=== PATIENT | male | born 1975 | race Caucasian/White ===

== ENCOUNTER 2019-05-09 20:24 | Emergency (ER) | payer OTHER, SELFPAY ==
--- NOTE | ~2019-05-09 | CT_ITS ---
EXAMINATION: CT abdomen pelvis w con EXAM DATE: 05/09/2019 22:22 INDICATION: Diffuse abdominal pain, history of Crohn's disease. TECHNIQUE: Spiral CT of the abdomen and pelvis was performed following intravenous injection of 100 m L Omnipaque 350. Axial, coronal and sagittal images were reviewed. The dose-length product (DLP) fo r this examination was 1339.87 mGy-cm. The exposure was tailored according to patient size (auto mA exposure control), and iterative reconstruction (ASIR) was used as additional dose reduction techniqu e. Comparison is made to prior examination from 01/29/2009. FINDINGS: The liver, spleen, adrenal glands and pancreas are unremarkable. Gallbladder is unremarkab le. No biliary obstruction. Portal and splenic veins are patent. Kidneys enhance symmetrically. T here is no hydronephrosis. The prostate is unremarkable. The bladder is unremarkable. There is no retroperitoneal or pelvic lymphadenopathy. The appendix is normal. Abnormal terminal ileum with moderate wall thickening, edema, relatively nor mal-appearing segment and then another shorter ileal segment wall edema. Moderately distended ileum w ithout transition point, normal jejunum. Appearance is consistent with Crohn's disease. Small amount of free pelvic fluid without organized fluid collection. There is expected amount of colonic stool. No free intraperitoneal gas. The heart is normal in size. There are no pericardial or pleural eff usions. The lung bases are unremarkable. There are no osteoblastic or osteolytic lesions identified . IMPRESSION: 1. Terminal ileitis, consistent with Crohn's disease. 2. Small free pelvic fluid. No organized abscess. Reviewed, dictated and finalized at location A.
[2019-05-09 20:32] VITALS: BP 127/65; PULSE 81; RESP 22; TEMP 37.2; O2SAT 99
[2019-05-09 20:45] LABS: Basophils Percent Auto 0.3 % (0.2-1.2); Eosinophils Percent Auto 0.2 % (0-4.4); Hematocrit 46.8 % (42.0-52.0); Hemoglobin 15.5 g/dL (14.0-18.0); Immature Granulocyte Absolute 0.03 K/mm3 (0.00-0.031); Immature Granulocyte Percent A 0.2 % (0-0.5); Lymphocytes Absolute Auto 0.87 K/mm3 (0.9-3.2); Lymphocytes Percent Auto 6.2 % (18.3-44.2); Mean Corpuscular HGB Conc 33.1 g/dl (32-36); Mean Corpuscular Hemoglobin 29.1 pg (26-34); Mean Corpuscular Volume 87.8 fl (80-100); Neutrophils Absolute Auto 12.1 K/mm3 (1.3-6.7); Neutrophils Percent Auto 86.1 % (45.5-73.1); Platelet Count Result 275 k/mm3 (150-375); Red Blood Count 5.33 M/mm3 (4.6-6.20); Red Cell Distribution Width 13.3 % (11.5-14.5); White Blood Count 14.1 K/mm3 (4.5-10.0)
[2019-05-09 20:57] LABS: Alanine Aminotransferase 34 U/L (4-50); Albumin Level 4.3 g/dL (3.5-5.1); Alkaline Phosphatase 98 U/L (38-126); Aspartate Amino Transferase 24 U/L (17-59); Bilirubin,Total 0.9 mg/dL (0.2-1.3); Blood Urea Nitrogen 9 mg/dL (9-20); Calcium 9.4 mg/dL (8.4-10.2); Carbon Dioxide 27 mmol/L (22-30); Chloride 99 mmol/L (98-107); Estimated CRCL calculation 93 ml/min; Estimated Glomerular Filt Rate > 60; Glucose 117 mg/dL (75-110); Lipase 18 U/L (23-300); Potassium 4.1 mmol/L (3.4-5.0); Sodium 134 mmol/L (137-145)
[2019-05-09 21:18] VITALS: BP 145/78; PULSE 98; RESP 18; TEMP 37.1; O2SAT 98
--- NOTE | 2019-05-09 21:22 | ED.ABDPAIN ---
HPI - Abdominal Pain General Chief Complaint: Abdominal Pain Stated Complaint: crohn's flare up Time Seen by Provider: 05/09/19 21:13 Source: patient and RN notes reviewed Mode of arrival: ambulatory Limitations: no limitations History of Present Illness HPI narrative: Pt is a 43 y/o male with a Hx of Crohn's disease, who presents to the ED with c/o worsening diffuse ABD pain starting 2 days ago. He notes that he has a Hx of several Crohn's flare-ups per year, and states that his current symptoms feel similar to previous flare-ups. Pt notes that he developed diffuse ABD pain on Thursday, and states that he began having watery stools yesterday. He reports a low-grade fever of 100.7 degrees and one episode of emesis as of earlier today, but denies any rectal bleeding. Pt states that he currently follows with field marketing representative, Dr. Conteh. He notes that he received a Remicade injection for his symptoms earlier today. MD elicited complaint: abdominal pain Pertinent past history: other (Crohn's disease) Onset (ago): day(s) (2) Pain Consistency: other (worsening) Location: diffuse Context: confirms history of similar episodes Associated symptoms: vomiting, diarrhea and fever (low-grade) Related Data Allergies Allergy/AdvReac Type Severity Reaction Status Date / Time No Known Allergies Allergy Verified 05/09/19 21:22 Review of Systems Review of Systems: All systems reviewed & are unremarkable except as noted in HPI and below Constitutional: Constitutional: Reports fever(s) (low-grade) Gastrointestinal: Gastrointestinal: Reports abdominal pain (diffuse ABD pain), Denies hematochezia, Reports diarrhea and Reports vomiting PMFSH Past Medical History Medical History Arthritis Back pain Crohn's disease Surgical History Surgical History No significant past surgical history Social History Social History Smoking status: Current every day smoker Exam Narrative: Exam Narrative: GENERAL: Uncomfortable-appearing, well-nourished, and in no acute distress. HEAD: Normocephalic, atraumatic. ENT: Mucous membranes moist. NECK: Supple. CHEST: Clear to auscultation. No respiratory distress. HEART: Regular rate and rhythm. Normal peripheral pulses. ABDOMEN: Soft, mild diffuse tenderness w/o guarding, nondistended, normal active bowel sounds. EXTREMITIES: Normal range of motion. No edema. SKIN: Warm, dry, no rash. NEURO: Alert and oriented x3. Course Course Emergency Course: Improvement in pain with morphine and Bentyl. Will re-dose pain medication prior to discharge. Informed of results. Took oral prednisone is here and will start him on a burst outpatient. Needs to follow-up with his field marketing representative. Vital Signs Vital signs: Vital Signs Temperature 98.9 F 05/09/19 20:32 Pulse Rate 81 05/09/19 20:32 Respiratory Rate 22 H 05/09/19 20:32 Blood Pressure 127/65 05/09/19 20:32 Pulse Oximetry 99 05/09/19 20:32 Temperature 98.8 F 05/09/19 22:06 Pulse Rate 98 05/09/19 21:18 Respiratory Rate 18 05/09/19 21:18 Blood Pressure 145/78 H 05/09/19 21:18 Pulse Oximetry 98 05/09/19 21:18 MDM - Abdominal Pain Lab Data Result diagrams: 05/09/19 20:35 05/09/19 20:35 Labs: Lab Results 05/09/19 05/09/19 05/09/19 Range/Units 20:35 20:35 21:19 WBC 14.1 H (4.5-10.0) K/mm3 RBC 5.33 (4.6-6.20) M/mm3 Hgb 15.5 (14.0-18.0) g/dL Hct 46.8 (42.0-52.0) % MCV 87.8 (80-100) fl MCH 29.1 (26-34) pg MCHC 33.1 (32-36) g/dl RDW 13.3 (11.5-14.5) % Plt Count 275 (150-375) k/mm3 MPV 11.0 H (7.4-10.4) fl Immature Gran % (Auto) 0.2 (0-0.5) % Neut % (Auto) 86.1 H (45.5-73.1) % Lymph % (Auto) 6.2 L (18.3-44.2) % Storey % (Auto) 7.0 (2.6-8.5) % Eos % (Auto) 0.2 (0-4.4) % Bas
[2019-05-09] MEDS: ONDANSETRON INJ 4 MG/2 ML VIAL IV PUSH (21:36)
[2019-05-09] MEDS: MORPHINE SULFATE 4 MG/ML INJ IV PUSH ×2 (21:36→23:50)
[2019-05-09 21:37] LABS: Add Urine Microscopic? YES; Appearance Urine Clear (Clear); Bacteria Urine Trace /hpf; Bilirubin Urine Negative (Negative); Blood Urine 1+ (Negative); Color Urine Yellow (Yellow); Glucose Urine UA Negative (Negative); Ketones Urine Trace mg/dL (Negative); Leukocyte Esterase Ur Trace LEU/UL (Negative); Mucus Urine Moderate /lpf; Nitrate Urine Negative (Negative); Protein Urine 1+ mg/dL (Negative); Squamous Epithelial Cell Urine Rare /hpf (Few); Urobilinogen Urine Negative mg/dL (<2.0)
[2019-05-09] MEDS: DICYCLOMINE HCL INJ 20 MG/2 ML VIAL IM (21:39)
[2019-05-09 22:06] VITALS: TEMP 37.1
[2019-05-09 22:41] VITALS: BP 140/67; PULSE 81; RESP 16; O2SAT 99
[2019-05-09] MEDS: predniSONE 40 MG, predniSONE 10 MG 50 MG PO (23:07)
[2019-05-09 23:54] VITALS: BP 143/78; PULSE 80; RESP 16; TEMP 36.6; O2SAT 99
[2019-05-10 00:20] VITALS: TEMP 37.1
[2019-05-10 00:21] VITALS: BP 141/61; PULSE 76; RESP 16; TEMP 37.1; O2SAT 97
== END 2019-05-10 00:23 | disposition home or self-care (01) ==
PROVIDERS: Emergency Medicine; Emergency Provider Emergency Medicine
DX: K50.00 Crohn's disease of small intestine without complications (principal); M19.90 Unspecified osteoarthritis, unspecified site
CPT/HCPCS: 36415; 74177; 80053; 81001; 83690; 85025; 87086; 87088; 96372; 96374; 96375; 96376; 99284; J0500; J2270; J2405; J7512; Q9967

== ENCOUNTER 2019-07-14 18:20 | Emergency (ER) | payer OTHER, SELFPAY ==
--- NOTE | ~2019-07-14 | XR_ITS ---
EXAMINATION: XR chest 2V EXAM DATE: 07/14/2019 18:56 INDICATION: Fever, muscle aches, weakness. TECHNIQUE: Frontal and lateral projections of the chest obtained and reviewed. Comparison is made to prior examination from 06/01/2018. FINDINGS: The lungs are clear. There are no pleural effusions. The cardiomediastinal silhouette is within normal limits. There is no pneumothorax suspected. The bones and soft tissues are unremarkab le. IMPRESSION: No acute cardiopulmonary findings. Reviewed, dictated and finalized at location A.
[2019-07-14 18:30] VITALS: BP 135/85; PULSE 92; RESP 16; TEMP 38.3; O2SAT 97
--- NOTE | 2019-07-14 18:55 | ED.URI ---
HPI - URI/Sore Throat General Chief Complaint: Upper Respiratory Infection Stated Complaint: fever/body aches/weakness Time Seen by Provider: 07/14/19 18:35 Source: patient Mode of arrival: ambulatory Limitations: no limitations History of Present Illness HPI Narrative: Jaswinder Pena is a 43 yo male with a PMH of Crohns disease, who comes to [facility] with sore throat, fever, muscle aches that started yesterday. She is a former smoker. He has some immunocompromise due to Remicade given for Crohn's disease; received Remicade 2 weeks ago. 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 Does not know anyone that is been ill Related Data Home Medications Medication Instructions Recorded Confirmed infliximab [Remicade] 100 mg IV WEEKLY 07/14/19 07/14/19 Allergies Allergy/AdvReac Type Severity Reaction Status Date / Time No Known Allergies Allergy Verified 07/14/19 18:38 Review of Systems Review of Systems: Narrative: CONSTITUTIONAL: has fever, chills, sweats. Myalgia EYES: Denies visual changes, redness, discharge. ENT: Denies rhinorrhea, congestion, has sore throat, no otalgia. CARDIOVASCULAR: Denies chest pain, palpitations, edema. RESPIRATORY: Denies dyspnea, wheezing, cough GASTROINTESTINAL: Denies abdominal pain, nausea, vomiting, diarrhea. GENITOURINARY: Denies dysuria, hematuria, abnormal discharge SKIN: Denies rash or itching. NEUROLOGIC: Denies numbness, or focal weakness. PSYCHIATRIC: Denies anxiety or depression. [facility] Past Medical History Medical History Arthritis Back pain Crohn's disease Surgical History Surgical History No significant past surgical history Family History Family History (Updated 07/14/19 @ 18:59 by Abby Sanders CNP) Other Psoriasis Social History Social History Smoking status: Current every day smoker Alcohol intake: current Gender identity (if verbalized by the patient): Male Comments At time of signature, I agree with nursing past medical, surgical, social and family history. There is no relevant family history pertinent to the presenting complaint. Exam Narrative: Exam Narrative: GENERAL: This is a well-nourished, well-developed patient, in moderate distress. Febrile HEAD: normocephalic, atraumatic. EYES: Sclera clear/white. Vision is grossly intact. EARS: External ears normal, . Hearing grossly intact. NOSE: External nose normal without nasal discharge, nares without redness, no rhinorrhea. THROAT: Mucous membranes moist, posterior pharynx erythema NECK: Neck supple, CARDIOVASCULAR: Regular rate and rhythm without murmurs, gallops, or rubs. RESPIRATORY: Coarse to auscultation. Breath sounds equal bilaterally. No wheezes, rales, or rhonchi. GASTROINTESTINAL: Abdomen soft, SKIN: warm, intact with no suspicious lesions or rash, good texture and turgor. NEURO: awake, alert, and oriented to person, place and time. There were no obvious focal neurologic abnormalities. Steady gait EXTREMITIES: Normal range of motion. BACK: Nontender without deformity Course Course Emergency Course: Flu swab and strep swab done-negative Chest [id number] for acute pathology Patient is using antipyretics, drinking fluids Vital Signs Vital signs: Vital Signs Temperature 101.0 F H 07/14/19 18:30 Pulse Rate 92 07/14/19 18:30 Respiratory Rate 16 07/14/19 18:30 Blood Pressure 135/85 07/14/19 18:30 Pulse Oximetry 97 07/14/19 18:30 Temperature 101.0 F H 07/14/19 18:30 Pulse Rate 92 07/14/19 18:30 Respiratory Rate 16 07/14/19 18:30 Blood Pressure 135/85 07/14/19 18:30 Pulse Oximetry 97 07/14/19 18:30 MDM - URI/Sore Throat Lab Data Labs: Influenza A Screen Negative Reference Range: Negative Influe
== END 2019-07-14 19:11 | disposition home or self-care (01) ==
PROVIDERS: Emergency Provider Nurse Practitioner
DX: J06.9 Acute upper respiratory infection, unspecified (principal); R50.81 Fever presenting with conditions classified elsewhere; K50.90 Crohn's disease, unspecified, without complications; F17.200 Nicotine dependence, unspecified, uncomplicated; Z20.828 Contact with and (suspected) exposure to other viral communicable diseases
CPT/HCPCS: 71046; 87081; 87804; 87880; 99213; G0463

== ENCOUNTER 2019-07-15 08:13 | Outpatient (NON) | payer OTHER, SELFPAY | END 2019-07-15 08:14 | PROVIDERS: Visit Provider Nurse Practitioner | DX: R50.9 Fever, unspecified (principal); M79.10 Myalgia, unspecified site; J06.9 Acute upper respiratory infection, unspecified; Z53.8 Procedure and treatment not carried out for other reasons | CPT/HCPCS: 87635; C9803; U0003 ==

== ENCOUNTER 2020-04-10 11:50 | Emergency (ER) | payer OTHER, SELFPAY ==
--- NOTE | ~2020-04-10 | XR_ITS ---
XR knee RT 3V 04/10/2020 12:41 Indication: Right knee pain and swelling Procedure: 3 views right knee Comparison: No prior studies for comparison. Findings: Small joint effusion. Mild osteoarthritis of the patellofemoral compartment. No acute fract ure or traumatic malalignment. Impression: 1: No acute fracture. 2: Small joint effusion. Reviewed, dictated and finalized at location B. CAL DEVICE SALES CONSULTANT Impression: 1: No acute fracture. 2: Small joint effusion.
[2020-04-10 11:57] VITALS: BP 156/83; PULSE 86; RESP 16; TEMP 37.1; O2SAT 99
[2020-04-10] MEDS: KETOROLAC 30 MG/ML VIAL (*BKC) IM (12:52)
--- NOTE | 2020-04-10 15:01 | ED.GENADULT ---
HPI - General Adult General Chief complaint: Extremity Injury, Lower <Nikia Felipe PA-C - Last Filed: 04/10/20 15:10> Stated complaint: knee swelling and pain <SLIME Bear Last Filed: 04/10/20 15:10> Time Seen by Provider: 04/10/20 12:09 <Nikia Felipe PA-C - Last Filed: 04/10/20 15:10> Source: patient <SLIME Bear Last Filed: 04/10/20 15:10> Mode of arrival: ambulatory <SLIME Bear Last Filed: 04/10/20 15:10> Limitations: no limitations <SLIME Bear Last Filed: 04/10/20 15:10> History of Present Illness HPI narrative: Patient presents with chief complaint of right knee pain that has been occurring for the past 2 weeks but has worsened over the past few days. Patient denies known injury. Patient states that he does not have pain with weightbearing on the leg but he does have pain with flexion and extension of the knee. He reports pain to the lateral superior aspect of the knee. no fever, chills, or other symptoms. <Nikia Felipe PA-C - Last Filed: 04/10/20 15:10> Related Data Home medications: Home Medications Medication Instructions Recorded Confirmed infliximab [Remicade] 100 mg IV WEEKLY 07/14/19 07/14/19 <Nikia Felipe PA-C - Last Filed: 04/10/20 15:10> Allergies/adverse reactions: Allergies Allergy/AdvReac Type Severity Reaction Status Date / Time No Known Allergies Allergy Verified 04/10/20 12:01 <Nikia Felipe PA-C - Last Filed: 04/10/20 15:10> Review of Systems Review of Systems: Narrative: CONSTITUTIONAL: Denies fever, chills, or sweats. EYES: Denies visual changes, redness, or discharge. ENT: Denies rhinorrhea, congestion, sore throat, or otalgia. CARDIOVASCULAR: Denies chest pain, palpitations, or edema. RESPIRATORY: Denies cough or dyspnea. GASTROINTESTINAL: Denies abdominal pain, nausea, vomiting, or diarrhea. GENITOURINARY: Denies dysuria or hematuria. SKIN: Denies rash or itching. MUSCULOSKELETAL: Reports right knee pain Denies back pain, myalgia, or joint pain NEUROLOGIC: Denies headache, numbness, dizziness, or weakness. PSYCHIATRIC: Denies anxiety or depression. <Nikia Felipe PA-C - Last Filed: 04/10/20 15:10> PMFSH Past Medical History Medical History: Medical History (Updated 04/10/20 @ 13:37 by Nikia Felipe PA-C) Arthritis Back pain Crohn's disease <Nikia Felipe PA-C - Last Filed: 04/10/20 15:10> Surgical History Surgical History: Surgical History No significant past surgical history <Nikia Felipe PA-C - Last Filed: 04/10/20 15:10> Family History Family History: Family History (Updated 07/14/19 @ 18:59 by Abby Sanders CNP) Other Psoriasis <Nikia Felipe PA-C - Last Filed: 04/10/20 15:10> Social History Social History: Social History Smoking status: Current every day smoker Alcohol intake: current Gender identity (if verbalized by the patient): Male <Nikia Felipe PA-C - Last Filed: 04/10/20 15:10> Exam Narrative: Exam Narrative: GENERAL: Well-appearing, well-nourished. HEAD: Normocephalic, atraumatic. EYES: PERRLA and EOMI. NECK: ROM intact. CHEST: Clear to auscultation. No respiratory distress. No wheezes rales or rhonchi HEART: Regular rate and rhythm. EXTREMITIES: Right knee: Limited flexion and extension due to pain. No significant laxity noted. tender to palpation to anterior lateral superior aspect of right knee. no anterior erythema or ecchymosis. SKIN: Warm, dry, no rash. NEURO: No focal deficits. Alert and oriented x3. PSYCH: Normal mood and affect. <Nikia Felipe PA-C - Last Filed: 04/10/20 15:10> Course Vital Signs Vital signs: Vital Signs Temperature 98.7 F 04/10/20 11:57 Pulse Rate 86 04/10/20 11:57 Respiratory Rate 16 04/10/20 11:57 Blood Pressure
== END 2020-04-10 13:57 | disposition home or self-care (01) ==
PROVIDERS: Emergency Provider General Practice
DX: M25.461 Effusion, right knee (principal); M19.90 Unspecified osteoarthritis, unspecified site; K50.90 Crohn's disease, unspecified, without complications; F17.200 Nicotine dependence, unspecified, uncomplicated
CPT/HCPCS: 73562; 96372; 99283; J1885

== ENCOUNTER → 2020-05-07 09:59 | Outpatient (CLI) | payer OTHER, SELFPAY ==
--- NOTE | ~2020-05-07 | MR_ITS ---
EXAMINATION: MR knee RT wo con DATE: 05/07/2020 11:04 INDICATION: Right knee pain. TECHNIQUE: Magnetic resonance imaging (MRI) of the right knee was performed without intravenous contr ast. Sequences included axial PD-weighted FS FSE, coronal PD-weighted FSE and PD-weighted FS FSE, sag ittal PD-weighted FSE, and sagittal T2-weighted FS FSE. COMPARISON: Right knee radiographs 04/24/2020 FINDINGS: Medial compartment: Medial meniscus is normal. Medial compartment cartilage is normal. Lateral compartment: Lateral meniscus is normal. Lateral compartment cartilage is normal. Patellofemoral compartment: There is cartilage surface regularity of patellar lateral facet. There is shallow partial-thickness c artilage loss of lateral trochlea. Ligaments and tendons: Anterior and posterior cruciate ligaments are normal. Medial collateral ligament and lateral collater al ligament complex are normal. There is moderate patellar tendinopathy. Fluid: There is a small knee joint effusion. There is trace fluid in a Alfaro's cyst. There is mild prepatell ar and superficial infrapatellar bursitis. Osseous/other: There is bone marrow edema in anterior patella, consistent with stress reaction. IMPRESSION: 1. Mild patellofemoral compartment chondrosis. 2. Small knee joint effusion. Reviewed, dictated and finalized at location A. ERCIAL LENDING RELATIONSHIP MANAGER
== END ==
PROVIDERS: Visit Provider Nurse Practitioner Family
DX: M25.461 Effusion, right knee (principal)
CPT/HCPCS: 73721

== ENCOUNTER 2020-06-26 12:56 | Emergency (ER) | payer OTHER, SELFPAY ==
--- NOTE | ~2020-06-26 | XR_ITS ---
EXAMINATION: XR hand LT min 3V EXAM DATE: 06/26/2020 13:55 INDICATION: No known recent injury provided at this time. Pain of the left hand. TECHNIQUE: Left hand frontal, lateral and oblique projections obtained and reviewed. There is no storm or study for comparison. FINDINGS: Left metacarpal bones are unremarkable. There are no acute fractures or dislocations ident ified. There is no subcutaneous gas. There may be diffuse soft tissue swelling over the hand. There are no bony erosions identified. There are no radiopaque foreign bodies. IMPRESSION: No acute osseous findings. Reviewed, dictated and finalized at location A. IMPRESSION: No acute osseous findings.
[2020-06-26 13:41] VITALS: BP 146/79; PULSE 78; RESP 18; TEMP 36.7; O2SAT 99
--- NOTE | 2020-06-26 14:19 | ED.EXTPRO ---
HPI - Extremity Problem General Chief complaint: Extremity Injury, Upper <Karin Rosas PA-C - Last Filed: 06/26/20 15:45> Stated complaint: hand swelling <Karin Rosas PA-C - Last Filed: 06/26/20 15:45> Time Seen by Provider: 06/26/20 13:54 <Karin Rosas PA-C - Last Filed: 06/26/20 15:45> Source: patient <Karin Rosas PA-C - Last Filed: 06/26/20 15:45> Mode of arrival: ambulatory <Karin Rosas PA-C - Last Filed: 06/26/20 15:45> Limitations: no limitations <Karin Rosas PA-C - Last Filed: 06/26/20 15:45> History of Present Illness HPI Narrative: This is a 44 year old male that presents to the ER for left hand pain x 1 week. Reports pain is mostly in the 2nd MCP joint. Worse with movement and relieved with rest. No known injury or trauma. Over the last couple of days he noted that the hand started to get swollen and is mildly red. Denies fevers. <Karin Rosas PA-C - Last Filed: 06/26/20 15:45> Related Data Allergies/Adverse reactions: Allergies Allergy/AdvReac Type Severity Reaction Status Date / Time No Known Allergies Allergy Verified 06/26/20 13:43 <Karin Rosas PA-C - Last Filed: 06/26/20 15:45> Review of Systems Review of Systems: Narrative: CONSTITUTIONAL: Denies fever SKIN: Denies rash MUSCULOSKELETAL: Reports joint pain, and myalgia. NEUROLOGIC: Denies numbness <Karin Rosas PA-C - Last Filed: 06/26/20 15:45> All systems reviewed & are unremarkable except as noted in HPI and below <Karin Rosas PA-C - Last Filed: 06/26/20 15:45> PMFSH Past Medical History Medical History: Medical History (Updated 06/26/20 @ 15:43 by Karin Rosas PA-C) Abdominal pain Arthritis Back pain Crohn's disease Lateral meniscus tear Rheumatoid arthritis Right knee pain Strain of quadriceps tendon <Karin Rosas PA-C - Last Filed: 06/26/20 15:45> Surgical History Surgical History: Surgical History No significant past surgical history <Karin Rosas PA-C - Last Filed: 06/26/20 15:45> Family History Family History: Family History (Updated 04/24/20 @ 12:16 by Waleska Booth RT(R)) Other Arthritis Asthma Cancer Diabetes mellitus Hypertension Neuropathy Psoriasis <Karin Rosas PA-C - Last Filed: 06/26/20 15:45> Social History Social History: Social History (Updated 04/24/20 @ 12:55 by Waleska Booth RT(R)) Smoking packs per day: 1 Smoking cigarettes per day: 20.0 Years smoked: 20 Smoking pack-years: 20.00 Smoking status: Current every day smoker Alcohol intake: current Substance use: never Substance use type: does not use Gender identity (if verbalized by the patient): Male <Karin Rosas PA-C - Last Filed: 06/26/20 15:45> Exam Narrative: Exam Narrative: GENERAL: Well-appearing, well-nourished, and in no acute distress. HEAD: Normocephalic, atraumatic. EYES: EOMI. CHEST: Clear to auscultation. No respiratory distress. No wheezes rales or rhonchi HEART: Regular rate and rhythm. No murmur heard. Normal peripheral pulses. EXTREMITIES: Normal range of motion, except decreased range of motion in the left second finger. Mild to moderate edema to the left hand with very mild overlying redness. Tender to palpation of the MCP joint. Normal radial pulses. Normal sensation SKIN: Warm, dry, no rash. NEURO: No focal deficits. Alert and oriented x3. PSYCH: Normal mood and affect <Karin Rosas PA-C - Last Filed: 06/26/20 15:45> Course ENGINE ROOM HELPER/PA Physician Supervision For this patient encounter, I reviewed the ENGINE ROOM HELPER or PA documentation, treatment plan, and medical decision making; and I had [id number] time with this patient. <Yudi López MD - Last Filed: 06/26/20 15:40> Consultations Consultation #1: Spoke with Dr. James about patient and workup. Agrees with treatment for gout fl
[2020-06-26 14:27] LABS: Basophils Absolute Auto 0.1 K/mm3 (0.0-0.1); Basophils Percent Auto 0.4 % (0.2-1.2); Eosinophils Absolute Auto 0.2 K/mm3 (0-0.3); Hematocrit 39.1 % (42.0-52.0); Hemoglobin 12.8 g/dL (14.0-18.0); Immature Granulocyte Absolute 0.04 K/mm3 (0.00-0.031); Immature Granulocyte Percent A 0.4 % (0-0.5); Lymphocytes Absolute Auto 1.69 K/mm3 (0.9-3.2); Lymphocytes Percent Auto 14.9 % (18.3-44.2); Mean Corpuscular HGB Conc 32.7 g/dl (32-36); Mean Corpuscular Hemoglobin 27.9 pg (26-34); Mean Corpuscular Volume 85.2 fl (80-100); Mean Platelet Volume 10.5 fl (7.4-10.4); Monocytes Absolute Auto 0.7 K/mm3 (0.1-0.6); Monocytes Percent Auto 6.2 % (2.6-8.5); Neutrophils Absolute Auto 8.7 K/mm3 (1.3-6.7); Neutrophils Percent Auto 76.1 % (45.5-73.1); Platelet Count Result 291 k/mm3 (150-375); Red Blood Count 4.59 M/mm3 (4.6-6.20); Red Cell Distribution Width 14.2 % (11.5-14.5); White Blood Count 11.4 K/mm3 (4.5-10.0)
[2020-06-26 14:46] LABS: Anion Gap 7 mmol/L (8-16); Blood Urea Nitrogen 12 mg/dL (9-20); CRP 3.8 mg/dL (<1.0); Calcium 8.9 mg/dL (8.4-10.2); Carbon Dioxide 24 mmol/L (22-30); Chloride 109 mmol/L (98-107); Estimated CRCL calculation 114 ml/min; Estimated Glomerular Filt Rate > 60; Glucose 85 mg/dL (75-110); Potassium 4.5 mmol/L (3.4-5.0); Sodium 140 mmol/L (137-145); Uric Acid 6.9 mg/dL (3.5-8.5)
[2020-06-26 14:52] LABS: Erythrocyte Sedimentation Rate 30 mm/hr (0-20)
[2020-06-26] MEDS: COLCHICINE 0.6 MG TABLET 1.2 MG PO (15:43)
== END 2020-06-26 15:56 | disposition home or self-care (01) ==
PROVIDERS: Physician Assistant; Emergency Provider Emergency Medicine
DX: M10.9 Gout, unspecified (principal); M19.90 Unspecified osteoarthritis, unspecified site; K50.90 Crohn's disease, unspecified, without complications; M06.9 Rheumatoid arthritis, unspecified; F17.210 Nicotine dependence, cigarettes, uncomplicated
CPT/HCPCS: 36415; 73130; 80048; 84550; 85025; 85652; 86140; 99283; A9270

== ENCOUNTER 2021-01-27 20:00 | Observation (INO) | payer OTHER, SELFPAY ==
--- NOTE | ~2021-01-27 | CT_ITS ---
EXAMINATION: CT abdomen pelvis w con EXAM DATE: 01/27/2021 22:57 INDICATION: Epigastric pain. History Crohn's disease. TECHNIQUE: Spiral CT of the abdomen and pelvis was performed following intravenous injection of 100 m L Omnipaque 350. Axial, coronal and sagittal images of the abdomen and pelvis were reviewed. The do se-length product (DLP) for this examination was 1261.79 mGy-cm. The exposure was tailored according to patient size (auto mA exposure control), and iterative reconstruction (ASIR) was used as addition al dose reduction technique. Comparison is made to prior examination from 05/09/2019. FINDINGS: There is terminal ileitis with moderately edematous, inflamed terminal ileum and distal asp ect of the ileum. There is also fatty infiltration of the cecal wall, which can be seen with chronic inflammation. Patient had what is likely the same process April of last year correlating with CT scan from that time, but findings are more pronounced today. Consider inflammatory bowel disease as most likely etiology. There is mesenteric lymphadenopathy, mildly enlarged mesenteric lymph nodes in the mesentery of the a ffected small bowel, probably reactive. No retroperitoneal lymphadenopathy. The liver, spleen, adrena l glands and pancreas are unremarkable. Gallbladder is unremarkable. No biliary obstruction. Kianna l and splenic veins are patent. Kidneys enhance symmetrically. There is no hydronephrosis. There is punctate 2 mm left mid calyceal stone. The prostate is unremarkable. The bladder is unremarkable. Small umbilical and left inguinal fat-containing hernias. There are no findings to suggest appendicitis. There is expected amount of colonic stool. No free intraperitoneal gas. The heart is normal in size. There are no pericardial or pleural effusions. There is right lower lobe granuloma with central coarse calcification measuring 1.2 cm unchanged The re are no osteoblastic or osteolytic lesions identified. IMPRESSION: 1. Recurrent terminal ileitis, appearance suggests underlying inflammatory bowel disease. 2. Mesenteric lymphadenopathy probably reactive. 3. Punctate left nephrolithiasis. 4. Right lower lobe granuloma. Reviewed, dictated and finalized at location A. MACHINE OPERATOR IMPRESSION: 1. Recurrent terminal ileitis, appearance suggests underlying inflammatory bow el disease. 2. Mesenteric lymphadenopathy probably reactive. 3. Punctate left nephrolithiasis. 4. Right lower lobe granuloma.
[2021-01-27 20:11] VITALS: BP 123/83; PULSE 103; RESP 18; TEMP 36.3; O2SAT 98
--- NOTE | 2021-01-27 22:26 | ED.GENADULT ---
HPI - General Adult General Chief complaint: Abdominal Pain Stated complaint: abd pain Time Seen by Provider: 01/27/21 21:59 History of Present Illness HPI narrative: Patient is a 45-year-old male who presents ER with abdominal pain. Ongoing over the last day. Has history of Crohn's disease currently does not see a GI physician. He has been referred to [address] [facility]. Reports he did have a bowel movement today. No diarrhea. No blood in stool. He reports some nausea but no vomiting. Patient reports bloating and pain in epigastrium. No alleviating factors at home. Related Data Allergies Allergy/AdvReac Type Severity Reaction Status Date / Time No Known Allergies Allergy Verified 01/27/21 21:59 Review of Systems Review of Systems: All systems reviewed & are unremarkable except as noted in HPI and below Constitutional: Constitutional: Denies chills, Denies fever(s) and Denies weakness ENT: Denies nasal congestion and Denies sore throat Cardiovascular: Cardiovascular: Denies chest pain and Denies radiating jaw, neck or arm pain Gastrointestinal: Gastrointestinal: Reports abdominal pain, Reports bloating, Denies constipation, Denies diarrhea, Reports nausea and Denies vomiting Genitourinary: Genitourinary: Denies hematuria, Denies dysuria and Denies urinary frequency PMFSH Past Medical History Medical History (Updated 01/28/21 @ 00:04 by Marc Murphy MD) Abdominal pain Arthritis Back pain Crohn's disease Lateral meniscus tear Rheumatoid arthritis Right knee pain Strain of quadriceps tendon Surgical History Surgical History No significant past surgical history Family History Family History (Updated 04/24/20 @ 12:16 by Waleska Booth, RT(R)) Other Arthritis Asthma Cancer Diabetes mellitus Hypertension Neuropathy Psoriasis Social History Social History (Updated 04/24/20 @ 12:55 by Waleska Booth RT(R)) Smoking packs per day: 1 Smoking cigarettes per day: 20.0 Years smoked: 20 Smoking pack-years: 20.00 Smoking status: Current every day smoker Alcohol intake: current Alcohol use details: 4 per month Substance use: never Substance use type: does not use Gender identity (if verbalized by the patient): Male Exam Narrative: GENERAL: Well-appearing, well-nourished, and in no acute distress. HEAD: Normocephalic, atraumatic. CHEST: Clear to auscultation. No respiratory distress. HEART: Regular rate and rhythm. Normal peripheral pulses. ABDOMEN: Soft, nontender, nondistended. EXTREMITIES: Normal range of motion. No edema. SKIN: Warm, dry, no rash. NEURO: Alert and oriented x3. PSYCH: Normal mood and affect. Course Course Emergency Course: Discussed case with GI. Recommend scheduled Solu-Medrol 40 mg every 6 hours. Admit to hospitalist for observation. Vital Signs Vital signs: Vital Signs Temperature 97.4 F L 01/27/21 20:11 Pulse Rate 103 H 01/27/21 20:11 Respiratory Rate 18 01/27/21 20:11 Blood Pressure 123/83 01/27/21 20:11 Pulse Oximetry 98 01/27/21 20:11 Temperature 97.4 F L 01/27/21 20:11 Pulse Rate 97 01/27/21 23:20 Respiratory Rate 16 01/27/21 23:20 Blood Pressure 120/80 01/27/21 23:20 Pulse Oximetry 99 01/27/21 23:20 Medical Decision Making Vital Signs Vital Signs: Vital Signs Temperature 97.4 F L 01/27/21 20:11 Pulse Rate 103 H 01/27/21 20:11 Respiratory Rate 18 01/27/21 20:11 Blood Pressure 123/83 01/27/21 20:11 Pulse Oximetry 98 01/27/21 20:11 Temperature 97.4 F L 01/27/21 20:11 Pulse Rate 97 01/27/21 23:20 Respiratory Rate 16 01/27/21 23:20 Blood Pressure 120/80 01/27/21 23:20 Pulse Oximetry 99 01/27/21 23:20 Lab Data Result diagrams: 01/27/21 22:28 01/27/21 22:28 Labs: Lab Results 01/27/21 01/27/21 Range/Units 22:28 22:28 WBC 13.3 H (4.5-10.0) K/mm3 RBC 4.93 (
[2021-01-27] MEDS: MORPHINE SULFATE (*CRX) 4 MG/ML INJ IV PUSH (22:27)
[2021-01-27] MEDS: SODIUM CHLORIDE 0.9% IV 1,000 ML 999 ML IV CONT (22:27)
[2021-01-27 22:36] LABS: Basophils Absolute Auto 0.1 K/mm3 (0.0-0.1); Basophils Percent Auto 0.5 % (0.2-1.2); Eosinophils Absolute Auto 0.1 K/mm3 (0-0.3); Eosinophils Percent Auto 0.8 % (0-4.4); Hematocrit 39.1 % (42.0-52.0); Hemoglobin 12.5 g/dL (14.0-18.0); Immature Granulocyte Absolute 0.04 K/mm3 (0.00-0.031); Immature Granulocyte Percent A 0.3 % (0-0.5); Lymphocytes Percent Auto 11.3 % (18.3-44.2); Mean Corpuscular Hemoglobin 25.4 pg (26-34); Mean Corpuscular Volume 79.3 fl (80-100); Monocytes Absolute Auto 0.7 K/mm3 (0.1-0.6); Monocytes Percent Auto 5.1 % (2.6-8.5); Neutrophils Absolute Auto 10.9 K/mm3 (1.3-6.7); Platelet Count Result 399 k/mm3 (150-375); Red Blood Count 4.93 M/mm3 (4.6-6.20); White Blood Count 13.3 K/mm3 (4.5-10.0)
[2021-01-27 22:46] LABS: Alanine Aminotransferase 25 U/L (4-50); Albumin Level 4.4 g/dL (3.5-5.1); Alkaline Phosphatase 149 U/L (38-126); Anion Gap 11 mmol/L (8-16); Aspartate Amino Transferase 21 U/L (17-59); Bilirubin,Total 0.6 mg/dL (0.2-1.3); Blood Urea Nitrogen 12 mg/dL (9-20); Calcium 9.7 mg/dL (8.4-10.2); Carbon Dioxide 27 mmol/L (22-30); Chloride 98 mmol/L (98-107); Estimated CRCL calculation 93 ml/min; Estimated Glomerular Filt Rate > 60; Glucose 108 mg/dL (65-110); Lipase 37 U/L (23-300); Potassium 4.1 mmol/L (3.4-5.0); Sodium 136 mmol/L (137-145)
[2021-01-27 23:20] VITALS: BP 120/80; PULSE 97; RESP 16; O2SAT 99
[2021-01-28] MEDS: methylPREDNISolone SOD SUCC 40 MG VIAL IV PUSH ×3 (00:15→12:59)
--- NOTE | 2021-01-28 00:55 | PM.IMHP ---
H&P: HPI History of Present Illness Date/Time: 01/28/21 00:55 Chief Complaint: Abdominal pain Narrative: This is a 45-year-old male with past medical history significant for Crohn's disease, rheumatoid arthritis, back pain, patient had been fairly well controlled with Remicade for 4 years with occasional flare up however due to insurance lost access to Remicade he is currently awaiting appointment at [facility] with GI specialist in the meantime patient has had no follow-up since last June has been managing on his own had a bout of diarrhea last week and now presented emergency room due to diffuse abdominal pain he denies any fevers but states that he is having cold sweats pain is colicky is periumbilical radiating to right flank no nausea or vomiting he has been taking ibuprofen to help, no phlegm or blood in the stool,no buccal lesions, his appetite has been poor. Preliminary workup has been significant for CT of abdomen and pelvis with colitis. Patient has been admitted for further management evaluation and treatment. Review of Systems Review of Systems: Abdominal pain, poor appetite, cold sweats. Constitutional: Constitutional: Reports chills, Reports excessive sweating, Denies fatigue, Denies fever(s), Denies lethargy, Denies malaise and Denies weakness Eyes: Eyes: Denies change in vision ENT: Denies dysphagia, Denies vertigo, Denies dizziness, Denies nasal congestion, Denies nasal discharge, Denies nasal obstruction and Denies odynophagia Cardiovascular: Cardiovascular: Denies leg ulcers, Denies leg edema, Denies lightheadedness, Denies radiating jaw, neck or arm pain, Denies palpitations, Denies dyspnea on exertion and Denies orthopnea Respiratory: Respiratory: Denies cough and Denies dyspnea Gastrointestinal: Gastrointestinal: Reports abdominal pain, Denies melena, Denies hematochezia, Denies change in bowel habits, Denies change in stool character, Reports GI cramping, Denies dyspepsia, Denies heartburn, Reports diarrhea, Denies nausea and Denies vomiting Genitourinary: Genitourinary: Denies dysuria Musculoskeletal: Musculoskeletal: Denies arthralgias and Denies joint swelling Integumentary/Breasts: Skin/Breast: Denies rash Neurologic: Denies focal weakness, Denies Sensory deficit (Neuro) and Denies paresthesias Psychiatric: Psychiatric: Reports no additional psychiatric complaints and Reports as per HPI Endocrine: Endocrine: Reports no additional endocrine complaints and Reports as per HPI Hematologic/Lymphatic: Hematologic/Lymphatic: Reports no additional hematologic/lymphatic complaints and Reports as per HPI Allergic/Immunologic: Allergic/Immunologic: Reports no additional allergic/immunologic complaints and Reports as per HPI PMFSH Past Medical History Medical History (Updated 01/28/21 @ 04:29 by Shobha Chappell MD) Abdominal pain Arthritis Back pain Crohn's disease Lateral meniscus tear Rheumatoid arthritis Right knee pain Strain of quadriceps tendon Surgical History Surgical History No significant past surgical history Family History Family History (Updated 04/24/20 @ 12:16 by Waleska Booth, RT(R)) Other Arthritis Asthma Cancer Diabetes mellitus Hypertension Neuropathy Psoriasis Social History Social History (Updated 04/24/20 @ 12:55 by Waleska Booth, RT(R)) Smoking packs per day: 1 Smoking cigarettes per day: 20.0 Years smoked: 20 Smoking pack-years: 20.00 Smoking status: Current every day smoker Alcohol intake: current Alcohol use details: 4 per month Substance use: never Substance use type: does not use Gender identity (if verbalized by the patient): Male Meds Home Medications and Allergies Home Medications Medication Instructions Recorded Confirmed Type colchicine 0.6 mg PO DAILY 7 Days #7 tablet 06/26/20 Rx indomethacin 50 mg PO TID 5 Days #15 cap 06/26/20 Rx Patrick
[2021-01-28] MEDS: metroNIDAZOLE 500 MG/ISO 100ML 500 MG/100 ML BAG 100 MG IVPB ×2 (04:41→12:59)
[2021-01-28] MEDS: MORPHINE SULFATE (*CRX) 4 MG/ML INJ IV PUSH (04:41)
[2021-01-28 05:10] VITALS: BP 122/74; PULSE 87; RESP 16; O2SAT 99
[2021-01-28 05:43] VITALS: BP 120/71; PULSE 67; RESP 18; TEMP 35.9; O2SAT 98
[2021-01-28] MEDS: SODIUM CHLORIDE 0.9% IV 1,000 ML 125 ML IV CONT (05:52)
[2021-01-28 05:56] VITALS: BMI 36.8
[2021-01-28 10:31] LABS: Basophils Percent Auto 0.2 % (0.2-1.2); Hematocrit 36.9 % (42.0-52.0); Hemoglobin 11.6 g/dL (14.0-18.0); Immature Granulocyte Absolute 0.04 K/mm3 (0.00-0.031); Immature Granulocyte Percent A 0.4 % (0-0.5); Lymphocytes Absolute Auto 0.68 K/mm3 (0.9-3.2); Lymphocytes Percent Auto 6.3 % (18.3-44.2); Mean Corpuscular HGB Conc 31.4 g/dl (32-36); Mean Corpuscular Hemoglobin 25.3 pg (26-34); Mean Corpuscular Volume 80.4 fl (80-100); Mean Platelet Volume 10.4 fl (7.4-10.4); Monocytes Absolute Auto 0.1 K/mm3 (0.1-0.6); Monocytes Percent Auto 0.7 % (2.6-8.5); Neutrophils Absolute Auto 9.9 K/mm3 (1.3-6.7); Neutrophils Percent Auto 92.4 % (45.5-73.1); Platelet Count Result 362 k/mm3 (150-375); Red Blood Count 4.59 M/mm3 (4.6-6.20); White Blood Count 10.7 K/mm3 (4.5-10.0)
[2021-01-28 10:48] LABS: Anion Gap 8 mmol/L (8-16); Blood Urea Nitrogen 13 mg/dL (9-20); CRP 7.3 mg/dL (<1.0); Calcium 9.2 mg/dL (8.4-10.2); Carbon Dioxide 25 mmol/L (22-30); Chloride 100 mmol/L (98-107); Estimated CRCL calculation 111 ml/min; Estimated Glomerular Filt Rate > 60; Glucose 136 mg/dL (65-110); Potassium 4.5 mmol/L (3.4-5.0); Sodium 133 mmol/L (137-145)
--- NOTE | 2021-01-28 13:59 | PM.IMPN ---
Progress Note: A&P Assessment and Plan (1) Crohn's colitis: Code(s): K50.10 - Crohn's disease of large intestine without complications Status: Acute Assessment and Plan: Patient is a 45-year-old man with a history of Crohn's who was on Remicade infusions but his insurance quit approving it in June of 2020. The patient has not been on any type of treatment for his Crohn's. He is trying to get in with a new GI specialist at [facility] and has an appointment scheduled February 11 2021. He states about 9 days ago he developed some abdominal pain, which felt like his normal Crohn's but it was not significant. Then the evening prior to coming in his pain became worse and there was no improvement at home so he came to the emergency room for further evaluation. Initial labs showed leukocytosis of 13,300, neutrophils 82%, microcytic anemia with a hemoglobin of 12, hematocrit 39%, slight hyponatremia at 136, creatinine slightly up at 1.1, BUN 12, slight elevation of alk-phos at 149, CRP elevated at 7.3. CT abdomen pelvis shows Recurrent terminal ileitis, appearance suggests underlying inflammatory bowel disease. Mesenteric lymphadenopathy probably reactive. The overnight radiology interpretation of the CT scan showed that he could have possibly had acute appendicitis based on where his inflammation was. The official read from our radiologist does not show appendicitis and just shows recurrent terminal ileitis. Which makes sense that after we have been giving the patient IV steroids his pain is now completely resolved. Patient was admitted to the hospital on IV Solu-Medrol, IV broad-spectrum antibiotics in the setting of acute Crohn's flare and possible appendicitis. I discussed with Dr. Aranda the on-call GI specialist can eat a soft diet as tolerated Will continue with IV steroids, then switch to oral prednisone taper I will also stop the IV antibiotics because I do not believe he has an acute infection or appendicitis. Will see how Dr. Aranda feels after evaluating him later this evening and if he is eating and drinking without any more pain patient may be able to go home with oral prednisone taper. (2) Back pain: Code(s): M54.9 - Dorsalgia, unspecified Status: Acute Assessment and Plan: Tylenol as needed (3) Rheumatoid arthritis: Code(s): M06.9 - Rheumatoid arthritis, unspecified Status: Inactive Assessment and Plan: Appears to be stable Time Spent With Patient Time with patient: 25 - 35 minutes Subjective Date/time seen: 01/28/21 13:59 Interval history: Date of service 01/28/2021: Patient reports feeling much better today with no pain at all, nausea or vomiting. He denies passing any bloody stool. Denies any fevers, chills, chest pain, shortness of breath, cough, diarrhea, leg swelling, calf pain, or any other symptoms at this time. Review of Systems Review of Systems: All systems reviewed & are unremarkable except as noted in HPI and below Exam Narrative: General: 45-year-old man laying flat in bed on his right side taking a nap. Easily arousable. Appears comfortable. In no acute distress. Skin: No jaundice or cyanosis. Good skin turgor. Neck: Full range of motion. Supple. Respiratory: Lungs are clear to auscultation bilaterally. No bony chest wall tenderness. Cardiovascular: The heart has a regular rate and rhythm without murmur. Lower extremities: No lower extremity edema. Distal pulses are easily palpated. No calf tenderness to palpation. Gastrointestinal: No significant tenderness to abdomen diffusely. The abdomen is otherwise soft, nondistended with active bowel sounds. Psychiatric: Lucid and oriented. Memory intact. Neurologic: No focal deficits. Speech is clear. No facial drooping. Objective Data Vital Signs Vital Signs: Vital Signs - 24 hr 01/27/21 20:11 01/27/21 23:20 01/28/21 05:
[2021-01-28 14:00] VITALS: BP 120/62; PULSE 62; RESP 17; TEMP 36.3; O2SAT 98
--- NOTE | 2021-01-28 16:00 | WPDGICN ---
Assessment and Plan Assessment and plan (1) Crohn's disease of ileum: Code(s): K50.00 - Crohn's disease of small intestine without complications Status: Acute Assessment and Plan: he is going home today, will need slow long steroid taper he will see GI doctor at [facility] in 2 weeks, most likely will need biologic again he is also schedule to have MRE as outpatient before seeing his new GI doctor (2) Lower abdominal pain: Code(s): R10.30 - Lower abdominal pain, unspecified Status: Acute Assessment and Plan: resolved (3) Nausea: Code(s): R11.0 - Nausea Status: Acute Assessment and Plan: resolved (4) Leukocytosis: Code(s): D72.829 - Elevated white blood cell count, unspecified Status: Acute GI Consult Note Consult date/time: 01/28/21 16:00 Reason for consult: Crohn's flare up HPI: Jaswinder Chong Jean is a 45 year old male who was diagnosed with Crohn's about 9 years ago and used to be on remicade for almost 4 years with good control of disease however because insurance and change in cost of medication he could not continue use remicade since June this year. He used to see Dr Russell Conteh in [place] who did his colonoscopy about 1 year ago. He says that in August received steroid taper because had flare up. Again last several days with more abdominal discomfort and cramping similar to previous flare. He came here because of more severe pain and nausea. WBC 13k, CT scan reviewed and showed ileitis. Admitted to hospital, given iv steroids and now is back to normal, no more pain and able to eat food. Actually he is leaving soon. He already has an appointment to see GI doctor at [facility] on Feb 11. Review of Systems Constitutional: Constitutional: Denies chills Eyes: Eyes: Denies blurry vision ENT: Reports Normal hearing present Cardiovascular: Cardiovascular: Denies chest pain Respiratory: Respiratory: Denies dyspnea Gastrointestinal: Gastrointestinal: Reports abdominal pain and Reports nausea Genitourinary: Genitourinary: Denies dysuria Musculoskeletal: Musculoskeletal: Denies neck pain Integumentary/Breasts: Skin/Breast: Denies dry skin Neurologic: Denies headache(s) Psychiatric: Psychiatric: Reports no additional psychiatric complaints PMFSH Past Medical History Medical History (Updated 01/28/21 @ 18:33 by Willard Agarwal MD) Abdominal pain Arthritis Back pain Crohn's disease Crohn's disease of ileum Lateral meniscus tear Leukocytosis Lower abdominal pain Nausea Rheumatoid arthritis Right knee pain Strain of quadriceps tendon Surgical History Surgical History No significant past surgical history Family History Family History (Updated 01/28/21 @ 06:06 by Michaela Fernando RN) Mother Diabetes mellitus Hypothyroid Arthritis Asthma Hypertension Neuropathy Psoriasis Other Cancer Social History Social History (Updated 04/24/20 @ 12:55 by Waleska Booth, RT(R)) Smoking packs per day: 1 Smoking cigarettes per day: 20.0 Years smoked: 27 Smoking pack-years: 27.00 Smoking status: Current every day smoker Tobacco type: cigarettes Second hand tobacco smoke exposure: Yes Alcohol intake: never Alcohol use details: 4 per month Substance use: never Substance use type: does not use Gender identity (if verbalized by the patient): Male Spiritual care concerns: No Meds Home Medications and Allergies Home Medications Medication Instructions Recorded Confirmed Type prednisone See Rx Instructions .ROUTE 01/28/21 Rx .COMPLEX #70 tablet Allergies Allergy/AdvReac Type Severity Reaction Status Date / Time No Known Allergies Allergy Verified 01/27/21 21:59 Vital Signs Vital Signs - 24 hr 01/27/21 20:11 01/27/21 23:20 01/28/21 05:10 Temperature 97.4 F L Pulse Rate 103 H 97 87 Respiratory Rate 18 16 16
--- NOTE | 2021-02-05 16:37 | PM.DS ---
DS: Admitting Diagnosis Discharge Date 01/28/21 Admitting Diagnosis Abd pain DS: Discharge Diagnosis Discharge Diagnosis (1) Crohn's colitis: Code(s): K50.10 - Crohn's disease of large intestine without complications Status: Acute Assessment and Plan: Patient is a 45-year-old man with a history of Crohn's who was on Remicade infusions but his insurance quit approving it in June of 2020. The patient has not been on any type of treatment for his Crohn's. He is trying to get in with a new GI specialist at [facility] and has an appointment scheduled February 11 2021. He states about 9 days ago he developed some abdominal pain, which felt like his normal Crohn's but it was not significant. Then the evening prior to coming in his pain became worse and there was no improvement at home so he came to the emergency room for further evaluation. Initial labs showed leukocytosis of 13,300, neutrophils 82%, microcytic anemia with a hemoglobin of 12, hematocrit 39%, slight hyponatremia at 136, creatinine slightly up at 1.1, BUN 12, slight elevation of alk-phos at 149, CRP elevated at 7.3. CT abdomen pelvis shows Recurrent terminal ileitis, appearance suggests underlying inflammatory bowel disease. Mesenteric lymphadenopathy probably reactive. The overnight radiology interpretation of the CT scan showed that he could have possibly had acute appendicitis based on where his inflammation was. The official read from our radiologist does not show appendicitis and just shows recurrent terminal ileitis. Which makes sense that after we have been giving the patient IV steroids his pain is now completely resolved. Patient was admitted to the hospital on IV Solu-Medrol, IV broad-spectrum antibiotics in the setting of acute Crohn's flare and possible appendicitis. I discussed with Dr. Aranda the on-call GI specialist can eat a soft diet as tolerated Will continue with IV steroids, then switch to oral prednisone taper I will also stop the IV antibiotics because I do not believe he has an acute infection or appendicitis. Dr. Aranda evaluated the patient and felt at this time he is stable for discharge to be discharged to follow up with [facility] GI specialist in 2 weeks. He also needs to schedule an MRE as outpatient before seeing his new GI doctor. Follow-up instructions given. Return to ER warnings given. Patient understands and agrees the plan all questions answered. (2) Back pain: Code(s): M54.9 - Dorsalgia, unspecified Status: Acute Assessment and Plan: Tylenol as needed (3) Rheumatoid arthritis: Code(s): M06.9 - Rheumatoid arthritis, unspecified Status: Inactive Assessment and Plan: Appears to be stable DS: Summary Hospital Course Hospital Course: See above Status at Discharge Cognitive/behavioral status at discharge: Stable, improved. Time Spent with Patient Time attestation: Total time spent providing and/or coordinating discharge services: 42 Time spent: Greater than 30 minutes Exam Narrative: General: 45-year-old man laying flat in bed on his right side taking a nap. Easily arousable. Appears comfortable. In no acute distress. Skin: No jaundice or cyanosis. Good skin turgor. Neck: Full range of motion. Supple. Respiratory: Lungs are clear to auscultation bilaterally. No bony chest wall tenderness. Cardiovascular: The heart has a regular rate and rhythm without murmur. Lower extremities: No lower extremity edema. Distal pulses are easily palpated. No calf tenderness to palpation. Gastrointestinal: No significant tenderness to abdomen diffusely. The abdomen is otherwise soft, nondistended with active bowel sounds. Psychiatric: Lucid and oriented. Memory intact. Neurologic: No focal deficits. Speech is clear. No facial drooping. Discharge Plan Discharge Attending physician on discharge: Rochelle Dukes Cons
== END 2021-01-28 18:15 | disposition home or self-care (01) ==
LOC: ANHED 01-28 00:19 → ANH3MEDSUR 01-28 04:43
PROVIDERS: Physician Assistant; Admitting Provider Internal Medicine; Emergency Provider Emergency Medicine; Visit Provider Family Medicine
DX: K50.10 Crohn's disease of large intestine without complications (principal); R10.9 Unspecified abdominal pain; F17.210 Nicotine dependence, cigarettes, uncomplicated; M06.9 Rheumatoid arthritis, unspecified; M54.9 Dorsalgia, unspecified; N20.0 Calculus of kidney; D72.829 Elevated white blood cell count, unspecified
CPT/HCPCS: 36415; 74177; 80048; 80053; 83690; 85025; 86140; 87040; 96361; 96365; 96366; 96368; 96374; 96375; 96376; 99285; G0378; J1956; J2270; J2920; J7030; Q9967

== ENCOUNTER 2021-09-03 14:34 | Emergency (ER) | payer BC, SELFPAY ==
--- NOTE | ~2021-09-03 | CT_ITS ---
EXAMINATION: CT abdomen pelvis w con DATE: 09/03/2021 18:01 INDICATION: Abdominal pain, history of Crohn's. TECHNIQUE: Computed tomography (CT) of the abdomen and pelvis was performed with 100 mL Omnipaque-300 intravenous contrast. Automated exposure control and iterative reconstruction technique were employe d. The dose-length product was 1586.99 mGy-cm. COMPARISON: None. FINDINGS: Lower thorax: Right lower lobe hamartoma. Liver: Steatosis. Biliary/Gallbladder: Gallbladder is normal. No bile duct dilation. Pancreas: No mass or duct dilation. Spleen: Normal. Adrenals:No mass. Kidneys: No mass, stone, or hydronephrosis. GI tract: The distal small bowel becomes progressively more dilated moving distally, transition point in the right lower quadrant where there is a short segment of water density wall thickening with felisha rounding inflammatory change, with inflammation extends around the cecum. Colonic submucosal fat as c an be seen with chronic IBD, obesity, chemotherapy treatment, and celiac disease. Normal appendix. Mesentery/Peritoneum: No mass, or free air. Interloop fluid in the right lower quadrant mesentery. Retroperitoneum: No mass. Pelvis: Prostatomegaly, pelvic organs are otherwise within normal limits. Soft Tissues: Soft tissues and body wall unremarkable. Bones: No acute osseous finding. IMPRESSION: Short segment distal ileal inflammation and edema, likely an acute inflammatory bowel disease flare, causing small bowel ileus versus early/partial small bowel obstruction. Reviewed, dictated and finalized at location K. IMPRESSION: Short segment distal ileal inflammation and edema, likely an acute inflammatory bowel disease flare, causing small bowel ileus versus early/partial small allen l obstruction.
[2021-09-03 14:35] VITALS: BP 132/73; PULSE 92; RESP 20; TEMP 36.4; O2SAT 98
[2021-09-03 14:45] VITALS: BP 118/70; PULSE 73; RESP 14; O2SAT 98
[2021-09-03 14:59] LABS: Basophils Absolute Auto 0.1 K/mm3 (0.0-0.1); Basophils Percent Auto 0.6 % (0.2-1.2); Eosinophils Absolute Auto 0.2 K/mm3 (0-0.3); Eosinophils Percent Auto 1.3 % (0-4.4); Hematocrit 44.3 % (42.0-52.0); Hemoglobin 14.2 g/dL (14.0-18.0); Immature Granulocyte Absolute 0.06 K/mm3 (0.00-0.031); Immature Granulocyte Percent A 0.5 % (0-0.5); Lymphocytes Absolute Auto 1.59 K/mm3 (0.9-3.2); Mean Corpuscular HGB Conc 32.1 g/dl (32-36); Mean Corpuscular Hemoglobin 28.3 pg (26-34); Mean Corpuscular Volume 88.2 fl (80-100); Mean Platelet Volume 10.4 fl (7.4-10.4); Monocytes Absolute Auto 0.7 K/mm3 (0.1-0.6); Monocytes Percent Auto 6.1 % (2.6-8.5); Neutrophils Absolute Auto 9.6 K/mm3 (1.3-6.7); Neutrophils Percent Auto 78.5 % (45.5-73.1); Platelet Count Result 354 k/mm3 (150-375); Red Blood Count 5.02 M/mm3 (4.6-6.20); Red Cell Distribution Width 12.9 % (11.5-14.5); White Blood Count 12.2 K/mm3 (4.5-10.0)
[2021-09-03 15:09] LABS: Alanine Aminotransferase 30 U/L (6-50); Albumin Level 4.7 g/dL (3.5-5.1); Alkaline Phosphatase 99 U/L (38-126); Anion Gap 8 mmol/L (8-16); Aspartate Amino Transferase 23 U/L (17-59); Bilirubin,Total 0.5 mg/dL (0.2-1.3); Blood Urea Nitrogen 13 mg/dL (9-20); Calcium 9.2 mg/dL (8.4-10.2); Carbon Dioxide 25 mmol/L (22-30); Chloride 104 mmol/L (98-107); Estimated CRCL calculation 87 ml/min; Estimated Glomerular Filt Rate > 60; Glucose 102 mg/dL (65-110); Lipase 58 U/L (23-300); Potassium 4.5 mmol/L (3.4-5.0); Sodium 137 mmol/L (137-145)
[2021-09-03 15:30] VITALS: BP 120/74; PULSE 89; RESP 14; O2SAT 98
[2021-09-03] MEDS: MORPHINE SULFATE (*CRX) 4 MG/ML INJ IV PUSH (16:13)
[2021-09-03] MEDS: SODIUM CHLORIDE 0.9% IV 1,000 ML 999 ML IV CONT (16:13)
[2021-09-03 16:30] VITALS: BP 118/70; PULSE 77; RESP 14; O2SAT 97
[2021-09-03 17:28] LABS: Appearance Urine Clear (Clear); Bilirubin Urine Negative (Negative); Blood Urine Negative (Negative); Color Urine Yellow (Yellow); Glucose Urine UA Negative (Negative); Ketones Urine Negative (Negative); Leukocyte Esterase Ur Negative LEU/UL (Negative); Nitrate Urine Negative (Negative); Protein Urine Trace mg/dL (Negative); Specific Grav Ur 1.025 (1.001-1.035); Urobilinogen Urine 0.2 mg/dL (<2.0); pH Urine 5.5 (5.0-9.0)
[2021-09-03 17:33] LABS: Mucus Urine Few /lpf; RBC Urine 0-2 /hpf (0-2); Squamous Epithelial Cell Urine Rare /hpf (Few); WBC Urine 0-3 /hpf
[2021-09-03 17:34] VITALS: BP 107/77; PULSE 71; RESP 12; O2SAT 100
[2021-09-03 17:36] LABS: Add Urine Microscopic? YES
--- NOTE | 2021-09-03 19:04 | ED.GENADULT ---
HPI - General Adult General Chief complaint: Abdominal Pain Stated complaint: abd pain Time Seen by Provider: 09/03/21 14:41 History of Present Illness HPI narrative: Patient is a 45-year-old male who presents ER with abdominal pain worsening over the last couple days. Patient reports this feels like his Crohn's flares. He is contacted his GI physician who required that he get outpatient lab work before he could be restarted on Humira. They have not returned his phone call so he came here seeking additional evaluation. No nausea or vomiting or fevers or chills. He is passing gas and having bowel movements. No blood in his stool. No aggravating or alleviating factors for his discomfort. Related Data Allergies Allergy/AdvReac Type Severity Reaction Status Date / Time No Known Allergies Allergy Verified 09/03/21 17:38 Review of Systems Review of Systems: All systems reviewed & are unremarkable except as noted in HPI and below Constitutional: Constitutional: Denies chills, Denies fatigue and Denies fever(s) ENT: Denies nasal congestion and Denies sore throat Cardiovascular: Cardiovascular: Denies chest pain and Denies rapid heart rate Respiratory: Respiratory: Denies cough and Denies dyspnea Gastrointestinal: Gastrointestinal: Reports abdominal pain, Denies constipation, Reports diarrhea, Denies nausea and Denies vomiting PMF Past Medical History Medical History (Updated 09/03/21 @ 19:07 by Marc Murphy MD) Abdominal pain Arthritis Back pain Crohn's disease Crohn's disease of ileum Lateral meniscus tear Leukocytosis Lower abdominal pain Nausea Rheumatoid arthritis Right knee pain Strain of quadriceps tendon Surgical History Surgical History No significant past surgical history Family History Family History (Updated 01/28/21 @ 06:06 by Michaela Fernando RN) Mother Diabetes mellitus Hypothyroid Arthritis Asthma Hypertension Neuropathy Psoriasis Other Cancer Social History Social History (Updated 04/24/20 @ 12:55 by Waleska Booth RT(R)) Smoking packs per day: 1 Smoking cigarettes per day: 20.0 Years smoked: 27 Smoking pack-years: 27.00 Smoking status: Current every day smoker Tobacco type: cigarettes Second hand tobacco smoke exposure: Yes Alcohol intake: never Alcohol use details: 4 per month Substance use: never Substance use type: does not use Gender identity (if verbalized by the patient): Male Spiritual care concerns: No Exam Narrative: GENERAL: Well-appearing, well-nourished, and in no acute distress. HEAD: Normocephalic, atraumatic. ENT: Mucous membranes moist. CHEST: Clear to auscultation. No respiratory distress. HEART: Regular rate and rhythm. Normal peripheral pulses. ABDOMEN: Soft, mild diffuse tenderness worse in the right lower quadrant and left upper quadrant. Nondistended, normal active bowel sounds. EXTREMITIES: Normal range of motion. No edema. SKIN: Warm, dry, no rash. NEURO: Alert and oriented x3. PSYCH: Normal mood and affect. Course Course Emergency Course: Patient resting comfortably and informed of results. Discussed possibility of developing obstruction versus ileus. Patient reports his GI doctors told him that his scans continue to show this and he is passing gas and having bowel movements today. Patient referred to go home on steroid taper. We have discussed signs and symptoms that should prompt immediate return and he is verbalized understanding. We will give a dose of Solu-Medrol prior to discharge. Recommend liquid diet until discomfort decreases. Vital Signs Vital signs: Vital Signs Temperature 97.6 F 09/03/21 14:35 Pulse Rate 92 09/03/21 14:35 Respiratory Rate 20 09/03/21 14:35 Blood Pressure 132/73 09/03/21 14:35 Pulse Oximetry 98 09/03/21 14:35 Oxygen Delivery Room Air 09/03/21 14:35 Temperature 97.6 F 09/03
[2021-09-03] MEDS: methylPREDNISolone SOD SUCC 125 MG VIAL 60 MG IV PUSH (19:07)
[2021-09-03 19:09] VITALS: BP 129/75; PULSE 74; RESP 18; O2SAT 98
== END 2021-09-03 19:34 | disposition home or self-care (01) ==
PROVIDERS: Emergency Provider Emergency Medicine
DX: K50.90 Crohn's disease, unspecified, without complications (principal); M06.9 Rheumatoid arthritis, unspecified; M19.90 Unspecified osteoarthritis, unspecified site; F17.210 Nicotine dependence, cigarettes, uncomplicated
CPT/HCPCS: 36415; 74177; 80053; 81001; 83690; 85025; 96361; 96374; 96375; 99284; J0131; J2270; J2930; J7030; Q9967

== ENCOUNTER 2021-10-29 00:10 | Emergency (ER) | payer BC, SELFPAY ==
--- NOTE | ~2021-10-29 | CT_ITS ---
EXAMINATION: CT abdomen pelvis w con DATE: 10/29/2021 02:14 INDICATION: Generalized abdominal pain. TECHNIQUE: Computed tomography (CT) of the abdomen and pelvis was performed with 100 mL Omnipaque 350 intravenous contrast. Automated exposure control and iterative reconstruction technique were employe d. The dose-length product was 1440.38 mGy-cm. COMPARISON: CT abdomen and pelvis 09/03/2021, 05/09/19 FINDINGS: The visualized portions of the lung bases demonstrate mild atelectasis. A calcified right l patsy nodule is consistent with old granulomatous disease. No pleural effusion. The heart size is samia l. No pericardial effusion. The liver, gallbladder, spleen, and pancreas are normal. There is a chron ic 13 mm mass in right adrenal gland measuring soft tissue attenuation, consistent with an adenoma. L eft adrenal gland is normal. There is cortical thinning of the kidneys. There are two 2 mm stones in left kidney. There are areas of wall thickening in the distal ileum, which is small in caliber. There are multiple dilated loops of small bowel proximal to this area. There is a small umbilical hernia c ontaining fat. There is fat stranding and trace ascites in right lower quadrant. There are no patholo gically enlarged lymph nodes. There is a small left inguinal hernia containing fat. There is bilatera l sacroiliitis, consistent with arthropathy-associated arthritis. There is moderate lower lumbar spon dylosis. IMPRESSION: 1. Terminal ileitis with stricture and small bowel obstruction, consistent with Crohn disease. Reviewed, dictated and finalized at [facility].
[2021-10-29 00:18] VITALS: BP 130/92; PULSE 102; RESP 20; TEMP 36.8; O2SAT 100
[2021-10-29 01:01] LABS: Appearance Urine Clear (Clear); Basophils Absolute Auto 0.1 K/mm3 (0.0-0.1); Basophils Percent Auto 0.5 % (0.2-1.2); Bilirubin Urine Negative (Negative); Color Urine Yellow (Yellow); Eosinophils Absolute Auto 0.2 K/mm3 (0-0.3); Eosinophils Percent Auto 1.5 % (0-4.4); Glucose Urine UA Negative (Negative); Immature Granulocyte Absolute 0.05 K/mm3 (0.00-0.031); Immature Granulocyte Percent A 0.4 % (0-0.5); Ketones Urine Negative (Negative); Leukocyte Esterase Ur Negative LEU/UL (Negative); Lymphocytes Absolute Auto 1.99 K/mm3 (0.9-3.2); Lymphocytes Percent Auto 16.1 % (18.3-44.2); Mean Corpuscular HGB Conc 32.6 g/dl (32-36); Mean Corpuscular Hemoglobin 28.2 pg (26-34); Mean Corpuscular Volume 86.5 fl (80-100); Mean Platelet Volume 10.1 fl (7.4-10.4); Monocytes Absolute Auto 0.8 K/mm3 (0.1-0.6); Monocytes Percent Auto 6.5 % (2.6-8.5); Neutrophils Absolute Auto 9.3 K/mm3 (1.3-6.7); Nitrate Urine Negative (Negative); Platelet Count Result 322 k/mm3 (150-375); Protein Urine Negative (Negative); Red Blood Count 4.97 M/mm3 (4.6-6.20); Red Cell Distribution Width 14.7 % (11.5-14.5); Specific Grav Ur >= 1.030 (1.001-1.035); Urobilinogen Urine 0.2 mg/dL (<2.0); White Blood Count 12.4 K/mm3 (4.5-10.0); pH Urine 5.5 (5.0-9.0)
[2021-10-29 01:03] LABS: Add Urine Microscopic? YES; Blood Urine Trace (Negative)
[2021-10-29 01:08] LABS: Bacteria Urine Trace /hpf; Mucus Urine Rare /lpf; RBC Urine 0-2 /hpf (0-2); Squamous Epithelial Cell Urine Rare /hpf (Few); WBC Urine 0-3 /hpf
[2021-10-29 01:14] LABS: Alanine Aminotransferase 29 U/L (6-50); Albumin Level 4.5 g/dL (3.5-5.1); Alkaline Phosphatase 114 U/L (38-126); Anion Gap 5 mmol/L (8-16); Aspartate Amino Transferase 24 U/L (17-59); Bilirubin,Total 0.7 mg/dL (0.2-1.3); Blood Urea Nitrogen 11 mg/dL (9-20); Carbon Dioxide 24 mmol/L (22-30); Chloride 101 mmol/L (98-107); Estimated CRCL calculation 87 ml/min; Estimated Glomerular Filt Rate > 60; Glucose 136 mg/dL (65-110); Lipase 48 U/L (23-300); Potassium 4.3 mmol/L (3.4-5.0); Sodium 130 mmol/L (137-145)
--- NOTE | 2021-10-29 01:31 | ED.GENADULT ---
HPI - General Adult General Chief complaint: Abdominal Pain Stated complaint: Chrohns Time Seen by Provider: 10/29/21 01:21 History of Present Illness HPI narrative: Patient a 45-year-old gentleman who presents the emergency department with chief complaint of abdominal pain. The patient reports he has history of Crohn's reports that he is followed by GI at [facility] and reports that he is currently on Humira and one of the other immunologic's. The patient reports that on Thursday he started having discomfort in his abdomen the patient reports the symptoms or not improved by anything reports that he has noticed that he has had a decrease in stool output. Patient reports this is very similar to whenever he has had exacerbations in the past reports that a lot of times he is able to be treated with steroids and antibiotics patient denies fever Related Data Allergies Allergy/AdvReac Type Severity Reaction Status Date / Time No Known Allergies Allergy Verified 10/29/21 01:40 Review of Systems Review of Systems: A 10 system review of systems was completed on the patient and is negative except for what is stated in the HPI. Nursing and ancillary documentation was reviewed. [facility] Past Medical History Medical History Abdominal pain Arthritis Back pain Crohn's disease Crohn's disease of ileum Lateral meniscus tear Leukocytosis Lower abdominal pain Nausea Rheumatoid arthritis Right knee pain Strain of quadriceps tendon Surgical History Surgical History No significant past surgical history Family History Family History Mother Diabetes mellitus Hypothyroid Arthritis Asthma Hypertension Neuropathy Psoriasis Other Cancer Social History Social History Smoking packs per day: 1 Smoking cigarettes per day: 20.0 Years smoked: 27 Smoking pack-years: 27.00 Smoking status: Current every day smoker Tobacco type: cigarettes Second hand tobacco smoke exposure: Yes Alcohol intake: never Alcohol use details: 4 per month Substance use: never Substance use type: does not use Gender identity (if verbalized by the patient): Male Spiritual care concerns: No Exam Narrative: GENERAL: Well-appearing, well-nourished, and in no acute distress. HEAD: Normocephalic, atraumatic. EYES: PERRLA and EOMI. ENT: Nares clear, no rhinorrhea or epistaxis. Mucous membranes moist. NECK: Supple. CHEST: Clear to auscultation. No respiratory distress. HEART: Regular rate and rhythm. No murmur heard. Normal peripheral pulses. ABDOMEN: Soft, diffuse mild tenderness, nondistended, normal active bowel sounds. EXTREMITIES: Normal range of motion. No edema. SKIN: Warm, dry, no rash. NEURO: No focal deficits. Alert and oriented x3. PSYCH: Normal mood and affect. Course Course Emergency Course: CT scan showed wall thickening of the distal ileum and right colon consistent with his Crohn's. There appears to be a focal stricture in the right lower quadrant that is unchanged from 09/03/2021 Vital Signs Vital signs: Vital Signs Temperature 36.8 C 10/29/21 00:18 Pulse Rate 102 H 10/29/21 00:18 Respiratory Rate 20 10/29/21 00:18 Blood Pressure 130/92 H 10/29/21 00:18 Pulse Oximetry 100 10/29/21 00:18 Oxygen Delivery Room Air 10/29/21 00:18 Temperature 36.8 C 10/29/21 00:18 Pulse Rate 79 10/29/21 01:53 Respiratory Rate 16 10/29/21 01:53 Blood Pressure 144/81 H 10/29/21 01:53 Pulse Oximetry 100 10/29/21 01:53 Oxygen Delivery Room Air 10/29/21 00:18 Medical Decision Making Vital Signs Vital Signs: Vital Signs Temperature 36.8 C 10/29/21 00:18 Pulse Rate 102 H 10/29/21 00:18 Respiratory Rate 20 10/29/21 00:18 Blood Press
[2021-10-29] MEDS: ONDANSETRON INJ 4 MG/2 ML VIAL IV PUSH (01:44)
[2021-10-29] MEDS: MORPHINE SULFATE (*CRX) 4 MG/ML INJ IV PUSH (01:44)
[2021-10-29] MEDS: SODIUM CHLORIDE 0.9% IV 1,000 ML 999 ML IV CONT (01:45)
[2021-10-29 01:53] VITALS: BP 144/81; PULSE 79; RESP 16; O2SAT 100
[2021-10-29] MEDS: methylPREDNISolone SOD SUCC 125 MG VIAL IV PUSH (04:06)
[2021-10-29 04:27] VITALS: BP 141/72; PULSE 72; RESP 18; O2SAT 98
== END 2021-10-29 04:29 | disposition home or self-care (01) ==
PROVIDERS: Emergency Provider Emergency Medicine
DX: K50.00 Crohn's disease of small intestine without complications (principal); K56.7 Ileus, unspecified; M06.9 Rheumatoid arthritis, unspecified; F17.210 Nicotine dependence, cigarettes, uncomplicated
CPT/HCPCS: 36415; 74177; 80053; 81001; 83690; 85025; 96361; 96374; 96375; 99284; J2270; J2405; J2930; J7030; Q9967

== ENCOUNTER 2021-12-30 11:17 | Emergency (ER) | payer BC, SELFPAY ==
[2021-12-30] VITALS (8 sets, daily range): BP systolic 130–138; BP diastolic 65–96; PULSE 64–90; RESP 16–18; TEMP 36.7; O2SAT 97–100
--- NOTE | ~2021-12-30 | CT_ITS ---
EXAMINATION: CT abdomen pelvis w con DATE: 12/30/2021 14:43 INDICATION: Crohn's disease. Lower abdominal pain. TECHNIQUE: Computed tomography (CT) of the abdomen and pelvis was performed with 100 CC Omnipaque 350 intravenous contrast. Automated exposure control and iterative reconstruction technique were employe d. Exam dose: 1507.32 mGy-cm total exam DLP. COMPARISON: 10/29/2021 CT abdomen pelvis FINDINGS: Right lower lobe calcified pulmonary granuloma. No infiltrate or consolidation at the lung bases. Heart size is normal. No pericardial or pleural effusion. Diffuse hepatic steatosis. No hepatic space-occupying mass lesion or surface nodularity is noted. The gallbladder appears unremarkable, without wall thickening or pericholecystic fluid or fat stranding. No bile duct or pancreatic duct dilatation. No pancreatic mass lesion or calcification. Normal splen ic size. 10.5 x 14 mm probable small right adrenal adenoma in the absence of any described malignancy. Normal morphology of the adrenal glands is noted otherwise. There are 2 3 mm or smaller left renal nonobstructing calculi. No ureteral calculus or hydroureterone phrosis. No suspicious renal space-occupying mass lesion. Normal caliber of the abdominal aorta. No intraperitoneal or retroperitoneal or pelvic mass lesion or adenopathy or ascites. There is prostate enlargement and calcification. A urinary bladder is unremarkable. Small fat-containing left inguinal hernia. Small fat-containing umbilical hernia. There is a history of Crohn's disease. No stricture is identified in the terminal or distal ileum; fa ct the terminal ileum measures as much as 3 cm diameter. There is mild fat infiltration surrounding s ome of the distal ileum and the cecum and ascending colon and minimal fluid adjacent to distal ileum, in addition to mild prominence of some right lower quadrant mesenteric lymph nodes, which may indica te some active inflammatory change. There is some submucosal fat deposition in some of the distal ile um, sign of chronic disease likely related to history of Crohn's. There is mild prostate enlargement and multiple prostate calcifications. Diffuse idiopathic skeletal hyperostosis of the lower thoracic spine. No suspicious osteolytic or ost eoblastic lesions. IMPRESSION: Mild to moderate fat stranding and minimal fluid around the distal ileum and some fat st randing around the proximal colon, in addition to mild prominence of right lower quadrant mesenteric lymph nodes, likely secondary to mild active Crohn's disease, without stricture, obstruction or absce ss formation or free air identified Reviewed, dictated and finalized at [facility]. Reviewed, dictated and finalized at [facility]. IMPRESSION: Mild to moderate fat stranding and minimal fluid around the distal ileum and some fat stranding around the proximal colon, in addition to mild pr ominence of right lower quadrant mesenteric lymph nodes, likely secondary to mi ld active Crohn's disease, without stricture, obstruction or abscess formation or free air identified
[2021-12-30 12:20] LABS: Basophils Percent Auto 0.3 % (0.2-1.2); Eosinophils Absolute Auto 0.1 K/mm3 (0-0.3); Eosinophils Percent Auto 1.1 % (0-4.4); Hematocrit 42.4 % (42.0-52.0); Hemoglobin 14.4 g/dL (14.0-18.0); Immature Granulocyte Absolute 0.05 K/mm3 (0.00-0.031); Immature Granulocyte Percent A 0.5 % (0-0.5); Lymphocytes Absolute Auto 1.77 K/mm3 (0.9-3.2); Lymphocytes Percent Auto 17.7 % (18.3-44.2); Mean Corpuscular Hemoglobin 29.9 pg (26-34); Mean Corpuscular Volume 88.1 fl (80-100); Mean Platelet Volume 10.9 fl (7.4-10.4); Monocytes Absolute Auto 0.6 K/mm3 (0.1-0.6); Monocytes Percent Auto 5.8 % (2.6-8.5); Neutrophils Absolute Auto 7.5 K/mm3 (1.3-6.7); Neutrophils Percent Auto 74.6 % (45.5-73.1); Platelet Count Result 248 k/mm3 (150-375); Red Blood Count 4.81 M/mm3 (4.6-6.20); Red Cell Distribution Width 14.4 % (11.5-14.5)
[2021-12-30 12:29] LABS: Alanine Aminotransferase 33 U/L (6-50); Albumin Level 4.4 g/dL (3.5-5.1); Alkaline Phosphatase 105 U/L (38-126); Anion Gap 10 mmol/L (8-16); Aspartate Amino Transferase 25 U/L (17-59); Bilirubin,Total 0.4 mg/dL (0.2-1.3); Blood Urea Nitrogen 12 mg/dL (9-20); Calcium 8.9 mg/dL (8.4-10.2); Carbon Dioxide 25 mmol/L (22-30); Chloride 104 mmol/L (98-107); Estimated Glomerular Filt Rate > 60; Glucose 97 mg/dL (65-110); Lipase 55 U/L (23-300); Potassium 4.1 mmol/L (3.4-5.0); Sodium 139 mmol/L (137-145)
[2021-12-30 12:39] LABS: Appearance Urine Clear (Clear); Bilirubin Urine Negative (Negative); Blood Urine Trace-lysed (Negative); Color Urine Yellow (Yellow); Glucose Urine UA Negative (Negative); Ketones Urine Negative (Negative); Leukocyte Esterase Ur Negative LEU/UL (Negative); Nitrate Urine Negative (Negative); Protein Urine Negative (Negative); Urobilinogen Urine 0.2 mg/dL (<2.0); pH Urine 5.5 (5.0-9.0)
[2021-12-30 12:50] LABS: Bacteria Urine Trace /hpf; Mucus Urine Rare /lpf; RBC Urine 0-2 /hpf (0-2); WBC Urine 0-3 /hpf
[2021-12-30 12:53] LABS: Add Urine Microscopic? YES
--- NOTE | 2021-12-30 14:17 | ED.GENADULT ---
HPI - General Adult General Chief complaint: Abdominal Pain Stated complaint: abd pain/hx chrohns Time Seen by Provider: 12/30/21 13:22 History of Present Illness HPI narrative: This is a 46-year-old male with history of Crohn's disease presenting ED with abdominal pain. The patient said the pain started yesterday he describes as a crampy pain that is diffuse throughout his abdomen, nonradiating 5/10 intensity and comes and goes. He relates this to previous Crohn's flares he has had in the past. There are no exacerbating alleviating factors. Patient denies nausea vomiting diarrhea fever or chills. Denies chest pain/ difficulty breathing. Patient usually gets a course of steroids which helps improve his symptoms. Related Data Allergies Allergy/AdvReac Type Severity Reaction Status Date / Time No Known Allergies Allergy Verified 12/30/21 13:28 Review of Systems Review of Systems: CONSTITUTIONAL: Denies night sweats. EYES: No eye pain ENT: Denies rhinorrhea CARDIOVASCULAR: Denies palpitations RESPIRATORY: Denies hemoptysis GASTROINTESTINAL: Denies hematemesis GENITOURINARY: Denies hematuria. SKIN: Denies rash MUSCULOSKELETAL: Denies myalgia. NEUROLOGIC: Denies weakness. PSYCHIATRIC: Denies delusions PMFSH Past Medical History Medical History Abdominal pain Arthritis Back pain Crohn's disease Crohn's disease of ileum Lateral meniscus tear Leukocytosis Lower abdominal pain Nausea Rheumatoid arthritis Right knee pain Strain of quadriceps tendon Surgical History Surgical History No significant past surgical history Family History Family History Mother Diabetes mellitus Hypothyroid Arthritis Asthma Hypertension Neuropathy Psoriasis Other Cancer Social History Social History Smoking packs per day: 1 Smoking cigarettes per day: 20.0 Years smoked: 27 Smoking pack-years: 27.00 Smoking status: Current every day smoker Tobacco type: cigarettes Second hand tobacco smoke exposure: Yes Alcohol intake: never Alcohol use details: 4 per month Substance use: never Substance use type: does not use Gender identity (if verbalized by the patient): Male Spiritual care concerns: No Exam Narrative: APPEARANCE: No apparent distress. Head atraumatic. EYES: PERRLA/EOMI, NOSE: Normal no drainage NECK: Supple, Trachea midline RESPIRATORY: CTAB, No increased work of breathing. CARDIOVASCULAR: S1S2 appreciated ABDOMINAL: Abdomen is obese with mild tenderness throughout, no guarding or rebound. Non peritonitic MUSCULOSKELETAl: No obvious deformities NEURO: Alert. Moving 4/4 extremities SKIN:: Warm, dry. Normal color PSYCHIATRIC: Normal affect Course Vital Signs Vital signs: Vital Signs Temperature 98.0 F 12/30/21 11:42 Pulse Rate 90 12/30/21 11:42 Respiratory Rate 16 12/30/21 11:42 Blood Pressure 134/96 H 12/30/21 11:42 Pulse Oximetry 99 12/30/21 11:42 Oxygen Delivery Room Air 12/30/21 11:42 Temperature 98.0 F 12/30/21 11:42 Pulse Rate 66 12/30/21 16:32 Respiratory Rate 18 12/30/21 16:32 Blood Pressure 131/65 12/30/21 15:42 Pulse Oximetry 100 12/30/21 16:32 Oxygen Delivery Room Air 12/30/21 11:42 Medical Decision Making [facility] Narrative Medical decision making narrative: this is a 46-year-old male presenting to ED with a Crohn's flare. He is given symptomatic treatment with fluids, Dilaudid, Zofran and Pepcid. CT abdomen pelvis in order to evaluate for complications of Crohn's disease. CBC, CMP and urinalysis were all within normal limits. CT abdomen pelvis was interpreted: ?Mild to moderate fat stranding and minimal fluid around the distal ileum and some fat stranding around the proximal colon, in
[2021-12-30] MEDS: HYDROmorphone HCL INJ (*CRX) 1 MG/ML SYR 0.5 MG IV PUSH (14:27)
[2021-12-30] MEDS: ONDANSETRON INJ 4 MG/2 ML VIAL IV PUSH (14:27)
[2021-12-30] MEDS: FAMOTIDINE 20 MG/2 ML VIAL IV PUSH (14:30)
[2021-12-30] MEDS: HYDROcodone/acetaminophen (*CRX) 5-325 MG TABLET 2 TAB PO (16:55)
[2021-12-30] MEDS: methylPREDNISolone SOD SUCC 40 MG VIAL IV PUSH (16:58)
== END 2021-12-30 17:10 | disposition home or self-care (01) ==
PROVIDERS: Emergency Provider Emergency Medicine
DX: K50.00 Crohn's disease of small intestine without complications (principal); M06.9 Rheumatoid arthritis, unspecified; M19.90 Unspecified osteoarthritis, unspecified site; F17.210 Nicotine dependence, cigarettes, uncomplicated
CPT/HCPCS: 36415; 74177; 80053; 81001; 83690; 85025; 96374; 96375; 99284; A9270; J1170; J2405; J2920; Q9967

== ENCOUNTER 2022-07-23 10:51 | Emergency (ER) | payer BC, SELFPAY ==
--- NOTE | ~2022-07-23 | CT_ITS ---
EXAMINATION: CT abdomen pelvis w con DATE: 07/23/2022 15:47 INDICATION: concern for anorectal abscess TECHNIQUE: Computed tomography (CT) of the abdomen and pelvis was performed with 100 mL Omnipaque-350 intravenous contrast. Automated exposure control and iterative reconstruction technique were employe d. The dose-length product was 1556.56 mGy-cm. COMPARISON: 12/30/2021. FINDINGS: Lower thorax: 16 mm right lower lobe hamartoma. Liver: Enlarged. Diffusely fatty infiltrated. Biliary/Gallbladder: Gallbladder is normal. No bile duct dilation. Pancreas: No mass or duct dilation. Spleen: Normal. Adrenals: 1.6 cm indeterminate density right adrenal mass, appears subjectively slightly larger than in the prior study, measures 1 mm greater in the AP and transverse dimensions, however this could be related to slightly different positioning and technique. Kidneys: Bilateral punctate nonobstructing calculi. No suspicious mass, obstructing stone, or hydrone phrosis. GI tract: Segmental small bowel dilation with wall thickening in the right lower quadrant, affecting the distal ileum, in a similar location but more severe than in the prior study. No pneumatosis or po rtal venous gas. Uniform bowel wall enhancement. Minimal mesenteric edema and interloop fluid. Proxim al and distal transition points are noted without evidence of mesenteric defect or twisted mesenteric vessels to suggest a C-loop obstruction. Appendix not visualized.Submucosal fatty infiltration in th e cecum, ascending, and transverse colon. Mesentery/Peritoneum: No ascites, mass, or free air. Retroperitoneum: No mass. Pelvis: Normal urinary bladder. Prostatomegaly with calcifications. Soft Tissues: 3.3 x 1.8 x 3.3 cm rim-enhancing fluid collection in the subcutaneous fat of the left m edial buttock. Bones: No acute osseous finding. IMPRESSION: 1. Segmental ileitis, likely secondary to IBS. Ischemia and infection should remain in the differenti al. 2. 3.3 cm left gluteal abscess. 3. Indeterminate 1.6 cm right adrenal mass, possibly slightly larger than in the comparison study, co nsider follow-up outpatient adrenal CT for definitive characterization. Reviewed, dictated and finalized at [facility]. IMPRESSION: 1. Segmental ileitis, likely secondary to IBS. Ischemia and infection should re main in the differential. 2. 3.3 cm left gluteal abscess. 3. Indeterminate 1.6 cm right adrenal mass, possibly slightly larger than in e comparison study, consider follow-up outpatient adrenal CT for definitive sherlyn racterization.
[2022-07-23 11:43] VITALS: BP 137/91; PULSE 91; RESP 16; TEMP 36.8; O2SAT 99
[2022-07-23] MEDS: MORPHINE SULFATE (*CRX) 4 MG/ML INJ IV PUSH ×2 (15:09→18:10)
[2022-07-23] MEDS: SODIUM CHLORIDE 0.9% IV 1,000 ML 999 ML IV CONT (15:10)
[2022-07-23 15:21] LABS: Basophils Percent Auto 0.4 % (0.2-1.2); Eosinophils Absolute Auto 0.1 K/mm3 (0-0.3); Hemoglobin 12.5 g/dL (14.0-18.0); Immature Granulocyte Absolute 0.04 K/mm3 (0.00-0.031); Immature Granulocyte Percent A 0.4 % (0-0.5); Lymphocytes Absolute Auto 1.65 K/mm3 (0.9-3.2); Mean Corpuscular HGB Conc 32.9 g/dl (32-36); Mean Corpuscular Hemoglobin 30.9 pg (26-34); Mean Corpuscular Volume 93.8 fl (80-100); Mean Platelet Volume 10.3 fl (7.4-10.4); Monocytes Absolute Auto 0.8 K/mm3 (0.1-0.6); Monocytes Percent Auto 7.3 % (2.6-8.5); Neutrophils Absolute Auto 8.4 K/mm3 (1.3-6.7); Neutrophils Percent Auto 75.9 % (45.5-73.1); Platelet Count Result 260 k/mm3 (150-375); Red Blood Count 4.05 M/mm3 (4.6-6.20); Red Cell Distribution Width 14.8 % (11.5-14.5)
[2022-07-23 15:29] LABS: Alanine Aminotransferase 27 U/L (6-50); Alkaline Phosphatase 72 U/L (38-126); Anion Gap 6 mmol/L (8-16); Aspartate Amino Transferase 24 U/L (17-59); Bilirubin,Total 0.7 mg/dL (0.2-1.3); Blood Urea Nitrogen 10 mg/dL (9-20); Calcium 8.5 mg/dL (8.4-10.2); Carbon Dioxide 27 mmol/L (22-30); Chloride 104 mmol/L (98-107); Estimated CRCL calculation 128 ml/min; Estimated Glomerular Filt Rate > 60; Glucose 85 mg/dL (65-110); Lipase 54 U/L (23-300); Potassium 4.1 mmol/L (3.4-5.0); Sodium 137 mmol/L (137-145)
[2022-07-23] MEDS: metroNIDAZOLE 500 MG/ISO 100ML 500 MG/100 ML BAG 100 MG IVPB (15:54)
[2022-07-23 16:02] LABS: Appearance Urine Clear (Clear); Bilirubin Urine Negative (Negative); Blood Urine Negative (Negative); Color Urine Yellow (Yellow); Glucose Urine UA Negative (Negative); Ketones Urine Negative (Negative); Leukocyte Esterase Ur Negative LEU/UL (Negative); Nitrate Urine Negative (Negative); Protein Urine Negative (Negative); Specific Grav Ur 1.024 (1.001-1.035); Urobilinogen Urine 0.2 mg/dL (<2.0)
[2022-07-23 16:07] LABS: Add Urine Microscopic? NO
--- NOTE | 2022-07-23 16:16 | ED.SKABFB ---
HPI - Skin/Abscess/Foreign Bdy General Chief complaint: Skin/Abscess/Foreign Body <Debbie Carmichael PA-C - Last Filed: 07/23/22 19:56> Stated complaint: abscess to my buttcrack <Debbie Carmichael PA-C - Last Filed: 07/23/22 19:56> Time Seen by Provider: 07/23/22 14:07 <Debbie Carmichael PA-C - Last Filed: 07/23/22 19:56> History of Present Illness HPI narrative: 46-year-old male with a history of Crohn's disease and a perianal fistula reports for evaluation of an abscess to his left buttock x3 days. Patient states he noticed increased discomfort around his rectum approximately 3 days ago. 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 He denies fever, body aches, chills, abdominal pain, pus drainage from abscess or rectum. Patient does report having 1 episode of bright red blood per rectum 2 days ago. He states he got up from the toilet and there was a small smear of blood on the toilet seat. States he is not sure if it came from his rectum or the abscess. No episodes of blood since. Last BM was this morning and normal. Pt follows with Dr. Frances Schmid, [place] [facility] <Debbie Carmichael PA-C - Last Filed: 07/23/22 19:56> Related Data Allergies/Adverse reactions: Allergies Allergy/AdvReac Type Severity Reaction Status Date / Time No Known Allergies Allergy Verified 07/23/22 14:11 <Debbie Carmichael PA-C - Last Filed: 07/23/22 19:56> Review of Systems Review of Systems: CONSTITUTIONAL: Denies fever, chills EYES: Denies visual changes, redness, or discharge. ENT: Denies rhinorrhea, congestion, sore throat, or otalgia. CARDIOVASCULAR: Denies chest pain, palpitations, or edema. RESPIRATORY: Denies cough or dyspnea. GASTROINTESTINAL: See HPI GENITOURINARY: Denies dysuria or hematuria. SKIN: See HPI MUSCULOSKELETAL: Denies back pain, joint pain, or myalgia. NEUROLOGIC: Denies headache, numbness, dizziness, or weakness. PSYCHIATRIC: Denies anxiety or depression. <Debbie Carmichael PA-C - Last Filed: 07/23/22 19:56> [facility] Past Medical History Medical History: Medical History Abdominal pain Arthritis Back pain Crohn's disease Crohn's disease of ileum Lateral meniscus tear Leukocytosis Lower abdominal pain Nausea Rheumatoid arthritis Right knee pain Strain of quadriceps tendon <Debbie Carmichael PA-C - Last Filed: 07/23/22 19:56> Surgical History Surgical History: Surgical History No significant past surgical history <Debbie Carmichael PA-C - Last Filed: 07/23/22 19:56> Family History Family History: Family History Mother Diabetes mellitus Hypothyroid Arthritis Asthma Hypertension Neuropathy Psoriasis Other Cancer <Debbie Carmichael PA-C - Last Filed: 07/23/22 19:56> Social History Social History: Social History Smoking packs per day: 1 Smoking cigarettes per day: 20.0 Years smoked: 27 Smoking pack-years: 27.00 Smoking status: Current every day smoker Tobacco type: cigarettes Second hand tobacco smoke exposure: Yes Alcohol intake: never Alcohol use details: 4 per month Substance use: never Substance use type: does not use Gender identity (if verbalized by the patient): Male Spiritual care concerns: No <Debbie Carmichael PA-C - Last Filed: 07/23/22 19:56> Exam Narrative: GENERAL: Well-appearing, in no acute distress. HEAD: Normocephalic NECK: Supple. CHEST: No respiratory distress. Clear to auscultation, no adventitious breath sounds. HEART: Regular rate and rhythm. No murmur heard. Normal peripheral pulses. ABDOMEN: Soft, nontender, normal active bowel sounds. EXTREMITIES: Normal range of motion. No edema. SKIN: T
[2022-07-23] MEDS: CIPROFLOXACIN 400 MG/D5W 200ML 200 ML 200 MG IVPB (16:56)
[2022-07-23] MEDS: LIDO 1%/EPINEPHRINE 1:100,000 20 ML VIAL 10 ML INFILTRATE (17:55)
== END 2022-07-23 18:44 | disposition home or self-care (01) ==
PROVIDERS: Emergency Provider Physician Assistant
DX: L02.31 Cutaneous abscess of buttock (principal); K50.913 Crohn's disease, unspecified, with fistula; M19.90 Unspecified osteoarthritis, unspecified site; M06.9 Rheumatoid arthritis, unspecified; F17.210 Nicotine dependence, cigarettes, uncomplicated; K52.9 Noninfective gastroenteritis and colitis, unspecified; E27.8 Other specified disorders of adrenal gland
CPT/HCPCS: 10060; 36415; 46040; 74177; 80053; 81003; 83690; 85025; 87070; 87077; 87205; 96361; 96365; 96367; 96375; 96376; 99284; J0744; J2270; J7030; Q9967

== ENCOUNTER 2022-08-18 19:51 | Emergency (ER) | payer BC, OTHER, SELFPAY ==
--- NOTE | ~2022-08-18 | CT_ITS ---
CT of the Abdomen and Pelvis: Indication: Abdominal pain, history of Crohn's disease Technique: 2.5 mm axial scans were obtained through the abdomen and pelvis following intravenous adm inistration of 100 cc of Omnipaque 350. Dose reduction technique was used on this scan by utilizing a utomated exposure control and iterative reconstruction technique. The dose-length product (DLP) was 1 399.95 mGy-cm. COMPARISON: 07/23/2022 Findings: Scans through the lung bases demonstrates stable coarsely calcified right basilar pulmonar y nodule. There is probable diffuse fatty infiltration of liver. The spleen, pancreas, gallbladder, adrenals an d right kidney are within normal limits. 2 mm nonobstructing left renal stones are present. No eviden ce of aortic aneurysm. No lymphadenopathy. There are several significantly dilated loops of small bowel, probably proximal to mid ileum, transit ion point in the right mid abdomen (axial image 117 for example). Large bowel is decompressed. No col onic wall thickening evident. Images through the pelvis were performed. Urinary bladder unremarkable. Prostate gland and seminal ve sicles are unremarkable. No ascites. Impression: Findings consistent with at least partial small bowel obstruction probably at the proximal to mid ile um, transition point is noted above. Appearance is similar to prior exam. Consider adhesions if there is prior surgery versus possible Crohn's disease with focal luminal narrowing. No abscess or free air. Diffuse fatty infiltration of liver. Small nonobstructing left renal stones. Reviewed, dictated and finalized at [facility]. Impression: Findings consistent with at least partial small bowel obstruction probably at t he proximal to mid ileum, transition point is noted above. Appearance is simila r to prior exam. Consider adhesions if there is prior surgery versus possible C rohn's disease with focal luminal narrowing. No abscess or free air. Diffuse fatty infiltration of liver. Small nonobstructing left renal stones.
[2022-08-18 20:16] VITALS: BP 146/87; PULSE 86; RESP 18; TEMP 36.6; O2SAT 98
[2022-08-18 21:26] LABS: Basophils Absolute Auto 0.1 K/mm3 (0.0-0.1); Basophils Percent Auto 0.7 % (0.2-1.2); Eosinophils Absolute Auto 0.1 K/mm3 (0-0.3); Eosinophils Percent Auto 1.5 % (0-4.4); Hematocrit 41.7 % (42.0-52.0); Hemoglobin 14.1 g/dL (14.0-18.0); Immature Granulocyte Absolute 0.02 K/mm3 (0.00-0.031); Immature Granulocyte Percent A 0.2 % (0-0.5); Lymphocytes Absolute Auto 2.33 K/mm3 (0.9-3.2); Lymphocytes Percent Auto 28.3 % (18.3-44.2); Mean Corpuscular HGB Conc 33.8 g/dl (32-36); Mean Corpuscular Hemoglobin 31.4 pg (26-34); Mean Corpuscular Volume 92.9 fl (80-100); Mean Platelet Volume 10.5 fl (7.4-10.4); Monocytes Absolute Auto 0.7 K/mm3 (0.1-0.6); Monocytes Percent Auto 8.9 % (2.6-8.5); Neutrophils Percent Auto 60.4 % (45.5-73.1); Platelet Count Result 261 k/mm3 (150-375); Red Blood Count 4.49 M/mm3 (4.6-6.20); Red Cell Distribution Width 15.4 % (11.5-14.5); White Blood Count 8.2 K/mm3 (4.5-10.0)
[2022-08-18 21:29] LABS: Appearance Urine Clear (Clear); Bilirubin Urine Negative (Negative); Blood Urine Negative (Negative); Color Urine Yellow (Yellow); Glucose Urine UA Negative (Negative); Ketones Urine Negative (Negative); Leukocyte Esterase Ur Negative LEU/UL (Negative); Nitrate Urine Negative (Negative); Protein Urine Negative (Negative); Specific Grav Ur 1.016 (1.001-1.035); Urobilinogen Urine 0.2 mg/dL (<2.0)
[2022-08-18 21:38] LABS: Add Urine Microscopic? NO
[2022-08-18 21:51] LABS: Alanine Aminotransferase 32 U/L (6-50); Albumin Level 3.8 g/dL (3.5-5.1); Alkaline Phosphatase 77 U/L (38-126); Anion Gap 5 mmol/L (8-16); Aspartate Amino Transferase 25 U/L (17-59); Bilirubin,Total 0.4 mg/dL (0.2-1.3); Blood Urea Nitrogen 11 mg/dL (9-20); Calcium 8.5 mg/dL (8.4-10.2); Carbon Dioxide 27 mmol/L (22-30); Chloride 105 mmol/L (98-107); Estimated CRCL calculation 103 ml/min; Estimated Glomerular Filt Rate > 60; Glucose 92 mg/dL (65-110); Lipase 48 U/L (23-300); Potassium 4.2 mmol/L (3.4-5.0); Sodium 137 mmol/L (137-145)
--- NOTE | 2022-08-18 23:09 | ED.ABDPAIN ---
HPI - Abdominal Pain General Chief Complaint: Abdominal Pain Stated Complaint: Crohns flare-up Time Seen by Provider: 08/18/22 22:25 Source: patient Mode of arrival: ambulatory Limitations: no limitations History of Present Illness HPI narrative: Patient is a 46-year-old male who presents to the ED with report of abdominal pain. Patient has a history of Crohn's disease with frequent episodes of ileitis. He states his current pain feels similar to his previous flareups. He sees a GI specialist, Dr. Schmid, with [facility]. He is currently on mercaptopurine and Humira. He states his GI specialist has been adjusting and titrating up his medications. Patient developed worsening pain yesterday, which has continued to worsen into today. He has not tried anything for the pain. He denies any nausea or vomiting. He states he has been having BMs 2-3 times a day, but feels he is passing less volume stool than usual. Denies rectal bleeding or melena. Denies any urinary symptoms. Denies fevers. Related Data Allergies Allergy/AdvReac Type Severity Reaction Status Date / Time No Known Allergies Allergy Verified 08/18/22 19:51 Review of Systems Review of Systems: CONSTITUTIONAL: Denies fever, chills, or sweats. CARDIOVASCULAR: Denies chest pain. RESPIRATORY: Denies dyspnea. GASTROINTESTINAL: See HPI. GENITOURINARY: Denies dysuria or hematuria. SKIN: Denies rash or itching. MUSCULOSKELETAL: Denies back pain, joint pain, or myalgia. All systems reviewed & are unremarkable except as noted in HPI and below PMFSH Past Medical History Medical History Abdominal pain Arthritis Back pain Crohn's disease Crohn's disease of ileum Lateral meniscus tear Leukocytosis Lower abdominal pain Nausea Rheumatoid arthritis Right knee pain Strain of quadriceps tendon Surgical History Surgical History No significant past surgical history Family History Family History Mother Diabetes mellitus Hypothyroid Arthritis Asthma Hypertension Neuropathy Psoriasis Other Cancer Social History Social History Smoking packs per day: 1 Smoking cigarettes per day: 20.0 Years smoked: 27 Smoking pack-years: 27.00 Smoking status: Current every day smoker Tobacco type: cigarettes Second hand tobacco smoke exposure: Yes Alcohol intake: never Alcohol use details: 4 per month Substance use: never Substance use type: does not use Gender identity (if verbalized by the patient): Male Spiritual care concerns: No Exam Narrative: GENERAL: Well appearing, obese with BMI of 39.6, non-toxic, in no acute distress. HEAD: Normocephalic, atraumatic. NECK: Supple. No adenopathy, no masses. RESPIRATORY: Airway patent, respirations nonlabored. Clear to auscultation bilaterally, no rales, rhonchi, wheezing. CARDIOVASCULAR: Regular rate and rhythm without murmurs, rubs, or gallops. Radial pulses 2+ and equal bilaterally. ABDOMINAL: Soft, diffuse tenderness throughout abdomen, worst in periumbilical region and right lower abdomen, nondistended, no hepatosplenomegaly. Normoactive BS. MUSCULOSKELETAL: Moves all extremities. Strength/ROM intact without gross deformities. SKIN: Warm, dry, normal color. No rashes. NEURO: A&O X3. Speech clear. Cranial nerves II-XII grossly intact. Steady gait. No ataxic movements. PSYCHIATRIC: Appropriate mood and affect. Normal interaction. Course Vital Signs Vital signs: Vital Signs Temperature 97.9 F 08/18/22 20:16 Pulse Rate 86 08/18/22 20:16 Respiratory Rate 18 08/18/22 20:16 Blood Pressure 146/87 H 08/18/22 20:16 Pulse Oximetry 98 08/18/22 20:16 Oxygen Delivery Room Air 08/18/22 20:16 Temperature 97.9 F 08/18/22 20:16 Pulse
[2022-08-19 00:02] VITALS: O2SAT 100
[2022-08-19 00:04] VITALS: BP 130/75; O2SAT 99
[2022-08-19] MEDS: MORPHINE SULFATE (*CRX) 4 MG/ML INJ IV PUSH (00:04)
[2022-08-19] MEDS: SODIUM CHLORIDE 0.9% IV 1,000 ML 999 ML IV CONT (00:04)
[2022-08-19] MEDS: ONDANSETRON INJ 4 MG/2 ML VIAL IV PUSH (00:04)
[2022-08-19 00:06] VITALS: BP 132/76; PULSE 86; RESP 15; O2SAT 100
[2022-08-19 00:30] VITALS: O2SAT 94
[2022-08-19 01:03] VITALS: O2SAT 96
[2022-08-19] MEDS: methylPREDNISolone SOD SUCC 125 MG VIAL 60 MG IV PUSH (02:26)
[2022-08-19] MEDS: ACETAMINOPHEN 500 MG TABLET 1000 MG PO (02:32)
[2022-08-19 02:40] VITALS: BP 132/72; PULSE 62; RESP 15; O2SAT 100
== END 2022-08-19 02:41 | disposition home or self-care (01) ==
PROVIDERS: Preventive Medicine Aerospace Medicine; Emergency Provider Physician Assistant
DX: K52.9 Noninfective gastroenteritis and colitis, unspecified (principal); K50.90 Crohn's disease, unspecified, without complications; M06.9 Rheumatoid arthritis, unspecified; M19.90 Unspecified osteoarthritis, unspecified site; F17.210 Nicotine dependence, cigarettes, uncomplicated
CPT/HCPCS: 36415; 74177; 80053; 81003; 83690; 85025; 96361; 96374; 96375; 99284; A9270; J2270; J2405; J2930; J7030; Q9967

== ENCOUNTER 2023-02-06 20:18 | Emergency (ER) | payer BC, OTHER, SELFPAY ==
--- NOTE | ~2023-02-06 | CT_ITS ---
EXAMINATION: CT abdomen pelvis w con INDICATION: Epigastric and periumbilical pain, history of Crohn's TECHNIQUE: Computed tomographic images of the abdomen and pelvis were obtained after the administrati on of 100 cc of Omnipaque 350 intravenous contrast. The dose-length product (DLP) was 1496.76 mGy-cm. Automated exposure control and iterative reconstruction technique were employed. COMPARISON: 08/19/2022 FINDINGS: Minimal dependent atelectasis is present in the lung bases. The heart size is normal. A precious cified nodule of the right lower lobe is consistent with old granulomatous disease. The liver, spleen , pancreas, gallbladder, and left adrenal gland are normal. A stable 14 mm mass of the right adrenal gland measuring soft tissue attenuation is consistent with an adenoma. There are two nonobstructing s tones of the left kidney, the larger of which measures 2 mm. There is a 10 mm cyst of the right kidne y. There is mild bilateral inguinal lymphadenopathy, likely reactive. There is wall thickening of the terminal ileum. There are dilated loops of small bowel in the midabdomen with a transition point in the right lower quadrant (image 133). No free intraperitoneal gas is identified. There is mild edema of the small bowel mesentery. The appendix is normal. There is mild lumbar spondylosis. There is a sm all umbilical hernia containing fat and omentum. IMPRESSION: 1. Small bowel obstruction with transition point in the right lower quadrant. 2. Small thickening of the terminal ileum, consistent with history of Crohn's disease. Reviewed, dictated and finalized at location F. WARE ENGINEERING MANAGER IMPRESSION: 1. Small bowel obstruction with transition point in the right lower quadrant. 2. Small thickening of the terminal ileum, consistent with history of Crohn's d isease.
[2023-02-06 20:36] VITALS: BP 135/84; PULSE 88; RESP 20; TEMP 37.4; O2SAT 100
[2023-02-06 23:47] VITALS: O2SAT 99
[2023-02-07] VITALS (25 sets, daily range): BP systolic 111–168; BP diastolic 64–98; PULSE 61–86; RESP 14–16; O2SAT 94–100
[2023-02-07 00:42] LABS: Basophils Absolute Auto 0.1 K/mm3 (0.0-0.1); Basophils Percent Auto 0.5 % (0.2-1.2); Eosinophils Absolute Auto 0.2 K/mm3 (0-0.3); Eosinophils Percent Auto 1.9 % (0-4.4); Hematocrit 37.7 % (42.0-52.0); Hemoglobin 11.8 g/dL (14.0-18.0); Immature Granulocyte Absolute 0.05 K/mm3 (0.00-0.031); Immature Granulocyte Percent A 0.5 % (0-0.5); Lymphocytes Absolute Auto 1.98 K/mm3 (0.9-3.2); Lymphocytes Percent Auto 19.7 % (18.3-44.2); Mean Corpuscular HGB Conc 31.3 g/dl (32-36); Mean Corpuscular Hemoglobin 27.1 pg (26-34); Mean Corpuscular Volume 86.5 fl (80-100); Monocytes Absolute Auto 0.8 K/mm3 (0.1-0.6); Monocytes Percent Auto 7.4 % (2.6-8.5); Neutrophils Absolute Auto 7.1 K/mm3 (1.3-6.7); Platelet Count Result 354 k/mm3 (150-375); Red Blood Count 4.36 M/mm3 (4.6-6.20); Red Cell Distribution Width 13.5 % (11.5-14.5); White Blood Count 10.1 K/mm3 (4.5-10.0)
[2023-02-07 00:54] LABS: Alanine Aminotransferase 30 U/L (6-50); Albumin Level 3.9 g/dL (3.5-5.1); Alkaline Phosphatase 93 U/L (38-126); Anion Gap 6 mmol/L (8-16); Aspartate Amino Transferase 46 U/L (17-59); Bilirubin,Total 0.7 mg/dL (0.2-1.3); Blood Urea Nitrogen 9 mg/dL (9-20); Calcium 9.1 mg/dL (8.4-10.2); Carbon Dioxide 26 mmol/L (22-30); Chloride 105 mmol/L (98-107); Estimated CRCL calculation 91 ml/min; Estimated Glomerular Filt Rate > 60; Glucose 95 mg/dL (65-110); Lactic Acid Reflex 0.8 mmol/L (0.7-2.0); Lipase 43 U/L (23-300); Potassium 4.5 mmol/L (3.4-5.0); Sodium 137 mmol/L (137-145)
[2023-02-07 01:07] LABS: Appearance Urine Cloudy (Clear); Bacteria Urine None Seen /hpf; Bilirubin Urine Negative (Negative); Blood Urine Negative (Negative); Color Urine Yellow (Yellow); Glucose Urine UA Negative (Negative); Ketones Urine Trace mg/dL (Negative); Leukocyte Esterase Ur Trace LEU/UL (Negative); Nitrate Urine Negative (Negative); Non Pathogenic Casts 0-2; Protein Urine Negative (Negative); Specific Grav Ur 1.023 (1.001-1.035); Squamous Epithelial Cell Urine None seen /hpf (Few); Urobilinogen Urine 0.2 mg/dL (<2.0); WBC Urine 0-5 /hpf; pH Urine 5.5 (5.0-9.0)
[2023-02-07 01:08] LABS: Calcium Oxalate Crystals Urine Present /hpf; Need Manual Microscopic Reviewed
[2023-02-07 01:09] LABS: Add Urine Microscopic? YES
[2023-02-07] MEDS: SODIUM CHLORIDE 0.9% IV 1,000 ML 999 ML IV CONT (01:31)
[2023-02-07] MEDS: ONDANSETRON INJ 4 MG/2 ML VIAL IV PUSH (01:32)
[2023-02-07] MEDS: MORPHINE SULFATE (*CRX) 4 MG/ML INJ IV PUSH ×2 (01:34→05:01)
--- NOTE | 2023-02-07 02:22 | ED.ABDPAIN ---
HPI - Abdominal Pain General Chief Complaint: Abdominal Pain <SLIME Marion Last Filed: 02/07/23 04:48> Stated Complaint: crohn's <SLIME Marion Last Filed: 02/07/23 04:48> Time Seen by Provider: 02/07/23 00:09 <SLIME Marion Last Filed: 02/07/23 04:48> Source: patient <SLIME Marion Last Filed: 02/07/23 04:48> Mode of arrival: ambulatory <SLIME Marion Last Filed: 02/07/23 04:48> Limitations: no limitations <SLIME Marion Last Filed: 02/07/23 04:48> History of Present Illness HPI narrative: Patient is a 47-year-old male who presents the ED with report of upper abdominal pain. Patient reports history of Crohn's disease. He has previously been on Humira and mercaptopurine, but states he has been off of these medications for the last 6 months. He does not currently follow with GI. Over the last 2 days, patient reports having worsening pain in his upper abdomen/periumbilical region. He also reports having increased flatulence, borborygmus, diarrhea. denies rectal bleeding or melena. He does note history of bowel obstructions, but states he had multiple bowel movements today. Two were normal, one was looser. Denies nausea, vomiting, fevers. Denies dysuria, hematuria. <SLIME Marion Last Filed: 02/07/23 04:48> Related Data Allergies/Adverse Reactions: Allergies Allergy/AdvReac Type Severity Reaction Status Date / Time No Known Allergies Allergy Verified 08/18/22 19:51 <SLIME Marion Last Filed: 02/07/23 04:48> Review of Systems Review of Systems: CONSTITUTIONAL: Denies fever, chills, or sweats. CARDIOVASCULAR: Denies chest pain, palpitations, or edema. RESPIRATORY: Denies cough or dyspnea. GASTROINTESTINAL: See HPI. GENITOURINARY: Denies dysuria or hematuria. SKIN: Denies rash or itching. MUSCULOSKELETAL: Denies back pain, joint pain, or myalgia. <Caitlin Donaldson PA-C - Last Filed: 02/07/23 04:48> All systems reviewed & are unremarkable except as noted in HPI and below <Caitlin Donaldson PA-C - Last Filed: 02/07/23 04:48> PMFSH Past Medical History Medical History: Medical History Abdominal pain Arthritis Back pain Crohn's disease Crohn's disease of ileum Lateral meniscus tear Leukocytosis Lower abdominal pain Nausea Rheumatoid arthritis Right knee pain Strain of quadriceps tendon <Caitlin Donaldson PA-C - Last Filed: 02/07/23 04:48> Surgical History Surgical History: Surgical History No significant past surgical history <Caitlin Donaldson PA-C - Last Filed: 02/07/23 04:48> Family History Family History: Family History Mother Diabetes mellitus Hypothyroid Arthritis Asthma Hypertension Neuropathy Psoriasis Other Cancer <Caitlin Donaldson PA-C - Last Filed: 02/07/23 04:48> Social History Social History: Social History Smoking packs per day: 1 Smoking cigarettes per day: 20.0 Years smoked: 27 Smoking pack-years: 27.00 Smoking status: Current every day smoker Tobacco type: cigarettes Second hand tobacco smoke exposure: Yes Alcohol intake: never Alcohol use details: 4 per month Substance use: never Substance use type: does not use Gender identity (if verbalized by the patient): Male Spiritual care concerns: No <Caitlin Donaldson PA-C - Last Filed: 02/07/23 04:48> Exam Narrative: GENERAL: Well appearing, Obese with BMI of 38.2 non-toxic, in no acute distress. HEAD: Normocephalic, atraumatic. NECK: Supple. No adenopathy, no masses. RESPIRATORY: Airway patent, respirations nonlabored. Clear to
== END 2023-02-07 06:50 | disposition left against medical advice (07) ==
PROVIDERS: Emergency Provider Physician Assistant
DX: K56.601 Complete intestinal obstruction, unspecified as to cause (principal); K50.90 Crohn's disease, unspecified, without complications; M06.9 Rheumatoid arthritis, unspecified; F17.210 Nicotine dependence, cigarettes, uncomplicated
CPT/HCPCS: 36415; 74177; 80053; 81001; 83605; 83690; 85025; 96361; 96374; 96375; 96376; 99284; J2270; J2405; J7030; Q9967

== ENCOUNTER 2023-02-07 17:26 | Inpatient (IN) | payer BC, OTHER, SELFPAY ==
--- NOTE | ~2023-02-07 | XR_ITS ---
EXAMINATION: XR sm bowel follow through [facility] DATE: 02/09/2023 14:34 INDICATION: Crohn's disease. Small bowel obstruction. TECHNIQUE: Oral contrast was administered, and a time course of radiographs of the abdomen was obtain ed. Fluoroscopy of the small bowel was performed. Fluoroscopy exposure time was 0.1 minutes. The tota l number of images was 10. COMPARISON: CT abdomen and pelvis 02/07/2023, 08/19/2022 FINDINGS: There are multiple dilated loops of small bowel ending in a stricture. There are fistulas to the term inal ileum. Transit time from the stomach to proximal colon was approximately 45 minutes. IMPRESSION: 1. Dilated small bowel with stricture and fistulas involving the terminal ileum, consistent with Croh n disease with chronic partial small bowel obstruction. Reviewed, dictated and finalized at location A. R LEATHER CUTTER IMPRESSION: 1. Dilated small bowel with stricture and fistulas involving the terminal ileum , consistent with Crohn disease with chronic partial small bowel obstruction.
--- NOTE | ~2023-02-07 | XR_ITS ---
EXAM: XR abdomen obstructive series DATE: 02/07/2023 18:45 HISTORY: SBO on ct yesterday . COMPARISON: CT abdomen pelvis, same date. FINDINGS: Clear lung bases. Multiple loops of moderately and severely dilated small bowel in the rig ht upper and right mid abdomen, respectively. Gas fluid level in the most distended portion of small bowel. There is evidence of small bowel wall thickening. IMPRESSION: Significant interval worsening of the small bowel obstruction. Reviewed, dictated and finalized at location K. GRINDER
--- NOTE | ~2023-02-07 | XR_ITS ---
Supine and upright views of the abdomen Clinical history: Small bowel obstruction, Crohn's disease COMPARISON: 02/07/2023 Findings: NG tube in satisfactory position. Probable several distended small bowel loops in the midab domen. No free air evident. No abnormal mass lesion or calcification is seen. Osseous structures are intact. Impression: NG tube in place with several probable air distended small bowel loops in the mid abdomen. Partial sm all bowel obstruction is a consideration. Reviewed, dictated and finalized at location M. N RESOURCES PROJECT MANAGER Impression: NG tube in place with several probable air distended small bowel loops in the m id abdomen. Partial small bowel obstruction is a consideration.
--- NOTE | ~2023-02-07 | XR_ITS ---
EXAM: XR abdomen gastric tube insert DATE: 02/07/2023 21:27 HISTORY: NG placement . COMPARISON: Same date at 6:32 PM. FINDINGS/IMPRESSION: New NG tube which coils in the distal esophagus, recommend repositioning/replacement. Redemonstration of multiple dilated small bowel loops in the upper abdomen. Reviewed, dictated and finalized at location K. ITY GELATIN MAKER
--- NOTE | ~2023-02-07 | XR_ITS ---
EXAMINATION: XR abdomen gastric tube insert INDICATION: Nasogastric tube replacement TECHNIQUE: Portable AP KUB-[id number] at 2213 hours COMPARISON: 2122 hours FINDINGS: The nasogastric tube is in the stomach. There are multiple persistently dilated loops of sm all bowel. The visualized lung bases are clear. IMPRESSION: 1. Nasogastric tube in the stomach. 2. Small bowel obstruction. Reviewed, dictated and finalized at location F. NOSTIC MEDICAL SONOGRAPHER
[2023-02-07 17:28] VITALS: BP 141/76; PULSE 77; RESP 18; TEMP 36.6; O2SAT 100
[2023-02-07 18:10] VITALS: BP 126/70; PULSE 68; RESP 18; O2SAT 100
--- NOTE | 2023-02-07 18:32 | ED.ABDPAIN ---
HPI - Abdominal Pain General Chief Complaint: Abdominal Pain Stated Complaint: Bowel obstruction Time Seen by Provider: 02/07/23 17:46 Source: patient and old records reviewed Mode of arrival: ambulatory Limitations: no limitations History of Present Illness HPI narrative: Patient is a 47-year-old male, with past medical history of Crohn's disease, who presents the ED with report of small-bowel obstruction. Patient was seen in the ED yesterday and had a CT scan performed showing a small-bowel obstruction with transition point in right lower quadrant. Also showing terminal ileitis. Patient left the facility against medical advice as he had to attend his brother's today. He returns today for further management. He denies having worsening pain today. Reports intermittent nausea, denies vomiting. Denies fevers. Denies any other concerns at this time. Related Data Allergies Allergy/AdvReac Type Severity Reaction Status Date / Time No Known Allergies Allergy Verified 02/07/23 18:10 Review of Systems Review of Systems: CONSTITUTIONAL: Denies fever, chills, or sweats. CARDIOVASCULAR: Denies chest pain, palpitations, or edema. RESPIRATORY: Denies cough or dyspnea. GASTROINTESTINAL: See HPI. GENITOURINARY: Denies dysuria or hematuria. NEUROLOGIC: Denies headache, numbness, or weakness. All systems reviewed & are unremarkable except as noted in HPI and below PMFSH Past Medical History Medical History Abdominal pain Arthritis Back pain Crohn's disease Crohn's disease of ileum Lateral meniscus tear Leukocytosis Lower abdominal pain Nausea Rheumatoid arthritis Right knee pain Strain of quadriceps tendon Surgical History Surgical History No significant past surgical history Family History Family History Mother Diabetes mellitus Hypothyroid Arthritis Asthma Hypertension Neuropathy Psoriasis Other Cancer Social History Social History Smoking packs per day: 1 Smoking cigarettes per day: 20.0 Years smoked: 27 Smoking pack-years: 27.00 Smoking status: Current every day smoker Tobacco type: cigarettes Second hand tobacco smoke exposure: Yes Alcohol intake: never Alcohol use details: 4 per month Substance use: never Substance use type: does not use Gender identity (if verbalized by the patient): Male Spiritual care concerns: No Exam Narrative: GENERAL: Well appearing, obese with BMI of 38.1, non-toxic, in no acute distress. HEAD: Normocephalic, atraumatic. NECK: Supple. No adenopathy, no masses. RESPIRATORY: Airway patent, respirations nonlabored. CARDIOVASCULAR: Regular rate and rhythm without murmurs, rubs, or gallops. Radial pulses 2+ and equal bilaterally. ABDOMINAL: Soft, Mild periumbilical tenderness to palpation. Nondistended, no hepatosplenomegaly. Hyperactive BS. MUSCULOSKELETAL: Moves all extremities. No gross deformities. SKIN: Warm, dry, normal color. No rashes. NEURO: A&O X3. Speech clear. Cranial nerves II-XII grossly intact. Steady gait. No ataxic movements. PSYCHIATRIC: Appropriate mood and affect. Normal interaction. Course Vital Signs Vital signs: Vital Signs Temperature 98 F 02/07/23 17:28 Pulse Rate 77 02/07/23 17:28 Respiratory Rate 18 02/07/23 17:28 Blood Pressure 141/76 H 02/07/23 17:28 Pulse Oximetry 100 02/07/23 17:28 Oxygen Delivery Room Air 02/07/23 17:28 Temperature 98 F 02/07/23 17:28 Pulse Rate 68 02/07/23 18:10 Respiratory Rate 18 02/07/23 18:10 Blood Pressure 126/70 02/07/23 18:10 Pulse Oximetry 100 02/07/23 18:10 Oxygen Delivery Room Air 02/07/23 17:28 MDM - Abdominal Pain MDM Narrative Medical decision making narrative:
[2023-02-07 18:55] LABS: Basophils Absolute Auto 0.1 K/mm3 (0.0-0.1); Basophils Percent Auto 0.6 % (0.2-1.2); Eosinophils Absolute Auto 0.2 K/mm3 (0-0.3); Eosinophils Percent Auto 2.1 % (0-4.4); Hematocrit 37.1 % (42.0-52.0); Hemoglobin 11.6 g/dL (14.0-18.0); Immature Granulocyte Absolute 0.02 K/mm3 (0.00-0.031); Immature Granulocyte Percent A 0.2 % (0-0.5); Lymphocytes Absolute Auto 1.73 K/mm3 (0.9-3.2); Lymphocytes Percent Auto 18.4 % (18.3-44.2); Mean Corpuscular HGB Conc 31.3 g/dl (32-36); Mean Corpuscular Hemoglobin 26.9 pg (26-34); Mean Corpuscular Volume 85.9 fl (80-100); Mean Platelet Volume 10.3 fl (7.4-10.4); Monocytes Absolute Auto 0.8 K/mm3 (0.1-0.6); Monocytes Percent Auto 8.1 % (2.6-8.5); Neutrophils Absolute Auto 6.7 K/mm3 (1.3-6.7); Neutrophils Percent Auto 70.6 % (45.5-73.1); Platelet Count Result 368 k/mm3 (150-375); Red Blood Count 4.32 M/mm3 (4.6-6.20); Red Cell Distribution Width 13.4 % (11.5-14.5); White Blood Count 9.4 K/mm3 (4.5-10.0)
[2023-02-07 19:06] LABS: Lactic Acid Reflex 0.8 mmol/L (0.7-2.0)
[2023-02-07 19:10] LABS: Alanine Aminotransferase 27 U/L (6-50); Albumin Level 3.9 g/dL (3.5-5.1); Alkaline Phosphatase 115 U/L (38-126); Anion Gap 7 mmol/L (8-16); Aspartate Amino Transferase 22 U/L (17-59); Bilirubin,Total 0.5 mg/dL (0.2-1.3); Blood Urea Nitrogen 9 mg/dL (9-20); Calcium 8.7 mg/dL (8.4-10.2); Carbon Dioxide 28 mmol/L (22-30); Chloride 104 mmol/L (98-107); Estimated CRCL calculation 84 ml/min; Estimated Glomerular Filt Rate > 60; Glucose 80 mg/dL (65-110); Potassium 4.1 mmol/L (3.4-5.0); Sodium 139 mmol/L (137-145)
--- NOTE | 2023-02-07 19:24 | PC.NURSE ---
This RN assumed patient care. This Rn took patient report from ANALISA Gibson.
--- NOTE | 2023-02-07 20:07 | PM.IMHP ---
H&P: HPI History of Present Illness Date/Time: 02/07/23 20:07 Chief Complaint: Abdominal pain Narrative: This is a 47-year-old male with past medical history significant for Crohn's disease in remission. Patient has been of his medication after his gastroenterology is moved to [facility]. Comes in today due to abdominal pain for 4-5 days with changes in bowel habits loose stool diarrhea alternating with constipation on abdominal cramp pain denies any phlegm or blood in the stools no fevers no rigors no chills had some nausea but no vomiting. In emergency room patient CT abdomen and pelvis was reported as: EXAMINATION: CT abdomen pelvis w con INDICATION: Epigastric and periumbilical pain, history of Crohn's TECHNIQUE: Computed tomographic images of the abdomen and pelvis were obtained after the administration of 100 cc of Omnipaque 350 intravenous contrast. The dose-length product (DLP) was 1496.76 mGy-cm. Automated exposure control and iterative reconstruction technique were employed. COMPARISON: 08/19/2022 FINDINGS: Minimal dependent atelectasis is present in the lung bases. The heart size is normal. A calcified nodule of the right lower lobe is consistent with old granulomatous disease. The liver, spleen, pancreas, gallbladder, and left adrenal gland are normal. A stable 14 mm mass of the right adrenal gland measuring soft tissue attenuation is consistent with an adenoma. There are two nonobstructing stones of the left kidney, the larger of which measures 2 mm. There is a 10 mm cyst of the right kidney. There is mild bilateral inguinal lymphadenopathy, likely reactive. There is wall thickening of the terminal ileum. There are dilated loops of small bowel in the midabdomen with a transition point in the right lower quadrant (image 133). No free intraperitoneal gas is identified. There is mild edema of the small bowel mesentery. The appendix is normal. There is mild lumbar spondylosis. There is a small umbilical hernia containing fat and omentum. IMPRESSION: 1. Small bowel obstruction with transition point in the right lower quadrant. 2. Small thickening of the terminal ileum, consistent with history of Crohn's disease. Patient has been admitted for further evaluation management and treatment Review of Systems Review of Systems: Abdominal pain, cramps, loose 2, terminating with constipation, diarrhea. Constitutional: Constitutional: Denies chills, Denies fatigue, Denies fever(s), Denies malaise and Denies weakness Eyes: Eyes: Denies change in vision ENT: Denies dysphagia and Denies odynophagia Cardiovascular: Cardiovascular: Denies chest pain, Denies radiating jaw, neck or arm pain and Denies palpitations Respiratory: Respiratory: Denies cough and Denies dyspnea Gastrointestinal: Gastrointestinal: Reports abdominal pain, Denies melena, Denies hematochezia, Denies coffee ground emesis, Reports constipation, Denies dyspepsia, Denies heartburn, Reports diarrhea, Reports loose stools and Reports nausea Genitourinary: Genitourinary: Denies dysuria Musculoskeletal: Musculoskeletal: Denies arthralgias Integumentary/Breasts: Skin/Breast: Denies rash Neurologic: Denies focal weakness and Denies Sensory deficit (Neuro) Psychiatric: Psychiatric: Reports no additional psychiatric complaints and Reports as per HPI Endocrine: Endocrine: Denies cold intolerance, Denies flushing, Denies heat intolerance, Denies polyphagia, Denies polydipsia and Denies palpitations Hematologic/Lymphatic: Hematologic/Lymphatic: Reports no additional hematologic/lymphatic complaints and Reports as per HPI Allergic/Immunologic: Allergic/Immunologic: Reports no additional allergic/immunologic complaints and Reports as per HPI PMFSH Past Medical History Medical History Abdominal pain Arthritis Back pain Crohn's disease Crohn's disease of ileum Lateral meniscus tear Leukocytosis Lowe
[2023-02-07 21:18] VITALS: BP 176/81; PULSE 81; O2SAT 100
[2023-02-07] MEDS: methylPREDNISolone SOD SUCC 40 MG VIAL IV PUSH (21:30)
[2023-02-07] MEDS: SODIUM CHLORIDE 0.9% IV 1,000 ML 100 ML IV CONT (21:30)
[2023-02-07] MEDS: MORPHINE SULFATE (*CRX) 4 MG/ML INJ IV PUSH (21:30)
[2023-02-07] MEDS: ONDANSETRON INJ 4 MG/2 ML VIAL IV PUSH (21:30)
--- NOTE | 2023-02-07 22:19 | PC.NURSE ---
EDP Dr. Leigh atomized lidocaine into pt right nare prior to NG insertion.
[2023-02-07 23:09] VITALS: BMI 38.0
--- NOTE | 2023-02-07 23:09 | ADMGEN ---
This patient, Jaswinder Pena, was admitted to [facility] Surg Room 303-01. Patient/family oriented to hospital policies and general routines including ID bracelet, bed and alarms, visiting hours, pain management, procedures, bathroom and other care routines, personal items, smoking policy, room service/diet, and visiting hours. Information on how to activate the Rapid Response Team has been discussed. Patient/Family are encouraged to report perceived risks to care and to ask questions if they do not understand what they are told or what they should do.
[2023-02-08] MEDS: methylPREDNISolone SOD SUCC 40 MG VIAL IV PUSH ×4 (03:21→20:41)
[2023-02-08 06:00] VITALS: BP 168/80; PULSE 80; RESP 18; TEMP 36.9; O2SAT 100
[2023-02-08] MEDS: SODIUM CHLORIDE 0.9% IV 1,000 ML 100 ML IV CONT ×2 (08:09→19:45)
--- NOTE | 2023-02-08 11:50 | PM.CNGS ---
Assessment and Plan Assessment and plan (1) Small bowel obstruction: Code(s): K56.609 - Unspecified intestinal obstruction, unspecified as to partial versus complete obstruction Status: Acute Assessment and Plan: I reviewed the CT and discussed the findings with the patient. He has wall thickening of the terminal ileum which appears to be causing a small-bowel obstruction. The patient has been off of his Crohn's treatment for 6 months. Will await GI evaluation and recommendations current treatment for acute Crohn's flare up. Surgery will be reserved for failure of medical therapy or signs of perforation, abscess, or fistula. Will continue to follow along with the patient with serial abdominal exams and possibly obtain a small-bowel follow-through in the next couple days. (2) Crohn's disease of ileum: Qualifiers: Digestive disease complication type: with intestinal obstruction Qualified Code(s): K50.012 - Crohn's disease of small intestine with intestinal obstruction Code(s): K50.00 - Crohn's disease of small intestine without complications Status: Acute History of Present Illness Consult details Consult date: 02/08/23 Reason for consult: other (small bowel obstruction) Requesting physician: Caitlin Donaldson PA-C Narrative: This is a 47-year-old man who I am asked to see for a small-bowel obstruction. He presented to the emergency department yesterday with abdominal pain with nausea and vomiting. He was having some diarrhea about 3 or 4 days prior to this and having some intermittent abdominal pain and gassiness. The pain then progressed and he stopped having diarrhea. He had a very small bowel movement 2 days ago but then was not passing any flatus. Now he is passing a little flatus but has not had a bowel movement. In the emergency department, CT showed evidence of small-bowel obstruction with small-bowel inflammation consistent with Crohn's. His abdominal pain has improved since NG tube placement. The patient states that he has been off of his Crohn's medications for about 6 months. He was trying to continue his meds but was having problems with the lab orders that were required being sent to the right place for blood draw. He has not reestablished care with a GI doctor since stopping his medications. His prior GI doctor was at [facility] and she has since moved to [place]. Review of Systems Review of Systems: All systems reviewed & are unremarkable except as noted in HPI and below Constitutional: Constitutional: Denies chills and Denies fever(s) Eyes: Eyes: Denies change in vision ENT: Denies hearing loss, Denies neck pain and Denies sore throat Cardiovascular: Cardiovascular: Denies chest pain and Denies dyspnea Respiratory: Respiratory: Denies cough, Denies dyspnea and Denies wheezing Gastrointestinal: Gastrointestinal: Reports as per HPI Genitourinary: Genitourinary: Denies hematuria and Denies dysuria Musculoskeletal: Musculoskeletal: Denies arthralgias, Denies joint swelling and Denies neck pain Allergic/Immunologic: Allergic/Immunologic: Denies wheezing [facility] Past Medical History Medical History Abdominal pain Arthritis Back pain Crohn's disease Crohn's disease of ileum Lateral meniscus tear Leukocytosis Lower abdominal pain Nausea Rheumatoid arthritis Right knee pain Strain of quadriceps tendon Surgical History Surgical History No significant past surgical history Family History Family History Mother Diabetes mellitus Hypothyroid Arthritis Asthma Hypertension Neuropathy Psoriasis Other Cancer Social History Social History Smoking packs per day: 1 Smoking cigarettes per day: 20.0 Ye
[2023-02-08] MEDS: MORPHINE SULFATE (*CRX) 4 MG/ML INJ IV PUSH (12:15)
[2023-02-08] MEDS: metroNIDAZOLE 500 MG/ISO 100ML 500 MG/100 ML BAG 100 MG IVPB ×2 (13:01→21:00)
--- NOTE | 2023-02-08 13:04 | PM.IMPN ---
Progress Note: A&P Assessment and Plan (1) Small bowel obstruction: Code(s): K56.609 - Unspecified intestinal obstruction, unspecified as to partial versus complete obstruction Status: Acute Assessment and Plan: Pt is remain NPo with NG tube watch for progress Pt seen by surgery team continue conservative management (2) Crohn's colitis: Code(s): K50.10 - Crohn's disease of large intestine without complications Status: Acute Assessment and Plan: Patient is a 45-year-old man with a history of Crohn's who was on Remicade infusions but his insurance quit approving it in June of 2020. Pt has been very stressed with recent bereavement of his brother has been off his crohns medications Continue iV steroids and IV flagyl for crohns colitis Time Spent With Patient Time: DVT prop - SCD s Time with patient: 25 - 35 minutes Subjective Date/time seen: 02/08/23 13:04 Interval history: Pt admitted for SBO pt has history of crohns disease can be under alot of stress recent breavement of his brother Pt notice his belly swell up and felt nausea and vomited, but waited until was over Pt seen by surgery team continue conservate management with NPO and NG tube Review of Systems Review of Systems: Pt states he had passed some gas today Exam Narrative: Patient is laying in a stretcher Const: General: comfortable, no acute distress, well developed, alert, awake and average body habitus Nutritional Appearance: average body habitus Orientation/consciousness: patient oriented x3 Other: Well-appearing HENMT: Head: normal to inspection, normocephalic and atraumatic Ears: hearing grossly normal bilaterally Face/Nose/Sinus: normal facial exam Face and sinus: normal facial exam Eyes: General: appearance normal, both eyes and all related structures Pupils: Equal, round and reactive pupils present EOM: EOMs intact bilaterally Neck: Neck: full ROM, no lymphadenopathy and no JVD Thyroid: thyroid normal Lymphatic: no lymphadenopathy noted Resp: Effort & Inspection: normal respiratory effort and able to speak in complete sentences Auscultation: clear to auscultation bilaterally Cardio: Jugular venous distension: no JVD Rate: regular rate Rhythm: regular rhythm Heart sounds: S1 normal heart sound present and S2 normal heart sound present GI: Inspection: obesity GI Palp: Yes Soft to palpation, No Guarding due to palpation present (GI), Yes No hepatosplenomegaly present and No Rebound tenderness present Auscultation: Hypoactive bowel sounds present : General: Yes deferred Skin: Rashes: no rashes Wounds: no wounds Neuro: General: patient oriented x3 and CN's II-XI intact bilaterally Cranial nerves: Yes CN's II-XII intact bilaterally and Yes Equal, round and reactive pupils present Cognition (Neuro): normal cognition Speech: normal speech Gait exam (Neuro): Normal gait present Motor exam (neuro): 5/5 motor strength present throughout Extrem: General: normal to inspection, full ROM, no joint enlargement and no pedal edema Objective Data Vital Signs Vital Signs: Vital Signs - 24 hr 02/07/23 17:28 02/07/23 18:10 02/07/23 21:18 Temperature 36.6 C Pulse Rate 77 68 81 Respiratory Rate 18 18 Blood Pressure 141/76 H 126/70 176/81 H Pulse Oximetry 100 100 100 Oxygen Delivery Room Air 02/08/23 06:00 02/08/23 08:00 Temperature 36.9 C Pulse Rate 80 Respiratory Rate 18 Blood Pressure 168/80 H Pulse Oximetry 100 Oxygen Delivery Room Air Intake/Output Intake/Output: Intake & Output 02/05/23 02/06/23 02/07/23 02/08/23 23:59 23:59 23:59 23:59 Intake Total 1000 Output Total 250 Balance 750 Meds/Results Medications: Active Medications Generic Name Dose Route Start Last Admin Trade Name Freq PRN Reason Stop Dose Admin Sodium Chloride 1,000 mls @ 100 mls/hr 02/07/23 21:05
--- NOTE | 2023-02-08 13:34 | WPDGICN ---
Assessment and Plan Assessment and plan (1) Crohn's disease of ileum: Qualifiers: Digestive disease complication type: with intestinal obstruction Qualified Code(s): K50.012 - Crohn's disease of small intestine with intestinal obstruction Code(s): K50.00 - Crohn's disease of small intestine without complications Status: Acute Assessment and Plan: he has been told over the years that his ileum was the site is Crohn's disease, approximately 10 cm segment. He has given us providers different stories as to when he was last treated but obviously has not been on any medication for a significant length of time. (2) Small bowel obstruction: Code(s): K56.609 - Unspecified intestinal obstruction, unspecified as to partial versus complete obstruction Status: Acute Assessment and Plan: CT scan showed: IMPRESSION: 1. Small bowel obstruction with transition point in the right lower quadrant. 2. Small thickening of the terminal ileum, consistent with history of Crohn's disease. I have started him on intravenous steroids and also will begin metronidazole. I told that he will need to get set up with a capsule filler and probably get back on a biologic therapy. (3) Leukocytosis: Code(s): D72.829 - Elevated white blood cell count, unspecified Status: Acute Assessment and Plan: His white blood count is down to 9000 was not significantly elevated. (4) Nausea and vomiting: Code(s): R11.2 - Nausea with vomiting, unspecified Status: Acute Assessment and Plan: This began about 3 days ago. GI Consult Note Consult date/time: 02/08/23 13:34 HPI: Jaswinder Pena is a 47 year old male With a 10+ year history of Crohn's disease. He has been under the care of a couple of different capsule filler. He had seen Dr. Conteh in [place] who had done a colonoscopy. He never actually saw him in the office. He had also been under the care of Dr. Law at [facility] but she left there about a year ago. He received a please send letter to referring physicianstating that he should let them know where to send his records and did not think that he needed to follow-up with them. He had been on Humira and mercaptopurine under her care. he then failed to follow up with anyone and has not been on any medication. The last time he was here, in December of 2020 he was seen by our group and placed on a steroid taper. He cannot recall taking that but assume that he get better. At that time he had CT scan that showed ileitis and after couple days on steroids was feeling much better. Now he has developed abdominal pain which for the past few months was more of a gurgling after meals but the last few days he had severe pain, with nausea, vomiting and also for the past few days has had diarrhea. He had passed a little flatus but has not had a bowel movement now for 2 days. He was seen by surgery who feels that there is no immediate need for surgery. An NG tube has been placed. Review of Systems Review of Systems: All systems reviewed & are unremarkable except as noted in HPI and below PMFSH Past Medical History Medical History Abdominal pain Arthritis Back pain Crohn's disease Crohn's disease of ileum Lateral meniscus tear Leukocytosis Lower abdominal pain Nausea Rheumatoid arthritis Right knee pain Strain of quadriceps tendon Surgical History Surgical History No significant past surgical history Family History Family History Mother Diabetes mellitus Hypothyroid Arthritis Asthma Hypertension Neuropathy Psoriasis Other Cancer Social History Social History Smoking packs per day: 1 Smoking cigarettes per day: 20.
[2023-02-08 14:00] VITALS: BP 141/70; PULSE 67; RESP 20; TEMP 36.2; O2SAT 98
[2023-02-08 21:37] VITALS: BP 136/71; PULSE 60; RESP 16; TEMP 36.6; O2SAT 98
[2023-02-08] MEDS: HYDROmorphone HCL INJ (*CRX) 1 MG/ML SYR 0.5 MG IV PUSH (22:02)
[2023-02-08] MEDS: BENZOCAINE/MENTHOL (*BKC) 18 EA LOZENGE 1 LOZENGE PO (22:15)
[2023-02-09] MEDS: methylPREDNISolone SOD SUCC 40 MG VIAL IV PUSH ×3 (02:19→15:29)
[2023-02-09] MEDS: metroNIDAZOLE 500 MG/ISO 100ML 500 MG/100 ML BAG 100 MG IVPB ×2 (05:11→15:29)
[2023-02-09 06:00] VITALS: BP 132/65; PULSE 60; RESP 18; TEMP 36.1; O2SAT 100
[2023-02-09] MEDS: SODIUM CHLORIDE 0.9% IV 1,000 ML 100 ML IV CONT (08:53)
[2023-02-09 09:16] LABS: Basophils Percent Auto 0.1 % (0.2-1.2); Hematocrit 35.6 % (42.0-52.0); Hemoglobin 11.5 g/dL (14.0-18.0); Immature Granulocyte Absolute 0.07 K/mm3 (0.00-0.031); Immature Granulocyte Percent A 0.5 % (0-0.5); Mean Corpuscular HGB Conc 32.3 g/dl (32-36); Mean Corpuscular Hemoglobin 27.1 pg (26-34); Mean Corpuscular Volume 83.8 fl (80-100); Mean Platelet Volume 10.1 fl (7.4-10.4); Monocytes Absolute Auto 0.4 K/mm3 (0.1-0.6); Monocytes Percent Auto 2.6 % (2.6-8.5); Neutrophils Percent Auto 91.8 % (45.5-73.1); Platelet Count Result 355 k/mm3 (150-375); Red Blood Count 4.25 M/mm3 (4.6-6.20); Red Cell Distribution Width 13.2 % (11.5-14.5); White Blood Count 14.1 K/mm3 (4.5-10.0)
[2023-02-09 09:29] LABS: Anion Gap 3 mmol/L (8-16); Blood Urea Nitrogen 18 mg/dL (9-20); Calcium 8.7 mg/dL (8.4-10.2); Carbon Dioxide 31 mmol/L (22-30); Chloride 107 mmol/L (98-107); Estimated CRCL calculation 110 ml/min; Estimated Glomerular Filt Rate > 60; Glucose 148 mg/dL (65-110); Potassium 4.1 mmol/L (3.4-5.0); Sodium 141 mmol/L (137-145)
--- NOTE | 2023-02-09 11:16 | PM.PNGS ---
Progress Note: A&P Assessment and Plan (1) Small bowel obstruction: Code(s): K56.609 - Unspecified intestinal obstruction, unspecified as to partial versus complete obstruction Status: Acute Assessment and Plan: bowel function returning. Will get SBFT today, possibly remove NG and start liquids based on SBFT results. (2) Crohn's disease of ileum: Qualifiers: Digestive disease complication type: with intestinal obstruction Qualified Code(s): K50.012 - Crohn's disease of small intestine with intestinal obstruction Code(s): K50.00 - Crohn's disease of small intestine without complications Status: Acute Subjective Subjective Date/Time Seen: 02/09/23 11:16 Interval history: Minimal pain. Passing flatus. NG causing more irritation and headache than anything else. Exam GI: Inspection: non-distended GI Palp: Yes Soft to palpation, No Tenderness to palpation present (GI) and No Guarding due to palpation present (GI) Objective Data Vital Signs Vital Signs: Vital Signs - 24 hr 02/08/23 14:00 02/08/23 21:37 02/09/23 06:00 Temperature 36.2 C L 36.6 C 36.1 C L Pulse Rate 67 60 60 Respiratory Rate 20 16 18 Blood Pressure 141/70 H 136/71 132/65 Pulse Oximetry 98 98 100 Intake/Output Intake/Output: Intake & Output 02/06/23 02/07/23 02/08/23 02/09/23 23:59 23:59 23:59 23:59 Intake Total 2200 1100 Output Total 1350 3200 Balance 850 -2100 Meds/Results Medications: Active Medications Generic Name Dose Route Start Last Admin Trade Name Freq PRN Reason Stop Dose Admin Benzocaine 1 lozenge 02/08/23 22:10 02/08/23 22:15 Benzocaine/Menthol (*Bkc) 18 Ea Lozenge PO 1 lozenge PRN PRN Administration Sore Throat Hydromorphone HCl 0.5 mg 02/08/23 13:25 02/08/23 22:02 Hydromorphone Hcl Inj (*Crx) 1 Mg/Ml Syr IV PUSH 0.5 mg Q4H PRN Administration Pain Rated 7-10 Sodium Chloride 1,000 mls @ 100 mls/hr 02/07/23 21:05 02/09/23 08:53 Normal Saline Iv IV CONT 100 mls/hr .Q10H MELLISSA Administration Metronidazole 500 mg in 100 mls @ 100 mls/hr 02/08/23 12:15 02/09/23 06:11 Flagyl 500 Mg/Iso Soln 100 Ml IVPB Infused Q8HR MELLISSA Infusion Ibuprofen 400 mg/ Sodium 104 mls @ 208 mls/hr 02/09/23 11:15 Chloride IVPB Q6H PRN Pain Rated 4-6 Methylprednisolone Sodium Succinate 40 mg 02/08/23 03:00 02/09/23 08:53 Methylprednisolone Sod Succ 40 Mg Vial IV PUSH 40 mg Q6H MELLISSA Administration Ondansetron HCl 4 mg 02/07/23 21:02 02/07/23 21:30 Ondansetron Inj 4 Mg/2 Ml Vial IV PUSH 4 mg Q4H PRN Administration Nausea Radiology Results: ITS Impressions Abdomen X-Ray 02/09/23 06:54 Impression: NG tube in place with several probable air distended small bowel loops in the mid abdomen. Partial small bowel obstruction is a consideration. Labs Labs: Laboratory Results - last 24 hr 02/09/23 09:10 WBC 14.1 H RBC 4.25 L Hgb 11.5 L Hct 35.6 L MCV 83.8 MCH 27.1 MCHC 32.3 RDW 13.2 Plt Count 355 MPV 10.1 Immature Gran % (Auto) 0.5 Neut % (Auto) 91.8 H Lymph % (Auto) 5.0 L Towns % (Auto) 2.6 Eos % (Auto) 0.0 Baso % (Auto) 0.1 L Lymph # (Auto) 0.70 L Towns # (Auto) 0.4 Eos # (Auto) 0.0 Baso # (Auto) 0.0 Abs Immat Gran (auto) 0.07 H Absolute Neuts (auto) 13.0 H Absolute Nucleated RBC 0.0 Nucleated RBC % 0.0 Sodium 141 Potassium 4.1 Chloride 107 Carbon Dioxide 31 H Anion Gap 3 L BUN 18 Creatinine 0.90 Estim Creat Clear Calc 110 Estimated GFR > 60 Glucose 148 H Calcium 8.7
--- NOTE | 2023-02-09 13:05 | PC.NURSE ---
Pt. down to SBFT via wheelchair.
[2023-02-09 14:48] VITALS: BP 130/62; PULSE 78; RESP 18; TEMP 36.7; O2SAT 98
--- NOTE | 2023-02-09 15:30 | WPDGIPROGNO ---
Progress Note: A&P Assessment and Plan (1) Crohn's disease of ileum: Qualifiers: Digestive disease complication type: with intestinal obstruction Qualified Code(s): K50.012 - Crohn's disease of small intestine with intestinal obstruction Code(s): K50.00 - Crohn's disease of small intestine without complications Status: Acute Assessment and Plan: he has been told over the years that his ileum was the site is Crohn's disease, approximately 10 cm segment. He has given us providers different stories as to when he was last treated but obviously has not been on any medication for a significant length of time. (2) Small bowel obstruction: Code(s): K56.609 - Unspecified intestinal obstruction, unspecified as to partial versus complete obstruction Status: Acute Assessment and Plan: CT scan showed: IMPRESSION: 1. Small bowel obstruction with transition point in the right lower quadrant. 2. Small thickening of the terminal ileum, consistent with history of Crohn's disease. I have started him on intravenous steroids and also will begin metronidazole. I told that he will need to get set up with a desktop administrator and probably get back on a biologic therapy. small bowel series being done today (3) Leukocytosis: Code(s): D72.829 - Elevated white blood cell count, unspecified Status: Acute Assessment and Plan: His white blood count is down to 9000 was not significantly elevated. (4) Nausea and vomiting: Code(s): R11.2 - Nausea with vomiting, unspecified Status: Acute Assessment and Plan: This began about 3 days ago. Plan if contrast passes the distal small bowel then we may start him on a clear liquid diet Subjective Date/time seen: 02/09/23 15:30 he is more comfortable today. Surgery Has ordered small bowel series per NG tube. he is hopeful of having NG tube removed due to Nasal discomfort. Exam Const: General: cooperative, healthy appearing and obese Nutritional Appearance: obese Orientation/consciousness: patient oriented x3 HENMT: Head: normal to inspection Ears: hearing grossly normal bilaterally Mouth: Yes Normal oral and palatal mucosa present Other: nasogastric tube in place Eyes: General: appearance normal, both eyes and all related structures Neck: Neck: normal visual inspection Chest: Chest palpation & inspection: normal inspection of the chest Resp: Effort & Inspection: normal respiratory effort Auscultation: clear to auscultation bilaterally Cardio: Rate: regular rate Rhythm: regular rhythm GI: Inspection: normal to inspection GI Palp: Yes abdominal tenderness ( Mild, right lower quadrant), Yes Soft to palpation and No Guarding due to palpation present (GI) Auscultation: normal bowel sounds Skin: General skin exam: normal color and no jaundice Neuro: General: patient oriented x3 Speech: normal speech Objective Data Vital Signs Vital Signs: Vital Signs - 24 hr 02/08/23 21:37 02/09/23 06:00 02/09/23 08:00 Temperature 36.6 C 36.1 C L Pulse Rate 60 60 Respiratory Rate 16 18 Blood Pressure 136/71 132/65 Pulse Oximetry 98 100 Oxygen Delivery Room Air 02/09/23 14:48 Temperature 36.7 C Pulse Rate 78 Respiratory Rate 18 Blood Pressure 130/62 Pulse Oximetry 98 Oxygen Delivery Intake/Output Intake/Output: Intake & Output 02/06/23 02/07/23 02/08/23 02/09/23 23:59 23:59 23:59 23:59 Intake Total 2200 1100 Output Total 1350 4100 Balance 850 -3000 Meds/Results Medications: Active Medications Generic Name Dose Route Start Last Admin Trade Name Freq PRN Reason Stop Dose Admin Benzocaine 1 lozenge 02/08/23 22:10 02/08/23 22:15 Benzocaine/Menthol (*Bkc) 18 Ea Lozenge PO 1 lozenge PRN PRN Administration Sore Throat Hydromorphone HCl 0.5 mg 02/08/23 13:25 02/08/23 22:02 Hydromorphone Hcl Inj (*Crx) 1 Mg/Ml Syr IV PUSH 0.5 mg Q4H
--- NOTE | 2023-02-09 17:20 | PM.IMPN ---
Progress Note: A&P Assessment and Plan (1) Nausea and vomiting: Code(s): R11.2 - Nausea with vomiting, unspecified Status: Acute (2) Small bowel obstruction: Code(s): K56.609 - Unspecified intestinal obstruction, unspecified as to partial versus complete obstruction Status: Acute (3) Leukocytosis: Code(s): D72.829 - Elevated white blood cell count, unspecified Status: Acute (4) Nausea: Code(s): R11.0 - Nausea Status: Acute (5) Lower abdominal pain: Code(s): R10.30 - Lower abdominal pain, unspecified Status: Acute (6) Crohn's disease of ileum: Qualifiers: Digestive disease complication type: with intestinal obstruction Qualified Code(s): K50.012 - Crohn's disease of small intestine with intestinal obstruction Code(s): K50.00 - Crohn's disease of small intestine without complications Status: Acute (7) Crohn's disease of appendix: Code(s): K50.10 - Crohn's disease of large intestine without complications Status: Acute (8) Back pain: Code(s): M54.9 - Dorsalgia, unspecified Status: Acute (9) Crohn's colitis: Code(s): K50.10 - Crohn's disease of large intestine without complications Status: Acute (10) Strain of quadriceps tendon: Qualifiers: Encounter type: initial encounter Laterality: right Qualified Code(s): S76.111A - Strain of right quadriceps muscle, fascia and tendon, initial encounter Code(s): S76.119A - Strain of unspecified quadriceps muscle, fascia and tendon, initial encounter Status: Acute (11) Lateral meniscus tear: Qualifiers: Tear current or old: current Encounter type: initial encounter Meniscus tear of knee type: unspecified type Laterality: right Qualified Code(s): S83.281A - Other tear of lateral meniscus, current injury, right knee, initial encounter Code(s): S83.289A - Other tear of lateral meniscus, current injury, unspecified knee, initial encounter Status: Acute (12) Right knee pain: Code(s): M25.561 - Pain in right knee Status: Acute Plan Patient under alot of stress recent breavement of his brother Pt notice his belly swell up and felt nausea and vomited, but waited until was over Pt admitted for SBO pt has history of crohn's disease Pt NPO with NG tube watch for progress during my morning rounds Pt seen by surgery team continue conservative management Small-bowel follow-through ordered today which is normal Clamp NG tube, initiate clear liquid diet Advance diet as tolerated Continue with the IV steroids and metronidazole WBC count is up trending likely due to prednisone Follow-up closely at per GI and surgery ? Patient seen and examined at bedside during my morning rounds ? Collaborated with patient's nurse at the bedside in detail and addressed all concerns ? Labs, electrolytes, radiology, investigations and test results reviewed ? Consult/Nursing/Ancilliary notes on the chart reviewed and appreciated ? Spoke with patient/ at the bedside and answered all the questions that they had Repeat labs in a.m. Electrolyte replacement as per protocol. Patient will be monitored very closely on the floor. Further recommendations as per the hospital course. Subjective Date/time seen: 02/09/23 17:20 Interval history: Patient seen and evaluated bedside. NG tube in place. He is awaiting small bowel follow-through results. Passing gas. Still complains of abdominal pain off and on. Review of Systems Review of Systems: 14 systems were reviewed with pertinent positives and negatives per HPI. Except as documented in the HPI/progress notes, all other systems were reviewed and are negative. All systems reviewed & are unremarkable except as noted in HPI and below Exam Narrative: PHYSICAL EXAMINATION: Vital signs: Please see the chart General physical exam: Head/eyes: Atraumatic,
[2023-02-09] MEDS: metroNIDAZOLE 500 MG TABLET PO (21:57)
[2023-02-09] MEDS: predniSONE 40 MG, predniSONE 10 MG 50 MG PO (21:58)
[2023-02-09 22:00] VITALS: BP 127/74; PULSE 61; RESP 18; TEMP 36.6; O2SAT 100
[2023-02-10 06:00] VITALS: BP 116/64; PULSE 56; RESP 18; TEMP 36.1; O2SAT 100
[2023-02-10] MEDS: ACETAMINOPHEN 500 MG TABLET 1000 MG PO (06:05)
[2023-02-10 07:46] LABS: Basophils Percent Auto 0.2 % (0.2-1.2); Hematocrit 37.2 % (42.0-52.0); Hemoglobin 11.4 g/dL (14.0-18.0); Immature Granulocyte Absolute 0.22 K/mm3 (0.00-0.031); Immature Granulocyte Percent A 1.5 % (0-0.5); Lymphocytes Absolute Auto 0.83 K/mm3 (0.9-3.2); Lymphocytes Percent Auto 5.6 % (18.3-44.2); Mean Corpuscular HGB Conc 30.6 g/dl (32-36); Mean Corpuscular Hemoglobin 26.8 pg (26-34); Mean Corpuscular Volume 87.3 fl (80-100); Mean Platelet Volume 10.5 fl (7.4-10.4); Monocytes Absolute Auto 0.4 K/mm3 (0.1-0.6); Monocytes Percent Auto 2.7 % (2.6-8.5); Neutrophils Absolute Auto 13.4 K/mm3 (1.3-6.7); Platelet Count Result 379 k/mm3 (150-375); Red Blood Count 4.26 M/mm3 (4.6-6.20); Red Cell Distribution Width 13.5 % (11.5-14.5); White Blood Count 14.9 K/mm3 (4.5-10.0)
[2023-02-10 08:00] LABS: Anion Gap 9 mmol/L (8-16); Blood Urea Nitrogen 21 mg/dL (9-20); Calcium 8.6 mg/dL (8.4-10.2); Carbon Dioxide 27 mmol/L (22-30); Chloride 102 mmol/L (98-107); Estimated CRCL calculation 100 ml/min; Estimated Glomerular Filt Rate > 60; Glucose 200 mg/dL (65-110); Potassium 3.9 mmol/L (3.4-5.0); Sodium 138 mmol/L (137-145)
[2023-02-10] MEDS: metroNIDAZOLE 500 MG/ISO 100ML 500 MG/100 ML BAG 100 MG IVPB ×2 (08:05→14:43)
[2023-02-10] MEDS: methylPREDNISolone SOD SUCC 40 MG VIAL IV PUSH ×2 (08:06→14:43)
--- NOTE | 2023-02-10 11:08 | WPDGIPROGNO ---
Progress Note: A&P Assessment and Plan (1) Crohn's disease of ileum: Qualifiers: Digestive disease complication type: with intestinal obstruction Qualified Code(s): K50.012 - Crohn's disease of small intestine with intestinal obstruction Code(s): K50.00 - Crohn's disease of small intestine without complications Status: Acute Assessment and Plan: he has been told over the years that his ileum was the site is Crohn's disease, approximately 10 cm segment. He has given us providers different stories as to when he was last treated but obviously has not been on any medication for a significant length of time. We will send him home on a steroid taper and 7 more days of metronidazole. In preparation for possible restarting of biologic therapy, will obtain hepatitis serology and tuberculin testing. I spoke to him about the need to resume biologic therapy which she had been on for quite a while until 6 months ago. For some reason he was also taking mercaptopurine which should not be necessary if he is on a biologic like Humira. With mercaptopurine we need to frequently monitor CBC. (2) Small bowel obstruction: Code(s): K56.609 - Unspecified intestinal obstruction, unspecified as to partial versus complete obstruction Status: Acute Assessment and Plan: CT scan showed: IMPRESSION: 1. Small bowel obstruction with transition point in the right lower quadrant. 2. Small thickening of the terminal ileum, consistent with history of Crohn's disease. I have started him on intravenous steroids and also will begin metronidazole. I told that he will need to get set up with a field servicer and probably get back on a biologic therapy. small bowel series being done today (3) Leukocytosis: Code(s): D72.829 - Elevated white blood cell count, unspecified Status: Acute Assessment and Plan: His white blood count is is now up over 14,000. Likely due to inflammation and steroids. Because it was under 10,000 2 days ago. (4) Nausea and vomiting: Code(s): R11.2 - Nausea with vomiting, unspecified Status: Acute Assessment and Plan: This began about 3 days ago. So far tolerating clear liquids. I would agree with him being discharged if he is able to tolerate solid food. Will need to keep him on a low residue diet, specifically no pulpy fruits or vegetables. I discussed the diet with him at length explain that to make it easy he should simply stay away from all vegetables for now. He saying that 1 doctor and said that he could have salads if ill did not bother him. I explained that at this particular time he has quite a narrowed terminal ileum and it would not be prudent to try any vegetables unless they are cooked and soft such as carrots, potatoes Plan if contrast passes the distal small bowel then we may start him on a clear liquid diet So far tolerating clear liquids. He is going to try full liquids at lunch including chicken noodle soup. I told that if he can eat solid food done it should be okay for him to go home. I will order low residue diet for dinner Will send him home on tapering doses of steroids, starting at 50 mg a day and decreasing by 10 mg every 3 days. As well as metronidazole 500 mg 3 times a day for 7 days He will follow up in our office in 3 weeks When trying to get him approved for [facility] Subjective Date/time seen: 02/10/23 11:08 Small-bowel series does show stricture in narrowing due to regional enteritis. NG tube is out and he is tolerating clear liquids. Objective Data Vital Signs Vital Signs: Vital Signs - 24 hr 02/09/23 14:48 02/09/23 22:00 02/10/23 06:00 Temperature 36.7 C 36.6 C 36.1 C L Pulse Rate 78 61 56 L Respiratory Rate 18 18 18 Blood Pressure 130/62 127/74 116/64 Pulse Oximetry 98 100 100 Intake/Output Intake/Output: Intake & Output 02/07/23 02/08/23 02/09/23 02/10/23 23:59 23:59 23:59 23:59 Intake Total 220
--- NOTE | 2023-02-10 11:45 | PM.PNGS ---
Progress Note: A&P Assessment and Plan (1) Small bowel obstruction: Code(s): K56.609 - Unspecified intestinal obstruction, unspecified as to partial versus complete obstruction Status: Acute Assessment and Plan: Resolved. No surgical indications at this time. Continue treatment per GI. OK to discharge if tolerating diet. (2) Crohn's disease of ileum: Qualifiers: Digestive disease complication type: with intestinal obstruction Qualified Code(s): K50.012 - Crohn's disease of small intestine with intestinal obstruction Code(s): K50.00 - Crohn's disease of small intestine without complications Status: Acute Subjective Subjective Date/Time Seen: 02/10/23 11:45 Interval history: Tolerating clears. Trying full liquids for lunch. No nausea/vomiting. No fevers. Exam GI: Inspection: non-distended GI Palp: Yes Soft to palpation, No Tenderness to palpation present (GI) and No Guarding due to palpation present (GI) Auscultation: normal bowel sounds Objective Data Vital Signs Vital Signs: Vital Signs - 24 hr 02/09/23 14:48 02/09/23 22:00 02/10/23 06:00 Temperature 36.7 C 36.6 C 36.1 C L Pulse Rate 78 61 56 L Respiratory Rate 18 18 18 Blood Pressure 130/62 127/74 116/64 Pulse Oximetry 98 100 100 Intake/Output Intake/Output: Intake & Output 02/07/23 02/08/23 02/09/23 02/10/23 23:59 23:59 23:59 23:59 Intake Total 2200 1976 740 Output Total 1350 4450 Balance 850 -9204 740 Meds/Results Medications: Active Medications Generic Name Dose Route Start Last Admin Trade Name Freq PRN Reason Stop Dose Admin Benzocaine 1 lozenge 02/08/23 22:10 02/08/23 22:15 Benzocaine/Menthol (*Bkc) 18 Ea Lozenge PO 1 lozenge PRN PRN Administration Sore Throat Hydromorphone HCl 0.5 mg 02/08/23 13:25 02/08/23 22:02 Hydromorphone Hcl Inj (*Crx) 1 Mg/Ml Syr IV PUSH 0.5 mg Q4H PRN Administration Pain Rated 7-10 Ibuprofen 400 mg/ Sodium 104 mls @ 208 mls/hr 02/09/23 12:00 Chloride IVPB Q6H PRN Pain Rated 4-6 Metronidazole 500 mg in 100 mls @ 100 mls/hr 02/10/23 08:00 02/10/23 09:05 Flagyl 500 Mg/Iso Soln 100 Ml IVPB Infused Q8HR MELLISSA Infusion Methylprednisolone Sodium Succinate 40 mg 02/10/23 09:00 02/10/23 08:06 Methylprednisolone Sod Succ 40 Mg Vial IV PUSH 40 mg Q6H MELLISSA Administration Ondansetron HCl 4 mg 02/07/23 21:02 02/07/23 21:30 Ondansetron Inj 4 Mg/2 Ml Vial IV PUSH 4 mg Q4H PRN Administration Nausea Radiology Results: ITS Impressions Abdomen X-Ray 02/09/23 06:54 Impression: NG tube in place with several probable air distended small bowel loops in the mid abdomen. Partial small bowel obstruction is a consideration. Small Bowel X-Ray 02/09/23 15:20 IMPRESSION: 1. Dilated small bowel with stricture and fistulas involving the terminal ileum, consistent with Crohn disease with chronic partial small bowel obstruction. Labs Labs: Laboratory Results - last 24 hr 02/10/23 06:30 WBC 14.9 H RBC 4.26 L Hgb 11.4 L Hct 37.2 L MCV 87.3 MCH 26.8 MCHC 30.6 L RDW 13.5 Plt Count 379 H MPV 10.5 H Immature Gran % (Auto) 1.5 H Neut % (Auto) 90.0 H Lymph % (Auto) 5.6 L [place] % (Auto) 2.7 Eos % (Auto) 0.0 Baso % (Auto) 0.2 Lymph # (Auto) 0.83 L [place] # (Auto) 0.4 Eos # (Auto) 0.0 Baso # (Auto) 0.0 Abs Immat Gran (auto) 0.22 H Absolute Neuts (auto) 13.4 H Absolute Nucleated RBC 0.0 Nucleated RBC % 0.0 Sodium 138 Potassium 3.9 Chloride 102 Carbon Dioxide 27 Anion Gap 9 BUN 21 H Creatinine 1.00 Estim Creat Clear Calc 100 Estimated GFR > 60 Glucose 200 H Calcium 8.6
[2023-02-10 13:50] LABS: Hepatitis B Surface Antigen Negative (Negative)
[2023-02-10 14:00] VITALS: BP 132/59; PULSE 65; RESP 16; TEMP 36.7; O2SAT 100
[2023-02-10 14:07] LABS: Hepatitis B Surface Anti Res Negative
--- NOTE | 2023-02-10 18:00 | PM.DS ---
DS: Admitting Diagnosis Discharge Date 02/10/2023: Admitting Diagnosis Exacerbation of Crohn's disease Small-bowel obstruction DS: Discharge Diagnosis Discharge Diagnosis (1) Nausea and vomiting: Code(s): R11.2 - Nausea with vomiting, unspecified Status: Acute (2) Small bowel obstruction: Code(s): K56.609 - Unspecified intestinal obstruction, unspecified as to partial versus complete obstruction Status: Acute (3) Lower abdominal pain: Code(s): R10.30 - Lower abdominal pain, unspecified Status: Acute (4) Crohn's disease of ileum: Qualifiers: Digestive disease complication type: with intestinal obstruction Qualified Code(s): K50.012 - Crohn's disease of small intestine with intestinal obstruction Code(s): K50.00 - Crohn's disease of small intestine without complications Status: Acute (5) Back pain: Code(s): M54.9 - Dorsalgia, unspecified Status: Acute (6) Crohn's colitis: Code(s): K50.10 - Crohn's disease of large intestine without complications Status: Acute DS: Summary Hospital Course Reason for hospitalization: Patient admitted with abdominal pain. Workup was done which showed exacerbation of Crohn's disease and small bowel obstruction. Hospital Course: H&P: HPI History of Present Illness Date/Time: 02/07/23? 20:07 Chief Complaint: Abdominal pain Narrative: This is a 47-year-old male with past medical history significant for Crohn's disease in remission.? Patient has been of his medication after his gastroenterology is moved to [facility].? Comes in today due to abdominal pain for 4-5 days with changes in bowel habits loose stool diarrhea alternating with constipation on abdominal cramp pain denies any phlegm or blood in the stools no fevers no rigors no chills had some nausea but no vomiting.? In emergency room patient CT abdomen and pelvis was reported as: EXAMINATION: CT abdomen pelvis w con INDICATION: Epigastric and periumbilical pain, history of Crohn's TECHNIQUE: Computed tomographic images of the abdomen and pelvis were obtained after the administration of 100 cc of Omnipaque 350 intravenous contrast. The dose-length product (DLP) was 1496.76 mGy-cm. Automated exposure control and iterative reconstruction technique were employed. COMPARISON: 08/19/2022 FINDINGS: Minimal dependent atelectasis is present in the lung bases. The heart size is normal. A calcified nodule of the right lower lobe is consistent with old granulomatous disease. The liver, spleen, pancreas, gallbladder, and left adrenal gland are normal. A stable 14 mm mass of the right adrenal gland measuring soft tissue attenuation is consistent with an adenoma. There are two nonobstructing stones of the left kidney, the larger of which measures 2 mm. There is a 10 mm cyst of the right kidney. There is mild bilateral inguinal lymphadenopathy, likely reactive. There is wall thickening of the terminal ileum. There are dilated loops of small bowel in the midabdomen with a transition point in the right lower quadrant (image 133). No free intraperitoneal gas is identified. There is mild edema of the small bowel mesentery. The appendix is normal. There is mild lumbar spondylosis. There is a small umbilical hernia containing fat and omentum. IMPRESSION: 1. Small bowel obstruction with transition point in the right lower quadrant. 2. Small thickening of the terminal ileum, consistent with history of Crohn's disease. Patient has been admitted for further evaluation management and treatment. HOSPITAL COURSE ... Date of Admission - 02/09/2023: Patient under alot of stress recent breavement of his brother Pt notice his belly swell up and felt nausea and vomited, but waited until was over Pt admitted for SBO pt has history of crohn's disease Pt? NPO with NG tube watch for progress during my morning rounds Pt seen by surgery team continue conservative management Smal
[2023-02-12 16:34] LABS: NIL 0.01 IU/mL; Quantiferon TB Plus, 1T NEGATIVE (NEGATIVE)
[2023-02-13 05:17] LABS: Hepatitis B Core Ab Total Nonreactive (Nonreactive)
== END 2023-02-10 18:37 | disposition home or self-care (01) | DRG 389 ==
LOC: ANHED 21:22 → ANH3MEDSUR 21:56
PROVIDERS: Internal Medicine Gastroenterology; Admitting Provider Internal Medicine; Emergency Provider Physician Assistant; Visit Provider Family Medicine
DX: K56.609 Unspecified intestinal obstruction, unspecified as to partial versus complete obstruction (principal); K50.912 Crohn's disease, unspecified, with intestinal obstruction; F17.210 Nicotine dependence, cigarettes, uncomplicated; M54.9 Dorsalgia, unspecified; M06.9 Rheumatoid arthritis, unspecified
CPT/HCPCS: 36415; 74018; 74019; 74177; 74250; 80048; 80053; 81001; 83605; 83690; 85025; 86480; 86704; 86706; 87340; 96361; 96374; 96375; 96376; 99284; 99285; A9270; G0378; J1170; J1836; J2270; J2405; J2920; J7030; J7512; Q9967

== ENCOUNTER 2023-04-30 08:25 | Outpatient (CLI) | payer BC, OTHER, SELFPAY ==
--- NOTE | ~2023-04-30 | XR_ITS ---
EXAMINATION: XR small bowel follow through DATE: 04/30/2023 12:23 INDICATION: Crohn disease of small bowel. TECHNIQUE: Oral contrast was administered, and a time course of radiographs of the abdomen was obtain ed. Fluoroscopy of the small bowel was performed. Fluoroscopy exposure time was 0.2 minutes. The tota l number of images was 22. COMPARISON: CT abdomen and pelvis 02/07/2023, small bowel series 02/09/2023 FINDINGS: There are multiple dilated loops of distal small bowel ending in a stricture approximately 50 cm prox imal to the ileocecal valve. There are fistulas from this area to the terminal ileum, which is in shon se proximity. There is fold thickening of the terminal ileum. Transit time from the stomach to proxim al colon was approximately 3 hours. IMPRESSION: 1. Dilated small bowel with stricture and fistulas involving the terminal ileum, consistent with Croh n disease with chronic partial small bowel obstruction. Findings unchanged from 02/07/2023. Reviewed, dictated and finalized at location A. Y TABLE OPERATOR IMPRESSION: 1. Dilated small bowel with stricture and fistulas involving the terminal ileum , consistent with Crohn disease with chronic partial small bowel obstruction. F indings unchanged from 02/07/2023.
== END 2023-04-30 08:26 | disposition home or self-care (01) ==
LOC: ANHIMG 08:28
PROVIDERS: PCP Nurse Practitioner Family; Visit Provider Nurse Practitioner Family
DX: K50.00 Crohn's disease of small intestine without complications (principal)
CPT/HCPCS: 74250

== ENCOUNTER 2023-06-20 07:42 | Outpatient (CLI) | payer BC, SELFPAY ==
[2023-06-20 08:19] LABS: Hematocrit 42.9 % (42.0-52.0); Mean Corpuscular HGB Conc 32.6 g/dl (32-36); Mean Corpuscular Hemoglobin 28.3 pg (26-34); Mean Corpuscular Volume 86.7 fl (80-100); Mean Platelet Volume 10.9 fl (7.4-10.4); Platelet Count Result 257 k/mm3 (150-375); Red Blood Count 4.95 M/mm3 (4.6-6.20); Red Cell Distribution Width 14.4 % (11.5-14.5); White Blood Count 9.8 K/mm3 (4.5-10.0)
[2023-06-20 08:36] LABS: Alanine Aminotransferase 24 U/L (6-50); Alkaline Phosphatase 81 U/L (38-126); Anion Gap 5 mmol/L (4-12); Aspartate Amino Transferase 17 U/L (17-59); Bilirubin,Total 0.4 mg/dL (0.2-1.3); Blood Urea Nitrogen 15 mg/dL (9-20); CRP 1.7 mg/dL (<1.0); Calcium 9.1 mg/dL (8.4-10.2); Carbon Dioxide 27 mmol/L (22-30); Chloride 108 mmol/L (98-107); Estimated Glomerular Filt Rate > 60; Glucose 160 mg/dL (65-110); Potassium 4.1 mmol/L (3.4-5.0); Sodium 140 mmol/L (137-145)
[2023-06-20 09:57] LABS: Erythrocyte Sedimentation Rate 21 mm/hr (0-20)
== END 2023-06-20 07:43 | disposition home or self-care (01) ==
LOC: ANHLAB 07:47
PROVIDERS: PCP Nurse Practitioner Family; Visit Provider Nurse Practitioner Family
DX: K50.00 Crohn's disease of small intestine without complications (principal)
CPT/HCPCS: 36415; 80053; 85027; 85652; 86140

== ENCOUNTER 2023-06-24 11:55 | Emergency (ER) | payer BC, SELFPAY ==
[2023-06-24 11:59] VITALS: BP 133/80; PULSE 86; RESP 16; TEMP 36.9; O2SAT 99
--- NOTE | 2023-06-24 12:06 | PC.NURSE ---
pt left d/t wait time
== END 2023-06-24 12:51 | disposition left against medical advice (07) ==
LOC: ANHED 12:10
PROVIDERS: PCP Nurse Practitioner Family
DX: R19.7 Diarrhea, unspecified (principal)
CPT/HCPCS: 99199

== ENCOUNTER 2023-10-20 09:47 | Outpatient (CLI) | payer BC, SELFPAY ==
[2023-10-20 10:41] LABS: Alanine Aminotransferase 46 U/L (6-50); Albumin Level 3.8 g/dL (3.5-5.1); Alkaline Phosphatase 70 U/L (38-126); Anion Gap 9 mmol/L (4-12); Aspartate Amino Transferase 22 U/L (17-59); Bilirubin,Total 0.2 mg/dL (0.2-1.3); Blood Urea Nitrogen 23 mg/dL (9-20); CRP < 0.5 mg/dL (<1.0); Calcium 8.7 mg/dL (8.4-10.2); Carbon Dioxide 23 mmol/L (22-30); Chloride 107 mmol/L (98-107); Estimated Glomerular Filt Rate > 60; Glucose 85 mg/dL (65-110); Potassium 3.7 mmol/L (3.4-5.0); Sodium 139 mmol/L (137-145)
[2023-10-20 10:42] LABS: Hematocrit 41.8 % (42.0-52.0); Hemoglobin 13.9 g/dL (14.0-18.0); Mean Corpuscular HGB Conc 33.3 g/dl (32-36); Mean Corpuscular Hemoglobin 29.1 pg (26-34); Mean Corpuscular Volume 87.6 fl (80-100); Mean Platelet Volume 11.1 fl (7.4-10.4); Platelet Count Result 298 k/mm3 (150-375); Red Blood Count 4.77 M/mm3 (4.6-6.20); Red Cell Distribution Width 13.9 % (11.5-14.5); White Blood Count 14.2 K/mm3 (4.5-10.0)
[2023-10-20 13:00] LABS: Erythrocyte Sedimentation Rate 17 mm/hr (0-20)
[2023-10-23 13:33] LABS: Trichrome Ova and Parasites STATUS: FINAL
[2023-10-27 20:08] LABS: Calprotectin, Stool 1070 mcg/g
[2023-10-31 07:13] LABS: Adalimumab Ab IBD 23 AU (<10)
== END 2023-10-20 09:48 | disposition home or self-care (01) ==
LOC: ANHLAB 09:49
PROVIDERS: PCP Nurse Practitioner Family; Visit Provider Nurse Practitioner Family
DX: R14.0 Abdominal distension (gaseous) (principal); K50.00 Crohn's disease of small intestine without complications; K56.609 Unspecified intestinal obstruction, unspecified as to partial versus complete obstruction; K50.10 Crohn's disease of large intestine without complications; R19.7 Diarrhea, unspecified
CPT/HCPCS: 36415; 80053; 80145; 83993; 85027; 85652; 86140; 87045; 87177; 87209; 87427; 87449

== ENCOUNTER 2023-10-26 06:48 | Outpatient (CLI) | payer BC, SELFPAY ==
--- NOTE | ~2023-10-26 | CT_ITS ---
CT of the Abdomen and Pelvis: Indication: Crohn's disease Technique: 2.5 mm axial scans were obtained through the abdomen and pelvis following intravenous adm inistration of 100 cc of Omnipaque 350. Dose reduction technique was used on this scan by utilizing a utomated exposure control and iterative reconstruction technique. The dose-length product (DLP) was 1 681.69 mGy-cm. COMPARISON: 02/07/2023 Findings: Scans through the lung bases demonstrated stable large calcified right lower lobe granulom a. There is diffuse hepatic steatosis. The spleen, pancreas, gallbladder, left adrenal gland, and kidney s are within normal limits. Stable 1.5 cm right adrenal nodule. No evidence of aortic aneurysm. No l ymphadenopathy. There is mild wall thickening and distention of several mid small bowel loops in the anterior abdomen . Probable mild wall thickening of the terminal ileum. Small fat-containing umbilical hernia present. Images through the pelvis were performed. Urinary bladder unremarkable. Prostate gland mildly enlarge d. No ascites. Impression: Wall thickening and distention of mid abdominal small bowel loops, similar to prior exam. There is al so mild wall thickening of the terminal ileum. Findings are compatible with history of Crohn's diseas e. Diffuse hepatic steatosis. Stable 1.5 cm right adrenal nodule. Reviewed, dictated and finalized at location M. Impression: Wall thickening and distention of mid abdominal small bowel loops, similar to p rior exam. There is also mild wall thickening of the terminal ileum. Findings a re compatible with history of Crohn's disease. Diffuse hepatic steatosis. Stable 1.5 cm right adrenal nodule.
== END 2023-10-26 06:49 | disposition home or self-care (01) ==
LOC: ANHIMG 06:49
PROVIDERS: PCP Nurse Practitioner Family; Visit Provider Nurse Practitioner Family
DX: K50.00 Crohn's disease of small intestine without complications (principal); R14.0 Abdominal distension (gaseous); D35.01 Benign neoplasm of right adrenal gland; K76.0 Fatty (change of) liver, not elsewhere classified
CPT/HCPCS: 74177; Q9967

== ENCOUNTER 2024-02-05 09:34 | Inpatient (IN) | payer BC, SELFPAY ==
[2024-02-05] VITALS (12 sets, daily range): BP systolic 142–170; BP diastolic 66–92; PULSE 63–88; RESP 14–20; TEMP 36.3–37.1; O2SAT 95–99; BMI 40.9
--- NOTE | ~2024-02-05 | CT_ITS ---
EXAMINATION: CT abdomen pelvis w con DATE: 02/05/2024 10:42 INDICATION: Upper abdominal pain. Crohn disease. TECHNIQUE: Computed tomography (CT) of the abdomen and pelvis was performed with 100 mL Omnipaque 350 intravenous contrast. Automated exposure control and iterative reconstruction technique were employe d. The dose-length product was 1413.17 mGy-cm. COMPARISON: CT abdomen and pelvis 10/26/2023, 12/30/21 FINDINGS: The visualized portions of the lung bases demonstrate mild atelectasis. A calcified right l patsy nodule is consistent with old granulomatous disease. No pleural effusion. The heart size is samia l. No pericardial effusion. There is diffuse hepatic steatosis. The gallbladder is distended. The spl een, pancreas, and left adrenal gland are normal. There is a 13 mm mass in right adrenal gland, stabl e from 12/30/2021, likely an adenoma. There is cortical thinning of the kidneys. There is a 2 mm ston e in right kidney. There is a 3 mm stone in left kidney. The prostate is mildly enlarged. There are m ultiple dilated loops of small bowel with transition point at a stricture in right lower quadrant. Th ere is a fistula from this area of stricture to the terminal ileum and ascending colon, which demonst rate wall thickening. There is a separate area of wall thickening in the mid ileum. There is mild mes enteric lymphadenopathy, likely reactive. There is no ascites. There is a skin thickening in the lowe r abdomen, likely inflammation or scarring. There is a left inguinal hernia containing fat. There is bilateral sacroiliitis, consistent with enteropathy-associated arthritis. There is moderate lumbar sp ondylosis. IMPRESSION: 1. Crohn's disease with stricture and obstruction of ileum in the right lower quadrant. Reviewed, dictated and finalized at location A. [facility] IMPRESSION: 1. Crohn's disease with stricture and obstruction of ileum in the right lower q uadrant.
[2024-02-05 09:59] LABS: Basophils Absolute Auto 0.1 K/mm3 (0.0-0.1); Basophils Percent Auto 0.7 % (0.2-1.2); Eosinophils Absolute Auto 0.2 K/mm3 (0-0.3); Eosinophils Percent Auto 1.5 % (0-4.4); Hematocrit 43.5 % (42.0-52.0); Hemoglobin 14.1 g/dL (14.0-18.0); Immature Granulocyte Absolute 0.07 K/mm3 (0.00-0.031); Immature Granulocyte Percent A 0.5 % (0-0.5); Lymphocytes Absolute Auto 3.13 K/mm3 (0.9-3.2); Mean Corpuscular HGB Conc 32.4 g/dl (32-36); Mean Corpuscular Hemoglobin 28.7 pg (26-34); Mean Corpuscular Volume 88.4 fl (80-100); Mean Platelet Volume 10.4 fl (7.4-10.4); Monocytes Absolute Auto 0.9 K/mm3 (0.1-0.6); Neutrophils Absolute Auto 8.7 K/mm3 (1.3-6.7); Neutrophils Percent Auto 66.3 % (45.5-73.1); Platelet Count Result 383 k/mm3 (150-375); Red Blood Count 4.92 M/mm3 (4.6-6.20); Red Cell Distribution Width 13.2 % (11.5-14.5); White Blood Count 13.1 K/mm3 (4.5-10.0)
[2024-02-05 10:09] LABS: Alanine Aminotransferase 28 U/L (6-50); Albumin Level 4.1 g/dL (3.5-5.1); Alkaline Phosphatase 103 U/L (38-126); Anion Gap 4 mmol/L (4-12); Aspartate Amino Transferase 22 U/L (17-59); Bilirubin,Total 0.5 mg/dL (0.2-1.3); Blood Urea Nitrogen 12 mg/dL (9-20); Calcium 9.8 mg/dL (8.4-10.2); Carbon Dioxide 29 mmol/L (22-30); Chloride 103 mmol/L (98-107); Estimated CRCL calculation 89 ml/min; Estimated Glomerular Filt Rate > 60; Glucose 118 mg/dL (65-110); Lipase 50 U/L (23-300); Potassium 4.4 mmol/L (3.4-5.0); Sodium 136 mmol/L (137-145)
[2024-02-05 10:13] LABS: Prothrombin Time 13.8 Seconds (11.1-14.7)
[2024-02-05 10:14] LABS: Partial Thromboplastin Time 31.6 Seconds (22.3-36.8)
[2024-02-05 10:22] LABS: Lactic Acid Reflex 0.8 mmol/L (0.7-2.0)
[2024-02-05] MEDS: SODIUM CHLORIDE 0.9% IV 1,000 ML 999 ML IV CONT (10:32)
[2024-02-05] MEDS: MORPHINE SULFATE (*CRX) 4 MG/ML INJ IV PUSH ×2 (10:32→16:27)
[2024-02-05] MEDS: ONDANSETRON INJ 4 MG/2 ML VIAL IV PUSH (10:32)
[2024-02-05] MEDS: FAMOTIDINE 20 MG/2 ML VIAL IV PUSH (10:32)
[2024-02-05] MEDS: DICYCLOMINE HCL 10 MG CAPSULE 20 MG PO (10:33)
--- NOTE | 2024-02-05 10:33 | ED_ITS ---
HPI - GI Bleed General Chief complaint: GI Bleed <SLIME Marion Last Filed: 02/05/24 16:15> Stated complaint: blood in stool & crohns flare up <SLIME Marion Last Filed: 02/05/24 16:15> Time Seen by Provider: 02/05/24 09:38 <SLIME Marion Last Filed: 02/05/24 16:15> Source: patient and old records reviewed <SLIME Marion Last Filed: 02/05/24 16:15> Mode of arrival: ambulatory <SLIME Marion Filed: 02/05/24 16:15> Limitations: no limitations <SLIME Marion Filed: 02/05/24 16:15> History of Present Illness HPI Narrative: Patient is a 48-year-old male, with past medical history of Crohn's disease, who presents the ED with report of abdominal pain. Patient sees GI here, currently on Humira, working with insurance to get approved for [employer]. States over the last 2 weeks, he has had increased pain throughout his abdomen, worse throughout his upper abdomen. Has had gas pains, increased flatulence, borborygmi. Reports over the last few days, his stool has been dark brown/borderline black in color. He has been taking Pepto-Bismol. Denies iron supplementation. Denies any bright red bleeding. He is not on anticoagulation. Denies nausea, vomiting, fevers. <SLIME Marion Last Filed: 02/05/24 16:15> Related Data Home medications: Home Medications Medication Instructions Recorded Confirmed famotidine 40 mg tablet (Pepcid) 40 mg PO BID 11/26/23 02/05/24 adalimumab 40 mg/0.8 mL 40 mg subcut [id number] 02/05/24 02/05/24 subcutaneous pen kit (Humira Pen) simethicone 80 mg chewable tablet 80 mg PO BID 02/05/24 02/05/24 <SLIME Marion Last Filed: 02/05/24 16:15> Allergies/Adverse reactions: Allergies Allergy/AdvReac Type Severity Reaction Status Date / Time No Known Allergies Allergy Verified 02/05/24 16:09 <Caitlin Donaldson PA-C - Last Filed: 02/05/24 16:15> Review of Systems Review of Systems: All systems reviewed & are unremarkable except as noted in HPI. <Caitlin Donaldson PA-C - Last Filed: 02/05/24 16:15> All systems reviewed & are unremarkable except as noted in HPI and below <Caitlin Donaldson PA-C - Last Filed: 02/05/24 16:15> [facility] Past Medical History Medical History: Medical History Abdominal bloating Abdominal pain Arthritis Back pain Bilateral sacroiliitis Crohn's disease Crohn's disease of ileum Lateral meniscus tear Leukocytosis Lower abdominal pain Nausea Rheumatoid arthritis Right knee pain Strain of quadriceps tendon Tobacco use <Caitlin Donaldson PA-C - Last Filed: 02/05/24 16:15> Surgical History Surgical History: Surgical History No significant past surgical history <Caitlin Donaldson PA-C - Last Filed: 02/05/24 16:15> Family History Family History: Family History Mother Diabetes mellitus Hypothyroid Arthritis Asthma Hypertension Neuropathy Psoriasis Other Cancer <Caitlin Donaldson PA-C - Last Filed: 02/05/24 16:15> Social History Social History: Social History Smoking packs per day: 1.5 Smoking cigarettes per day: 30.0 Years smoked: 30 Smoking pack-years: 45.00 Smoking status: Current every day smoker Second hand tobacco smoke exposure: Yes Alcohol intake: current Drinks per week: 1 Alcohol use details: 4 per month Substance use: never Substance use type: does not use Do You Feel Safe in your Home?: Yes Lack of Transportation: No Lack of Food: Never True Current Housing: I Have Housing Concerned About Future Housing: No Difficulty Paying Gas/Electric Bills: No Difficulty Paying for Meds: No Currently Unemployed: No Education: Decline to Answer Difficulty w/ Childcare or Family Care: No Gender identity (if verbalized by the patient): Male Spiritual care concerns: No <Caitlin Donaldson PA-C - Last Filed: 02/05/24 16:15> Exam Narrative: GENERAL: Well appearing, morbidly obese with BMI of 43.6, non-toxic, in no acute distress. HEAD: Normocephalic, atraumatic. RESPIRATORY: Airway patent, respirations nonlabored. Clear to auscultation bilaterally, no rales, rhonchi, wheezing. CARDIOVASCULAR: Regular rate and rhythm without murmurs, rubs, or gallops. ABDOMINAL: Diffuse tenderness throughout abdomen, worst throughout epigastric/supraumbilical region. Mildly distended in upper abdomen. Mildly hyperactive BS. MUSCULOSKELETAL: Moves all extremities. No gross deformities. SKIN: Warm, dry, normal color. NEURO: A&O X3. Speech clear. Cranial nerves II-XII grossly intact. Steady gait. No ataxic movements. PSYCHIATRIC: Appropriate mood and affect. Normal interaction. <Caitlin Donaldson PA-C - Last Filed: 02/05/24 16:15> Course TEAM ASSISTANT/PA Physician Supervision PA discussed this patient with me. I am aware they are being admitted given they have evidence of stricture and obstruction on imaging; history of Crohns and follows with GI here previously. I was available for consultation but otherwise did not personally examine this patient and was not invovled in their care while in the ED. <Zully Mckinney MD - Last Filed: 02/05/24 22:41> Vital Signs Vital signs: Vital Signs Temperature 97.5 F L 02/05/24 09:37 Pulse Rate 88 02/05/24 09:37 Respiratory Rate 14 02/05/24 09:37 Blood Pressure 153/90 H 02/05/24 09:37 Pulse Oximetry 98 02/05/24 09:37 Temperature 98.8 F 02/05/24 20:22 Pulse Rate 67 02/05/24 20:22 Respiratory Rate 18 02/05/24 20:22 Blood Pressure 142/66 H 02/05/24 20:22 Pulse Oximetry 96 02/05/24 20:22 <Caitlin Donaldson PA-C - Last Filed: 02/05/24 16:15> Vital Signs Temperature 97.5 F L 02/05/24 09:37 Pulse Rate 88 02/05/24 09:37 Respiratory Rate 14 02/05/24 09:37 Blood Pressure 153/90 H 02/05/24 09:37 Pulse Oximetry 98 02/05/24 09:37 Temperature 98.8 F 02/05/24 20:22 Pulse Rate 67 02/05/24 20:22 Respiratory Rate 18 02/05/24 20:22 Blood Pressure 142/66 H 02/05/24 20:22 Pulse Oximetry 96 02/05/24 20:22 <Zully Mckinney MD - Last Filed: 02/05/24 22:41> MDM - GI Bleed MDM Narrative Medical decision making narrative: Patient presented to ED with 2 week history of increasing abdominal pain, history of Crohn's disease, feels like a flare. Also reported having some melanotic stool over the last couple of days. Patient brought in a stool sample from home per the direction of GI. It does appear melanotic, but guaiac testing was negative. Will send for culture and C diff testing. Vital signs are stable. Patient is afebrile. Cbc with a blood cell count of 13.1. CMP is unremarkable. Normal LFTs and lactic. Normal lipase. UA clear. CT scan of abdomen/pelvis was obtained and showing and Crohn's disease with stricture and obstruction at the ileum. Consistent with clinical picture though patient does report he has been having several bowel movements per day. Patient does have history of previous bowel obstruction. Patient will be admitted for further evaluation. Discussed case with Dr. Aranda, GI, agreed with plan for NG tube, surgery consult, will consult. Discussed case with Dr. Lynch, general surgery, agrees w/ plan, will consult. Given leukocytosis, will cover for infectious process, rocephin and flagyl started in the ED. blood cultures were obtained. Discussed case with Dr. Magdaleno, hospitalist, accepted patient for admission. Patient in agreement with plan and need for admission. He was initially hesitant to receive NG tube. Will keep NPO. <Caitlin Donaldson PA-C - Last Filed: 02/05/24 16:15> Medical Records Attestation: I reviewed the patient's medical records. <Caitlin Donaldson PA-C - Last Filed: 02/05/24 16:15> Lab Data Attestation: I reviewed the patient's lab results. <Caitlin Donaldson PA-C - Last Filed: 02/05/24 16:15> Result diagrams: 02/05/24 09:52 02/05/24 17:27 <Caitlin Donaldson PA-C - Last Filed: 02/05/24 16:15> Labs: Lab Results 02/05/24 02/05/24 02/05/24 Range/Units 09:52 10:01 13:50 WBC 13.1 H (4.5-10.0) K/mm3 RBC 4.92 (4.6-6.20) M/mm3 Hgb 14.1 (14.0-18.0) g/dL Hct 43.5 (42.0-52.0) % MCV 88.4 (80-100) fl MCH 28.7 (26-34) pg MCHC 32.4 (32-36) g/dl RDW 13.2 (11.5-14.5) % Plt Count 383 H (150-375) k/mm3 MPV 10.4 (7.4-10.4) fl Immature Gran % (Auto) 0.5 (0-0.5) % Neut % (Auto) 66.3 (45.5-73.1) % Lymph % (Auto) 24.0 (18.3-44.2) % [place] % (Auto) 7.0 (2.6-8.5) % Eos % (Auto) 1.5 (0-4.4) % Baso % (Auto) 0.7 (0.2-1.2) % Lymph # (Auto) 3.13 (0.9-3.2) K/mm3 [place] # (Auto) 0.9 H (0.1-0.6) K/mm3 Eos # (Auto) 0.2 (0-0.3) K/mm3 Baso # (Auto) 0.1 (0.0-0.1) K/mm3 Abs Immat Gran (auto) 0.07 H (0.00-0.031) K/mm3 Absolute Neuts (auto) 8.7 H (1.3-6.7) K/mm3 Absolute Nucleated RBC 0.000 (0.0-0.012) K/mm3 Nucleated RBC % 0.0 (0.0-0.2) % PT 13.8 (11.1-14.7) Seconds INR 1.0 APTT 31.6 (22.3-36.8) Seconds Sodium 136 L (137-145) mmol/L Potassium 4.4 (3.4-5.0) mmol/L Chloride 103 (98-107) mmol/L Carbon Dioxide 29 (22-30) mmol/L Anion Gap 4 (4-12) mmol/L BUN 12 D (9-20) mg/dL Creatinine 1.20 (0.7-1.3) mg/dL Estim Creat Clear Calc 89 ml/min Estimated GFR > 60 (59 - ) Glucose 118 H (65-110) mg/dL Lactic Acid 0.8 (0.7-2.0) mmol/L Calcium 9.8 (8.4-10.2) mg/dL Total Bilirubin 0.5 (0.2-1.3) mg/dL AST 22 (17-59) U/L ALT 28 (6-50) U/L Alkaline Phosphatase 103 (38-126) U/L Total Protein 8.0 (6.3-8.2) g/dL Albumin 4.1 (3.5-5.1) g/dL Lipase 50 (23-300) U/L Urine Color (Yellow) Urine Appearance (Clear) Urine pH (5.0-9.0) Ur Specific [place] (1.001-1.035) Urine Protein (Negative) mg/dL Urine Glucose (UA) (Negative) mg/dL Urine Ketones (Negative) mg/dL Ur Blood (Man) (Negative) Urine Nitrate (Negative) Urine Bilirubin (Negative) Urine Urobilinogen (<2.0) mg/dL Leukocyte Esterase Rfl (Negative) MATT/UL C. difficile (PCR) Negative (NEGATIVE) Blood Type A Negative Antibody Screen Negative 02/05/24 Range/Units 13:58 WBC (4.5-10.0) K/mm3 RBC (4.6-6.20) M/mm3 Hgb (14.0-18.0) g/dL Hct (42.0-52.0) % MCV (80-100) fl MCH (26-34) pg MCHC (32-36) g/dl RDW (11.5-14.5) % Plt Count (150-375) k/mm3 MPV (7.4-10.4) fl Immature Gran % (Auto) (0-0.5) % Neut % (Auto) (45.5-73.1) % Lymph % (Auto) (18.3-44.2) % [place] % (Auto) (2.6-8.5) % Eos % (Auto) (0-4.4) % Baso % (Auto) (0.2-1.2) % Lymph # (Auto) (0.9-3.2) K/mm3 [place] # (Auto) (0.1-0.6) K/mm3 Eos # (Auto) (0-0.3) K/mm3 Baso # (Auto) (0.0-0.1) K/mm3 Abs Immat Gran (auto) (0.00-0.031) K/mm3 Absolute Neuts (auto) (1.3-6.7) K/mm3 Absolute Nucleated RBC (0.0-0.012) K/mm3 Nucleated RBC % (0.0-0.2) % PT (11.1-14.7) Seconds INR APTT (22.3-36.8) Seconds Sodium (137-145) mmol/L Potassium (3.4-5.0) mmol/L Chloride (98-107) mmol/L Carbon Dioxide (22-30) mmol/L Anion Gap (4-12) mmol/L BUN (9-20) mg/dL Creatinine (0.7-1.3) mg/dL Estim Creat Clear Calc ml/min Estimated GFR (59 - ) Glucose (65-110) mg/dL Lactic Acid (0.7-2.0) mmol/L Calcium (8.4-10.2) mg/dL Total Bilirubin (0.2-1.3) mg/dL AST (17-59) U/L ALT (6-50) U/L Alkaline Phosphatase (38-126) U/L Total Protein (6.3-8.2) g/dL Albumin (3.5-5.1) g/dL Lipase (23-300) U/L Urine Color Yellow (Yellow) Urine Appearance Clear (Clear) Urine pH 5.5 (5.0-9.0) Ur Specific [place] 1.016 (1.001-1.035) Urine Protein Negative (Negative) mg/dL Urine Glucose (UA) Negative (Negative) mg/dL Urine Ketones Negative (Negative) mg/dL Ur Blood (Man) Negative (Negative) Urine Nitrate Negative (Negative) Urine Bilirubin Negative (Negative) Urine Urobilinogen 0.2 (<2.0) mg/dL Leukocyte Esterase Rfl Negative (Negative) MATT/UL C. difficile (PCR) (NEGATIVE) Blood Type Antibody Screen <Caitlin Donaldson PA-C - Last Filed: 02/05/24 16:15> Lab Results 02/05/24 02/05/24 02/05/24 Range/Units 09:52 10:01 13:50 WBC 13.1 H (4.5-10.0) K/mm3 RBC 4.92 (4.6-6.20) M/mm3 Hgb 14.1 (14.0-18.0) g/dL Hct 43.5 (42.0-52.0) % MCV 88.4 (80-100) fl MCH 28.7 (26-34) pg MCHC 32.4 (32-36) g/dl RDW 13.2 (11.5-14.5) % Plt Count 383 H (150-375) k/mm3 MPV 10.4 (7.4-10.4) fl Immature Gran % (Auto) 0.5 (0-0.5) % Neut % (Auto) 66.3 (45.5-73.1) % Lymph % (Auto) 24.0 (18.3-44.2) % [place] % (Auto) 7.0 (2.6-8.5) % Eos % (Auto) 1.5 (0-4.4) % Baso % (Auto) 0.7 (0.2-1.2) % Lymph # (Auto) 3.13 (0.9-3.2) K/mm3 [place] # (Auto) 0.9 H (0.1-0.6) K/mm3 Eos # (Auto) 0.2 (0-0.3) K/mm3 Baso # (Auto) 0.1 (0.0-0.1) K/mm3 Abs Immat Gran (auto) 0.07 H (0.00-0.031) K/mm3 Absolute Neuts (auto) 8.7 H (1.3-6.7) K/mm3 Absolute Nucleated RBC 0.000 (0.0-0.012) K/mm3 Nucleated RBC % 0.0 (0.0-0.2) % PT 13.8 (11.1-14.7) Seconds INR 1.0 APTT 31.6 (22.3-36.8) Seconds Sodium 136 L (137-145) mmol/L Potassium 4.4 (3.4-5.0) mmol/L Chloride 103 (98-107) mmol/L Carbon Dioxide 29 (22-30) mmol/L Anion Gap 4 (4-12) mmol/L BUN 12 D (9-20) mg/dL Creatinine 1.20 (0.7-1.3) mg/dL Estim Creat Clear Calc 89 ml/min Estimated GFR > 60 (59 - ) Glucose 118 H (65-110) mg/dL Lactic Acid 0.8 (0.7-2.0) mmol/L Calcium 9.8 (8.4-10.2) mg/dL Total Bilirubin 0.5 (0.2-1.3) mg/dL AST 22 (17-59) U/L ALT 28 (6-50) U/L Alkaline Phosphatase 103 (38-126) U/L Total Protein 8.0 (6.3-8.2) g/dL Albumin 4.1 (3.5-5.1) g/dL Lipase 50 (23-300) U/L Urine Color (Yellow) Urine Appearance (Clear) Urine pH (5.0-9.0) Ur Specific [place] (1.001-1.035) Urine Protein (Negative) mg/dL Urine Glucose (UA) (Negative) mg/dL Urine Ketones (Negative) mg/dL Ur Blood (Man) (Negative) Urine Nitrate (Negative) Urine Bilirubin (Negative) Urine Urobilinogen (<2.0) mg/dL Leukocyte Esterase Rfl (Negative) MATT/UL C. difficile (PCR) Negative (NEGATIVE) Blood Type A Negative Antibody Screen Negative 02/05/24 Range/Units 13:58 WBC (4.5-10.0) K/mm3 RBC (4.6-6.20) M/mm3 Hgb (14.0-18.0) g/dL Hct (42.0-52.0) % MCV (80-100) fl MCH (26-34) pg MCHC (32-36) g/dl RDW (11.5-14.5) % Plt Count (150-375) k/mm3 MPV (7.4-10.4) fl Immature Gran % (Auto) (0-0.5) % Neut % (Auto) (45.5-73.1) % Lymph % (Auto) (18.3-44.2) % [place] % (Auto) (2.6-8.5) % Eos % (Auto) (0-4.4) % Baso % (Auto) (0.2-1.2) % Lymph # (Auto) (0.9-3.2) K/mm3 [place] # (Auto) (0.1-0.6) K/mm3 Eos # (Auto) (0-0.3) K/mm3 Baso # (Auto) (0.0-0.1) K/mm3 Abs Immat Gran (auto) (0.00-0.031) K/mm3 Absolute Neuts (auto) (1.3-6.7) K/mm3 Absolute Nucleated RBC (0.0-0.012) K/mm3 Nucleated RBC % (0.0-0.2) % PT (11.1-14.7) Seconds INR APTT (22.3-36.8) Seconds Sodium (137-145) mmol/L Potassium (3.4-5.0) mmol/L Chloride (98-107) mmol/L Carbon Dioxide (22-30) mmol/L Anion Gap (4-12) mmol/L BUN (9-20) mg/dL Creatinine (0.7-1.3) mg/dL Estim Creat Clear Calc ml/min Estimated GFR (59 - ) Glucose (65-110) mg/dL Lactic Acid (0.7-2.0) mmol/L Calcium (8.4-10.2) mg/dL Total Bilirubin (0.2-1.3) mg/dL AST (17-59) U/L ALT (6-50) U/L Alkaline Phosphatase (38-126) U/L Total Protein (6.3-8.2) g/dL Albumin (3.5-5.1) g/dL Lipase (23-300) U/L Urine Color Yellow (Yellow) Urine Appearance Clear (Clear) Urine pH 5.5 (5.0-9.0) Ur Specific [place] 1.016 (1.001-1.035) Urine Protein Negative (Negative) mg/dL Urine Glucose (UA) Negative (Negative) mg/dL Urine Ketones Negative (Negative) mg/dL Ur Blood (Man) Negative (Negative) Urine Nitrate Negative (Negative) Urine Bilirubin Negative (Negative) Urine Urobilinogen 0.2 (<2.0) mg/dL Leukocyte Esterase Rfl Negative (Negative) MATT/UL C. difficile (PCR) (NEGATIVE) Blood Type Antibody Screen <Zully Mckinney MD - Last Filed: 02/05/24 22:41> Imaging Data Attestation: I personally reviewed and interpreted this imaging study as follows: <Caitlin Donaldson PA-C - Last Filed: 02/05/24 16:15> Radiologist's impression: ITS Impressions Abdomen/Pelvis CT 02/05/24 10:49 IMPRESSION: 1. Crohn's disease with stricture and obstruction of ileum in the right lower quadrant. <Caitlin Donaldson PA-C - Last Filed: 02/05/24 16:15> Discharge Plan Discharge Clinical Impression: Small bowel obstruction, Small bowel stricture Crohn's disease Qualifiers: Gastrointestinal tract location: small intestine Digestive disease complication type: with intestinal obstruction Qualified Code(s): K50.012 - Crohn's disease of small intestine with intestinal obstruction <SLIME Marion Last Filed: 02/05/24 16:15> Patient Disposition: Still a Patient <SLIME Marion Last Filed: 02/05/24 16:15> Condition: Stable <SLIME Marion Last Filed: 02/05/24 16:15>
[2024-02-05 14:07] LABS: Add Urine Microscopic? NO; Appearance Urine Clear (Clear); Bilirubin Urine Negative (Negative); Blood Urine Negative (Negative); Color Urine Yellow (Yellow); Glucose Urine UA Negative (Negative); Ketones Urine Negative (Negative); Leukocyte Esterase Ur Negative LEU/UL (Negative); Nitrate Urine Negative (Negative); Protein Urine Negative (Negative); Specific Grav Ur 1.016 (1.001-1.035); Urobilinogen Urine 0.2 mg/dL (<2.0); pH Urine 5.5 (5.0-9.0)
--- NOTE | 2024-02-05 14:47 | P.HP_ITS ---
H&P: HPI History of Present Illness Date/Time: 02/05/24 14:47 Chief Complaint: Abdominal pain Narrative: Patient 47-year-old male who came to the hospital with abdominal pain. Patient has history of Crohn's disease with chronic fistula follows a GI. Patient not been on his Humira and and steroids in the past. Patient states his abdominal pain got worse patient denied any nausea vomiting diarrhea no hematemesis hemoptysis did complain some dark stools but they were not black in color. Patient sees his GI routinely. In the emergency room patient had a CT done which showed a stricture at the ileocecal junction. Patient denied any chest pains and also refusing NG tube placement. Surgery and GI has been consulted patient appears comfortable in no acute distress Review of Systems Review of Systems: No fevers chills nausea vomiting. No double vision no blurry vision. No difficulty hearing or sinus complaints. No chest pain shortness of breath fever palpitation dizziness ankle swelling. No coughing wheezing chills. No nausea constipation diarrhea abdominal pain reflux. No urgency frequency of urination. No hematuria. No skin rash eczema. No anxiety depression difficulty sleeping. No bleeding gums enlarged glands. No muscle ache back pain joint stiffness. No loss of strength numbness headache tremor or loss of memory. PMFSH Past Medical History Medical History Abdominal bloating Abdominal pain Arthritis Back pain Bilateral sacroiliitis Crohn's disease Crohn's disease of ileum Lateral meniscus tear Leukocytosis Lower abdominal pain Nausea Rheumatoid arthritis Right knee pain Strain of quadriceps tendon Tobacco use Surgical History Surgical History No significant past surgical history Family History Family History Mother Diabetes mellitus Hypothyroid Arthritis Asthma Hypertension Neuropathy Psoriasis Other Cancer Social History Social History Smoking packs per day: 1 Smoking cigarettes per day: 20.0 Years smoked: 27 Smoking pack-years: 27.00 Smoking status: Current every day smoker Second hand tobacco smoke exposure: Yes Alcohol intake: current Drinks per week: 1 Alcohol use details: 4 per month Substance use: never Substance use type: does not use Do You Feel Safe in your Home?: Yes Lack of Transportation: No Lack of Food: Never True Current Housing: I Have Housing Concerned About Future Housing: No Difficulty Paying Gas/Electric Bills: No Difficulty Paying for Meds: No Currently Unemployed: No Education: High School Diploma/GED Difficulty w/ Childcare or Family Care: No Gender identity (if verbalized by the patient): Male Spiritual care concerns: No Meds Home Medications and Allergies Home Medications Medication Instructions Recorded Confirmed Type adalimumab 40 mg/0.8 mL See Rx Instructions subcut 03/06/23 11/26/23 Rx subcutaneous pen kit (Humira Pen) .COMPLEX #2 ea adalimumab 80 mg/0.8 mL See Rx Instructions subcut 03/06/23 11/26/23 Rx subcutaneous pen kit (Humira(CF) .COMPLEX #3 ea Pen Crohn's-Ulc Colitis-Hid Sup Strt) famotidine 40 mg tablet (Pepcid) 40 mg PO DAILY 11/26/23 11/26/23 History prednisone 5 mg tablet 20 mg PO DAILY 1 month #120 tabs 11/26/23 11/26/23 Rx rifaximin 550 mg tablet (Xifaxan) 550 mg PO TID 2 weeks #42 tabs 11/26/23 11/26/23 Rx Allergies Allergy/AdvReac Type Severity Reaction Status Date / Time No Known Allergies Allergy Verified 02/05/24 09:34 Vital Signs Vital Signs - 24 hr 02/05/24 09:37 02/05/24 11:57 02/05/24 11:00 Temperature 36.4 C L Pulse Rate 88 63 79 Respiratory Rate 14 17 14 Blood Pressure 153/90 H 158/69 H 170/92 H Pulse Oximetry 98 97 98 Exam Narrative: GENERAL: Well appearing, no acute distress. HEAD: Normocephalic, atraumatic. NECK: Supple. No adenopathy, no masses. RESPIRATORY: respirations nonlabored. , no rales, wheezing. CARDIOVASCULAR: Regular rate and rhythm without murmurs, . Peripheral pulses 2+ and equal bilater ally. ABDOMINAL: Soft, nontender, nondistended, no hepatosplenomegaly. Normoactive BS. MUSCULOSKELETAL: no Epigastric and no hypochondrial tenderness SKIN: Warm, dry, NEURO: A&O X3. Moves all extremities H&P: Results Labs Labs: Short CBC 02/05/24 Range/Units 09:52 WBC 13.1 H (4.5-10.0) K/mm3 Hgb 14.1 (14.0-18.0) g/dL Hct 43.5 (42.0-52.0) % Plt Count 383 H (150-375) k/mm3 BMP 02/05/24 09:52 Sodium 136 L Potassium 4.4 Chloride 103 Carbon Dioxide 29 BUN 12 D Creatinine 1.20 Glucose 118 H Calcium 9.8 Liver Function 02/05/24 Range/Units 09:52 Total Bilirubin 0.5 (0.2-1.3) mg/dL AST 22 (17-59) U/L ALT 28 (6-50) U/L Alkaline Phosphatase 103 (38-126) U/L Albumin 4.1 (3.5-5.1) g/dL Urine 02/05/24 Range/Units 13:58 Urine Color Yellow (Yellow) Urine Appearance Clear (Clear) Urine pH 5.5 (5.0-9.0) Ur Specific [place] 1.016 (1.001-1.035) Urine Protein Negative (Negative) mg/dL Urine Glucose (UA) Negative (Negative) mg/dL Assessment and Plan Assessment and plan (1) Crohn's disease: Code(s): K50.90 - Crohn's disease, unspecified, without complications Status: Acute (2) Small bowel obstruction: Code(s): K56.609 - Unspecified intestinal obstruction, unspecified as to partial versus complete obstruction Status: Acute (3) Small bowel stricture: Code(s): K56.699 - Other intestinal obstruction unspecified as to partial versus complete obstruction Status: Acute Plan 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 Will keep patient NPO. Continue IV hydration. CT finding reviewed. GI consulted. Will start Flagyl IV and also get blood cultures. Patient currently on Humira. Patient refused NG tube. Pain control. Continue Protonix and Pepcid. Advised patient against smoking. History of sacroiliitis in no acute pain at this point. OBESITY Monitor physical inactivity. Stress monitoring and eating disorder. Referral to weight loss clinic. Weight bias and stigma screening. BMI Class Diet and exercise counseling done DVT prophylaxis. SCDs GI prophylaxis. Protonix All records reviewed Discussed plan of care with the nursing staff and with the patient in detail. Answered all questions and concerns from the patient. All labs have been reviewed. Code status updated dictation may have been done utilizing a voice recognition system. Attempts have been made to correct errors. However, there may be uncorrected grammatical, spelling, and recognition errors present. Quality If No VTE Prophylaxis Answer both mechanical and pharmacologic: Reason no pharmacologic proph: medical contraindication active bleeding/bleeding risk Hospitalist MIPS Advance Care Plan I have confirmed that the patient's Advanced Care Plan is present, code status is documented, or surrogate decision maker is listed in patient medical record.: Yes Medication Reconciliation I have utilized all available resources to obtain, update and review the patients current medications (includes all prescriptions, OTC, herbals, cannabis, and nutritional supplements).: Yes
--- NOTE | 2024-02-05 15:00 | PC.NURSE ---
Patient has been contemplating whether or not he wants an NG tube placed. patient states that the last time he had one his throat wasn't right for weeks patient says he is going to think on it
[2024-02-05 15:37] LABS: Toxigenic C. Diff NEGATIVE (NEGATIVE)
--- NOTE | 2024-02-05 15:46 | WPDGICN ---
Assessment and Plan Assessment and plan (1) Crohn's disease: Code(s): K50.90 - Crohn's disease, unspecified, without complications Status: Acute Assessment and Plan: flare up despite using humira and steroid npo status, iv steroids and surgery evaluation- sbo with terminal ileitis, he has not been responding to medical treatment we are still trying to switch another biologic (stelara, could be also skyrizi) will follow along (2) Small bowel stricture: Code(s): K56.699 - Other intestinal obstruction unspecified as to partial versus complete obstruction Status: Acute Assessment and Plan: medical management surgery to see (3) Bilateral sacroiliitis: Code(s): M46.1 - Sacroiliitis, not elsewhere classified Status: Acute (4) Leukocytosis: Code(s): D72.829 - Elevated white blood cell count, unspecified Status: Acute Assessment and Plan: probably from steroids monitor (5) Abdominal bloating: Code(s): R14.0 - Abdominal distension (gaseous) Status: Acute (6) Lower abdominal pain: Code(s): R10.30 - Lower abdominal pain, unspecified Status: Acute GI Consult Note Consult date/time: 02/05/24 15:46 Reason for consult: Crohn's flare HPI: Jaswinder Pena is a 48 year old male who is our office patient with Crohns disease with chronic fistula (first diagnosed early 2009 and used to be under the care of a couple of different orthotic practitioner. He had seen Dr. Conteh in [place] who had done a colonoscopy in [address] Law at [facility] but she moved away) now he is seeing us. He has been admitted with SBO with ileitis but never had surgery. He was initially on remicade that was working but insurance did not pay for infusion anymore and switched to humira for almost a year but he claims that is not working. We have been trying to switch to stelara but still waiting for his insurance for infusion approval. He has been treated several weeks ago with xifaxan for SIBO which helped with bloating. He is here with worsening abdominal pain with gas. No vomiting but more pain than usual similar to previous flare. Calprotectin elevated few months ago. Currently he is maintained with 20 mg prednisone. Also noted dark stool but he has been using peptobismol (fobt was negative in ER). Noted mild leukocytosis, normal lactic. CT scan reviewed, There are multiple dilated loops of small bowel with transition point at a stricture in right lower quadrant. There is a fistula from this area of stricture to the terminal ileum and ascending colon, which demonstrate wall thickening. There is a separate area of wall thickening in the mid ileum. There is mild mesenteric lymphadenopathy, likely reactive. He is admitted, started on abx and iv steroids. Review of Systems Constitutional: Constitutional: Denies headache(s) Eyes: Eyes: Denies blurry vision ENT: Reports Normal hearing present, Denies headache(s) and Denies neck pain Cardiovascular: Cardiovascular: Denies chest pain and Denies dyspnea Respiratory: Respiratory: Denies dyspnea Gastrointestinal: Gastrointestinal: Reports abdominal pain Genitourinary: Genitourinary: Denies dysuria Musculoskeletal: Musculoskeletal: Denies neck pain Integumentary/Breasts: Skin/Breast: Denies dry skin Neurologic: Reports Normal hearing present, Denies headache(s) and Denies weakness Psychiatric: Psychiatric: Denies anxiety Endocrine: Endocrine: Denies change in body appearance [facility] [place] Past Medical History Medical History Abdominal bloating Abdominal pain Arthritis Back pain Bilateral sacroiliitis Crohn's disease Crohn's disease of ileum Lateral meniscus tear Leukocytosis Lower abdominal pain Nausea Rheumatoid arthritis Right knee pain Strain of quadriceps tendon Tobacco use Surgical History Surgical History No significant past surgical history Family History Family History Mother Diabetes mellitus Hypothyroid Arthritis Asthma Hypertension Neuropathy Psoriasis Other Cancer Social History Social History Smoking packs per day: 1 Smoking cigarettes per day: 20.0 Years smoked: 27 Smoking pack-years: 27.00 Smoking status: Current every day smoker Second hand tobacco smoke exposure: Yes Alcohol intake: current Drinks per week: 1 Alcohol use details: 4 per month Substance use: never Substance use type: does not use Do You Feel Safe in your Home?: Yes Lack of Transportation: No Lack of Food: Never True Current Housing: I Have Housing Concerned About Future Housing: No Difficulty Paying Gas/Electric Bills: No Difficulty Paying for Meds: No Currently Unemployed: No Education: High School Diploma/GED Difficulty w/ Childcare or Family Care: No Gender identity (if verbalized by the patient): Male Spiritual care concerns: No Meds Home Medications and Allergies Home Medications Medication Instructions Recorded Confirmed Type adalimumab 40 mg/0.8 mL See Rx Instructions subcut 03/06/23 11/26/23 Rx subcutaneous pen kit (Humira Pen) .COMPLEX #2 ea adalimumab 80 mg/0.8 mL See Rx Instructions subcut 03/06/23 11/26/23 Rx subcutaneous pen kit (Humira(CF) .COMPLEX #3 ea Pen Crohn's-Ulc Colitis-Hid Sup Strt) famotidine 40 mg tablet (Pepcid) 40 mg PO DAILY 11/26/23 11/26/23 History prednisone 5 mg tablet 20 mg PO DAILY 1 month #120 tabs 11/26/23 11/26/23 Rx rifaximin 550 mg tablet (Xifaxan) 550 mg PO TID 2 weeks #42 tabs 11/26/23 11/26/23 Rx Allergies Allergy/AdvReac Type Severity Reaction Status Date / Time No Known Allergies Allergy Verified 02/05/24 09:34 Vital Signs Vital Signs - 24 hr 02/05/24 09:37 02/05/24 11:57 02/05/24 11:00 Temperature 97.5 F L Pulse Rate 88 63 79 Respiratory Rate 14 17 14 Blood Pressure 153/90 H 158/69 H 170/92 H Pulse Oximetry 98 97 98 02/05/24 11:55 02/05/24 12:12 02/05/24 12:13 Temperature Pulse Rate Respiratory Rate Blood Pressure 152/77 H Pulse Oximetry 97 99 98 02/05/24 12:16 02/05/24 12:17 02/05/24 13:02 Temperature Pulse Rate Respiratory Rate Blood Pressure 142/71 H Pulse Oximetry 97 95 99 02/05/24 13:20 Temperature Pulse Rate Respiratory Rate Blood Pressure Pulse Oximetry 95 Exam Const: General: comfortable and no acute distress HENMT: Face/Nose/Sinus: Normal nares present Eyes: General: appearance normal, both eyes and all related structures Neck: Neck: supple Resp: Auscultation: clear to auscultation bilaterally Cardio: Rate: regular rate Rhythm: regular rhythm GI: Inspection: distended GI Palp: Yes Soft to palpation and Yes Tenderness to palpation present (GI) (diffuse, no rebound) Skin: General skin exam: normal color Neuro: Speech: normal speech Motor exam (neuro): 5/5 motor strength present throughout Extrem: General: normal to inspection Psych: Mental Status: mental status grossly normal Results Labs 02/05/24 09:52 02/05/24 09:52 Labs: Short CBC 02/05/24 Range/Units 09:52 WBC 13.1 H (4.5-10.0) K/mm3 Hgb 14.1 (14.0-18.0) g/dL Hct 43.5 (42.0-52.0) % Plt Count 383 H (150-375) k/mm3 BMP 02/05/24 09:52 Sodium 136 L Potassium 4.4 Chloride 103 Carbon Dioxide 29 BUN 12 D Creatinine 1.20 Glucose 118 H Calcium 9.8 Liver Function 02/05/24 Range/Units 09:52 Total Bilirubin 0.5 (0.2-1.3) mg/dL AST 22 (17-59) U/L ALT 28 (6-50) U/L Alkaline Phosphatase 103 (38-126) U/L Albumin 4.1 (3.5-5.1) g/dL Urine 02/05/24 Range/Units 13:58 Urine Color Yellow (Yellow) Urine Appearance Clear (Clear) Urine pH 5.5 (5.0-9.0) Ur Specific [place] 1.016 (1.001-1.035) Urine Protein Negative (Negative) mg/dL Urine Glucose (UA) Negative (Negative) mg/dL
--- NOTE | 2024-02-05 15:58 | ADMGEN ---
This patient, Jaswinder Pena, was admitted to 3 [facility] Surg Room 329-01. Patient/family oriented to hospital policies and general routines including ID bracelet, bed and alarms, visiting hours, pain management, procedures, bathroom and other care routines, personal items, smoking policy, room service/diet, and visiting hours. Information on how to activate the Rapid Response Team has been discussed. Patient/Family are encouraged to report perceived risks to care and to ask questions if they do not understand what they are told or what they should do.
[2024-02-05] MEDS: metroNIDAZOLE 500 MG/ISO 100ML 500 MG/100 ML BAG 100 MG IVPB ×2 (16:26→21:57)
[2024-02-05] MEDS: SODIUM CHLORIDE 0.9% IV 1,000 ML 100 ML IV CONT (17:27)
[2024-02-05] MEDS: methylPREDNISolone SOD SUCC 40 MG VIAL IV PUSH (17:28)
[2024-02-05 18:07] LABS: Alanine Aminotransferase 23 U/L (6-50); Albumin Level 3.8 g/dL (3.5-5.1); Alkaline Phosphatase 87 U/L (38-126); Anion Gap 4 mmol/L (4-12); Aspartate Amino Transferase 20 U/L (17-59); Bilirubin,Total 0.5 mg/dL (0.2-1.3); Blood Urea Nitrogen 11 mg/dL (9-20); Calcium 8.8 mg/dL (8.4-10.2); Carbon Dioxide 27 mmol/L (22-30); Chloride 106 mmol/L (98-107); Estimated CRCL calculation 94 ml/min; Estimated Glomerular Filt Rate > 60; Glucose 74 mg/dL (65-110); Sodium 137 mmol/L (137-145)
[2024-02-05] MEDS: PANTOPRAZOLE SODIUM IV 40 MG VIAL IV PUSH (21:52)
--- NOTE | 2024-02-06 00:15 | PC.NURSE ---
I was told by Kingston HAUSER during report that the pt was refusing the NG that is ordered. During pt's assessment at approx 2200, I again asked him if he was willing to get an NG tube place and he responded, efren colon. Pt was educated and he said he had an NG tube in the past and did not like the expereince and will not do it again unless it is the last resort.
[2024-02-06 05:08] VITALS: BP 143/68; PULSE 56; RESP 18; TEMP 36.7; O2SAT 99
[2024-02-06] MEDS: metroNIDAZOLE 500 MG/ISO 100ML 500 MG/100 ML BAG 100 MG IVPB ×3 (05:14→20:39)
[2024-02-06] MEDS: SODIUM CHLORIDE 0.9% IV 1,000 ML 100 ML IV CONT ×2 (05:14→18:35)
[2024-02-06 07:24] LABS: CRP 3.8 mg/dL (<1.0)
[2024-02-06 08:20] LABS: Erythrocyte Sedimentation Rate 59 mm/hr (0-20)
[2024-02-06] MEDS: methylPREDNISolone SOD SUCC 40 MG VIAL IV PUSH ×2 (09:43→18:11)
[2024-02-06] MEDS: PANTOPRAZOLE SODIUM IV 40 MG VIAL IV PUSH ×2 (09:43→20:37)
--- NOTE | 2024-02-06 09:46 | P.CONGS_ITS ---
Assessment and Plan Assessment and plan (1) Crohn's disease: Qualifiers: Digestive disease complication type: with intestinal obstruction Gastrointestinal tract location: small intestine Qualified Code(s): K50.012 - Crohn's disease of small intestine with intestinal obstruction Code(s): K50.90 - Crohn's disease, unspecified, without complications Status: Acute Assessment and Plan: Appreciate GI consultation and input, agree with steroids and antibiotics for Crohn's exacerbation, exam largely benign at this point, will start clears (2) Small bowel stricture: Code(s): K56.699 - Other intestinal obstruction unspecified as to partial versus complete obstruction Status: Acute Assessment and Plan: longstanding stricture, did discuss possible resection at some point, at this point is exam is completely benign and would reserve resection possibly as an elective procedure History of Present Illness Consult details Consult date: 02/06/24 Reason for consult: abdominal pain Requesting physician: Anam Magdaleno MD Narrative: The patient is a 48-year-old male presenting to the emergency department complaining of severe lower abdominal pain. The patient reports associated bloating, poor appetite, nausea. The patient reports this is very similar to his previous episodes of Crohn's exacerbation. The patient has a longstanding history of Crohn's disease with multiple exacerbations in past. The patient is currently on Humira and reports that it is not been working well. The patient is working with his insurance company on switching to a different immunomodulator. Patient has been admitted and started on IV antibiotics and reports that he is feeling much better at this point. Review of Systems Review of Systems: All systems reviewed & are unremarkable except as noted in HPI and below PMFSH Past Medical History Medical History Abdominal bloating Abdominal pain Arthritis Back pain Bilateral sacroiliitis Crohn's disease Crohn's disease of ileum Lateral meniscus tear Leukocytosis Lower abdominal pain Nausea Rheumatoid arthritis Right knee pain Strain of quadriceps tendon Tobacco use Surgical History Surgical History No significant past surgical history Family History Family History Mother Diabetes mellitus Hypothyroid Arthritis Asthma Hypertension Neuropathy Psoriasis Other Cancer Social History Social History Smoking packs per day: 1.5 Smoking cigarettes per day: 30.0 Years smoked: 30 Smoking pack-years: 45.00 Smoking status: Current every day smoker Second hand tobacco smoke exposure: Yes Alcohol intake: current Drinks per week: 1 Alcohol use details: 4 per month Substance use: never Substance use type: does not use Do You Feel Safe in your Home?: Yes Lack of Transportation: No Lack of Food: Never True Current Housing: I Have Housing Concerned About Future Housing: No Difficulty Paying Gas/Electric Bills: No Difficulty Paying for Meds: No Currently Unemployed: No Education: Decline to Answer Difficulty w/ Childcare or Family Care: No Gender identity (if verbalized by the patient): Male Spiritual care concerns: No Meds Home Medications and Allergies Home Medications Medication Instructions Recorded Confirmed Type famotidine 40 mg tablet (Pepcid) 40 mg PO BID 11/26/23 02/05/24 History adalimumab 40 mg/0.8 mL 40 mg subcut [id number] 02/05/24 02/05/24 History subcutaneous pen kit (Humira Pen) simethicone 80 mg chewable tablet 80 mg PO BID 02/05/24 02/05/24 History Allergies Allergy/AdvReac Type Severity Reaction Status Date / Time No Known Allergies Allergy Verified 02/05/24 16:09 Vital Signs Vital Signs - 24 hr 02/05/24 11:57 02/05/24 11:00 02/05/24 11:55 Temperature Pulse Rate 63 79 Respiratory Rate 17 14 Blood Pressure 158/69 H 170/92 H Pulse Oximetry 97 98 97 Oxygen Delivery 02/05/24 12:12 02/05/24 12:13 02/05/24 12:16 Temperature Pulse Rate Respiratory Rate Blood Pressure 152/77 H Pulse Oximetry 99 98 97 Oxygen Delivery 02/05/24 12:17 02/05/24 13:02 02/05/24 13:20 Temperature Pulse Rate Respiratory Rate Blood Pressure 142/71 H Pulse Oximetry 95 99 95 Oxygen Delivery 02/05/24 15:45 02/05/24 15:45 02/05/24 20:22 Temperature 36.3 C L 36.3 C L 37.1 C Pulse Rate 68 74 67 Respiratory Rate 20 20 18 Blood Pressure 150/75 H 150/75 H 142/66 H Pulse Oximetry 98 99 96 Oxygen Delivery 02/05/24 22:00 02/06/24 05:08 Temperature 36.7 C Pulse Rate 56 L Respiratory Rate 18 Blood Pressure 143/68 H Pulse Oximetry 99 Oxygen Delivery Room Air Exam Const: General: cooperative, comfortable and no acute distress HENMT: Head: normal to inspection, normocephalic and atraumatic Eyes: General: appearance normal, both eyes and all related structures Neck: Neck: normal visual inspection, full ROM and no lymphadenopathy Resp: Auscultation: clear to auscultation bilaterally Cardio: Rate: regular rate Rhythm: regular rhythm GI: Inspection: normal to inspection and distended GI Palp: Yes abdominal tenderness, Yes Soft to palpation, Yes Tenderness to palpation present (GI), No Guarding due to palpation present (GI) and No Rigid due to palpation Skin: General skin exam: normal color and no rashes or lesions noted Neuro: General: patient oriented x3 and CN's II-XI intact bilaterally Extrem: General: normal to inspection and full ROM Results Labs 02/05/24 09:52 02/05/24 17:27 Labs: Abnormal lab results 02/05/24 02/06/24 Range/Units 09:52 06:31 WBC 13.1 H (4.5-10.0) K/mm3 Plt Count 383 H (150-375) k/mm3 [place] # (Auto) 0.9 H (0.1-0.6) K/mm3 Abs Immat Gran (auto) 0.07 H (0.00-0.031) K/mm3 Absolute Neuts (auto) 8.7 H (1.3-6.7) K/mm3 ESR 59 H (0-20) mm/hr Sodium 136 L (137-145) mmol/L Glucose 118 H (65-110) mg/dL C-Reactive Protein 3.8 H (<1.0) mg/dL Diabetes panel 02/05/24 02/05/24 Range/Units 09:52 17:27 Sodium 136 L 137 (137-145) mmol/L Potassium 4.4 4.0 (3.4-5.0) mmol/L Chloride 103 106 (98-107) mmol/L Carbon Dioxide 29 27 (22-30) mmol/L BUN 12 D 11 (9-20) mg/dL Creatinine 1.20 1.10 (0.7-1.3) mg/dL Glucose 118 H 74 (65-110) mg/dL Calcium 9.8 8.8 (8.4-10.2) mg/dL AST 22 20 (17-59) U/L ALT 28 23 (6-50) U/L Alkaline Phosphatase 103 87 (38-126) U/L Total Protein 8.0 8.0 (6.3-8.2) g/dL Albumin 4.1 3.8 (3.5-5.1) g/dL Calcium panel 02/05/24 02/05/24 Range/Units 09:52 17:27 Calcium 9.8 8.8 (8.4-10.2) mg/dL Albumin 4.1 3.8 (3.5-5.1) g/dL Pituitary panel 02/05/24 02/05/24 Range/Units 09:52 17:27 Sodium 136 L 137 (137-145) mmol/L Potassium 4.4 4.0 (3.4-5.0) mmol/L Chloride 103 106 (98-107) mmol/L Carbon Dioxide 29 27 (22-30) mmol/L BUN 12 D 11 (9-20) mg/dL Creatinine 1.20 1.10 (0.7-1.3) mg/dL Glucose 118 H 74 (65-110) mg/dL Calcium 9.8 8.8 (8.4-10.2) mg/dL Adrenal panel 02/05/24 02/05/24 Range/Units 09:52 17:27 Sodium 136 L 137 (137-145) mmol/L Potassium 4.4 4.0 (3.4-5.0) mmol/L Chloride 103 106 (98-107) mmol/L Carbon Dioxide 29 27 (22-30) mmol/L BUN 12 D 11 (9-20) mg/dL Creatinine 1.20 1.10 (0.7-1.3) mg/dL Glucose 118 H 74 (65-110) mg/dL Calcium 9.8 8.8 (8.4-10.2) mg/dL Total Bilirubin 0.5 0.5 (0.2-1.3) mg/dL AST 22 20 (17-59) U/L ALT 28 23 (6-50) U/L Alkaline Phosphatase 103 87 (38-126) U/L Total Protein 8.0 8.0 (6.3-8.2) g/dL Albumin 4.1 3.8 (3.5-5.1) g/dL All other labs normal.
--- NOTE | 2024-02-06 13:20 | P.PNGI_ITS ---
Progress Note: A&P Assessment and Plan (1) Crohn's disease: Qualifiers: Digestive disease complication type: with intestinal obstruction Gastrointestinal tract location: small intestine Qualified Code(s): K50.012 - Crohn's disease of small intestine with intestinal obstruction Code(s): K50.90 - Crohn's disease, unspecified, without complications Status: Acute Assessment and Plan: chronic changes of ileitis and partial sbo but no n/v, he is passing gas and BM on liquid diet now no need of urgent surgery but consider as elective given chronicity of symptom and recurrent episodes despite biologic plan is to switch to stelara in outpatient setting (awaiting on insurance approval) on iv steroids for now hopefully home tomorrow if continues to improve and can go home with steroid taper (2) Small bowel stricture: Code(s): K56.699 - Other intestinal obstruction unspecified as to partial versus complete obstruction Status: Acute (3) Abdominal bloating: Code(s): R14.0 - Abdominal distension (gaseous) Status: Acute (4) Bilateral sacroiliitis: Code(s): M46.1 - Sacroiliitis, not elsewhere classified Status: Acute Subjective Date/time seen: 02/06/24 13:20 Interval history: he is feeling better, he is having BM, no nausea still bloated but comfortable Review of Systems Review of Systems: All systems reviewed & are unremarkable except as noted in HPI and below Exam Const: General: cooperative, comfortable and no acute distress HENMT: Head: normal to inspection, normocephalic and atraumatic Eyes: General: appearance normal, both eyes and all related structures Neck: Neck: normal visual inspection, full ROM and no lymphadenopathy Resp: Auscultation: clear to auscultation bilaterally Cardio: Rate: regular rate Rhythm: regular rhythm GI: Inspection: normal to inspection and distended GI Palp: Yes abdominal tenderness, Yes Soft to palpation, Yes Tenderness to palpation present (GI), No Guarding due to palpation present (GI) and No Rigid due to palpation Skin: General skin exam: normal color and no rashes or lesions noted Neuro: General: patient oriented x3 and CN's II-XI intact bilaterally Extrem: General: normal to inspection and full ROM Psych: Mental Status: mental status grossly normal Objective Data Vital Signs Vital Signs: Vital Signs - 24 hr 02/05/24 15:45 02/05/24 15:45 02/05/24 20:22 Temperature 97.3 F L 97.4 F L 98.8 F Pulse Rate 68 74 67 Respiratory Rate 20 20 18 Blood Pressure 150/75 H 150/75 H 142/66 H Pulse Oximetry 98 99 96 Oxygen Delivery 02/05/24 22:00 02/06/24 05:08 02/06/24 08:00 Temperature 98.1 F Pulse Rate 56 L Respiratory Rate 18 Blood Pressure 143/68 H Pulse Oximetry 99 Oxygen Delivery Room Air Room Air Intake/Output Intake/Output: Intake & Output 02/03/24 02/04/24 02/05/24 02/06/24 23:59 23:59 23:59 23:59 Intake Total 1150 1100 Balance 1150 1100 Meds/Results Medications: Active Medications Generic Name Dose Route Start Last Admin Trade Name Freq PRN Reason Stop Dose Admin Dextrose 12.5 gm 02/05/24 14:06 Dextrose 50% 25 Gm/50 Ml Syringe IV PUSH PRN PRN Hypoglycemia Protocol Glucagon 1 mg 02/05/24 14:06 Glucagon For Inj 1 Mg Vial IM PRN PRN Hypoglycemia Protocol Glucose 15 gm 02/05/24 14:06 Glucose Oral Gel 15 Gm Of Glucse In 37.5 Gm Tube PO PRN PRN Hypoglycemia Protocol Ceftriaxone Sodium 1 gm in 50 mls @ 100 mls/hr 02/06/24 09:00 02/06/24 09:43 Rocephin 1 Gm/Ns 50 Ml IVPB 100 mls/hr QAM MELLISSA Administration Metronidazole 500 mg in 100 mls @ 100 mls/hr 02/05/24 22:00 02/06/24 07:00 Flagyl 500 Mg/Iso Soln 100 Ml IVPB Infused Q8H MELLISSA Infusion Sodium Chloride 1,000 mls @ 100 mls/hr 02/05/24 14:10 02/06/24 05:14 Normal Saline Iv IV CONT 100 mls/hr .Q10H MELLISSA Administration Dextrose 1,000 mls @ 100 mls/hr 02/05/24 14:06 Dextrose 5% 1,000 Ml IVPB PRN PRN Hypoglycemia Protocol Methylprednisolone Sodium Succinate 40 mg 02/05/24 17:00 02/06/24 09:43 Methylprednisolone Sod Succ 40 Mg Vial IV PUSH 40 mg BID MELLISSA Administration Morphine Sulfate 4 mg 02/05/24 14:06 02/05/24 16:27 Morphine Sulfate (*Crx) 4 Mg/Ml Inj IV PUSH 4 mg Q2H PRN Administration Pain Rated 7-10 Ondansetron HCl 4 mg 02/05/24 14:06 Ondansetron Inj 4 Mg/2 Ml Vial IV PUSH Q4H PRN Nausea Pantoprazole Sodium 40 mg 02/05/24 21:00 02/06/24 09:43 Pantoprazole Sodium Iv 40 Mg Vial IV PUSH 40 mg Q12HR MELLISSA Administration Radiology Results: ITS Impressions Abdomen/Pelvis CT 02/05/24 10:49 IMPRESSION: 1. Crohn's disease with stricture and obstruction of ileum in the right lower quadrant. Labs Labs: Laboratory Results - last 24 hr 02/05/24 02/05/24 02/05/24 13:50 13:58 17:27 ESR Sodium 137 Potassium 4.0 Chloride 106 Carbon Dioxide 27 Anion Gap 4 BUN 11 Creatinine 1.10 Estim Creat Clear Calc 94 Estimated GFR > 60 Glucose 74 Calcium 8.8 Total Bilirubin 0.5 AST 20 ALT 23 Alkaline Phosphatase 87 C-Reactive Protein Total Protein 8.0 Albumin 3.8 Urine Color Yellow Urine Appearance Clear Urine pH 5.5 Ur Specific [place] 1.016 Urine Protein Negative Urine Glucose (UA) Negative Urine Ketones Negative Ur Blood (Man) Negative Urine Nitrate Negative Urine Bilirubin Negative Urine Urobilinogen 0.2 Leukocyte Esterase Rfl Negative C. difficile (PCR) Negative 02/06/24 06:31 ESR 59 H Sodium Potassium Chloride Carbon Dioxide Anion Gap BUN Creatinine Estim Creat Clear Calc Estimated GFR Glucose Calcium Total Bilirubin AST ALT Alkaline Phosphatase C-Reactive Protein 3.8 H Total Protein Albumin Urine Color Urine Appearance Urine pH Ur Specific [place] Urine Protein Urine Glucose (UA) Urine Ketones Ur Blood (Man) Urine Nitrate Urine Bilirubin Urine Urobilinogen Leukocyte Esterase Rfl C. difficile (PCR)
[2024-02-06 13:24] LABS: Alanine Aminotransferase 23 U/L (6-50); Albumin Level 3.6 g/dL (3.5-5.1); Alkaline Phosphatase 88 U/L (38-126); Anion Gap 7 mmol/L (4-12); Aspartate Amino Transferase 21 U/L (17-59); Bilirubin,Total 0.5 mg/dL (0.2-1.3); Blood Urea Nitrogen 13 mg/dL (9-20); Carbon Dioxide 24 mmol/L (22-30); Chloride 107 mmol/L (98-107); Estimated CRCL calculation 103 ml/min; Estimated Glomerular Filt Rate > 60; Glucose 112 mg/dL (65-110); Potassium 4.4 mmol/L (3.4-5.0); Sodium 138 mmol/L (137-145)
--- NOTE | 2024-02-06 13:39 | P.PNIM_ITS ---
Progress Note: A&P Assessment and Plan (1) Crohn's disease: Qualifiers: Digestive disease complication type: with intestinal obstruction Gastrointestinal tract location: small intestine Qualified Code(s): K50.012 - Crohn's disease of small intestine with intestinal obstruction Code(s): K50.90 - Crohn's disease, unspecified, without complications Status: Acute (2) Small bowel obstruction: Code(s): K56.609 - Unspecified intestinal obstruction, unspecified as to partial versus complete obstruction Status: Acute (3) Small bowel stricture: Code(s): K56.699 - Other intestinal obstruction unspecified as to partial versus complete obstruction Status: Acute Plan 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 Will keep patient NPO. Continue IV hydration. GI consulted, surgery consulted Flagyl IV and also get blood cultures. Patient currently on Humira. Patient refused NG tube- ok for now Pain control. Continue Protonix and Pepcid. Advised patient against smoking. History of sacroiliitis in no acute pain at this point. OBESITY Monitor physical inactivity. Stress monitoring and eating disorder. Referral to weight loss clinic. Diet and exercise counseling done DVT prophylaxis. SCDs GI prophylaxis. Protonix All records reviewed Time Spent With Patient Time with patient: Greater than 35 minutes Subjective Date/time seen: 02/06/24 13:39 Interval history: 48-year-old male admitted with severe lower abdominal pain. The patient reports associated bloating, poor appetite, nausea. The patient reports this is very similar to his previous episodes of Crohn's exacerbation. The patient has a longstanding history of Crohn's disease with multiple exacerbations in past. Currently on Humira and reports that it is not been working well. working with his insurance company on switching to a different agent. Patient has been admitted and started on IV antibiotics and reports that he is feeling much better at this point. GI and surgery consulted. he is comfortable on exam, reports passing gas, no n/v/d. Review of Systems Review of Systems: No fevers chills nausea vomiting. No double vision no blurry vision. No difficulty hearing or sinus complaints. No chest pain shortness of breath fever palpitation dizziness ankle swelling. No coughing wheezing chills. No nausea constipation diarrhea abdominal pain reflux. No urgency frequency of urination. No hematuria. No skin rash eczema. No anxiety depression difficulty sleeping. No bleeding gums enlarged glands. No muscle ache back pain joint stiffness. No loss of strength numbness headache tremor or loss of memory. Exam Narrative: GENERAL: Well appearing, no acute distress. HEAD: Normocephalic, atraumatic. NECK: Supple. No adenopathy, no masses. RESPIRATORY: respirations nonlabored. , no rales, wheezing. CARDIOVASCULAR: Regular rate and rhythm without murmurs, . Peripheral pulses 2+ and equal bilater ally. ABDOMINAL: Soft, nontender, nondistended, no hepatosplenomegaly. Normoactive BS. MUSCULOSKELETAL: no Epigastric and no hypochondrial tenderness SKIN: Warm, dry, NEURO: A&O X3. Moves all extremities Objective Data Vital Signs Vital Signs: Vital Signs - 24 hr 02/05/24 15:45 02/05/24 15:45 02/05/24 20:22 Temperature 97.3 F L 97.4 F L 98.8 F Pulse Rate 68 74 67 Respiratory Rate 20 20 18 Blood Pressure 150/75 H 150/75 H 142/66 H Pulse Oximetry 98 99 96 Oxygen Delivery 02/05/24 22:00 02/06/24 05:08 02/06/24 08:00 Temperature 98.1 F Pulse Rate 56 L Respiratory Rate 18 Blood Pressure 143/68 H Pulse Oximetry 99 Oxygen Delivery Room Air Room Air Intake/Output Intake/Output: Intake & Output 02/03/24 02/04/24 02/05/24 02/06/24 23:59 23:59 23:59 23:59 Intake Total 1150 1337 Balance 1150 1337 Meds/Results Medications: Active Medications Generic Name Dose Route Start Last Admin Trade Name Freq PRN Reason Stop Dose Admin Dextrose 12.5 gm 02/05/24 14:06 Dextrose 50% 25 Gm/50 Ml Syringe IV PUSH PRN PRN Hypoglycemia Protocol Glucagon 1 mg 02/05/24 14:06 Glucagon For Inj 1 Mg Vial IM PRN PRN Hypoglycemia Protocol Glucose 15 gm 02/05/24 14:06 Glucose Oral Gel 15 Gm Of Glucse In 37.5 Gm Tube PO PRN PRN Hypoglycemia Protocol Ceftriaxone Sodium 1 gm in 50 mls @ 100 mls/hr 02/06/24 09:00 02/06/24 09:43 Rocephin 1 Gm/Ns 50 Ml IVPB 100 mls/hr QAM MELLISSA Administration Metronidazole 500 mg in 100 mls @ 100 mls/hr 02/05/24 22:00 02/06/24 07:00 Flagyl 500 Mg/Iso Soln 100 Ml IVPB Infused Q8H MELLISSA Infusion Sodium Chloride 1,000 mls @ 100 mls/hr 02/05/24 14:10 02/06/24 05:14 Normal Saline Iv IV CONT 100 mls/hr .Q10H MELLISSA Administration Dextrose 1,000 mls @ 100 mls/hr 02/05/24 14:06 Dextrose 5% 1,000 Ml IVPB PRN PRN Hypoglycemia Protocol Methylprednisolone Sodium Succinate 40 mg 02/05/24 17:00 02/06/24 09:43 Methylprednisolone Sod Succ 40 Mg Vial IV PUSH 40 mg BID MELLISSA Administration Morphine Sulfate 4 mg 02/05/24 14:06 02/05/24 16:27 Morphine Sulfate (*Crx) 4 Mg/Ml Inj IV PUSH 4 mg Q2H PRN Administration Pain Rated 7-10 Ondansetron HCl 4 mg 02/05/24 14:06 Ondansetron Inj 4 Mg/2 Ml Vial IV PUSH Q4H PRN Nausea Pantoprazole Sodium 40 mg 02/05/24 21:00 02/06/24 09:43 Pantoprazole Sodium Iv 40 Mg Vial IV PUSH 40 mg Q12HR MELLISSA Administration Radiology Results: ITS Impressions Abdomen/Pelvis CT 02/05/24 10:49 IMPRESSION: 1. Crohn's disease with stricture and obstruction of ileum in the right lower quadrant. Labs Labs: Laboratory Results - last 24 hr 02/05/24 02/05/24 02/05/24 13:50 13:58 17:27 ESR Sodium 137 Potassium 4.0 Chloride 106 Carbon Dioxide 27 Anion Gap 4 BUN 11 Creatinine 1.10 Estim Creat Clear Calc 94 Estimated GFR > 60 Glucose 74 Calcium 8.8 Total Bilirubin 0.5 AST 20 ALT 23 Alkaline Phosphatase 87 C-Reactive Protein Total Protein 8.0 Albumin 3.8 Urine Color Yellow Urine Appearance Clear Urine pH 5.5 Ur Specific [place] 1.016 Urine Protein Negative Urine Glucose (UA) Negative Urine Ketones Negative Ur Blood (Man) Negative Urine Nitrate Negative Urine Bilirubin Negative Urine Urobilinogen 0.2 Leukocyte Esterase Rfl Negative C. difficile (PCR) Negative 02/06/24 02/06/24 06:28 06:31 ESR 59 H Sodium 138 Potassium 4.4 Chloride 107 Carbon Dioxide 24 Anion Gap 7 BUN 13 Creatinine 1.00 Estim Creat Clear Calc 103 Estimated GFR > 60 Glucose 112 H Calcium 9.0 Total Bilirubin 0.5 AST 21 ALT 23 Alkaline Phosphatase 88 C-Reactive Protein 3.8 H Total Protein 8.0 Albumin 3.6 Urine Color Urine Appearance Urine pH Ur Specific [place] Urine Protein Urine Glucose (UA) Urine Ketones Ur Blood (Man) Urine Nitrate Urine Bilirubin Urine Urobilinogen Leukocyte Esterase Rfl C. difficile (PCR)
[2024-02-06 14:00] VITALS: BP 149/74; PULSE 70; RESP 16; TEMP 36.3; O2SAT 99
[2024-02-06 21:28] VITALS: BP 144/63; PULSE 71; RESP 12; TEMP 36.2; O2SAT 96
[2024-02-07] MEDS: metroNIDAZOLE 500 MG/ISO 100ML 500 MG/100 ML BAG 100 MG IVPB (05:17)
[2024-02-07] MEDS: SODIUM CHLORIDE 0.9% IV 1,000 ML 100 ML IV CONT (05:18)
[2024-02-07 06:00] VITALS: BP 131/67; PULSE 55; RESP 12; TEMP 36.3; O2SAT 100
[2024-02-07] MEDS: methylPREDNISolone SOD SUCC 40 MG VIAL IV PUSH (08:11)
[2024-02-07] MEDS: PANTOPRAZOLE SODIUM IV 40 MG VIAL IV PUSH (08:11)
--- NOTE | 2024-02-07 11:24 | PM.PNGS ---
Progress Note: A&P Assessment and Plan (1) Crohn's disease: Qualifiers: Digestive disease complication type: with intestinal obstruction Gastrointestinal tract location: small intestine Qualified Code(s): K50.012 - Crohn's disease of small intestine with intestinal obstruction Code(s): K50.90 - Crohn's disease, unspecified, without complications Status: Acute Assessment and Plan: flare up being managed with IV steroids, exam largely benign at this point, tolerating diet and having bowel function, home with steroid taper, further management of biologic per GI (2) Small bowel stricture: Code(s): K56.699 - Other intestinal obstruction unspecified as to partial versus complete obstruction Status: Acute Assessment and Plan: long discussion with patient regarding surgical intervention in the future, patient amendable to this, will need further workup as outpatient with possible colonoscopy Subjective Subjective Date/Time Seen: 02/07/24 11:24 Interval history: feels better, still some mild discomfort, lui diet, +bowel fxn Review of Systems Review of Systems: All systems reviewed & are unremarkable except as noted in HPI and below Exam Const: General: cooperative, comfortable and no acute distress Cardio: Rate: regular rate Rhythm: regular rhythm GI: Inspection: normal to inspection and distended GI Palp: Yes abdominal tenderness, Yes Soft to palpation, Yes Tenderness to palpation present (GI), No Guarding due to palpation present (GI) and No Rigid due to palpation Objective Data Vital Signs Vital Signs: Vital Signs - 24 hr 02/06/24 14:00 02/06/24 21:28 02/06/24 20:00 Temperature 36.3 C L 36.2 C L Pulse Rate 70 71 Respiratory Rate 16 12 Blood Pressure 149/74 H 144/63 H Pulse Oximetry 99 96 Oxygen Delivery Room Air 02/07/24 06:00 Temperature 36.3 C L Pulse Rate 55 L Respiratory Rate 12 Blood Pressure 131/67 Pulse Oximetry 100 Oxygen Delivery Intake/Output Intake/Output: Intake & Output 02/04/24 02/05/24 02/06/24 02/07/24 23:59 23:59 23:59 23:59 Intake Total 1150 3040.3 1155 Balance 1150 3040.3 1155 Meds/Results Medications: Active Medications Generic Name Dose Route Start Last Admin Trade Name Freq PRN Reason Stop Dose Admin Dextrose 12.5 gm 02/05/24 14:06 Dextrose 50% 25 Gm/50 Ml Syringe IV PUSH PRN PRN Hypoglycemia Protocol Glucagon 1 mg 02/05/24 14:06 Glucagon For Inj 1 Mg Vial IM PRN PRN Hypoglycemia Protocol Glucose 15 gm 02/05/24 14:06 Glucose Oral Gel 15 Gm Of Glucse In 37.5 Gm Tube PO PRN PRN Hypoglycemia Protocol Ceftriaxone Sodium 1 gm in 50 mls @ 100 mls/hr 02/06/24 09:00 02/07/24 08:11 Rocephin 1 Gm/Ns 50 Ml IVPB 100 mls/hr QAM MELLISSA Administration Metronidazole 500 mg in 100 mls @ 100 mls/hr 02/05/24 22:00 02/07/24 06:15 Flagyl 500 Mg/Iso Soln 100 Ml IVPB Infused Q8H MELLISSA Infusion Sodium Chloride 1,000 mls @ 100 mls/hr 02/05/24 14:10 02/07/24 06:15 Normal Saline Iv IV CONT 100 mls/hr .Q10H MELLISSA Infusion Dextrose 1,000 mls @ 100 mls/hr 02/05/24 14:06 Dextrose 5% 1,000 Ml IVPB PRN PRN Hypoglycemia Protocol Methylprednisolone Sodium Succinate 40 mg 02/05/24 17:00 02/07/24 08:11 Methylprednisolone Sod Succ 40 Mg Vial IV PUSH 40 mg BID MELLISSA Administration Morphine Sulfate 4 mg 02/05/24 14:06 02/05/24 16:27 Morphine Sulfate (*Crx) 4 Mg/Ml Inj IV PUSH 4 mg Q2H PRN Administration Pain Rated 7-10 Ondansetron HCl 4 mg 02/05/24 14:06 Ondansetron Inj 4 Mg/2 Ml Vial IV PUSH Q4H PRN Nausea Pantoprazole Sodium 40 mg 02/05/24 21:00 02/07/24 08:11 Pantoprazole Sodium Iv 40 Mg Vial IV PUSH 40 mg Q12HR MELLISSA Administration Radiology Results: ITS Impressions Abdomen/Pelvis CT 02/05/24 10:49 IMPRESSION: 1. Crohn's disease with stricture and obstruction of ileum in the right lower quadrant. Labs Labs: Laboratory Results - last 24 hr 02/06/24 06:28 Sodium 138 Potassium 4.4 Chloride 107 Carbon Dioxide 24 Anion Gap 7 BUN 13 Creatinine 1.00 Estim Creat Clear Calc 103 Estimated GFR > 60 Glucose 112 H Calcium 9.0 Total Bilirubin 0.5 AST 21 ALT 23 Alkaline Phosphatase 88 Total Protein 8.0 Albumin 3.6
--- NOTE | 2024-02-07 13:04 | PM.DS ---
DS: Admitting Diagnosis Discharge Date 02/06 Admitting Diagnosis abd pain DS: Discharge Diagnosis Discharge Diagnosis (1) Crohn's disease: Qualifiers: Digestive disease complication type: with intestinal obstruction Gastrointestinal tract location: small intestine Qualified Code(s): K50.012 - Crohn's disease of small intestine with intestinal obstruction Code(s): K50.90 - Crohn's disease, unspecified, without complications Status: Acute (2) Small bowel obstruction: Code(s): K56.609 - Unspecified intestinal obstruction, unspecified as to partial versus complete obstruction Status: Acute (3) Small bowel stricture: Code(s): K56.699 - Other intestinal obstruction unspecified as to partial versus complete obstruction Status: Acute Plan DS: Summary Hospital Course Hospital Course: 48-year-old male admitted with severe lower abdominal pain. The patient reports associated bloating, poor appetite, nausea. The patient reports this is very similar to his previous episodes of Crohn's exacerbation. The patient has a longstanding history of Crohn's disease with multiple exacerbations in past. Currently on Humira and reports that it is not been working well. working with his insurance company on switching to a different agent. Patient has been admitted and started on IV antibiotics and reports that he is feeling much better at this point. GI and surgery consulted. He is passing gas, having bm. 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 Continue IV hydration. GI consulted, surgery consulted Flagyl IV and also get blood cultures- negative Patient currently on Humira. Patient refused NG tube- ok for now Pain control. Continue Protonix and Pepcid. Advised patient against smoking. History of sacroiliitis in no acute pain at this point. OBESITY Monitor physical inactivity. Stress monitoring and eating disorder. Referral to weight loss clinic. Diet and exercise counseling done DVT prophylaxis. SCDs GI prophylaxis. Protonix All records reviewed Status at Discharge Functional status at discharge: independent ambulation Overall status at discharge: patient is progressing back to baseline Time Spent with Patient Time attestation: Total time spent providing and/or coordinating discharge services: Time spent: Greater than 30 minutes Exam Narrative: GENERAL: Well appearing, no acute distress. HEAD: Normocephalic, atraumatic. NECK: Supple. No adenopathy, no masses. RESPIRATORY: respirations nonlabored. , no rales, wheezing. CARDIOVASCULAR: Regular rate and rhythm without murmurs, . Peripheral pulses 2+ and equal bilaterally. ABDOMINAL: Soft, nontender, nondistended, no hepatosplenomegaly. Normoactive BS. MUSCULOSKELETAL: no Epigastric and no hypochondrial tenderness SKIN: Warm, dry, NEURO: A&O X3. Moves all extremities Const: General: comfortable DS: Data Data Completed and Pending Completed studies during hospitalization: abd/pelvis ct Labs on day of discharge: Labs from last 24 hours 02/06/24 06:28 Sodium 138 Potassium 4.4 Chloride 107 Carbon Dioxide 24 Anion Gap 7 BUN 13 Creatinine 1.00 Estim Creat Clear Calc 103 Estimated GFR > 60 Glucose 112 H Calcium 9.0 Total Bilirubin 0.5 AST 21 ALT 23 Alkaline Phosphatase 88 Total Protein 8.0 Albumin 3.6 Preliminary micro results at discharge 02/05/24 14:14 Blood Culture - Preliminary Blood 02/05/24 14:14 Blood Culture - Preliminary Blood Discharge Plan Discharge Attending physician on discharge: Lio Petit Consulting providers: Rupal Lynch; Willard Agarwal Discharging Clinician: Nellie Borrero Patient Disposition: Home, Self-Care Activity: june shower Diet: as tolerated Discharge Instructions: you were admitted for Crohn's flare up. treated with antibiotics and steroid- we will send you home with a steroid taper- please follow instructions. Follow up with your GI provider for further management. Monitor your BMs. Red flags: no BM, no gas, nausea, vomiting. your steroid taper: prednisone 40 mg daily for 1 week prednisone 30 mg daily for 1 week prednisone 20 mg daily for 1 week prednisone 10 mg daily for 1 week prednisone 5 mg daily for 1 week Patient Instructions: Antibiotic Form, How to Stop Smoking (DC), Cigarette Smoking and Your Health (GEN) Stand Alone Forms: General Discharge Information Follow-up/Referrals: Rupal Lynch MD [Physician] - 2 Weeks Willard Agarwal MD [Physician] - 2 Weeks UNKNOWN,DOCTOR [Primary Care Provider] - 2 Weeks (f/u with PCP) Discharge Medications: New prednisone 20 mg tablet 40 mg PO DAILY Qty: 7 0RF Rx Instructions: take for 1 week prednisone 20 mg tablet 30 mg PO DAILY Qty: 7 0RF Rx Instructions: take 30 mg daily for 1 week after you finished 1 week of daily 40 mg prednisone 20 mg tablet 20 mg PO DAILY Qty: 7 0RF Rx Instructions: prednisone 20 mg daily for 1 week after you finish 30 mg daily for 1 week and 40 mg daily for 1 week prednisone 10 mg tablet 10 mg PO DAILY Qty: 7 0RF Rx Instructions: prednisone 10 mg daily for 1 week after you finish 20 mg daily for 1 week, 30 mg daily for 1 week and 40 mg daily for 1 week prednisone 5 mg tablet 5 mg PO DAILY Qty: 7 0RF Rx Instructions: prednisone 5 mg daily for 1 week after you finish 10 mg daily for 1 week, 20 mg daily for 1 week, 30 mg daily for 1 week and 40 mg daily for 1 week Continued famotidine [Pepcid] 40 mg tablet 40 mg PO BID simethicone [Gas-X] 80 mg Tablet,Chewable 80 mg PO BID Humira Pen 40 mg/0.8 mL pen injector kit 40 mg subcut [id number] Rx Instructions: every two weeks Date of admission: 02/05/24 14:30 Primary Care Provider: UNKNOWN,DOCTOR Admitting Provider: Anam Magdaleno Attending physician on admission: Anam Magdaleno Condition: Stable Hospitalist MIPS Heart Failure (Exclusion) Patient has history of Heart Transplant or Left Ventricular Assistive Device?: No IF YES, STOP HERE Heart Failure (Qualifier) Patient has current or prior documentation of LVEF less than or equal to 40%, or mod/servere depressed LVSF?: No IF NO, STOP HERE
== END 2024-02-07 13:35 | disposition home or self-care (01) | DRG 386 ==
LOC: ANHED 13:19 → ANH3MEDSUR 14:46
PROVIDERS: Internal Medicine Gastroenterology; Admitting Provider Internal Medicine; Emergency Provider Physician Assistant; Visit Provider Internal Medicine
DX: K50.012 Crohn's disease of small intestine with intestinal obstruction (principal); Z68.41 Body mass index [BMI] 40.0-44.9, adult; K50.013 Crohn's disease of small intestine with fistula; M06.9 Rheumatoid arthritis, unspecified; E66.01 Morbid (severe) obesity due to excess calories; M46.1 Sacroiliitis, not elsewhere classified; D72.829 Elevated white blood cell count, unspecified; F17.210 Nicotine dependence, cigarettes, uncomplicated
CPT/HCPCS: 36415; 74177; 80053; 81003; 83605; 83690; 85025; 85610; 85652; 85730; 86140; 86850; 86900; 86901; 87040; 87045; 87427; 87449; 87493; 96361; 96374; 96375; 99285; A9270; J0696; J1836; J2270; J2405; J2470; J2919; J7030; Q9967

== ENCOUNTER 2024-06-12 02:43 | Inpatient (IN) | payer BC, SELFPAY ==
[2024-06-12] VITALS (15 sets, daily range): BP systolic 123–167; BP diastolic 70–99; PULSE 74–105; RESP 14–23; TEMP 36.2–36.8; O2SAT 93–98; BMI 38.4
--- NOTE | ~2024-06-12 | XR_ITS ---
EXAMINATION: XR sm bowel follow through [facility] DATE: 06/14/2024 11:50 INDICATION: Small bowel obstruction TECHNIQUE: Glass Sagger radiograph(s) of the abdomen was/were obtained. Water-soluble oral contrast was admi nistered, and sequential radiographs of the abdomen were obtained until oral contrast was noted to be in the proximal colon. Real-time fluoroscopy was utilized for assessment of the terminal ileum. Fluo roscopy exposure time was 0.2 minutes. Total DAP was 177.986 Gycm^2 COMPARISON: Radiograph dated 06/13/[address] dated 06/12/2024 FINDINGS: Glass Sagger image again demonstrates multiple dilated gas-filled loops of small bowel in the central abdome n. Transit time from the stomach to proximal colon was approximately 90 minutes. There is normal bekah deep and mucosal fold pattern throughout the jejunum. The dilated loops of ileum persist throughout th e 90 minutes. Contrast passes through these dilated loops of bowel and is seen within the decompresse d distal ileum in the right hemipelvis with dilute contrast seen in the proximal colon on the [address] imaging. IMPRESSION: 1. Persistent partial small bowel obstruction with transition point in the right hemipelvis between p ersistently dilated loops of ileum and decompressed distal ileum and without delay of contrast reachi ng the colon which occurs within 90 minutes. Reviewed, dictated and finalized at location A. IMPRESSION: 1. Persistent partial small bowel obstruction with transition point in the righ t hemipelvis between persistently dilated loops of ileum and decompressed dista l ileum and without delay of contrast reaching the colon which occurs within 90 minutes.
--- NOTE | ~2024-06-12 | XR_ITS ---
Supine and upright views of the abdomen Clinical history: Small bowel obstruction Findings: Small bowel loops are present, similar to recent CT scan, compatible small bowel obstruction. No free air. No abnormal mass lesion or calcification is seen. Osseous structures are intact. Impression: Small bowel obstruction, as seen on recent CT scan. Reviewed, dictated and finalized at [facility]. Impression: Small bowel obstruction, as seen on recent CT scan.
--- NOTE | ~2024-06-12 | CT_ITS ---
CT abdomen pelvis w con Ordering provider: Lio Granados History: 48 years Male with . Abdominal pain . Comparison: February 05, 2024 Technique: CT abdomen and pelvis with IV and without oral contrast. Automated exposure control and it erative reconstruction technique were employed. The dose-length product was 1571.79 mGy-cm. 100 mL Om nipaque 350 was given IV. Findings: VISUALIZED LOWER CHEST: Normal. Calcified granuloma in the right lung base medially is seen. UPPER ABDOMINAL ORGANS: Liver: Mild fat infiltration. Gallbladder: Normal. Spleen: Normal. Stomach/duodenum: Hyperdense material is seen in the stomach may be medication. Pancreas: Normal. Adrenals: Right adrenal adenoma unchanged from previous examination. Kidneys: Tiny stone in the right kidney midpole. Tiny stone in the left kidney midpole. PELVIC ORGANS: The bladder is normal. BOWEL AND MESENTERY: Colon: No evidence of diverticulitis, or appendicitis Small Bowel: Dilated small bowel suggestive of obstruction is seen with the transition point in the r ight side of the pelvis. Peritoneum/mesentery: No free air or free fluid. No mesenteric lymphadenopathy. RETROPERITONEUM: Normal aorta. Atherosclerotic changes of the iliac arteries is noted. No retroperi toneal lymphadenopathy. MUSCULOSKELETAL: Superficial soft tissues: The superficial soft tissues are normal. Bones: Age appropriate degenerative changes of the spine. IMPRESSION: 1. Small bowel obstruction with the transition zone in the right side of the pelvis. 2. Tiny bilateral kidney stones. 3. Fat infiltration of the liver. Reviewed, dictated and finalized at location A. IMPRESSION: 1. Small bowel obstruction with the transition zone in the right side of the p vin. 2. Tiny bilateral kidney stones. 3. Fat infiltration of the liver.
[2024-06-12] MEDS: SODIUM CHLORIDE 0.9% IV 1,000 ML 999 ML IV CONT (03:04)
[2024-06-12] MEDS: MORPHINE SULFATE (*CRX) 4 MG/ML INJ IV PUSH ×6 (03:04→16:34)
[2024-06-12] MEDS: ONDANSETRON INJ 4 MG/2 ML VIAL IV PUSH ×2 (03:04→11:49)
[2024-06-12 03:06] LABS: Basophils Absolute Auto 0.1 K/mm3 (0.0-0.1); Basophils Percent Auto 0.3 % (0.2-1.2); Eosinophils Absolute Auto 0.1 K/mm3 (0-0.3); Eosinophils Percent Auto 0.4 % (0-4.4); Hematocrit 45.1 % (42.0-52.0); Hemoglobin 14.7 g/dL (14.0-18.0); Immature Granulocyte Absolute 0.08 K/mm3 (0.00-0.031); Immature Granulocyte Percent A 0.5 % (0-0.5); Lymphocytes Absolute Auto 1.22 K/mm3 (0.9-3.2); Lymphocytes Percent Auto 7.6 % (18.3-44.2); Mean Corpuscular HGB Conc 32.6 g/dl (32-36); Mean Corpuscular Hemoglobin 27.6 pg (26-34); Mean Corpuscular Volume 84.6 fl (80-100); Mean Platelet Volume 10.4 fl (7.4-10.4); Monocytes Absolute Auto 1.1 K/mm3 (0.1-0.6); Neutrophils Absolute Auto 13.5 K/mm3 (1.3-6.7); Neutrophils Percent Auto 84.2 % (45.5-73.1); Platelet Count Result 419 k/mm3 (150-375); Red Blood Count 5.33 M/mm3 (4.6-6.20); Red Cell Distribution Width 13.8 % (11.5-14.5); White Blood Count 16.1 K/mm3 (4.5-10.0)
--- OUTSIDE RECORDS SUMMARY | 2024-06-12 03:12 | XMS_ITS | Encounter Summary ---
Author Organization [facility] Address [address] [place] [address] Phone Care Team Providers Care Retirement Benefits Specialist Name Role Phone Russell Conteh MD Primary Care Provider [phone] No, Physician Primary Care Provider [phone] Mauro Mosher NP Primary Care Provider [phone] Encounter Details Date Type Department Care Team (Late st Contact Info) Description 02/20/2021 Orders Only [facility] Scanning, Provider Social History Tobacco Use Types Packs/Day Years Used Date Smoking Tobacco: Every Day Cigarettes Smokeless Tobacco: Never Alcohol Use Standard Drinks/Week Comments Yes 2 (1 standard drink = 0.6 oz pur e alcohol) Sex and Gender Information Value Date Recorded Sex Assigned at Not on file Legal Sex Male 8:15 AM [employer] Gender Identity Not on file Sexual Orientation Not on file documented as of this encounter Plan of Treatment Not on file documented as of this encounter Procedures Procedure Name Priority Date/Time Associated Diagnosis Comments SCAN - LABS 02/20/2021 documented in this encounter Results * SCAN - LABS (02/20/2021) us Provider Scanning Final Result documented in this encounter Visit Diagnoses Not on filedocumented in this encounter Care Teams Retirement Benefits Specialist Relationship Specialty Start Date End Date Russell Conteh MD [address] [place] [address] PCP - General 12/28/18 04/14/22 No, Physician PCP - General 04/15/22 06/23/23 Mauro Mosher, [employer] ANALYST [address] [place] [address] [place] [address] PCP - General Family Medicine 06/24/23 documented as of this encounter
--- OUTSIDE RECORDS SUMMARY | 2024-06-12 03:12 | XMS_ITS | Clinical Summary ---
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 2 each 3 Active nicotine (NICODERM CQ) [address] 1 patch on the skin daily 30 patch 1 4 Active simethicone (MYLICON) 80 mg chewable tablet Take 2 tablets (160 mg total) by mouth 4 (four) times a day as needed for flatulence 30 tablet 1 4 Active HYDROcodone-tomasa taminophen (NORCO) 5-325 mg per tabletIndicatio ns:Pain Take 1 tablet by mouth every 6 (six) hours as needed for pain 12 tablet 5 Active predniSONE (DELTASONE) 20 mg tablet Take 2 tablets (40 mg) by mouth daily for 6 days, THEN 1.5 tablets (30 mg) daily for 7 days, THEN 1 tablet (20 mg) daily for 7 days, THEN 0.5 tablets (10 mg) daily for 7 days. 33 tablet 5 05/16/19 25 Active Problems Problem Noted Date Diagnosed Date Exacerbation of Crohn's disease with intestinal obstruction 06/24/2023 GERD (gastroesophageal reflux disease) Abdominal bloating 06/24/2023 Current smoker 08/20/2017 Assessment & Plan (08/20/2017 6:33 AM CDT): Discussed smoking cessation Will start on Nicoderm patch Crohn's disease involving terminal ileum 017 Assessment & Plan (08/20/2017 4:33 PM CDT): On iv steroids and feeling much better. Ok to advance diet and if he tolerates then can go home to get IV remicade. Also will need slow taper of prednisone upon discharge (40mg daily for a week reducing 10 mg every week) and follow up with his GI Assessment & Plan (08/20/2017 6:34 AM CDT): Fairly well controlled on Remicade. Patient states that had involvement of the colon as well Last colonoscopy 3 years ago Discussed-patient will need a surveillance colonoscopy being high risk for colon cancer due to IBD Will get GI consult Assessment & Plan (02/10/2017 6:37 PM ABLE BODIED WATCHMAN): Will problem low Medrol to 60 mg IV b.i.d., continue ciprofloxacin and Flagyl IV, continue NPO, continue IV fluid Partial small bowel obstruction 02/10/2017 Assessment & Plan (08/20/2017 4:34 PM CDT): Clinically much better, no more nausea and passing gas, no more abdominal pain Assessment & Plan (08/20/2017 6:34 AM CDT): Recurrent small-bowel obstruction, seemed to happen after eating pot roast in was cases Will keep NPO IV fluids Will advance diet as tolerated GI consult Surgery was consulted by ED-will follow up with recommendations Patient will need to establish care with PCP -will get social work consult to assist with follow-up Assessment & Plan (02/10/2017 6:39 PM ABLE BODIED WATCHMAN): This is secondary to Crohn's disease flare. Keep NPO, IV fluids. GI consultation will be obtained. Patient is passing flatness. If this continues to improve no surgical consultation will will be needed. CT abdomen pelvis shows significant neural thickening and inflammation of distal ileum, small bowel obstruction with multiple air-fluid levels in small bowel, no free air or abscess. Encounters Date Type Department Care Team Description 04/18/2024 9:54 AM ABLE BODIED WATCHMAN - 04/18/2024 1:06 PM [facility] Emergency [facility] Emergency Department [address] [place] [address] [phone] Exacerbation of Crohn's disease without complication (HCC) (Primary Dx) Discharge Disposition: Discharge to home or self care from Last 3 Months Medical History Medical History Date Comments Crohn disease (HCC) Bowel obstruction (HCC) Social History Tobacco Use Types Packs/Day Years Used Date Smoking Tobacco: Every Day Cigarettes Smokeless Tobacco: Never Tobacco Cessation:Ready to Q uit: Not Asked; Counseling Given: Not Answered Alcohol Use Standard Drinks/Week Comments Yes 2 (1 standard drink = 0.6 oz pur e alcohol) [facility] Utilities Answer Date Recorded In the past 12 months has [employer], oil, or water [employer] threatened to shut off services in your home? No 06/25/2023 Social Connection and Isolat ion Panel [NHANES] Answer Date Recorded In a typical week, how many times do you talk on the phone with family, friends, or neighbors? More than three times a week 06/25/2023 How often do you get togethe r with friends or relatives? More than three times a week 06/25/2023 How often do you attend chur ch or moravian services? Never 06/25/2023 Do you belong to any clubs o r organizations such as presybeterian groups, unions, fraternal or athletic groups, or school groups? No 06/25/2023 How often do you attend meet ings of the clubs or organizations you belong to? Never 06/25/2023 Are you , , di vorced, , never , or living with a partner? 06/25/2023 AUDIT-C Answer Date Recorded Q1: How often do you have a drink containing alc ohol? Monthly or less 01/06/2022 Average Number of Drinks Not on file 022 Frequency of Binge Drinking Not on file 08/2021 Overall Financial Resource Strain (CARDIA) Answe r Date Recorded How hard is it for you to pa y for the very basics like food, housing, medical care, and heating? Not hard at all 06/25/2023 Hunger Vital Sign Answer Date Recorded Within the past 12 months, y ou worried that your food would run out before you got the money to buy more. Never true 06/25/19 24 Within the past 12 months, t he food you bought just didn't last and you didn't have money to get more. Never true 06/25/2023 PRAPARE - Transportation Answer Date Re corded In the past 12 months, has l ack of transportation kept you from medical appointments or from getting medications? No 06/01 In the past 12 months, has l ack of transportation kept you from meetings, work, or from getting things needed for daily living? No 06/25/2023 Housing Stability Vital Sign Answer Zak e Recorded In the last 12 months, was t here a time when you were not able to pay the mortgage or rent on time? No 06/25/2023 In the last 12 months, how many places have you lived? 1 06/25/2023 In the last 12 months, was t here a time when you did not have a steady place to sleep or slept in a usp (including now)? No 06/25/2023 Personal Safety Answer Date Recorded Have you ever been in or are you currently in a harmful physical or emotional relationship or is someone making you feel afraid or unsafe? Denies 04/18/2024 Sex and Gender Information Value Date Recorded Sex Assigned at Not on file Legal Sex Male 8:15 AM ABLE BODIED WATCHMAN Gender Identity Not on file Sexual Orientation Not on file Obstetrics History Last Filed Vital Signs Vital Sign Reading Time Taken Comments Blood Pressure 154/87 04/18/2024 1:00 PM ABLE BODIED WATCHMAN Pulse 84 04/18/2024 1:00 PM ABLE BODIED WATCHMAN Temperature 37.6 C (99.7 F) 04/18/2024 8:24 AM ABLE BODIED WATCHMAN Respiratory Rate 20 04/18/2024 12:07 PM ABLE BODIED WATCHMAN Oxygen Saturation 99% 04/18/2024 1:00 PM ABLE BODIED WATCHMAN Inhaled Oxygen Concentration - - Weight 115.1 kg (253 lb 12 oz) 04/18/2024 8:24 A M ABLE BODIED WATCHMAN Height 172.7 cm (5' 8 ) 04/18/2024 8:24 AM ABLE BODIED WATCHMAN Body Mass Index 38.58 04/18/2024 8:24 AM ABLE BODIED WATCHMAN Plan of Treatment Health Maintenance Due Date Last Done Comments Colon Cancer Screening-Colonoscopy 1976 Depression Screening 1976 DTaP/Tdap/Td Vaccine (1 - Tdap) 11/09/1991 2 Hepatitis B Screening 1994 Regular Well Visit/Exam 18-64 1994 Pneumococcal vaccine <65 (1 of 2 - PCV) 12/28/1995 Influenza Vaccine (#1) 2023 Hepatitis C Screening Completed 11/11/2018 Procedures Procedure Name Priority Date/Time Associated Diagnosis Comments XR KNEE RIGHT 1 OR 2 VIEWS ED 04/18/2024 11:[address] ABDOMEN PELVIS W CONTRAST ED 04/18/2024 10:45 AM ABLE BODIED WATCHMAN URINALYSIS, MICROSCOPIC ONLY STAT 04/18/2024 8:33 AM ABLE BODIED WATCHMAN URINALYSIS AND REFLEX TO MICROSCOPIC AND CULTURE STAT 04/18/2024 8:33 AM ABLE BODIED WATCHMAN EGFR STAT 04/18/2024 8:30 AM ABLE BODIED WATCHMAN DIFFERENTIAL AUTO STAT 04/18/2024 8:3 0 AM ABLE BODIED WATCHMAN LIPASE STAT 04/18/2024 8:30 AM ABLE BODIED WATCHMAN COMPREHENSIVE METABOLIC PANEL STAT 04/18/2024 8:30 AM ABLE BODIED WATCHMAN CBC WITH AUTO DIFFERENTIAL STAT 04/18/2024 8:30 AM ABLE BODIED WATCHMAN HEPATITIS C ANTIBODY Routine 11/11/2018 11:46 AM CDT from Last 3 Months or Most Recently Relevant to Health Maintenance Results * XR Knee Right 1 or 2 Views (04/18/2024 11:49 AM ABLE BODIED WATCHMAN) Anatomical Region Laterality Modality Lower Extremities, Knee Right Computed Radiography 04/18/2024 12:1 8 PM ABLE BODIED WATCHMAN Narrative 04/18/2024 12:19 PM ABLE BODIED WATCHMAN EXAM DESCRIPTION: XR KNEE RIGHT 1 OR 2 VIEWS REASON FOR STUDY: pain, no known injury Pt states knee pain since 04/17/24 TECHNIQUE: Two views of the right knee COMPARISON: None available FINDINGS: BONES/JOINTS: There is no acute fracture, malalignment or osseous abnormalities. The joint spaces are normal. SOFT TISSUES: Within normal limits. IMPRESSION: No acute osseous abnormality. THIS IS AN ELECTRONICALLY VERIFIED FINAL REPORT 04/18/2024 12:19 PM - Electronically signed by Ehsan ROCHA: AJ Report ID: [id number] Reading Location: [id number] Procedure Note Ehsan Cox MD - 04/18/2024 EXAM DESCRIPTION: XR KNEE RIGHT 1 OR 2 VIEWS REASON FOR STUDY: pain, no known injury Pt states knee pain since 04/17/24 TECHNIQUE: Two views of the right knee COMPARISON: None available FINDINGS: BONES/JOINTS: There is no acute fracture, malalignment orosseous abnormalities. The joint spaces are normal. SOFT TISSUES: Within normal limits. IMPRESSION: No acute osseous abnormality. THIS IS AN ELECTRONICALLY VERIFIED FINAL REPORT 04/18/2024 12:19 PM - Electronically signed by Ehsan ROCHA: AJ Report ID: [id number] Reading Location: [id number] Kia LEUNG XR PROCEDURES Final Result * CT Abdomen Pelvis W Contrast (04/18/2024 10:45 AM ABLE BODIED WATCHMAN) Anatomical Region Laterality Modality Body N/A Computed Tomogra phy 04/18/2024 11:1 3 AM ABLE BODIED WATCHMAN Narrative 04/18/2024 11:41 AM ABLE BODIED WATCHMAN EXAM DESCRIPTION: CT ABDOMEN PELVIS W CONTRAST REASON FOR STUDY: Abdominal pain for weeks. Intermittent diarrhea. History of Crohn's disease. TECHNIQUE: CT scan of the abdomen and pelvis performed with intravenous and without oral contrast using helical scanning technique with dynamic intravenous contrast injection. Reconstructed coronal and sagittal MPR images reviewed. All images stored on PACS. Automated exposure control was used as a dose optimization technique for this examination. CONTRAST TYPE/DOSE: 100mL of IOVERSOL 350 MG IODINE/ML INTRAVENOUS SYRINGE injected via intravenous COMPARISON: CT abdomen and pelvis 06/24/2023, 08/19/2017 FINDINGS: LOWER CHEST: Granuloma in the right base is unchanged. LIVER: No focal liver lesion. GALLBLADDER: No calcified gallstones. BILE DUCTS: No intrahepatic or extrahepatic ductal dilatation. SPLEEN: Normal size. No focal lesions. PANCREAS: No masses. No adjacent inflammation or peripancreatic fluid collections. No pancreatic ductal dilatation. ADRENALS: A 1.5 cm right adrenal nodule is indeterminate but unchanged when compared to 2023 likely representing an adenoma. KIDNEYS/URINARY TRACT: Nonobstructing 2 mm calculus in the upper pole of the left kidney. Probable nonobstructing 2 mm calculi in the interpolar right kidney. No hydronephrosis. The bladder is decompressed and incompletely evaluated. GI: The entire appendix is not definitively seen. The visualized portions are normal. There is a long segment of small bowel that is dilated measuring up to 5.6 cm with wall thickening. There is engorgement of the adjacent vessels and mild mesenteric fat stranding dilated mesenteric lymph nodes are present. 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 The stomach and duodenum are normal. PERITONEUM: No ascites or free air. RETROPERITONEUM: Borderline enlarged inguinal lymph nodes have decreased in size from the prior study and are favored to be reactive. REPRODUCTIVE: No significant abnormality. VASCULATURE: No abdominal aortic aneurysm. MUSCULOSKELETAL: Mild thoracolumbar spondylosis. OTHER: Small fat containing umbilical hernia is unchanged. IMPRESSION: Long segment of dilated small bowel measuring up to 5.6 cm with wall thickening and engorgement of the adjacent vessels and mild mesenteric fat stranding. This is most consistent with active Crohn's disease. The amount of small-bowel dilatation is slightly decreased when compared to the prior study. Early partial small-bowel obstruction should also be considered. The stomach and duodenum are not dilated. 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 The entire appendix is not definitively seen. The visualized portions are normal. Nonobstructing 2 mm calculus in the upper pole of the left kidney. Probable nonobstructing 2 mm calculi in the interpolar right kidney. No hydronephrosis. THIS IS AN ELECTRONICALLY VERIFIED FINAL REPORT 04/18/2024 11:41 AM - Electronically signed by Ron Schwartz M.D. LB: NICOLÁS Report ID: [id number] Reading Location: [id number] Procedure Note Ron Schwartz MD - 04/18/2024 EXAM DESCRIPTION: CT ABDOMEN PELVIS W CONTRAST REASON FOR STUDY: Abdominal pain for weeks. Intermittent diarrhea.History of Crohn's disease. TECHNIQUE: CT scan of the abdomen and pelvis performed with intravenousand without oral contrast using helical scanning technique with dynamic intravenous contrast injection. Reconstructed coronal and sagittal MPRimages reviewed. All images stored on PACS. Automated exposure control was usedas a dose optimization technique for this examination. CONTRAST TYPE/DOSE: 100mL of IOVERSOL 350 MG IODINE/ML INTRAVENOUSSYRINGE injected via intravenous COMPARISON: CT abdomen and pelvis 06/24/2023, 08/19/2017 FINDINGS: LOWER CHEST: Granuloma in the right base is unchanged. LIVER: No focal liver lesion. GALLBLADDER: No calcified gallstones. BILE DUCTS: No intrahepatic or extrahepatic ductal dilatation. SPLEEN: Normal size. No focal lesions. PANCREAS: No masses. No adjacent inflammation or peripancreatic fluid collections. No pancreatic ductal dilatation. ADRENALS: A 1.5 cm right adrenal nodule is indeterminate but unchangedwhen compared to 2023 likely representing an adenoma. KIDNEYS/URINARY TRACT: Nonobstructing 2 mm calculus in the upper pole ofthe left kidney. Probable nonobstructing 2 mm calculi in the interpolar right kidney. No hydronephrosis. The bladder is decompressed andincompletely evaluated. GI: The entire appendix is not definitively seen. The visualizedportions are normal. There is a long segment of small bowel that is dilatedmeasuring up to 5.6 cm with wall thickening. There is engorgement of the adjacent vessels and mild mesenteric fat stranding dilated mesenteric lymph nodesare present. 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 The stomach and duodenum are normal. PERITONEUM: No ascites or free air. RETROPERITONEUM: Borderline enlarged inguinal lymph nodes have decreasedin size from the prior study and are favored to be reactive. REPRODUCTIVE: No significant abnormality. VASCULATURE: No abdominal aortic aneurysm. MUSCULOSKELETAL: Mild thoracolumbar spondylosis. OTHER: Small fat containing umbilical hernia is unchanged. IMPRESSION: Long segment of dilated small bowel measuring up to 5.6 cm with wall thickening and engorgement of the adjacent vessels and mild mesenteric fat stranding. This is most consistent with active Crohn's disease. Theamount of small-bowel dilatation is slightly decreased when compared to the priorstudy. Early partial small-bowel obstruction should also be considered. Thestomach and duodenum are not dilated. Stable appearance of two coloenteric fistulae in the right lowerquadrant. The entire appendix is not definitively seen. The visualized portions are normal. Nonobstructing 2 mm calculus in the upper pole of the left kidney.Probable nonobstructing 2 mm calculi in the interpolar right kidney. Nohydronephrosis. THIS IS AN ELECTRONICALLY VERIFIED FINAL REPORT 04/18/2024 11:41 AM - Electronically signed by Ron Schwartz M.D. LB: NICOLÁS Report ID: [id number] Reading Location: [place] [address] [place] [place] Final Result * (ABNORMAL) Urinalysis reflex to microscopic and culture Urine (04/18/2024 8:33 AM ABLE BODIED WATCHMAN) Color, ur Yellow Yellow Comment:Testing performed by : [address] [address] Clarity, ur Clear Clear LEILA Comment:Testing performed by : [address] [address] Specific gravity, ur 1.017 1.003 - 1.030 LEILA Comment:Testing performed by : [address] [address] pH, urine 5.5 LEILA MONTES DE OCA Comment: Interpretive Data U rine pH is affected by diet, medications, systemic acid-base disturbances, and renal tubular function. pH may affect urinary stone formation. For example, urine pH below 6.0 may help reduce the tendency for calcium phosphate stones and pH greater than 6.0 may reduce the tendency for uric acid stone formation. Source: [facility] DataCert Current Interpretive Data was last revised on 2017 Testing performed by: [facility], [address] [place] [address], [place]., [address] Protein, ur ql 1+(A) Negative LEILA Comment:Testing performed by : [address], [place]., [address] Glucose, ur ql Negative Negative LEILA Comment:Testing performed by : [address], [place]., [address] Ketones, ur 1+(A) Negative LEILA Comment:Testing performed by : [address], [place]., [address] Bilirubin, ur Negative Negative LEILA Comment:Testing performed by : [address], [place]., [address] Blood, ur Trace(A) Negative LIELA Comment:Testing performed by : [address], [place]., [address] Urobilinogen, ur <2.0 <2.0 mg/dL LEILA Comment:Testing performed by : [address], [place]., [address] Nitrite, ur Negative Negative LEILA Comment:Testing performed by : [address] [address] Leukocyte esterase, ur Negative Negative LEILA Comment:Testing performed by : [address], [place]., [address] UA reflex comment Reflex to microscopic UA will be performed. LEILA Comment:Testing performed by : [address], [place]., [address] Urine 04/18/2024 8:33 AM ABLE BODIED WATCHMAN 04/18/2024 8:38 AM ABLE BODIED WATCHMAN us Christopher Balderrama MD LAB MICROBIOLOGY - GENERAL ORDER NEHEMIAS Final Result Performing Organization Address City/State/[facility] Co de Phone Number LEILA [facility] [place] [address] * (ABNORMAL) Urinalysis, microscopic only (04/18/2024 8:33 AM ABLE BODIED WATCHMAN) WBC, ur 0-5 0 - 5 /HPF Comment:Testing performed by : [address] [address] RBC, ur 3-5(A) 0 - 2 /HPF LEILA Comment:Testing performed by : [address] [address] Epithelial cells, squamous, ur 11-20(A) 0 - 5 /HPF LEILA Comment:Testing performed by : [address] [address] Bacteria, ur Trace(A) LEILA Comment:Testing performed by : [address] [address] Mucous, ur Present(A) LEILA Comment:Testing performed by : [address] [address] Granular casts, ur 1-5(A) 0 - 0 /LPF LEILA Comment:Testing performed by : [address] [address] Culture Reflex Comment Reflex conditions for urine culture (WBC >10) not met. LEILA Comment:Testing performed by : [address] [address] Urine 04/18/2024 8:33 AM ABLE BODIED WATCHMAN 04/18/2024 8:38 AM ABLE BODIED WATCHMAN us Christopher Balderrama MD LAB URINE ORDERABLES Final Resul t Performing Organization Address [facility] Co de Phone Number LEILA [address] [place] [address] * eGFR (04/18/2024 8:30 AM ABLE BODIED WATCHMAN) eGFR 75 >=60 mL/min/1. 73 m2 Comment: Interpretive Data Reference Interval Normal >/= 90 mL/min/1.73m2 Mildly decreased* 60 - 89 mL/min/1.73m2 Mildly to moderately decreased 45 - 59 mL/min/1.73m2 Moderately to severely decreased 30 - 44 mL/min/1.73m2 Severely decreased 15 - 29 mL/min/1.73m2 Kidney Failure < 15 mL/min/1.73m2 *Relative to young adult level Estimated glomerular filtration rate is determined by the 2020 CKD-EPI equation recommended by the National Kid[employer] Foundation (A Unifying Approach to GFR Estimation: Recommendations of the NKF-ASK Task Force on Reassessing the Inclusion of Race in Diagnosing Kidney Disease, JASN 2020). The CKD-EPI equation should not be used for patients with unstable renal function and has not been validated in children and those over 70. Current interpretive data was last reviewed 2020. Testing performed by: [address] [address] Blood 04/18/2024 8:30 AM ABLE BODIED WATCHMAN 04/18/2024 8:38 AM ABLE BODIED WATCHMAN us Christopher Balderrama MD LAB BLOOD ORDERABLES Final Resul t [facility] [address] [facility] [place] [address] * (ABNORMAL) Differential, auto (04/18/2024 8:30 AM ABLE BODIED WATCHMAN) Neutrophil abs 8.2(H) 1.5 - 6.5 K/cumm Comment:Testing performed by : [address] [address] Imm gran abs 0.0 0.0 - 0.1 K/cumm LEILA Comment:Testing performed by : [address] [address] Lymphocyte abs 1.7 0.8 - 3.3 K/cumm LEILA Comment:Testing performed by : [address] [address] Monocyte abs 0.9(H) 0.2 - 0.8 K/cumm LEILA Comment:Testing performed by : [address] [address] Eosinophil abs 0.1 0.0 - 0.5 K/cumm [facility] Comment:Testing performed by : [address] [address] Basophil abs 0.1 0.0 - 0.1 K/cumm CERRON Comment:Testing performed by : [address] [address] Neutrophil pct 74.3 % [facility] Comment: Interpretive Data Percent cell count reference ranges are not reported, since discordance with absolute values may lead to misinterpretation of CBC data. Current Interpretive Data was last revised on 2017. Testing performed by: [address] [address] Imm gran pct 0.3 % [facility] Comment: Interpretive Data Percent cell count reference ranges are not reported, since discordance with absolute values may lead to misinterpretation of CBC data. Current Interpretive Data was last revised on 2017. Testing performed by: [address] [address] Lymphocyte pct 15.6 % [facility] Comment: Interpretive Data Percent cell count reference ranges are not reported, since discordance with absolute values may lead to misinterpretation of CBC data. Current Interpretive Data was last revised on 2017. Testing performed by: [address] [address] Monocyte pct 8.4 % [facility] Comment: Interpretive Data Percent cell count reference ranges are not reported, since discordance with absolute values may lead to misinterpretation of CBC data. Current Interpretive Data was last revised on 2017. Testing performed by: [address] [address] Eosinophil pct 0.9 % [facility] Comment: Interpretive Data Percent cell count reference ranges are not reported, since discordance with absolute values may lead to misinterpretation of CBC data. Current Interpretive Data was last revised on 2017. Testing performed by: [address] [address] Basophil pct 0.5 % [facility] Comment: Interpretive Data Percent cell count reference ranges are not reported, since discordance with absolute values may lead to misinterpretation of CBC data. Current Interpretive Data was last revised on 2017. Testing performed by: [address] [address] Blood 04/18/2024 8:30 AM ABLE BODIED WATCHMAN 04/18/2024 8:39 AM ABLE BODIED WATCHMAN us Christopher Balderrama MD LAB BLOOD ORDERABLES Final Resul t [facility] [facility] [address] [facility] [place] [address] * (ABNORMAL) CBC with auto differential (04/18/2024 8:30 AM ABLE BODIED WATCHMAN) WBC 11.0(H) 3.8 - 9.9 K/cumm Comment:Testing performed by : [address] [address] Hgb 15.0 13.0 - 17.5 g/dL [facility] Comment:Testing performed by : [address] [address] Hct 45.7 38.9 - 50.3 % [facility] Comment:Testing performed by : [address] [address] Plt 319 150 - 400 K/cumm [facility] Comment:Testing performed by : [address] [address] MPV 10.7 9.1 - 12.3 fL [facility] Comment:Testing performed by : [address] [address] RBC 5.43 4.30 - 5.80 M/cumm [facility] Comment:Testing performed by : [address] [address] MCV 84.2 81.3 - 96.4 fL [facility] Comment:Testing performed by : [address] [address] MCH 27.6 27.1 - 33.3 pg [facility] Comment:Testing performed by : [address] [place]., [address] MCHC 32.8 32.3 - 35.7 g/dL [facility] Comment:Testing performed by : [address] [address] RDW CV 13.6 11.1 - 14.9 % [facility] Comment:Testing performed by : [address] [address] RDW SD 41.8 35.7 - 48.1 fL [facility] Comment:Testing performed by : [address] [address] NRBC abs 0.00 0.00 - 0.01 K/cumm [facility] Comment:Testing performed by : [address] [address] Blood Venous blood specimen / Unknown 04/18/2024 8:30 AM ABLE BODIED WATCHMAN 04/18/2024 8:39 AM ABLE BODIED WATCHMAN us Christopher Balderrama MD LAB BLOOD ORDERABLES Final Resul t Performing Organization Address City/[facility] de Phone Number [address] [place] [address] * Lipase (04/18/2024 8:30 AM ABLE BODIED WATCHMAN) Pathologist [facility] Lipase 16 10 - 99 Units/L Comment:Testing performed by : [address] [address] Blood Venous blood specimen / Unknown 04/18/2024 8:30 AM ABLE BODIED WATCHMAN 04/18/2024 8:38 AM ABLE BODIED WATCHMAN us Christopher Balderrama MD LAB BLOOD ORDERABLES Final Resul t Performing Organization Address [facility] de Phone Number [address] [place] [employer] [address] * (ABNORMAL) Comprehensive metabolic panel (04/18/2024 8:30 AM ABLE BODIED WATCHMAN) Sodium 135 135 - 145 mmol/L Comment:Testing performed by : [address] [place]., [address] Potassium, pl 4.5 3.3 - 4.9 mmol/L [facility] Comment:Testing performed by : [address] [address] Chloride 98 97 - 110 mmol/L [facility] Comment:Testing performed by : [address], [place]., [address] CO2 20(L) 22 - 32 mmol/L [facility] Comment:Testing performed by : [address] [address] Anion gap 17(H) 2 - 15 mmol/L [facility] Comment:Testing performed by : [address] [address] BUN 10 6 - 25 mg/dL [facility] Comment:Testing performed by : [address] [address] Creatinine 1.20 0.80 - 1.30 mg/dL [facility] Comment:Testing performed by : [address] [address] Glucose 108 70 - 199 mg/dL [facility] Comment: Interpretive Data Fasting glucose >/= 126 mg/dl is diagnostic for diabetes. Fasting is defined as no caloric intake for at least 8 hours. Fasting glucose between 100 mg/dl to 125 mg/dl is diagnostic of prediabetes. In a patient with classic symptoms of hyperglycemia or hyperglycemic crisis, a random glucose >/= 200 mg/dl is diagnostic for diabetes. In the absence of unequivocal hyperglycemia, results should be confirmed by repeat testing. The classification and Diagnosis of Diabetes Diabetes Care 202; 46: S19-S40. Current interpretive data was last revised 2022. Testing performed by: [address] [address] Calcium 9.7 8.5 - 10.3 mg/dL [facility] Comment:Testing performed by : [address] [address] Bilirubin, total 0.6 0.1 - 1.2 mg/dL [facility] Comment:Testing performed by : [address] [address] Protein, pl 8.2 6.5 - 8.5 g/dL [facility] Comment:Testing performed by : [address] [address] Albumin 4.0 3.5 - 5.0 g/dL [facility] Comment:Testing performed by : [address] [address] Alk phos 107 40 - 130 Units/L [facility] Comment:Testing performed by : [address] [address] ALT 28 7 - 55 Units/L [facility] Comment:Testing performed by : [address] [address] AST 17 10 - 50 Units/L [facility] Comment:Testing performed by : [address] [address] Blood 04/18/2024 8:30 AM ABLE BODIED WATCHMAN 04/18/2024 8:38 AM ABLE BODIED WATCHMAN us Christopher Balderrama MD LAB BLOOD ORDERABLES Final Resul t [place] [id number] [facility] [place] [address] * Hepatitis C antibody (11/11/2018 11:46 AM CDT) Hep C Ab NONREACT NONREACTIVE [facility] Comment: Siemens AidhenscorneraurX using REBECA (chemiluminescent immunoassay) technology. NONREACTIVE: Antibodies to Hepatitis C not detected. This does not exclude early acute Hepatitis C infection, possibility of exposure to Hepatitis C, antibodies below detection limit, or to lack of antibody reactivity to the antigen used in this assay. EQUIVOCAL: Antibodies to Hepatitis C may or may not be present. Sample to be confirmed by real-time PCR method. REACTIVE: Antibodies to Hepatitis C detected.Sample to be confirmed by real-time PCR method. 11/11/2018 11:4 6 AM CDT 11/11/2018 11:52 AM CDT Narrative Resulting Agency Comment CLI us Russell Conteh MD LAB MICROBIOLOGY - GENERAL JUDY MARTINEZ Final Result Performing Organization Address City/State/[facility] Co de Phone Number [place] [id number] [place] [address], [facility] [phone] from Last 3 Months or Most Recently Relevant to Health Maintenance Insurance [facility] CHOICE PLUS BLUE [employer] ([place] OOS ANTHEM ACCESS [employer] OOS Advance Directives For more information, please contact: [phone] * Full Code (Latest Code Status on File) Date Activated Date Inactivated Comments 06/24/2023 8:29 PM 06/27/2023 2:44 PM * Full Code Date Activated Date Inactivated Comments 08/19/2017 7:48 PM 08/20/2017 8:56 PM * Full Code Date Activated Date Inactivated Comments 08/19/2017 6:17 PM 08/19/2017 7:48 PM * Full Code Date Activated Date Inactivated Comments 02/10/2017 5:32 PM 02/11/2017 7:00 PM Care Teams Bread Wrapping Machine Feeder Relationship Specialty Start Date End Date Mauro Mosher NP [address] [place] [address] PCP - General Family Medicine 06/24/23
--- OUTSIDE RECORDS SUMMARY | 2024-06-12 03:12 | XMS_ITS | Encounter Summary ---
Author Organization [facility] Address [address] [place] [address] Phone Care Team Providers Care Wrister Name Role Phone Russell Conteh MD Primary Care Provider [phone] No, Physician Primary Care Provider [phone] Mauro Mosher NP Primary Care Provider [phone] Encounter Details Date Type Department Care Team (Late st Contact Info) Description 05/08/2020 Orders Only [facility] Scanning, Provider Social History Tobacco Use Types Packs/Day Years Used Date Smoking Tobacco: Every Day Cigarettes Smokeless Tobacco: Never Alcohol Use Standard Drinks/Week Comments Yes 2 (1 standard drink = 0.6 oz pur e alcohol) Sex and Gender Information Value Date Recorded Sex Assigned at Not on file Legal Sex Male 8:15 AM URBAN DESIGNER Gender Identity Not on file Sexual Orientation Not on file documented as of this encounter Plan of Treatment Not on file documented as of this encounter Procedures Procedure Name Priority Date/Time Associated Diagnosis Comments GI - RESULT 05/08/2020 documented in this encounter Results * GI - RESULT (05/08/2020) Anatomical Region Laterality Modality Other us Provider Scanning Final Result documented in this encounter Visit Diagnoses Not on filedocumented in this encounter Care Teams Wrister Relationship Specialty Start Date End Date Russell Conteh MD [address] [place] [address] PCP - General 12/28/18 04/14/22 No, Physician PCP - General 04/15/22 06/23/23 Mauro Mosher, PROPOSAL COORDINATOR [address] [place] [address] [place] [address] PCP - General Family Medicine 06/24/23 documented as of this encounter
--- OUTSIDE RECORDS SUMMARY | 2024-06-12 03:12 | XMS_ITS | Referral Summary ---
Author Organization [facility] Address [address] [place] [address] Care Team Providers Care Boiler Tube Blower Name Role Phone Mauro Mosher NP Primary Care Provider [phone] Encounters Date Type Department Care Team Description 04/18/2024 9:54 AM BLACKENER - 04/18/2024 1:06 PM [facility] Emergency [facility] Emergency Department [address] [place] [address] Exacerbation of Crohn's disease without complication (HCC) (Primary Dx) Discharge Disposition: Discharge to home or self care from Last 3 Months Allergies No known active allergies Medications adalimumab [...] intestinal obstruction 06/24/2023 GERD (gastroesophageal reflux disease) 4 Abdominal bloating 06/24/2023 Current smoker 08/20/2017 Assessment [...] consult Assessment & Plan (02/10/2017 6:37 PM BLACKENER): Will problem low Medrol to 60 mg [...] follow-up Assessment & Plan (02/10/2017 6:39 PM BLACKENER): This is secondary to Crohn's disease flare. Keep NPO, IV fluids. GI consultation will be obtained. Patient is passing flatness. If this continues to improve no surgical consultation will will be needed. CT abdomen pelvis shows significant neural thickening and inflammation of distal ileum, small bowel obstruction with multiple air-fluid levels in small bowel, no free air or abscess. Social History Tobacco Use Types Packs/Day Years Used Date Smoking Tobacco: Every Day Cigarettes Smokeless Tobacco: Never Tobacco Cessation:Ready to Q uit: Not Asked; Counseling Given: Not Answered Alcohol Use Standard Drinks/Week Comments Yes 2 (1 standard drink = 0.6 oz pur e alcohol) [facility] [employer] Answer Date Recorded In the past 12 months has [employer], gas, oil, or water [employer] threatened to shut off services in your [...] often do you attend chur ch or gnosticism services? Never 06/25/2023 Do you belong to any clubs o r organizations such as temple groups, unions, fraternal or athletic groups, or [...] place to sleep or slept in a mcc (including now)? No 06/25/2023 Personal Safety Answer Date Recorded Have you ever been in or are you currently in a harmful physical or emotional relationship or is someone making you feel afraid or unsafe? Denies 04/18/2024 Sex and Gender Information Value Date Recorded Sex Assigned at Not on file Legal Sex Male 8:15 AM BLACKENER Gender Identity Not on file Sexual Orientation Not on file Last Filed Vital Signs Vital Sign Reading Time Taken Comments Blood Pressure 154/87 04/18/2024 1:00 PM BLACKENER Pulse 84 04/18/2024 1:00 PM BLACKENER Temperature 37.6 C (99.7 F) 04/18/2024 8:24 AM BLACKENER Respiratory Rate 20 04/18/2024 12:07 PM BLACKENER Oxygen Saturation 99% 04/18/2024 1:00 PM BLACKENER Inhaled Oxygen Concentration - - Weight 115.1 kg (253 lb 12 oz) 04/18/2024 8:24 A M BLACKENER Height 172.7 cm (5' 8 ) 04/18/2024 8:24 AM BLACKENER Body Mass Index 38.58 04/18/2024 8:24 AM BLACKENER Plan of Treatment Not on file Procedures Procedure Name Priority Date/Time Associated Diagnosis Comments XR KNEE RIGHT 1 OR 2 VIEWS ED 04/18/2024 11:[address] ABDOMEN PELVIS W CONTRAST ED 04/18/2024 10:45 AM BLACKENER URINALYSIS, MICROSCOPIC ONLY STAT 04/18/2024 8:33 AM BLACKENER URINALYSIS AND REFLEX TO MICROSCOPIC AND CULTURE STAT 04/18/2024 8:33 AM BLACKENER EGFR STAT 04/18/2024 8:30 AM BLACKENER DIFFERENTIAL AUTO STAT 04/18/2024 8:3 0 AM BLACKENER LIPASE STAT 04/18/2024 8:30 AM BLACKENER COMPREHENSIVE METABOLIC PANEL STAT 04/18/2024 8:30 AM BLACKENER CBC WITH AUTO DIFFERENTIAL STAT 04/18/2024 8:30 AM BLACKENER HEPATITIS C ANTIBODY Routine 11/11/2018 11:46 AM CDT from Last 3 Months or Most Recently Relevant to Health Maintenance Results * XR Knee Right 1 or 2 Views (04/18/2024 11:49 AM BLACKENER) Anatomical Region Laterality Modality Lower Extremities, Knee Right Computed Radiography 04/18/2024 12:1 8 PM BLACKENER Narrative 04/18/2024 12:19 PM BLACKENER EXAM DESCRIPTION: XR KNEE RIGHT 1 OR [...] signed by Ehsan ROCHA: AJ Report ID: [id number] Reading Location: [place] [address] Procedure Note Ehsan Cox MD - 04/18/2024 [...] 12:19 PM - Electronically signed by Ehsan Cox M.D. KN: AJ Report ID: [id number] Reading Location: [place] [address] Kia GARCIA IMG XR PROCEDURES Final Result * CT Abdomen Pelvis W Contrast (04/18/2024 10:45 AM BLACKENER) Anatomical Region Laterality Modality Body N/A Computed Tomogra phy 04/18/2024 11:1 3 AM BLACKENER Narrative 04/18/2024 11:41 AM BLACKENER EXAM DESCRIPTION: CT ABDOMEN PELVIS W CONTRAST [...] Ron Schwartz M.D. LB: NICOLÁS Report ID: [id number] Reading Location: [id number] Procedure Note Ron Schwartz MD - 04/18/2024 [...] Ron Schwartz M.D. LB: NICOLÁS Report ID: [id number] Reading Location: [place] [address] [address] PROCEDURES Final Result * (ABNORMAL) Urinalysis reflex to microscopic and culture Urine (04/18/2024 8:33 AM BLACKENER) Color, ur Yellow Yellow Comment:Testing performed by : [address] [address] Clarity, ur Clear Clear [facility] Comment:Testing performed by : [address] [address] Specific gravity, ur 1.017 1.003 - 1.030 [place] Comment:Testing performed by : [address] [address] pH, urine 5.5 [facility] Comment: Interpretive Data U rine pH is affected by diet, medications, systemic acid-base disturbances, and renal tubular function. pH may affect urinary stone formation. For example, urine pH below 6.0 may help reduce the tendency for calcium phosphate stones and pH greater than 6.0 may reduce the tendency for uric acid stone formation. Source: SHEEX Current Interpretive Data was last revised on 2017 Testing performed by: [address] [address] Protein, ur ql 1+(A) Negative [facility] Comment:Testing performed by : [facility], [address] [place] [address], [place]., [address] Glucose, ur ql Negative Negative [facility] Comment:Testing performed by : [address], [place]., [address] Ketones, ur 1+(A) Negative [facility] Comment:Testing performed by : [facility], [address] [place] [address], [place]., [address] Bilirubin, ur Negative Negative [facility] Comment:Testing performed by : [address], [place]., [address] Blood, ur Trace(A) Negative [facility] Comment:Testing performed by : [address], [place]., [address] Urobilinogen, ur <2.0 <2.0 mg/dL [facility] Comment:Testing performed by : [address], [place]., [address] Nitrite, ur Negative Negative [facility] Comment:Testing performed by : [address], [place]., [address] Leukocyte esterase, ur Negative Negative [facility] Comment:Testing performed by : [address], [place]., [address] UA reflex comment Reflex to microscopic UA will be performed. [facility] Comment:Testing performed by : [address], [place]., [address] Urine 04/18/2024 8:33 AM BLACKENER 04/18/2024 8:38 AM BLACKENER us Christopher Balderrama MD LAB MICROBIOLOGY - GENERAL ORDER NEHEMIAS Final Result [facility] [address] [facility] Department [place] [address] * (ABNORMAL) Urinalysis, microscopic only (04/18/2024 8:33 AM BLACKENER) WBC, ur 0-5 0 - 5 /HPF Comment:Testing performed by : [address], [place]., [address] RBC, ur 3-5(A) 0 - 2 /HPF [facility] Comment:Testing performed by : [facility], [address] [place] [address], [place]., [address] Epithelial cells, squamous, ur 11-20(A) 0 - 5 /HPF [facility] Comment:Testing performed by : [facility], [address] [place] [address], [place]., [address] Bacteria, ur Trace(A) [facility] Comment:Testing performed by : [address], [place]., [address] Mucous, ur Present(A) [facility] Comment:Testing performed by : [address], [place]., [address] Granular casts, ur 1-5(A) 0 - 0 /LPF [facility] Comment:Testing performed by : [address] [address] Culture Reflex Comment Reflex conditions for urine culture (WBC >10) not met. [facility] Comment:Testing performed by : [address] [address] Urine 04/18/2024 8:33 AM BLACKENER 04/18/2024 8:38 AM BLACKENER us Christopher Balderrama MD LAB URINE ORDERABLES Final Resul t [facility] [address] [facility] Department of Laboratories [place], [place] [id number] * eGFR (04/18/2024 8:30 AM BLACKENER) eGFR 75 >=60 mL/min/1. 73 m2 Comment: [...] was last reviewed 2020. Testing performed by: [address] [address] Blood 04/18/2024 8:30 AM BLACKENER 04/18/2024 8:38 AM BLACKENER us Christopher Balderrama MD LAB BLOOD ORDERABLES Final [facility]ul t [facility] [address] [facility] Department of Laboratories [place], [place] [id number] * (ABNORMAL) Differential, auto (04/18/2024 8:30 AM BLACKENER) Neutrophil abs 8.2(H) 1.5 - 6.5 K/cumm Comment:Testing performed by : [address] [address] Imm gran abs 0.0 0.0 - 0.1 K/cumm [facility] Comment:Testing performed by : [address] [address] Lymphocyte abs 1.7 0.8 - 3.3 K/cumm [facility]A Comment:Testing performed by : [address] [address] Monocyte abs 0.9(H) 0.2 - 0.8 K/cumm [facility] Comment:Testing performed by : [address] [address] Eosinophil abs 0.1 0.0 - 0.5 K/cumm [facility] Comment:Testing performed by : [address] [address] Basophil abs 0.1 0.0 - 0.1 K/cumm [facility] Comment:Testing performed by : [address] [address] Neutrophil pct 74.3 % [facility] Comment: Interpretive Data Percent cell count reference ranges are not reported, since discordance with absolute values may lead to misinterpretation of CBC data. Current Interpretive Data was last revised on 2017. Testing performed by: [address] [address] Imm gran pct 0.3 % [facility] Comment: Interpretive Data Percent cell count reference ranges are not reported, since discordance with absolute values may lead to misinterpretation of CBC data. Current Interpretive Data was last revised on 2017. Testing performed by: [address] [address] Lymphocyte pct 15.6 % [facility] Comment: Interpretive Data Percent cell count reference ranges are not reported, since discordance with absolute values may lead to misinterpretation of CBC data. Current Interpretive Data was last revised on 2017. Testing performed by: [address] [address] Monocyte pct 8.4 % [facility] Comment: Interpretive Data Percent cell count reference ranges are not reported, since discordance with absolute values may lead to misinterpretation of CBC data. Current Interpretive Data was last revised on 2017. Testing performed by: [address] [address] Eosinophil pct 0.9 % [facility] Comment: Interpretive Data Percent cell count reference ranges are not reported, since discordance with absolute values may lead to misinterpretation of CBC data. Current Interpretive Data was last revised on 2017. Testing performed by: [address] [address] Basophil pct 0.5 % [facility] Comment: Interpretive Data Percent cell count reference ranges are not reported, since discordance with absolute values may lead to misinterpretation of CBC data. Current Interpretive Data was last revised on 2017. Testing performed by: [address] [address] Blood 04/18/2024 8:30 AM BLACKENER 04/18/2024 8:39 AM BLACKENER us Christopher Balderrama MD LAB BLOOD ORDERABLES Final Resul t [facility] [address] [facility] Department [place] [address] * (ABNORMAL) CBC with auto differential (04/18/2024 8:30 AM BLACKENER) [facility] Signature WBC 11.0(H) 3.8 - 9.9 K/cumm Comment:Testing performed by : [address] [address] Hgb 15.0 13.0 - 17.5 g/dL [facility] Comment:Testing performed by : [address] [address] Hct 45.7 38.9 - 50.3 % [facility] Comment:Testing performed by : [address] [address] Plt 319 150 - 400 K/cumm [facility]A Comment:Testing performed by : [address] [address] MPV 10.7 9.1 - 12.3 fL [facility] Comment:Testing performed by : [address] [address] RBC 5.43 4.30 - 5.80 M/cumm [facility] Comment:Testing performed by : [address] [address] MCV 84.2 81.3 - 96.4 fL [facility] Comment:Testing performed by : [address] [address] MCH 27.6 27.1 - 33.3 pg [facility] Comment:Testing performed by : [address] [address] MCHC 32.8 32.3 - 35.7 g/dL [facility] Comment:Testing performed by : [address] [address] RDW CV 13.6 11.1 - 14.9 % [facility] Comment:Testing performed by : [address] [address] RDW SD 41.8 35.7 - 48.1 fL [facility] Comment:Testing performed by : [address] [address] NRBC abs 0.00 0.00 - 0.01 K/cumm [facility] [place] [place] [facility] Comment:Testing performed by : [address] [address] Blood Venous blood specimen / Unknown 04/18/2024 8:30 AM BLACKENER 04/18/2024 8:39 AM BLACKENER Christopher Balderrama MD LAB BLOOD ORDERABLES Final Resul t Performing Organization Address [facility] de Phone Number [address] [place] [place] [address] * Lipase (04/18/2024 8:30 AM BLACKENER) [facility] Lipase 16 10 - 99 Units/L Comment:Testing performed by : [address] [address] Blood Venous blood specimen / Unknown 04/18/2024 8:30 AM BLACKENER 04/18/2024 8:38 AM BLACKENER Christopher Balderrama MD LAB BLOOD ORDERABLES Final Resul t Performing Organization Address [facility] de Phone Number [address] [address] * (ABNORMAL) Comprehensive metabolic panel (04/18/2024 8:30 AM BLACKENER) [facility] Sodium 135 135 - 145 mmol/L Comment:Testing performed by : [address] [address] Potassium, pl 4.5 3.3 - 4.9 mmol/L [facility] [place] [place] Comment:Testing performed by : [address] [address] Chloride 98 97 - 110 mmol/L [place] Comment:Testing performed by : [address] [address] CO2 20(L) 22 - 32 mmol/L [place] [place] Comment:Testing performed by : [address] [address] Anion gap 17(H) 2 - 15 mmol/L [facility] Comment:Testing performed by : [address] [address] BUN 10 6 - 25 mg/dL [place] Comment:Testing performed by : [address], [place]., [address] Creatinine 1.20 0.80 - 1.30 mg/dL [place] Comment:Testing performed by : [address] [address] Glucose 108 70 - 199 mg/dL [facility] Comment: Interpretive Data Fasting glucose >/= 126 [...] classification and Diagnosis of Diabetes Diabetes Care 2021; 46: S19-S40. Current interpretive data was last revised 2022. Testing performed by: [address] [address] Calcium 9.7 8.5 - 10.3 mg/dL [facility] Comment:Testing performed by : [address] [address] Bilirubin, total 0.6 0.1 - 1.2 mg/dL [facility] Comment:Testing performed by : [address] [address] Protein, pl 8.2 6.5 - 8.5 g/dL [facility] Comment:Testing performed by : [address] [address] Albumin 4.0 3.5 - 5.0 g/dL [facility] Comment:Testing performed by : [address] [address] Alk phos 107 40 - 130 Units/L [facility] Comment:Testing performed by : [address] [address] ALT 28 7 - 55 Units/L [facility] Comment:Testing performed by : [facility], [address] [place] [address]., [address] AST 17 10 - 50 Units/L [facility] Comment:Testing performed by : [facility], [address] [place] [address]., [address] Blood 04/18/2024 8:30 AM BLACKENER 04/18/2024 8:38 AM BLACKENER us Christopher Balderrama MD LAB BLOOD ORDERABLES Final Resul t [facility] [address] [facility] [place] [address] * Hepatitis C antibody (11/11/2018 11:46 AM CDT) Hep C Ab NONREACT NONREACTIVE [facility] Comment: Siemens RUSBASEaurXP using REBECA (chemiluminescent immunoassay) technology. NONREACTIVE: Antibodies [...] Russell Conteh MD LAB MICROBIOLOGY - GENERAL ORDE JUAN Final Result [place] [id number] [place] [address], [facility] [phone] from Last 3 Months or Most Recently Relevant to Health Maintenance Insurance [facility] CHOICE [facility] H[facility]/PPO Address: [address] [address] [place] [address] BLUE ACCESS OOS ACCESS BLUE ACCESS OOS Advance Directives For more information, please contact: [phone] * Full Code (Latest Code Status on File) Date Activated Date Inactivated Comments 06/24/2023 8:29 PM 06/27/2023 2:44 PM * Full Code Date Activated Date Inactivated Comments 08/19/2017 7:48 PM 08/20/2017 8:56 PM * Full Code Date Activated Date Inactivated Comments 08/19/2017 6:17 PM 08/19/2017 7:48 PM * Full Code Date Activated Date Inactivated Comments 02/10/2017 5:32 PM 02/11/2017 7:00 PM Care Teams Boiler Tube Blower Relationship Specialty Start Date End Date Mauro Mosher NP [address] [place] [address] PCP - General Family Medicine 06/24/23
--- OUTSIDE RECORDS SUMMARY | 2024-06-12 03:12 | XMS_ITS | Encounter Summary ---
Author Organization [facility] Address [address] [place] [address] Phone Care Team Providers Care Floral Specialist Name Role Phone Russell Conteh MD Primary Care Provider [phone] No, Physician Primary Care Provider [phone] Mauro Mosher NP Primary Care Provider [phone] Encounter Details Date Type Department Care Team (Late st Contact Info) Description 12/28/2018 Orders Only [facility] Scanning, Provider Social History Tobacco Use Types Packs/Day Years Used Date Smoking Tobacco: Every Day Cigarettes Smokeless Tobacco: Never Alcohol Use Standard Drinks/Week Comments Yes 2 (1 standard drink = 0.6 oz pur e alcohol) Sex and Gender Information Value Date Recorded Sex Assigned at Not on file Legal Sex Male 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 Gender Identity Not on file Sexual Orientation Not on file documented as of this encounter Plan of Treatment Not on file documented as of this encounter Procedures Procedure Name Priority Date/Time Associated Diagnosis Comments SCAN - RADIOLOGY/IMAGING 12/28/2018 documented in this encounter Results * SCAN - RADIOLOGY/IMAGING (12/28/2018) Anatomical Region Laterality Modality Other us Provider Scanning Final Result documented in this encounter Visit Diagnoses Not on filedocumented in this encounter Care Teams Floral Specialist Relationship Specialty Start Date End Date Russell Conteh MD [address] [place] [address] PCP - General 12/28/18 04/14/22 No, Physician PCP - General 04/15/22 06/23/23 Mauro Mosher, TRADE MARK EXAMINER [address] [place] [address] [place] [address] PCP - General Family Medicine 06/24/23 documented as of this encounter
--- OUTSIDE RECORDS SUMMARY | 2024-06-12 03:12 | XMS_ITS | Clinical Summary ---
Author Organization [facility] Address [address] [facility] [place] [address] Care Team Providers Care Business Process Analyst Name Role Phone Chanda Stacy Primary Care Provider [phone] Source Comments [facility],non-owned Affiliates and Associated Physician Practices is amultiple site organization consisting of ambulatory clinics and hospital sitesin [place], [place], [place] and [place]. This disclosure is being madepursuant to the Care Everywhere program and may not contain all information available regarding this patient. Last updated 17[employer] [facility] Allergies No known active allergies Medications * This document contains information received from the source organization and may not represent a complete record from that organization. * Be aware that medications may not be up to date on this document. Alwaysverify current medications with the patient. InFLIXimab (REMICADE IV) by Intravenous route every 60 days States weight based ivpb every 8 weeks Active mirtazapine (REMERON) 7.5 MG tabletIndicatio ns:Insomnia,Tyrone or Depressive Disorder Take 1 Tab by mouth at bedtime Reasons: Trouble Sleeping, Major Depressive Disorder 15 Tab 1 6 Active nicotine (NICODERM CQ) 21 MG/24HR patchIndication s:Nicotine Dependence Apply 1 Patch to skin once daily Remove old patch before applying new patch. Reasons: Nicotine Addiction 1 Patch 0 6 Active Family History Medical History Relation Name Comments Diabetes Father Heart Failure Father Diabetes Maternal Grandfather Hypertension Maternal Grandfather Thyroid Disease Maternal Grandfather Hodgkin's lymphoma Maternal Grandmother N on Hodgkin's Lymphoma Asthma Mother Diabetes Mother Fibromyalgia Mother Psoriasis Mother Thyroid Disease Mother Heart Failure Paternal Grandfather Cancer Paternal Grandmother Relation Name Status Comments Father Alive Maternal Grandfather Maternal Grandmother Alive Mother Alive Paternal Grandfather Paternal Grandmother Alive Social History Tobacco Use Types Packs/Day Years Used Date Smoking Tobacco: Every Day Cigarettes Tobacco Cessation:Ready to Q uit: Yes; Counseling Given: Yes Alcohol Use Standard Drinks/Week Comments No 0 (1 standard drink = 0.6 oz pur e alcohol) maybe 3 times a yr Sex and Gender Information Value Date Recorded Sex Assigned at Not on file 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 Gender Identity Not on file Sexual Orientation Not on file Last Filed Vital Signs Vital Sign Reading Time Taken Comments Blood Pressure 127/84 11/28/2015 7:55 AM CDT Pulse 98 11/28/2015 7:55 AM CDT Temperature 36.5 C (97.7 F) 11/28/2015 7:55 AM CDT Respiratory Rate 16 11/28/2015 7:55 AM CDT Oxygen Saturation 100% 11/28/2015 7:55 AM CDT Inhaled Oxygen Concentration - - Weight 104.3 kg (229 lb 15 oz) 11/27/2015 12:07 AM CDT Height 173 cm (5' 8.11 ) 11/27/2015 12:07 AM CDT Body Mass Index 34.85 11/27/2015 12:07 AM CDT Plan of Treatment Health Maintenance Due Date Last Done Comments COLOGUARD (AGES 45-75) - COL ON CA SCREENING 1976 COLON MONITORING 1976 COLONOSCOPY - COLON CA SCREENING 1976 CT COLONOGRAPHY - COLON CA SCREENING 1976 Colorectal Cancer Screening 1976 FIT - COLON CA SCREENING 1976 FLEX SIG - COLON CA SCREENING 1976 LIPID TESTING 1976 HIV SCREENING 12/28/1991 HEPATITIS C SCREENING 12/23/1994 DTAP/TDAP/TD VACCINES (1 - Tdap) 12/28/1995 HEPATITIS B VACCINE (1 of 3 - 19+ 3-dose series) 12/28/1995 PNEUMOCOCCAL VACCINE (1 of 2 - PCV) 12/28/1995 COVID-19 VACCINE (1 - 2023-2 5 season) 2023 DEPRESSION SCREENING 03/02/2024 INFLUENZA VACCINE (Season Ended) 2024 ZOSTER VACCINE (1 of 2) 2026 HIB VACCINE Aged Out No longer eligi ble based on patient's age to complete this topic HPV VACCINE Aged Out No longer eligi ble based on patient's age to complete this topic MENINGOCOCCAL (Group B) VACC INE SHARED DECISION-MAKING Aged Out No longer eligibl e based on patient's age to complete this topic MENINGOCOCCAL GROUPS A/C/Y/W VACCINE Aged Out No longer eligible b ased on patient's age to complete this topic Insurance Advance Directives * Full Code (Latest Code Status on File) Date Activated Date Inactivated Comments 11/27/2015 12:18 AM 11/28/2015 2:04 PM Care Teams Business Process Analyst Relationship Specialty Start Date End Date Chanda Stacy APRN-CNP PCP - General Nurse Practitioner 11/26/15
--- OUTSIDE RECORDS SUMMARY | 2024-06-12 03:12 | XMS_ITS | Encounter Summary ---
Author Organization [facility] Address [address] [place] [address] Phone Care Team Providers Care Upholstery Department Supervisor Name Role Phone Russell Conteh MD Primary Care Provider [phone] No, Physician Primary Care Provider [phone] Mauro Mosher NP Primary Care Provider [phone] Encounter Details Date Type Department Care Team (Late st Contact Info) Description 01/02/2020 Orders Only [facility] Scanning, Provider Social History Tobacco Use Types Packs/Day Years Used Date Smoking Tobacco: Every Day Cigarettes Smokeless Tobacco: Never Alcohol Use Standard Drinks/Week Comments Yes 2 (1 standard drink = 0.6 oz pur e alcohol) Sex and Gender Information Value Date Recorded Sex Assigned at Not on file 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 Gender Identity Not on file Sexual Orientation Not on file documented as of this encounter Plan of Treatment Not on file documented as of this encounter Procedures Procedure Name Priority Date/Time Associated Diagnosis Comments SCAN - LABS 01/02/2020 documented in this encounter Results * SCAN - LABS (01/02/2020) us Provider Scanning Final Result documented in this encounter Visit Diagnoses Not on filedocumented in this encounter Care Teams Upholstery Department Supervisor Relationship Specialty Start Date End Date Russell Conteh MD [address] [place] [address] PCP - General 12/28/18 04/14/22 No, Physician PCP - General 04/15/22 06/23/23 Mauro Mosher ANNEALER HELPER [address] [place] [address] PCP - General Family Medicine 06/24/23 documented as of this encounter
--- OUTSIDE RECORDS SUMMARY | 2024-06-12 03:12 | XMS_ITS | Data Portability ---
Author Organization [place] [facility] [employer], Main Office Address [address] [place] [address] Care Team Providers Care [employer] Special [employer] Teacher Name Role Phone CORY LORA Primary Care Provider CORY LORA Referring Provider Assessment Encounter Date Assessment Date Assessment LastModified by Organization Details LastModified Time 06/01/2024 06/01/2024 48-year-old patient presents today with right knee pain that has been going on for about 3-1/2 years. He states the pain comes and goes but has recently gotten worse. He denies any initial injury. He states that occasionally the knee becomes swollen, tight, painful, and pops. 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 He states that the knee is very painful and tight when he gets out of his truck. For treatment he has tried meloxicam and a muscle relaxant, which does not help. Review of systems per patient questionnaire Imaging: X-rays reviewed show no acute bony abnormality, no fracture. Mild degenerative osteoarthritic changes with some medial joint space narrowing. Physical exam: Slightly antalgic gait. 1+ effusion. Range of motion 0-110, restricted by pain and feeling of tightness. Pain with deep flexion. Positive Gustavo's. Stable Samantha's, varus valgus stress. Sensation intact throughout. We discussed the we think he would benefit from attending physical therapy. He states he will try this. He can continue to take the meloxicam. We discussed that since the pain is now restricting his ability to do his job we can try a cortisone injection. He would like to proceed with that today. We will see him back in 4-6 weeks for recheck. He is in agreement with this plan. [email or web address] Not available 06/01/2024 10:56:59 Plan of Treatment Reminders Order Date Submit Date Provider Last Modified By Organization Details Last Modified Time Details Appointments Any 5 2024 08:00A Mahesh Holder MD Not available Not available Not available Lab CBC w/ auto diff 2024 025 [facility] (Lab), [address] [place], [address], 05/25/2024 06:18:28 lipid panel, serum 2024 025 [facility] (Lab), [address] [place], [address], 05/25/2024 06:18:27 glycohemo globin, total, blood 2024 025 [facility] (Lab), [address] [place], [address], 05/31/2024 08:40:15 TSH, serum or plasma 2024 025 [facility] (Lab), [address] [place], [address], 05/25/2024 06:18:27 CMP, serum or plasma 2024 025 [facility] (Lab), [address] [place], [address], 05/25/2024 06:18:27 vitamin D3, 25-hydrox y, serum 2024 025 [facility] (Lab), [address] [place], [address], 05/25/2024 04:18:45 Referral physical therapist referral - Please contact pt to schedule for R knee. Thanks 2024 025 [facility], [address], [place], [address], 06/03/2024 15:42:00 orthopedi c surgeon referral - Please call patient to schedule an appointme nt. Thank you. 2024 025 [facility]AMIL[facility], [address], [place], [address], 06/01/2024 10:58:41 dermatolo gist referral - Please call patient to schedule appointme nt. 2023 024 [email or web address] Bria Madison MD, [address], [place], [address], 04/30/2023 09:13:18 Procedures injection /aspirati on joint/bur sa (PROC) 2024 025 [email or web address] 1 In-Office Order, Internal Use Only DO Not Attach Compendium DO Not Attach Compendium, Do Not Delete/merge, [id number] 06/01/2024 09:42:05 Surgeries None recorded. Imaging LDCT, chest, for lung cancer screening [address] ([facility]), [address] [place], [address], 06/06/2024 15:12:52 Medication Orders bupivacai ne HCl 0.5 % (5 mg/mL) injection solution 2024 025 [id number], [address] [facility] [address], [place], [place], [id number], 06/03/2024 09:19:43 Kenalog 10 mg/mL suspensio n for injection 2024 025 [id number], [address] [facility] [address] [facility], [place], [place], [id number], 06/03/2024 09:19:43 doxycycli ne hyclate 100 mg capsule 2023 024 [facility] #[id number], [address], [place], [place], [id number], 05/24/2024 14:12:21 Patient TargetsNo targets recorded. Patient Instructions Encounter Date Encounter Id Patient Instructions Last Modified By Organization Details Last Modified Time 05/24/2024 [id number] patellofemoral pain syndrome (runner's knee): exercises [email or web address] Not available 05/24/2024 14:43:43 Reason for Referral Loading Manager Referral for S kin lesion Please call patient to schedule appointment. Referring Physician: Mauro Mosher, Family Medicine, Encounter Date: 04/02/2023 Orthopedic Surgeon Referral for Pain of right knee joint Please call patient to schedule an appointment. Thank you. Referring Physician: Cory Lora, Family Medicine, Encounter Date: 05/24/2024 Physical Therapist Referral for Pain of right knee joint R knee Please contact pt to schedule for R knee. Thanks Referring Physician: Saumya Rao, Orthopedic Surgery, Encounter Date: 06/01/2024 Results Created Date Observation Date Name Description Value Unit Range Abnormal Flag Note LastModifiedBy Organization Detail LastModifiedTime 10/26/19 24 10/26/2023 CT, abdom en + pelvi s, w/ contr ast No observ ation record ed. [facility] [address], [place], [address], 11/06/2023 10:28:04 06/02/19 25 04/18/2024 XR, knee, 3 view No observ ation record ed. [email or web address] Not Available 06/01 11:59:36 Result Notes None recorded. Problems Name Problem SNOMED Code Status Onset Date Resolution Date Notes Provider Name and Address Organization Details Recorded Time Inflammat ory bowel disease 34031887 Active Not Available [facility] 3 16:12:27 Crohn's disease 68535233 Active Not Available [facility] 3 16:12:27 Iron deficienc y 09888754 Active Not Available [employer] 3 16:12:28 Disorder of vitamin D 265343233 Active Not Available [facility] 3 16:12:28 Obesity 600236211 Active Not Available [facility] 3 16:12:28 Furuncle 229093411 Completed 05/24/2024 TOMASA Dunn [address], [place], [address] , [employer] 5 14:18:06 Tobacco dependenc e syndrome 84525270 Active Not Available [facility] 3 16:12:28 Skin lesion 01775405 Active 2023 BRITTON Rojas [address], [address], [place], [address] , [employer] 4 08:45:55 Pain of right knee joint 05777579593 4100 Active 2024 TOMASA Dunn [address], [address], [place], [address] , [employer] 5 14:30:39 Leukocyto sis 436934974 Active 2024 TOMASA Dunn [address], [address], [place], [address] , [employer] 5 14:42:52 Nicotine dependenc e 92340471 Active 2024 TOMASA Dunn [address], [address], [place], [address] , [employer] 5 15:31:39 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 Procedures Surgical History Date Name Laterality Status Provider Name and Address Organization Details Recorded Time 5 Ortho - Cortisone Injection completed Saumya Rao NP [address], [place], [address], [place] [facility] 06/01/2024 10:55:16 Imaging Results Imaging Date Name Status LastModified by Organiz ation Details LastModified Time 10/26/2023 CT, abdomen + pelvis, w/ contrast completed [facility] [address], [place], [address], 11/06/2023 10:28:04 04/18/2024 XR, knee, 3 view completed [email or web address] Information not available 06/01/2024 11:59:36 Procedure Notes None recorded. Medical Equipment None Reported. Allergies No known drug allergies Medications Name Sig Start Date Stop Date Status Note LastModified by Organization Details LastModified Time cyclobenz aprine 10 mg tablet Take 1 tablet 3 times a day by oral route. active Not Available Not Available No t Available prednison e 10 mg tablet TAKE 1 TABLET BY MOUTH DAILY FOR 1 MONTH 05/24 completed Not Available Not Available Not Available doxycycli ne hyclate 100 mg capsule TAKE 1 CAPSULE BY MOUTH TWICE DAILY FOR 10 DAYS 05/24 completed Not Available Not Available Not Available sulfasala zine 500 mg tablet 05/24 completed Not Available Not Available Not Available ibuprofen 800 mg tablet TAKE 1 TABLET BY MOUTH THREE TIMES DAILY NEEDED 05/24 completed Not Available Not Available Not Available hydrocodo ne 5 mg-acetam inophen 325 mg tablet TAKE 1 TABLET BY MOUTH EVERY 6 HOURS NEEDED FOR PAIN 05/24 completed Not Available Not Available Not Available meloxicam 15 mg tablet Take 1 tablet every day by oral route. active Not Available Not Available No t Available ondansetr on HCl 4 mg tablet 07/25 completed Not Available Not Available Not Available bupivacai ne HCl 0.5 % (5 mg/mL) injection solution Take 4 mL by injectio n route. 2024 active Not Available Not Available Not Avai lable prednison e 20 mg tablet TAKE 1 TABLET BY MOUTH DAILY 05/24 completed Not Available Not Available Not Available prednison e 5 mg tablet TAKE 4 TABLETS BY MOUTH DAILY 05/24 completed Not Available Not Available Not Available metronida zole 250 mg tablet 05/24 completed Not Available Not Available Not Available Remicade 100 mg intraveno us solution INFUSE 5 MG/KG OVER NO LESS THAN 2 HOUR(S) BY INTRAVEN OUS ROUTE EVERY8 WEEKS 05/[address] Conteh Not Available Not Available Not Available metronida zole 500 mg tablet TAKE 1 TABLET BY MOUTH EVERY 8 HOURS 05/24 completed Not Available Not Available Not Available phentermi ne 37.5 mg tablet Take 1 tablet daily 05/24 completed Not Available Not Available Not Available ciproflox acin 500 mg tablet TAKE 1 TABLET BY MOUTH EVERY 12 HOURS 05/24 completed Not Available Not Available Not Available amoxicill in 875 mg tablet TAKE 1 TABLET BY MOUTH TWICE DAILY FOR 7 DAYS 05/24 completed Not Available Not Available Not Available imiquimod 5 % topical cream packet APPLY TO THE AFFECTED AREA(S) BY TOPICAL ROUTE 3 TIMES PER WEEK at bedtime 05/24 completed Not Available Not Available Not Available Kenalog 10 mg/mL suspensio n for injection Take 1 mL by injectio n route. 2024 active [facility]: [phone] Not Available Not Available Not Available hydrocodo ne 7.5 mg-acetam inophen 325 mg tablet TAKE 1 TABLET BY MOUTH EVERY 6 HOURS NEEDED 05/24 completed Not Available Not Available Not Available prednison e 50 mg tablet TAKE 1 TABLET BY MOUTH DAILY 05/24 completed Not Available Not Available Not Available mupirocin calcium 2 % topical cream APPLY A SMALL AMOUNT TO THE AFFECTED AREA BY TOPICAL ROUTE 2 TIMES PER DAY FOR 10 DAYS active Not Available Not Available No t Available mercaptop urine 50 mg tablet TAKE 3 TABLETS BY MOUTH DAILY. PLEASE HAVE METABOLI CHRIS DRAWN 1 MONTH AFTER STARTING 150 MG DOSE 05/24 completed Not Available Not Available Not Available folic acid 1 mg tablet 05/24 completed Not Available Not Available Not Available mupirocin 2 % topical ointment APPLY A SMALL AMOUNT TO THE AFFECTED AREA BY TOPICAL ROUTE 2 TIMES PER DAY active Not Available Not Available No t Available ergocalci ferol (vitamin D2) 1,250 mcg (50,000 unit) capsule TAKE 1 CAPSULE BY MOUTH EVERY WEEK active Not Available Not Available No t Available budesonid e DR - ER 3 mg capsule,d elayed,ex tended release TK 3 C PO EACH MORNING X 1 MONTH THEN 2 CAPSULES EACH MORNING X 1 MONTH THEN 1 C EACH MORNING X 1 MONTH THEN DISCONTI NUE 05/24 completed Not Available Not Available Not Available amoxicill in 875 mg-potass ium clavulana te 125 mg tablet TAKE 1 TABLET BY MOUTH TWICE DAILY FOR 10 DAYS 05/24 completed Not Available Not Available Not Available Bactrim DS 800 mg-160 mg tablet Take 1 tablet every 12 hours by oral route for 10 days. 01/01 completed Not Available Not Available Not Available escitalop rama 10 mg tablet TK 1 T PO QD 05/24 completed Not Available Not Available Not Available cyclobenz aprine 5 mg tablet TAKE 1 TABLET BY MOUTH EVERY 8 HOURS NEEDED 06/01 completed Not Available Not Available Not Available Cialis 5 mg tablet Take 1 tablet every day by oral route. 10/08 completed Dispense Qty: 30. cost Not Available Not Available Not Available Cialis 20 mg tablet Take 1 tablet every day by oral route. 10/08 completed cost Not Available Not Available Not Available mirtazapi ne 7.5 mg tablet 1 q hs active fatigue Not Available Not Available Not Available DHEA Take 100mg 1 tab daily 05/24 completed Not Available Not Available Not Available ferrous sulfate 324 mg (65 mg iron) tablet,de layed release Take 1 tablet every day by oral route before meals. 07/25 completed Not Available Not Available Not Available Apriso 0.375 gram capsule,e xtended release TK 8 CAPSULES PO QAM 07/25 completed Not Available Not Available Not Available Stelara active Not Available Not Avail able Not Available Xifaxan 550 mg tablet TAKE 1 TABLET BY MOUTH THREE TIMES DAILY FOR 14 DAYS 05/24 completed Not Available Not Available Not Available Humira(CF ) Pen 40 mg/0.4 mL subcutane ous kit 05/24 completed Not Available Not Available Not Available Humira(CF ) Pen Crohn's-U lc Colitis-H id Sup Strt 80 mg/0.8 mL subcut kt 05/24 completed Not Available Not Available Not Available Vitals Date Recorded Body height Body mass index (BMI) Body weight Body temperature Heart rate Oxygen saturation Oxygen saturation in Arterial blood by Pulse oximetry Systolic blood pressure Diastolic blood pressure Provider Name and Address Organization Details Last Updated DateTime 4 172.72 cm 40.7 kg/m2 554445. 76 g 98.2 [degF] 80 /min 98 % 98 % 138 mm[Hg] 80 mm[Hg] Breanna Peterson RN [facility] [employer] [facility] 4 08:32:32 Date Recorded Body weight Body mass index (BMI) Body height Body temperature Heart rate Respiratory rate Oxygen saturation Oxygen saturation in Arterial blood by Pulse oximetry Pain severity - 0-10 verbal numeric rating [Score] - Reported Systolic blood pressure Diastolic blood pressure Provider Name and Address Organization Details Last Updated DateTime 5 188522. 61 g 40.7 kg/m2 172.72 cm 98.1 [degF] 88 /min 20 /min 96 % 96 % 0 116 mm[Hg] 70 mm[Hg] Staci Pal RN [facility] [employer] 5 14:18:12 Date Recorded Body height Body mass index (BMI) Body weight Provider Name and Address Organization Details Last Updated DateTime 06/01/2024 172.72 cm 39.5 kg/m2 325453.02 g Jessica Workman [employer] 06/01/2024 09:22:38 Social History Question Answer Notes LastModified by Organization Details LastModified Time Tobacco Smoking Status Current Every Day Smoker Breanna Peterson RN [facility], [employer] [facility] [employer] 04/02/2023 08:37:02 What Is Your Level Of Caffeine Consumption? Occasional Information not available 05/24/2024 In The 14 Days Before Symptom Onset, Have You Had Close Contact With A Laboratory-confi rmed COVID-19 While That Case Was Ill? No Information not available 05/24/2024 In The 14 Days Before Symptom Onset, Have You Had Close Contact With A Person Who Is Under Investigation For COVID-19 While That Person Was Ill? No Information not available 05/24/2024 Are You Currently Employed? 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 No Information not available 05/24/2024 Do You Use Insect Repellent Routinely? No Information not available 05/24/2024 Where Do You Live? SingleLevelHouse Information not available 05/24/2024 Do You Have Any Pets? Yes Information not available 05/24/2024 What Is Your Relationship Status? Information not available 05/24/2024 Do You Use Your Seat Belt Or Car Seat Routinely? Yes Information not available 05/24/2024 Do You Have Smoke And Carbon Monoxide Detectors In Your Home? Yes Information not available 05/24/2024 Are You Passively Exposed To Smoke? No Information not available 05/24/2024 Are There Any Smokers In Your House? No Information not available 05/24/2024 How Much Tobacco Do You Smoke? 1 PPD Was 2pdd At One Point In Time [email or web address] Information not available 05/25/2024 Do You Participate In Social Media? No Information not available 05/24/2024 Do You Use Sunscreen Routinely? No Information not available 05/24/2024 How Many Years Have You Smoked Tobacco? 30 Information not available 04/02/2023 Have You Recently Traveled Abroad? No Information not available 05/24/2024 Do You Or Have You Ever Used Any Other Forms Of Tobacco Or Nicotine? No Information not available 04/02/2023 Sex: Unknown Functional Status Question Answer Note LastModified by Organization D etails LastModified Time What is your exercise level? None Information not available 05/24/2024 Mental Status None recorded. Family History Relationship Description Onset Age of this Age Resolved Age Notes LastModified by Organization Details LastModified Time Mother Diabetes mellitus Not available 2023 08:34:53 Mother History of hypertension [email or web address] Not available 09:05:06 Maternal Grandmother Non-Hodgkin' s lymphoma (clinical) [email or web address] Not available 04/2024 09:05:06 Notes:not sure about father' s side of family. Medical History Condition Response OTHER # 1 OBESITY Y Past Encounters Encounter ID Performer Location Encounter Start Date Encounter Closed Date Diagnosis/Indication Diagnosis SNOMED-CT Code Diagnosis ICD10 Code Diagnosis Note [id number] BRITTON Rojas [facility] Primary Care [facility] [address] [place] [address] 04/02/2023 08:21:19 04/02/2023 09:03:17 Skin lesion 48847163 L98.9 -notes long hx of multiple lesions/cy st to belt line and [place] axilla-can be painful at times-derm atologist referral-t rial doxycyclin e [id number] TOMASA Dunn [facility] [address] [place] [address] 05/24/2024 13:53:21 05/24/2024 15:05:17 Adult health examination 783050796 Z00.00 Patient in good overall healthDisc ussed diet and exerciseHe alth maintance reviewedPa tient questions answered Pain of ri ght knee joint 5423266724 06632 M25.561 Will see orthoRecom mended PT, pt declinesPa st XR and MRI benign, states symptoms are cyclic. Feels he is on the end of a pain cycle and pain is mildly improved Obesity 262938906 E66.9 Carnivore diet nowDiscuss ed diet and exercise Disorder of vitamin D 38 9781719 E55.9 Leukocytosis 250430664 D 72.829 Nicotine dependence 5629 4008 F17.356 [id number] Saumya Rao, [facility] [place] [address] [place] [address] 06/01/2024 09:02:18 06/01/2024 10:13:13 Pain of right knee joint 6962262986 94848 M25.561 Health Concerns Section Related Observation LastModified by Organization Detai ls LastModified Time None Recorded Concern Status LastModified by Organization Details LastModified Time None Recorded Advance Directives Directive None Recorded Payers Encounter Date Sequence Insurance Name Policy Number Policy Curran Covered Member ID Curran Member ID Guarantor Name 04/02/2023 2 [facility] Jaswinder Pena [id number] Jaswinder Pena 04/02/2023 1 [place] [id number] Jaswinder Pena [id number] Jaswinder Pena 05/24/2024 1 [place] [id number] Jaswinder Pena [id number] Jaswinder Pena 06/01/2024 1 [place] [id number] Jaswinder Pena [id number] Jaswinder Pena Notes Date Note Type Note Provider Name and Address Organization Details Recorded Time 04/02/2023 text/html Pt is here to re-establish care BRITTON Rojas [address], [place], [address], [employer] 04/02/2023 09:08:41 05/24/2024 text/html Jaswinder Pena is a 48 year old male patient here today to establish care. He has concerns today with right knee pain. States he has some degree of instabillity. Pain is mild today. States it feels that he knees gets fatigued after walking or standing.Similar pain happened in the past and he had an XR and MRI and was told flare up of arthritis.Pain is worse when flexion of toesHe is taking meloxicam 15 mg PO daily and cyclobenzaprine 10 mg TID PRN. 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 Notes that the pain is worse when he sits in a truck and pushing pedals. Has a DOT appointment tomorrow He has a history of Crohn's Disease. He is taking Stelara. He is currently eating a carnivore diet, he does take in minimal carbs. He is a daily smoker, he has smoked 30 years 1ppd. At his most did smoke 2ppd Flu shot: declinesCOVID vaccines: declinesTdap: declinesColonoscopy: 2021, managed by TOMASA Morse [address], [place], [address], [employer] 05/24/2024 15:31:51
--- NOTE | 2024-06-12 04:23 | ED_ITS ---
HPI - General Adult General Chief complaint: Abdominal Pain Stated complaint: Abd pain Time Seen by Provider: 06/12/24 02:51 History of Present Illness HPI narrative: Patient 48-year-old gentleman presents emergency department with chief complaint of Crohn's flare patient reports that around 5:00 p.m. today started having discomfort in his abdomen the patient states that he sees GI locally and reports he started having cramping the patient states that he has had some constipation does report that he took some oxycodone around 6:00 p.m. without relief. Patient reports no diarrhea denies vomiting denies fever Related Data Home Medications ?Medication ?Instructions ?Recorded ?Confirmed ?Last Taken ?Type famotidine 40 mg tablet (Pepcid) 40 mg PO BID 11/26/23 04/08/24 Unknown History simethicone 80 mg chewable tablet 80 mg PO BID 02/05/24 04/08/24 Unknown History Allergies Allergy/AdvReac Type Severity Reaction Status Date / Time No Known Allergies Allergy Verified 04/08/24 09:34 Review of Systems 2 Review of Systems: A 10 system review of systems was completed on the patient and is negative except for what is stated in the HPI. Nursing and ancillary documentation was reviewed. [facility] Past Medical History Medical History Bilateral sacroiliitis Abdominal bloating Tobacco use Leukocytosis Nausea Lower abdominal pain Crohn's disease of ileum Strain of quadriceps tendon Lateral meniscus tear Rheumatoid arthritis Abdominal pain Right knee pain Back pain Crohn's disease Arthritis Surgical History Surgical History No significant past surgical history Family History Family History Mother Diabetes mellitus Hypothyroid Arthritis Asthma Hypertension Neuropathy Psoriasis Other Cancer Social History Social History Smoking packs per day: 1.5 Smoking cigarettes per day: 30.0 Years smoked: 30 Smoking pack-years: 45.00 Smoking status: Current every day smoker Second hand tobacco smoke exposure: Yes Alcohol intake: current Drinks per week: 1 Alcohol use details: 4 per month Substance use: never Substance use type: does not use Do You Feel Safe in your Home?: Yes Lack of Transportation: No Lack of Food: Never True Current Housing: I Have Housing Concerned About Future Housing: No Difficulty Paying Gas/Electric Bills: No Difficulty Paying for Meds: No Currently Unemployed: No Education: Decline to Answer Difficulty w/ Childcare or Family Care: No Gender identity (if verbalized by the patient): Male Spiritual care concerns: No Exam 2 Narrative: GENERAL: Well-appearing, well-nourished, and in no acute distress. HEAD: Normocephalic, atraumatic. EYES: PERRLA and EOMI. ENT: Nares clear, no rhinorrhea or epistaxis. Mucous membranes moist. NECK: Supple. CHEST: Clear to auscultation. No respiratory distress. HEART: Regular rate and rhythm. No murmur heard. Normal peripheral pulses. ABDOMEN: Soft, diffusely tender to palpation, nondistended, normal active bowel sounds. EXTREMITIES: Normal range of motion. No edema. SKIN: Warm, dry, no rash. NEURO: No focal deficits. Alert and oriented x3. PSYCH: Normal mood and affect. Course Vital Signs Vital signs: Vital Signs Temperature 36.8 C 06/12/24 02:44 Pulse Rate 105 H 06/12/24 02:44 Respiratory Rate 16 06/12/24 02:44 Blood Pressure 148/99 H 06/12/24 02:44 Pulse Oximetry 97 06/12/24 02:44 Oxygen Delivery Room Air 06/12/24 02:44 Temperature 36.8 C 06/12/24 02:44 Pulse Rate 91 06/12/24 06:15 Respiratory Rate 17 06/12/24 06:15 Blood Pressure 163/87 H 06/12/24 06:00 Pulse Oximetry 94 06/12/24 06:15 Oxygen Delivery Room Air 06/12/24 02:44 Medical Decision Making [facility] Narrative Medical decision making narrative: Differential diagnosis includes intra-abdominal infection, Crohn's disease, small-bowel obstruction The laboratory studies were obtained on the patient showed a white count of 16.1 electrolytes are within normal limits urinalysis is currently pending CT scan of the abdomen pelvis showed evidence of CT scan showed evidence of small-bowel obstruction Case was discussed with Dr. Ochoa who is on-call for general surgery will consult Case was discussed with the hospitalist who will admit the patient Vital Signs Vital Signs: Vital Signs Temperature 36.8 C 06/12/24 02:44 Pulse Rate 105 H 06/12/24 02:44 Respiratory Rate 16 06/12/24 02:44 Blood Pressure 148/99 H 06/12/24 02:44 Pulse Oximetry 97 06/12/24 02:44 Oxygen Delivery Room Air 06/12/24 02:44 Temperature 36.8 C 06/12/24 02:44 Pulse Rate 91 06/12/24 06:15 Respiratory Rate 17 06/12/24 06:15 Blood Pressure 163/87 H 06/12/24 06:00 Pulse Oximetry 94 06/12/24 06:15 Oxygen Delivery Room Air 06/12/24 02:44 Lab Data 06/12/24 03:00 06/12/24 03:51 Labs: Lab Results 06/12/24 06/12/24 06/12/24 Range/Units 03:00 03:51 05:59 WBC 16.1 H (4.5-10.0) K/mm3 RBC 5.33 (4.6-6.20) M/mm3 Hgb 14.7 (14.0-18.0) g/dL Hct 45.1 (42.0-52.0) % MCV 84.6 (80-100) fl MCH 27.6 (26-34) pg MCHC 32.6 (32-36) g/dl RDW 13.8 (11.5-14.5) % Plt Count 419 H (150-375) k/mm3 MPV 10.4 (7.4-10.4) fl Immature Gran % (Auto) 0.5 (0-0.5) % Neut % (Auto) 84.2 H (45.5-73.1) % Lymph % (Auto) 7.6 L (18.3-44.2) % Bee % (Auto) 7.0 (2.6-8.5) % Eos % (Auto) 0.4 (0-4.4) % Baso % (Auto) 0.3 (0.2-1.2) % Lymph # (Auto) 1.22 (0.9-3.2) K/mm3 Bee # (Auto) 1.1 H (0.1-0.6) K/mm3 Eos # (Auto) 0.1 (0-0.3) K/mm3 Baso # (Auto) 0.1 (0.0-0.1) K/mm3 Abs Immat Gran (auto) 0.08 H (0.00-0.031) K/mm3 Absolute Neuts (auto) 13.5 H (1.3-6.7) K/mm3 Absolute Nucleated RBC 0.000 (0.0-0.012) K/mm3 Nucleated RBC % 0.0 (0.0-0.2) % Sodium 136 L (137-145) mmol/L Potassium 4.6 (3.4-5.0) mmol/L Chloride 98 (98-107) mmol/L Carbon Dioxide 26 (22-30) mmol/L Anion Gap 12 (4-12) mmol/L BUN 17 (9-20) mg/dL Creatinine 1.30 (0.7-1.3) mg/dL Estim Creat Clear Calc 79 ml/min Estimated GFR 59 (59 - ) Glucose 144 H (65-110) mg/dL Calcium 9.3 (8.4-10.2) mg/dL Total Bilirubin 0.7 (0.2-1.3) mg/dL AST 19 (17-59) U/L ALT 24 (6-50) U/L Alkaline Phosphatase 111 (38-126) U/L Total Protein 9.0 H (6.3-8.2) g/dL Albumin 4.3 (3.5-5.1) g/dL Lipase 53 (23-300) U/L Urine Color Pending Urine Appearance Pending Urine pH Pending Ur Specific [place] Pending Urine Protein Pending Urine Glucose (UA) Pending Urine Ketones Pending Ur Blood (Man) Pending Urine Nitrate Pending Urine Bilirubin Pending Urine Urobilinogen Pending Leukocyte Esterase Rfl Pending Discharge Plan Discharge Clinical Impression: Crohn's colitis, Small bowel obstruction Patient Disposition: Still a Patient Condition: Stable Instructions: Antibiotic Form Patient Language: Sami Prescriptions: No Action famotidine [Pepcid] 40 mg tablet 40 mg PO BID Stelara 90 mg/mL syringe 90 mg subcut .Every 8 weeks Qty: 1 3RF simethicone 80 mg Tablet,Chewable 80 mg PO BID prednisone 20 mg tablet 40 mg PO DAILY Qty: 7 0RF Rx Instructions: take for 1 week prednisone 20 mg tablet 30 mg PO DAILY Qty: 7 0RF Rx Instructions: take 30 mg daily for 1 week after you finished 1 week of daily 40 mg prednisone 20 mg tablet 20 mg PO DAILY Qty: 7 0RF Rx Instructions: prednisone 20 mg daily for 1 week after you finish 30 mg daily for 1 week and 40 mg daily for 1 week prednisone 10 mg tablet 10 mg PO DAILY Qty: 7 0RF Rx Instructions: prednisone 10 mg daily for 1 week after you finish 20 mg daily for 1 week, 30 mg daily for 1 week and 40 mg daily for 1 week prednisone 5 mg tablet 5 mg PO DAILY Qty: 7 0RF Rx Instructions: prednisone 5 mg daily for 1 week after you finish 10 mg daily for 1 week, 20 mg daily for 1 week, 30 mg daily for 1 week and 40 mg daily for 1 week prednisone 20 mg tablet 20 mg PO DAILY 30 Days Qty: 30 1RF Follow-up/Referrals: Tylor,Roselyn Shay, [employer]ER [Primary Care Provider] - Time of Disposition: 06:49
[2024-06-12 04:26] LABS: Alanine Aminotransferase 24 U/L (6-50); Albumin Level 4.3 g/dL (3.5-5.1); Alkaline Phosphatase 111 U/L (38-126); Anion Gap 12 mmol/L (4-12); Aspartate Amino Transferase 19 U/L (17-59); Bilirubin,Total 0.7 mg/dL (0.2-1.3); Blood Urea Nitrogen 17 mg/dL (9-20); Calcium 9.3 mg/dL (8.4-10.2); Carbon Dioxide 26 mmol/L (22-30); Chloride 98 mmol/L (98-107); Estimated CRCL calculation 79 ml/min; Estimated Glomerular Filt Rate 59; Glucose 144 mg/dL (65-110); Lipase 53 U/L (23-300); Potassium 4.6 mmol/L (3.4-5.0); Sodium 136 mmol/L (137-145)
[2024-06-12] MEDS: DICYCLOMINE HCL INJ 20 MG/2 ML VIAL IM (05:28)
--- NOTE | 2024-06-12 05:48 | PC.NURSE ---
patient refusing urine collection at this time.
[2024-06-12 06:21] LABS: Add Urine Microscopic? YES; Appearance Urine Clear (Clear); Bacteria Urine None Seen /hpf; Bilirubin Urine Negative (Negative); Blood Urine Non-Hemolyzed Trace (Negative); Color Urine Yellow (Yellow); Glucose Urine UA Negative (Negative); Ketones Urine Negative (Negative); Leukocyte Esterase Ur Negative LEU/UL (Negative); Nitrate Urine Negative (Negative); Non Pathogenic Casts 0-2; Protein Urine Trace mg/dL (Negative); RBC Urine 0-2 /hpf (0-2); Specific Grav Ur > 1.045 (1.001-1.035); Squamous Epithelial Cell Urine None Seen /hpf (Few); WBC Urine 0-5 /hpf (0-3); pH Urine 5.5 (5.0-9.0)
--- NOTE | 2024-06-12 08:15 | PC.NURSE ---
This patient, Jaswinder Pena, was admitted to 3 [facility] Room 303-01. Patient/family oriented to hospital policies and general routines including ID bracelet, bed and alarms, visiting hours, pain management, procedures, bathroom and other care routines, personal items, smoking policy, room service/diet, and visiting hours. Information on how to activate the Rapid Response Team has been discussed. Patient/Family are encouraged to report perceived risks to care and to ask questions if they do not understand what they are told or what they should do.
[2024-06-12] MEDS: SODIUM CHLORIDE 0.9% IV 1,000 ML 125 ML IV CONT ×2 (09:07→16:34)
--- NOTE | 2024-06-12 10:25 | P.CONGI_ITS ---
Assessment and Plan Assessment and plan (1) Crohn's disease of ileum: Qualifiers: Digestive disease complication type: with intestinal obstruction Q ualified Code(s): K50.012 - Crohn's disease of small intestine with intestinal obstruction Code(s): K50.00 - Crohn's disease of small intestine without complications Status: Acute (2) Small bowel obstruction: Code(s): K56.609 - Unspecified intestinal obstruction, unspecified as to partial versus complete obstruction Status: Acute Assessment and Plan: The patient is experiencing his fourth Crohn's disease exacerbation within approximately the last 14 months. The apparently involved segment is a short area within the terminal ileum. For now, we will administer intravenous steroids (Solu-Medrol 60 mg bid) and ensure adequate hydration . Given that his last colonoscopy was four years ago, a new colonoscopy is indicated and will be performed once his small bowel obstruction resolves with the current treatment. If the colonoscopy reveals normal colonic mucosa with inflammation limited to the ileum, ileal resection would be an attractive therapeutic option, followed by biologic therapy (Stelara) to prevent recurrence. A surgical consultation will be obtained during this admission as well. Will continue to follow closely. GI Consult Note Consult date/time: 06/12/24 10:25 Reason for consult: Small-bowel obstruction -Crohn's disease HPI: Jaswinder Pena is a 48-year-old male diagnosed with Crohn's disease involving the terminal ileum since 2009. He initially responded well to Remicade, but its use was discontinued due to insurance coverage issues. He was subsequently switched to Humira, which proved ineffective, as evidenced by multiple disease flares in March, July, and January 2024, each requiring admission for small bowel obstruction involving the distal ileum. His last colonoscopy, performed in April 2020, showed a normal colon but an inflamed terminal ileum. Due to the inadequate response to Humira, he was recently transitioned to Stelara, receiving his intravenous induction dose nine weeks ago. However, he did not receive his subsequent subcutaneous dose due to administrative reasons. He had been experiencing increased borborygmi and mild diffuse abdominal discomfort, but yesterday at 5:00 PM, his abdominal pain began to worsen significantly, accompanied by an inability to pass gas and constipation. He denies diarrhea, nausea, vomiting, or fever and is a current smoker. His recent laboratory findings include a white blood cell count of 16.1 , hemoglobin of 14.7, platelets of 419,sodium of 136 ,potassium of 4.6 , creatinine of 1.3 , albumin of 4.3, AST of 19,, and ALT of . A CT scan of the abdomen performed yesterday showed a small bowel obstruction with a transition point in the right side of the pelvis. He refused NG tube placement and is currently experiencing intermittent severe pain in the mid abdomen, requiring morphine. Review of Systems 2 Review of Systems: All systems reviewed & are unremarkable except as noted in HPI and below PMFSH Past Medical History Medical History Bilateral sacroiliitis Abdominal bloating Tobacco use Leukocytosis Nausea Lower abdominal pain Crohn's disease of ileum Strain of quadriceps tendon Lateral meniscus tear Rheumatoid arthritis Abdominal pain Right knee pain Back pain Crohn's disease Arthritis Surgical History Surgical History No significant past surgical history Family History Family History (Updated 06/12/24 @ 08:41 by Zena Booker RN) Mother Diabetes mellitus Arthritis Hypothyroid Neuropathy Psoriasis Hypertension Asthma Grandparent Cancer Social History Social History Smoking packs per day: 1.5 Smoking cigarettes per day: 30.0 Years smoked: 30 Smoking pack-years: 45.00 Smoking status: Current every day smoker Tobacco type: cigarettes Second hand tobacco smoke exposure: Yes Alcohol intake: never Drinks per week: 1 Alcohol use details: 4 per month Substance use: never Substance use type: does not use Do You Feel Safe in your Home?: Yes Lack of Transportation: No Lack of Food: Never True Current Housing: I Have Housing Concerned About Future Housing: Decline to Answer Difficulty Paying Gas/Electric Bills: Decline to Answer Difficulty Paying for Meds: Decline to Answer Currently Unemployed: Decline to Answer Education: High School Diploma/GED Difficulty w/ Childcare or Family Care: Decline to Answer Gender identity (if verbalized by the patient): Male Spiritual care concerns: No Meds Home Medications and Allergies Home Medications ?Medication ?Instructions ?Recorded ?Confirmed ?Type ustekinumab 90 mg/mL subcutaneous 90 mg subcut .Every 8 weeks #1 mL 06/07/24 06/12/24 Rx syringe (Stelara) acetaminophen 650 mg 650 mg PO Q8H PRN pain (scale 06/12/24 06/12/24 History tablet,extended release (Tylenol score 1-3) Arthritis Pain) cyclobenzaprine 5 mg tablet 5 mg PO Q8H PRN inflammation 06/12/24 06/12/24 History ergocalciferol (vitamin D2) 1,250 50,000 unit PO WEEKLY 06/12/24 06/12/24 History mcg (50,000 unit) capsule meloxicam 15 mg tablet 15 mg PO DAILY 06/12/24 06/12/24 History omeprazole 40 mg capsule,delayed 40 mg PO DAILY 06/12/24 06/12/24 History release Allergies Allergy/AdvReac Type Severity Reaction Status Date / Time No Known Allergies Allergy Verified 06/12/24 09:10 Vital Signs Vital Signs - 24 hr 06/12/24 02:44 06/12/24 03:41 06/12/24 05:12 Temperature 98.2 F Pulse Rate 105 H 103 H 95 Respiratory Rate 16 19 23 H Blood Pressure 148/99 H 167/92 H 143/88 H Pulse Oximetry 97 96 95 Oxygen Delivery Room Air 06/12/24 05:13 06/12/24 05:15 06/12/24 06:00 Temperature Pulse Rate 95 96 102 H Respiratory Rate 19 14 17 Blood Pressure 143/88 H 148/79 H 163/87 H Pulse Oximetry 96 96 98 Oxygen Delivery 06/12/24 06:15 06/12/24 07:29 06/12/24 07:51 Temperature Pulse Rate 91 86 96 Respiratory Rate 17 16 14 Blood Pressure 132/77 123/78 Pulse Oximetry 94 93 94 Oxygen Delivery 06/12/24 08:10 06/12/24 08:30 06/12/24 08:31 Temperature 97.6 F Pulse Rate 75 95 Respiratory Rate 16 14 Blood Pressure 123/78 146/79 H Pulse Oximetry 93 96 94 Oxygen Delivery Room Air Exam 2 Narrative: GENERAL: Well-appearing, well-nourished, and in no acute distress. HEAD: Normocephalic, atraumatic. EYES: PERRLA and EOMI. ENT: Nares clear, no rhinorrhea or epistaxis. Mucous membranes moist. NECK: Supple. CHEST: Clear to auscultation. No respiratory distress. HEART: Regular rate and rhythm. No murmur heard. Normal peripheral pulses. ABDOMEN: Soft, diffusely tender to palpation, nondistended, normal active bowel sounds. EXTREMITIES: Normal range of motion. No edema. SKIN: Warm, dry, no rash. NEURO: No focal deficits. Alert and oriented x3. PSYCH: Normal mood and affect. Results Labs 06/12/24 03:00 06/12/24 03:51 Labs: Short CBC 06/12/24 Range/Units 03:00 WBC 16.1 H (4.5-10.0) K/mm3 Hgb 14.7 (14.0-18.0) g/dL Hct 45.1 (42.0-52.0) % Plt Count 419 H (150-375) k/mm3 BMP 06/12/24 03:51 Sodium 136 L Potassium 4.6 Chloride 98 Carbon Dioxide 26 BUN 17 Creatinine 1.30 Glucose 144 H Calcium 9.3 Liver Function 06/12/24 Range/Units 03:51 Total Bilirubin 0.7 (0.2-1.3) mg/dL AST 19 (17-59) U/L ALT 24 (6-50) U/L Alkaline Phosphatase 111 (38-126) U/L Albumin 4.3 (3.5-5.1) g/dL Urine 06/12/24 Range/Units 05:59 Urine Color Yellow (Yellow) Urine Appearance Clear (Clear) Urine pH 5.5 (5.0-9.0) Ur Specific [place] > 1.045 H (1.001-1.035) Urine Protein Trace (Negative) mg/dL Urine Glucose (UA) Negative (Negative) mg/dL
[2024-06-12] MEDS: methylPREDNISolone SOD SUCC 125 MG VIAL 60 MG IV PUSH ×2 (10:40→21:03)
--- NOTE | 2024-06-12 12:30 | P.HP_ITS ---
H&P: HPI History of Present Illness Date/Time: 06/12/24 12:30 Chief Complaint: abd pain Narrative: 48-year-old male admitted from home for complaint of Crohn's flare patient reports that around 5:00 p.m. today started having discomfort in his abdomen the patient states that he sees GI locally and reports he started having cramping the patient states that he has had some constipation Patient reports no diarrhea denies vomiting denies fever WBC 16.1. cmp ok, UA was collected and pending. CT scan of the abdomen pelvis showed evidence of CT scan showed evidence of small-bowel obstruction Gi was consulted. Dr Ochoa, surgery was consulted. Of note, it is his 4th hospitalization sp far. Review of Systems Review of Systems: All systems reviewed & are unremarkable except as noted in HPI and below PMFSH Past Medical History Medical History Bilateral sacroiliitis Abdominal bloating Tobacco use Leukocytosis Nausea Lower abdominal pain Crohn's disease of ileum Strain of quadriceps tendon Lateral meniscus tear Rheumatoid arthritis Abdominal pain Right knee pain Back pain Crohn's disease Arthritis Surgical History Surgical History No significant past surgical history Family History Family History (Updated 06/12/24 @ 08:41 by Zena Booker RN) Mother Diabetes mellitus Arthritis Hypothyroid Neuropathy Psoriasis Hypertension Asthma Grandparent Cancer Social History Social History Smoking packs per day: 1.5 Smoking cigarettes per day: 30.0 Years smoked: 30 Smoking pack-years: 45.00 Smoking status: Current every day smoker Tobacco type: cigarettes Second hand tobacco smoke exposure: Yes Alcohol intake: never Drinks per week: 1 Alcohol use details: 4 per month Substance use: never Substance use type: does not use Do You Feel Safe in your Home?: Yes Lack of Transportation: No Lack of Food: Never True Current Housing: I Have Housing Concerned About Future Housing: Decline to Answer Difficulty Paying Gas/Electric Bills: Decline to Answer Difficulty Paying for Meds: Decline to Answer Currently Unemployed: Decline to Answer Education: High School Diploma/GED Difficulty w/ Childcare or Family Care: Decline to Answer Gender identity (if verbalized by the patient): Male Spiritual care concerns: No Meds Home Medications and Allergies Home Medications ?Medication ?Instructions ?Recorded ?Confirmed ?Type ustekinumab 90 mg/mL subcutaneous 90 mg subcut .Every 8 weeks #1 mL 06/07/24 06/12/24 Rx syringe (Stelara) acetaminophen 650 mg 650 mg PO Q8H PRN pain (scale 06/12/24 06/12/24 History tablet,extended release (Tylenol score 1-3) Arthritis Pain) cyclobenzaprine 5 mg tablet 5 mg PO Q8H PRN inflammation 06/12/24 06/12/24 His tory ergocalciferol (vitamin D2) 1,250 50,000 unit PO WEEKLY 06/12/24 06/12/24 History mcg (50,000 unit) capsule meloxicam 15 mg tablet 15 mg PO DAILY 06/12/24 06/12/24 History omeprazole 40 mg capsule,delayed 40 mg PO DAILY 06/12/24 06/12/24 History release Allergies Allergy/AdvReac Type Severity Reaction Status Date / Time No Known Allergies Allergy Verified 06/12/24 09:10 Vital Signs Vital Signs - 24 hr 06/12/24 02:44 06/12/24 03:41 06/12/24 05:12 Temperature 98.2 F Pulse Rate 105 H 103 H 95 Respiratory Rate 16 19 23 H Blood Pressure 148/99 H 167/92 H 143/88 H Pulse Oximetry 97 96 95 Oxygen Delivery Room Air 06/12/24 05:13 06/12/24 05:15 06/12/24 06:00 Temperature Pulse Rate 95 96 102 H Respiratory Rate 19 14 17 Blood Pressure 143/88 H 148/79 H 163/87 H Pulse Oximetry 96 96 98 Oxygen Delivery 06/12/24 06:15 06/12/24 07:29 06/12/24 07:51 Temperature Pulse Rate 91 86 96 Respiratory Rate 17 16 14 Blood Pressure 132/77 123/78 Pulse Oximetry 94 93 94 Oxygen Delivery 06/12/24 08:10 06/12/24 08:30 06/12/24 08:31 Temperature 97.6 F Pulse Rate 75 95 Respiratory Rate 16 14 Blood Pressure 123/78 146/79 H Pulse Oximetry 93 96 94 Oxygen Delivery Room Air 06/12/24 11:53 Temperature Pulse Rate 95 Respiratory Rate 14 Blood Pressure Pulse Oximetry 94 Oxygen Delivery Room Air Exam Const: General: comfortable Resp: Effort & Inspection: normal respiratory effort Auscultation: clear to auscultation bilaterally Cardio: Rate: regular rate Rhythm: regular rhythm GI: GI Palp: Yes Tenderness to palpation present (GI) Auscultation: abnormal bowel sounds (diminished) H&P: Results Labs Labs: Short CBC 06/12/24 Range/Units 03:00 WBC 16.1 H (4.5-10.0) K/mm3 Hgb 14.7 (14.0-18.0) g/dL Hct 45.1 (42.0-52.0) % Plt Count 419 H (150-375) k/mm3 BMP 06/12/24 03:51 Sodium 136 L Potassium 4.6 Chloride 98 Carbon Dioxide 26 BUN 17 Creatinine 1.30 Glucose 144 H Calcium 9.3 Liver Function 06/12/24 Range/Units 03:51 Total Bilirubin 0.7 (0.2-1.3) mg/dL AST 19 (17-59) U/L ALT 24 (6-50) U/L Alkaline Phosphatase 111 (38-126) U/L Albumin 4.3 (3.5-5.1) g/dL Urine 06/12/24 Range/Units 05:59 Urine Color Yellow (Yellow) Urine Appearance Clear (Clear) Urine pH 5.5 (5.0-9.0) Ur Specific [place] > 1.045 H (1.001-1.035) Urine Protein Trace (Negative) mg/dL Urine Glucose (UA) Negative (Negative) mg/dL Assessment and Plan Assessment and plan (1) Small bowel obstruction: Code(s): K56.609 - Unspecified intestinal obstruction, unspecified as to partial versus complete obstruction Status: Acute (2) Crohn's disease: Qualifiers: Digestive disease complication type: with intestinal obstruction Gastrointestinal tract location: small intestine Qualified Code(s): K50.012 - Crohn's disease of small intestine with intestinal obstruction Code(s): K50.90 - Crohn's disease, unspecified, without complications Status: Acute (3) Tobacco abuse: Code(s): Z72.0 - Tobacco use Status: Acute Plan Gi/Surg consulted NPO IV fluids Pain meds Hold home meds Ambulate, IS Refuses NG for now IV steroids methylprednisone 60 mg iv q12h Quality VTE Prophylaxis VTE prophylaxis: mechanical ordered Hospitalist MIPS Advance Care Plan I have confirmed that the patient's Advanced Care Plan is present, code status is documented, or surrogate decision maker is listed in patient medical record.: Yes Medication Reconciliation I have utilized all available resources to obtain, update and review the pat ients current medications (includes all prescriptions, OTC, herbals, cannabis, and nutritional supplements).: Yes
--- NOTE | 2024-06-12 16:16 | PM.CNGS ---
Assessment and Plan Assessment and plan (1) Small bowel obstruction: Code(s): K56.609 - Unspecified intestinal obstruction, unspecified as to partial versus complete obstruction Status: Acute Assessment and Plan: Appears to be recurrent from Crohn's disease. Patient started on high-dose steroids. Will discuss with Gastroenterology. No need for urgent surgery. (2) Crohn's disease of ileum: Qualifiers: Digestive disease complication type: with intestinal obstruction Qualified Code(s): K50.012 - Crohn's disease of small intestine with intestinal obstruction Code(s): K50.00 - Crohn's disease of small intestine without complications Status: Acute History of Present Illness Consult details Consult date: 06/12/24 Reason for consult: other (Small-bowel obstruction) Requesting physician: Lio Granados MD Narrative: Patient is a 48-year-old man who has had Crohn's disease for many years. Yesterday, about 5:00 p.m., he started having hypogastric and epigastric abdominal pain with cramping. He has had previous small-bowel obstructions due to Crohn's ileitis and this was reminiscent of another flare of Crohn's with obstruction. He had no nausea or vomiting. He had no fever. He has had no diarrhea. He did have cramping and tells me that there are spasms of pain which are extremely painful but last a short period of time. In between those times, he still has discomfort and what sounds like borborygmi me which he finds uncomfortable as well. When the cramping started he took an oxycodone about 6:00 p.m. last night. It did not help. He then came to the emergency room. In the emergency room he was noted to have a diffusely tender abdomen but no peritoneal signs. His white blood cell count was [id number]. He had a CT scan of the abdomen and pelvis which showed evidence of a distal small-bowel obstruction. Previous episodes of small-bowel obstruction from Crohn's disease have focused on a small area of distal ileum. Patient has not had vomiting and does not want a nasogastric tube. He has had no previous abdominal surgery. He is a smoker and has a BMI of 38.4. He has been on both Remicade and Humira biologics. It is difficult to get insurance to cover these medications. He was just admitted last January with a similar episode of ileitis and bowel obstruction. Patient did have an initiation infusion dose of stool air a but this was over 8 weeks ago and he is 9 days beyond where he was supposed to have a 2nd dose due to problems with coordination and his insurance company. He is admitted now with IV fluids and has been started on methylprednisolone. He is seen in consultation for potential need of surgical resection. Review of Systems Review of Systems: All systems reviewed & are unremarkable except as noted in HPI and below (HPI) [facility] Past Medical History Medical History (Updated 06/12/24 @ 16:48 by Quincy Ochoa MD) Bilateral sacroiliitis Abdominal bloating Tobacco use Leukocytosis Nausea Lower abdominal pain Crohn's disease of ileum Strain of quadriceps tendon Lateral meniscus tear Rheumatoid arthritis Abdominal pain Right knee pain Back pain Crohn's disease Arthritis Surgical History Surgical History No significant past surgical history Family History Family History Mother Diabetes mellitus Arthritis Hypothyroid Neuropathy Psoriasis Hypertension Asthma Grandparent Cancer Social History Social History Smoking packs per day: 1.5 Smoking cigarettes per day: 30.0 Years smoked: 30 Smoking pack-years: 45.00 Smoking status: Current every day smoker Tobacco type: cigarettes Second hand tobacco smoke exposure: Yes Alcohol intake: never Drinks per week: 1 Alcohol use details: 4 per month Substance use: never Substance use type: does not use Do You Feel Safe in your Home?: Yes Lack of Transportation: No Lack of Food: Never True Current Housing: I Have Housing Concerned About Future Housing: Decline to Answer Difficulty Paying Gas/Electric Bills: Decline to Answer Difficulty Paying for Meds: Decline to Answer Currently Unemployed: Decline to Answer Education: High School Diploma/GED Difficulty w/ Childcare or Family Care: Decline to Answer Gender identity (if verbalized by the patient): Male Spiritual care concerns: No Meds Home Medications and Allergies Home Medications ?Medication ?Instructions ?Recorded ?Confirmed ?Type ustekinumab 90 mg/mL subcutaneous 90 mg subcut .Every 8 weeks #1 mL 06/07/24 06/12/24 Rx syringe (Stelara) acetaminophen 650 mg 650 mg PO Q8H PRN pain (scale 04/13/25 04/13/25 History tablet,extended release (Tylenol score 1-3) Arthritis Pain) cyclobenzaprine 5 mg tablet 5 mg PO Q8H PRN inflammation 06/12/24 06/12/24 History ergocalciferol (vitamin D2) 1,250 50,000 unit PO WEEKLY 06/12/24 06/12/24 History mcg (50,000 unit) capsule meloxicam 15 mg tablet 15 mg PO DAILY 06/12/24 06/12/24 History omeprazole 40 mg capsule,delayed 40 mg PO DAILY 06/12/24 06/12/24 History release Allergies Allergy/AdvReac Type Severity Reaction Status Date / Time No Known Allergies Allergy Verified 06/12/24 09:10 Vital Signs Vital Signs - 24 hr 06/12/24 02:44 06/12/24 03:41 06/12/24 05:12 Temperature 36.8 C Pulse Rate 105 H 103 H 95 Respiratory Rate 16 19 23 H Blood Pressure 148/99 H 167/92 H 143/88 H Pulse Oximetry 97 96 95 Oxygen Delivery Room Air 06/12/24 05:13 06/12/24 05:15 06/12/24 06:00 Temperature Pulse Rate 95 96 102 H Respiratory Rate 19 14 17 Blood Pressure 143/88 H 148/79 H 163/87 H Pulse Oximetry 96 96 98 Oxygen Delivery 06/12/24 06:15 06/12/24 07:29 06/12/24 07:51 Temperature Pulse Rate 91 86 96 Respiratory Rate 17 16 14 Blood Pressure 132/77 123/78 Pulse Oximetry 94 93 94 Oxygen Delivery 06/12/24 08:10 06/12/24 08:30 06/12/24 08:31 Temperature 36.4 C Pulse Rate 75 95 Respiratory Rate 16 14 Blood Pressure 123/78 146/79 H Pulse Oximetry 93 96 94 Oxygen Delivery Room Air 06/12/24 11:53 06/12/24 14:00 Temperature 36.2 C L Pulse Rate 95 90 Respiratory Rate 14 14 Blood Pressure 155/80 H Pulse Oximetry 94 96 Oxygen Delivery Room Air Exam Const: General: comfortable, no acute distress, alert and awake Nutritional Appearance: obese Orientation/consciousness: patient oriented x3 HENMT: Head: normocephalic and atraumatic Mouth: Yes Normal oral and palatal mucosa present Eyes: Conjunctivae: conjunctivae normal Pupils: Equal, round and reactive pupils present EOM: EOMs intact bilaterally Neck: Neck: normal visual inspection, no lymphadenopathy and nontender Resp: Effort & Inspection: normal respiratory effort Auscultation: clear to auscultation bilaterally Cardio: Rate: regular rate Rhythm: regular rhythm Heart sounds: no gallops, no murmurs and no rubs GI: Inspection: normal to inspection, non-distended and obesity GI Palp: Yes Soft to palpation, Yes Tenderness to palpation present (GI) (Hypogastric area, no peritoneal signs at present), No Guarding due to palpation present (GI), No Hepatomegaly present, No Splenomegaly present, No Hernia present and No Palpable mass present Auscultation: Hypoactive bowel sounds present Skin: Lesions: no lesions Rashes: no rashes Neuro: General: no focal motor deficits and CN's II-XI intact bilaterally Cranial nerves: Yes Equal, round and reactive pupils present, Yes Bilaterally intact EOM present, Yes facial symmetry and Yes Midline tongue present Speech: normal speech Motor exam (neuro): 5/5 motor strength present throughout and Motor abnormalities not present Extrem: General: no clubbing, cyanosis or edema and edema Psych: Affect: normal affect Thought process: Normal thought process present Insight: Good insight present (Psych) Results Labs 06/12/24 03:00 06/12/24 03:51 Labs: Abnormal lab results 06/12/24 06/12/24 06/12/24 Range/Units 03:00 03:51 05:59 WBC 16.1 H (4.5-10.0) K/mm3 Plt Count 419 H (150-375) k/mm3 Neut % (Auto) 84.2 H (45.5-73.1) % Lymph % (Auto) 7.6 L (18.3-44.2) % [place] # (Auto) 1.1 H (0.1-0.6) K/mm3 Abs Immat Gran (auto) 0.08 H (0.00-0.031) K/mm3 Absolute Neuts (auto) 13.5 H (1.3-6.7) K/mm3 Sodium 136 L (137-145) mmol/L Glucose 144 H (65-110) mg/dL Total Protein 9.0 H (6.3-8.2) g/dL Ur Specific [place] > 1.045 H (1.001-1.035) Diabetes panel 06/12/24 Range/Units 03:51 Sodium 136 L (137-145) mmol/L Potassium 4.6 (3.4-5.0) mmol/L Chloride 98 (98-107) mmol/L Carbon Dioxide 26 (22-30) mmol/L BUN 17 (9-20) mg/dL Creatinine 1.30 (0.7-1.3) mg/dL Glucose 144 H (65-110) mg/dL Calcium 9.3 (8.4-10.2) mg/dL AST 19 (17-59) U/L ALT 24 (6-50) U/L Alkaline Phosphatase 111 (38-126) U/L Total Protein 9.0 H (6.3-8.2) g/dL Albumin 4.3 (3.5-5.1) g/dL Calcium panel 06/12/24 Range/Units 03:51 Calcium 9.3 (8.4-10.2) mg/dL Albumin 4.3 (3.5-5.1) g/dL Pituitary panel 06/12/24 Range/Units 03:51 Sodium 136 L (137-145) mmol/L Potassium 4.6 (3.4-5.0) mmol/L Chloride 98 (98-107) mmol/L Carbon Dioxide 26 (22-30) mmol/L BUN 17 (9-20) mg/dL Creatinine 1.30 (0.7-1.3) mg/dL Glucose 144 H (65-110) mg/dL Calcium 9.3 (8.4-10.2) mg/dL Adrenal panel 06/12/24 Range/Units 03:51 Sodium 136 L (137-145) mmol/L Potassium 4.6 (3.4-5.0) mmol/L Chloride 98 (98-107) mmol/L Carbon Dioxide 26 (22-30) mmol/L BUN 17 (9-20) mg/dL Creatinine 1.30 (0.7-1.3) mg/dL Glucose 144 H (65-110) mg/dL Calcium 9.3 (8.4-10.2) mg/dL Total Bilirubin 0.7 (0.2-1.3) mg/dL AST 19 (17-59) U/L ALT 24 (6-50) U/L Alkaline Phosphatase 111 (38-126) U/L Total Protein 9.0 H (6.3-8.2) g/dL Albumin 4.3 (3.5-5.1) g/dL All other labs normal. Imaging Abdomen CT scan report/results: report reviewed and image reviewed (Thickened distal ileum with narrowing, dilated small bowel and fluid-filled stomach) CT scan - pelvis: report reviewed and image reviewed
[2024-06-13] MEDS: SODIUM CHLORIDE 0.9% IV 1,000 ML 125 ML IV CONT ×3 (00:34→19:40)
[2024-06-13 05:50] VITALS: BP 147/73; PULSE 67; RESP 18; TEMP 36.4; O2SAT 97
[2024-06-13 06:27] LABS: Basophils Percent Auto 0.1 % (0.2-1.2); Hematocrit 38.4 % (42.0-52.0); Immature Granulocyte Absolute 0.05 K/mm3 (0.00-0.031); Immature Granulocyte Percent A 0.5 % (0-0.5); Lymphocytes Absolute Auto 0.78 K/mm3 (0.9-3.2); Lymphocytes Percent Auto 7.4 % (18.3-44.2); Mean Corpuscular HGB Conc 31.3 g/dl (32-36); Mean Corpuscular Hemoglobin 27.3 pg (26-34); Mean Corpuscular Volume 87.5 fl (80-100); Mean Platelet Volume 10.7 fl (7.4-10.4); Monocytes Absolute Auto 0.2 K/mm3 (0.1-0.6); Monocytes Percent Auto 2.1 % (2.6-8.5); Neutrophils Absolute Auto 9.5 K/mm3 (1.3-6.7); Neutrophils Percent Auto 89.9 % (45.5-73.1); Platelet Count Result 308 k/mm3 (150-375); Red Blood Count 4.39 M/mm3 (4.6-6.20); Red Cell Distribution Width 13.3 % (11.5-14.5); White Blood Count 10.5 K/mm3 (4.5-10.0)
[2024-06-13 06:41] LABS: Anion Gap 9 mmol/L (4-12); Blood Urea Nitrogen 15 mg/dL (9-20); Calcium 9.1 mg/dL (8.4-10.2); Carbon Dioxide 23 mmol/L (22-30); Chloride 104 mmol/L (98-107); Estimated CRCL calculation 111 ml/min; Estimated Glomerular Filt Rate > 60; Glucose 139 mg/dL (65-110); Potassium 4.4 mmol/L (3.4-5.0); Sodium 136 mmol/L (137-145)
--- NOTE | 2024-06-13 07:49 | PM.IMPN ---
Progress Note: A&P Assessment and Plan (1) Small bowel obstruction: Code(s): K56.609 - Unspecified intestinal obstruction, unspecified as to partial versus complete obstruction Status: Deleted (2) Crohn's disease: Qualifiers: Digestive disease complication type: with intestinal obstruction Gastrointestinal tract location: small intestine Qualified Code(s): K50.012 - Crohn's disease of small intestine with intestinal obstruction Code(s): K50.90 - Crohn's disease, unspecified, without complications Status: Acute (3) Tobacco abuse: Code(s): Z72.0 - Tobacco use Status: Deleted Plan Gi/Surg consulted NPO IV fluids Pain meds Hold home meds Ambulate, IS Refuses NG for now IV steroids methylprednisone 60 mg iv q12h T/OT ordered for knee pain surgery saw him- no acute intervention WBC trending down 16.1->10.5 HG down (14.7->12) but prob due to IV fluids-no active s/s of bleeding-monitor Time Spent With Patient Time with patient: 25 - 35 minutes Subjective Date/time seen: 06/13/24 07:49 Interval history: 48-year-old male admitted from home for complaint of Crohn's He has been on both Remicade and Humira biologics. He received a dose of humira and due to insurance issues, second schedule dose was missed. He was just admitted last January with a similar episode of ileitis and bowel obstruction that resolved with NPO, IV fluids and steroids. He was started on IV fluids and methylprednisolone. GI was consulted, surgery was consulted for potential need of surgical resection. Pt was undergoing PT/OT as an outpt for [place] knee arthritis and we will order PT/OT for him while here. His pain is controlled and he is no nauseated. 06/13 pt is seen and examined. abd xrY WAS ORDERED FOR TODAY. pt is doing well this am, reports no nausea. no BM today but feels like he is going to have it soon. Review of Systems Review of Systems: All systems reviewed & are unremarkable except as noted in HPI and below Exam Const: General: comfortable Resp: Effort & Inspection: normal respiratory effort Auscultation: clear to auscultation bilaterally Cardio: Rate: regular rate Rhythm: regular rhythm GI: Auscultation: abnormal bowel sounds (diminished) Objective Data Vital Signs Vital Signs: Vital Signs - 24 hr 06/12/24 07:51 06/12/24 08:10 06/12/24 08:30 Temperature 97.6 F Pulse Rate 96 75 95 Respiratory Rate 14 16 14 Blood Pressure 123/78 123/78 146/79 H Pulse Oximetry 94 93 96 Oxygen Delivery 06/12/24 08:31 06/12/24 11:53 06/12/24 14:00 Temperature 97.2 F L Pulse Rate 95 90 Respiratory Rate 14 14 Blood Pressure 155/80 H Pulse Oximetry 94 94 96 Oxygen Delivery Room Air Room Air 06/12/24 20:00 06/12/24 21:19 06/13/24 05:50 Temperature 97.6 F 97.5 F L Pulse Rate 74 67 Respiratory Rate 16 18 Blood Pressure 135/70 147/73 H Pulse Oximetry 94 97 Oxygen Delivery Room Air Intake/Output Intake/Output: Intake & Output 06/10/24 06/11/24 06/12/24 06/13/24 23:59 23:59 23:59 23:59 Intake Total 1931.3 1100 Balance 1931.3 1100 Meds/Results Medications: Active Medications Generic Name Dose Route Start Last Admin Trade Name Freq PRN Reason Stop Dose Admin Sodium Chloride 1,000 mls @ 125 mls/hr 06/12/24 06:50 06/13/24 00:34 Normal Saline Iv IV CONT 125 mls/hr .Q8H MELLISSA Administration Methylprednisolone Sodium Succinate 60 mg 06/12/24 09:40 06/12/24 21:03 Methylprednisolone Sod Succ 125 Mg Vial IV PUSH 60 mg Q12HR MELLISSA Administration Morphine Sulfate 4 mg 06/12/24 06:46 06/12/24 16:34 Morphine Sulfate (*Crx) 4 Mg/Ml Inj IV PUSH 4 mg Q2H PRN Administration Pain Rated 7-10 Ondansetron HCl 4 mg 06/12/24 06:46 06/12/24 11:49 Ondansetron Inj 4 Mg/2 Ml Vial IV PUSH 4 mg Q4H PRN Administration Nausea Radiology Results: ITS Impressions Abdomen/Pelvis CT 06/12/24 06:32 IMPRESSION: 1. Small bowel obstruction with the transition zone in the right side of the pelvis. 2. Tiny bilateral kidney stones. 3. Fat infiltration of the liver. Labs Labs: Laboratory Results - last 24 hr 06/13/24 05:40 WBC 10.5 H RBC 4.39 L Hgb 12.0 L Hct 38.4 L MCV 87.5 MCH 27.3 MCHC 31.3 L RDW 13.3 Plt Count 308 MPV 10.7 H Immature Gran % (Auto) 0.5 Neut % (Auto) 89.9 H Lymph % (Auto) 7.4 L [place] % (Auto) 2.1 L Eos % (Auto) 0.0 Baso % (Auto) 0.1 L Lymph # (Auto) 0.78 L [place] # (Auto) 0.2 Eos # (Auto) 0.0 Baso # (Auto) 0.0 Abs Immat Gran (auto) 0.05 H Absolute Neuts (auto) 9.5 H Absolute Nucleated RBC 0.000 Nucleated RBC % 0.0 Sodium 136 L Potassium 4.4 Chloride 104 Carbon Dioxide 23 Anion Gap 9 BUN 15 Creatinine 0.89 Estim Creat Clear Calc 111 Estimated GFR > 60 Glucose 139 H Calcium 9.1 Quality VTE Prophylaxis VTE prophylaxis: mechanical ordered
[2024-06-13] MEDS: ONDANSETRON INJ 4 MG/2 ML VIAL IV PUSH (07:56)
[2024-06-13] MEDS: MORPHINE SULFATE (*CRX) 4 MG/ML INJ IV PUSH (07:56)
[2024-06-13 08:00] VITALS: PULSE 67; RESP 18; O2SAT 97
[2024-06-13] MEDS: methylPREDNISolone SOD SUCC 125 MG VIAL 60 MG IV PUSH ×2 (11:03→21:08)
--- NOTE | 2024-06-13 11:49 | PCOTNOTE ---
Attempted to see pt. for occupational therapy. Pt. reports he das snot need OT services. Called provider and left a message regarding cancelation of orders. Nursing aware.
--- NOTE | 2024-06-13 12:24 | P.PNGI_ITS ---
Progress Note: A&P Assessment and Plan (1) Crohn's disease of ileum: Qualifiers: Digestive disease complication type: with intestinal obstruction Qualified Code(s): K50.012 - Crohn's disease of small intestine with intestinal obstruction Code(s): K50.00 - Crohn's disease of small intestine without complications Status: Acute Assessment and Plan: Although the patient shows clinical improvement of the small bowel obstruction, abdominal x-rays today indicate persistent obstruction. Treatment with Solu- Medrol will continue, and the patient will remain NPO. Due to patient refusal, nasogastric tube placement is not feasible at this time. Following both clinical and radiologic resolution of the obstruction, we plan to perform a colonoscopy to assess the extent of the disease. If the disease is localized to the terminal ileum, surgical intervention is likely indicated. We appreciate the surgical consultation from yesterday. Subjective Date/time seen: 06/13/24 12:24 Interval history: Patient feels better this morning, passed some gas last night, no bowel movements. Exam Narrative: Unchanged from yesterday's. Objective Data Vital Signs Vital Signs: Vital Signs - 24 hr 06/12/24 14:00 06/12/24 20:00 06/12/24 21:19 Temperature 97.2 F L 97.6 F Pulse Rate 90 74 Respiratory Rate 14 16 Blood Pressure 155/80 H 135/70 Pulse Oximetry 96 94 Oxygen Delivery Room Air 06/13/24 05:50 06/13/24 08:00 06/13/24 09:26 Temperature 97.5 F L Pulse Rate 67 67 Respiratory Rate 18 18 Blood Pressure 147/73 H Pulse Oximetry 97 97 Oxygen Delivery Room Air Room Air Intake/Output Intake/Output: Intake & Output 06/10/24 06/11/24 06/12/24 06/13/24 23:59 23:59 23:59 23:59 Intake Total 1931.3 2026.1 Balance 1931.3 2026.1 Meds/Results Medications: Active Medications Generic Name Dose Route Start Last Admin Trade Name Freq PRN Reason Stop Dose Admin Sodium Chloride 1,000 mls @ 125 mls/hr 06/12/24 06:50 06/13/24 07:59 Normal Saline Iv IV CONT 125 mls/hr .Q8H MELLISSA Administration Methylprednisolone Sodium Succinate 60 mg 06/12/24 09:40 06/13/24 11:03 Methylprednisolone Sod Succ 125 Mg Vial IV PUSH 60 mg Q12HR MELLISSA Administration Morphine Sulfate 4 mg 06/12/24 06:46 06/13/24 07:56 Morphine Sulfate (*Crx) 4 Mg/Ml Inj IV PUSH 4 mg Q2H PRN Administration Pain Rated 7-10 Ondansetron HCl 4 mg 06/12/24 06:46 06/13/24 07:56 Ondansetron Inj 4 Mg/2 Ml Vial IV PUSH 4 mg Q4H PRN Administration Nausea Radiology Results: ITS Impressions Abdomen/Pelvis CT 06/12/24 06:32 IMPRESSION: 1. Small bowel obstruction with the transition zone in the right side of the pelvis. 2. Tiny bilateral kidney stones. 3. Fat infiltration of the liver. Abdomen X-Ray 06/13/24 08:18 Impression: Small bowel obstruction, as seen on recent CT scan. Labs Labs: Laboratory Results - last 24 hr 06/13/24 05:40 WBC 10.5 H RBC 4.39 L Hgb 12.0 L Hct 38.4 L MCV 87.5 MCH 27.3 MCHC 31.3 L RDW 13.3 Plt Count 308 MPV 10.7 H Immature Gran % (Auto) 0.5 Neut % (Auto) 89.9 H Lymph % (Auto) 7.4 L [place] % (Auto) 2.1 L Eos % (Auto) 0.0 Baso % (Auto) 0.1 L Lymph # (Auto) 0.78 L [place] # (Auto) 0.2 Eos # (Auto) 0.0 Baso # (Auto) 0.0 Abs Immat Gran (auto) 0.05 H Absolute Neuts (auto) 9.5 H Absolute Nucleated RBC 0.000 Nucleated RBC % 0.0 Sodium 136 L Potassium 4.4 Chloride 104 Carbon Dioxide 23 Anion Gap 9 BUN 15 Creatinine 0.89 Estim Creat Clear Calc 111 Estimated GFR > 60 Glucose 139 H Calcium 9.1
[2024-06-13 14:00] VITALS: BP 147/76; PULSE 72; RESP 18; TEMP 36.1; O2SAT 98
--- NOTE | 2024-06-13 17:01 | PM.PNGS ---
Progress Note: A&P Assessment and Plan (1) Small bowel obstruction: Code(s): K56.609 - Unspecified intestinal obstruction, unspecified as to partial versus complete obstruction Status: Acute Assessment and Plan: Clinically improving with medical management. Continue IV steroids per GI. SBS ordered for the morning. Continue bowel rest and IV fluids for now. Will await SBS tomorrow. (2) Crohn's disease of ileum: Qualifiers: Digestive disease complication type: with intestinal obstruction Qualified Code(s): K50.012 - Crohn's disease of small intestine with intestinal obstruction Code(s): K50.00 - Crohn's disease of small intestine without complications Status: Acute Plan I have discussed the patient's case and plan of care with Dr. Ochoa. Subjective Subjective Date/Time Seen: 06/13/24 17:01 Patient reports: no new complaints, feels better, pain is less, flatus and no bowel movement Interval history: Patient feeling better today. No abdominal pain or nausea. He passed some flatus last night, no BM since Thursday. Exam Const: General: comfortable and no acute distress Orientation/consciousness: patient oriented x3 GI: Inspection: non-distended GI Palp: Yes Soft to palpation, No Tenderness to palpation present (GI), No Guarding due to palpation present (GI) and No Rebound tenderness present Auscultation: normal bowel sounds Objective Data Vital Signs Vital Signs: Vital Signs - 24 hr 06/12/24 20:00 06/12/24 21:19 06/13/24 05:50 Temperature 97.6 F 97.5 F L Pulse Rate 74 67 Respiratory Rate 16 18 Blood Pressure 135/70 147/73 H Pulse Oximetry 94 97 Oxygen Delivery Room Air 06/13/24 08:00 06/13/24 09:26 06/13/24 14:00 Temperature 97 F L Pulse Rate 67 72 Respiratory Rate 18 18 Blood Pressure 147/76 H Pulse Oximetry 97 98 Oxygen Delivery Room Air Room Air Intake/Output Intake/Output: Intake & Output 06/10/24 06/11/24 06/12/24 06/13/24 23:59 23:59 23:59 23:59 Intake Total 1930.3 2026.1 Balance 1930.3 2026. Meds/Results Medications: Active Medications Generic Name Dose Route Start Last Admin Trade Name Freq PRN Reason Stop Dose Admin Sodium Chloride 1,000 mls @ 125 mls/hr 06/12/24 06:50 06/13/24 07:59 Normal Saline Iv IV CONT 125 mls/hr .Q8H MELLISSA Administration Methylprednisolone Sodium Succinate 60 mg 06/12/24 09:40 06/13/24 11:03 Methylprednisolone Sod Succ 125 Mg Vial IV PUSH 60 mg Q12HR MELLISSA Administration Morphine Sulfate 4 mg 06/12/24 06:46 06/13/24 07:56 Morphine Sulfate (*Crx) 4 Mg/Ml Inj IV PUSH 4 mg Q2H PRN Administration Pain Rated 7-10 Ondansetron HCl 4 mg 06/12/24 06:46 06/13/24 07:56 Ondansetron Inj 4 Mg/2 Ml Vial IV PUSH 4 mg Q4H PRN Administration Nausea Radiology Results: ITS Impressions Abdomen/Pelvis CT 06/12/24 06:32 IMPRESSION: 1. Small bowel obstruction with the transition zone in the right side of the pelvis. 2. Tiny bilateral kidney stones. 3. Fat infiltration of the liver. Abdomen X-Ray 06/13/24 08:18 Impression: Small bowel obstruction, as seen on recent CT scan. Labs Labs: Laboratory Results - last 24 hr 06/13/24 05:40 WBC 10.5 H RBC 4.39 L Hgb 12.0 L Hct 38.4 L MCV 87.5 MCH 27.3 MCHC 31.3 L RDW 13.3 Plt Count 308 MPV 10.7 H Immature Gran % (Auto) 0.5 Neut % (Auto) 89.9 H Lymph % (Auto) 7.4 L [place] % (Auto) 2.1 L Eos % (Auto) 0.0 Baso % (Auto) 0.1 L Lymph # (Auto) 0.78 L [place] # (Auto) 0.2 Eos # (Auto) 0.0 Baso # (Auto) 0.0 Abs Immat Gran (auto) 0.05 H Absolute Neuts (auto) 9.5 H Absolute Nucleated RBC 0.000 Nucleated RBC % 0.0 Sodium 136 L Potassium 4.4 Chloride 104 Carbon Dioxide 23 Anion Gap 9 BUN 15 Creatinine 0.89 Estim Creat Clear Calc 111 Estimated GFR > 60 Glucose 139 H Calcium 9.1
[2024-06-13 22:00] VITALS: BP 159/81; PULSE 79; RESP 16; TEMP 36.3; O2SAT 100
[2024-06-14] MEDS: SODIUM CHLORIDE 0.9% IV 1,000 ML 125 ML IV CONT ×3 (03:40→20:15)
[2024-06-14 05:50] VITALS: BP 139/65; PULSE 56; RESP 16; TEMP 36.9; O2SAT 97
--- NOTE | 2024-06-14 07:14 | P.PNIM_ITS ---
Progress Note: A&P Assessment and Plan (1) Small bowel obstruction: Code(s): K56.609 - Unspecified intestinal obstruction, unspecified as to partial versus complete obstruction Status: Deleted (2) Crohn's disease: Qualifiers: Digestive disease complication type: with intestinal obstruction Gastrointestinal tract location: small intestine Qualified Code(s): K50.012 - Crohn's disease of small intestine with intestinal obstruction Code(s): K50.90 - Crohn's disease, unspecified, without complications Status: Acute (3) Tobacco abuse: Code(s): Z72.0 - Tobacco use Status: Deleted Plan Gi/Surg consulted NPO IV fluids Pain meds Hold home meds Ambulate, IS Refuses NG for now IV steroids methylprednisone 60 mg iv q12h T/OT ordered for knee pain surgery saw him- no acute intervention WBC trending down 16.1->10.5 HG down (14.7->12) but prob due to IV fluids-no active s/s of bleeding-monitor 06/14 daily labs ordered Xray still showing obstruction. pt refusing ng. no symptoms. passing gas but no bm. monitor and continu steroids. gi/surg following. GI planning colonos copy Time Spent With Patient Time with patient: 25 - 35 minutes Subjective Date/time seen: 06/14/24 07:14 Interval history: 48-year-old male admitted from home for complaint of Crohn's He has been on both Remicade and Humira biologics. He received a dose of humira and due to insurance issues, second schedule dose was missed. He was just admitted last January with a similar episode of ileitis and bowel obstruction that resolved with NPO, IV fluids and steroids. He was started on IV fluids and methylprednisolone. GI was consulted, surgery was consulted for potential need of surgical resection. Pt was undergoing PT/OT as an outpt for [place] knee arthritis and we will order PT/OT for him while here. His pain is controlled and he is no nauseated. 06/13 pt is seen and examined. abd xrY WAS ORDERED FOR TODAY. pt is doing well this am, reports no nausea. no BM today but feels like he is going to have it soon. 06/14 xray still showing obstruction. pt is refusing ng tube. passing gas but no bm. comfortable. GI is planning colonoscopy Review of Systems Review of Systems: All systems reviewed & are unremarkable except as noted in HPI and below Exam Const: General: comfortable Resp: Effort & Inspection: normal respiratory effort Auscultation: clear to auscultation bilaterally Cardio: Rate: regular rate Rhythm: regular rhythm GI: Auscultation: abnormal bowel sounds (diminished) Objective Data Vital Signs Vital Signs: Vital Signs - 24 hr 06/13/24 08:00 06/13/24 09:26 06/13/24 14:00 Temperature 97 F L Pulse Rate 67 72 Respiratory Rate 18 18 Blood Pressure 147/76 H Pulse Oximetry 97 98 Oxygen Delivery Room Air Room Air 06/13/24 22:00 06/14/24 05:50 Temperature 97.4 F L 98.5 F Pulse Rate 79 56 L Respiratory Rate 16 16 Blood Pressure 159/81 H 139/65 Pulse Oximetry 100 97 Oxygen Delivery Intake/Output Intake/Output: Intake & Output 06/11/24 06/12/24 06/13/24 06/14/24 23:59 23:59 23:59 23:59 Intake Total 1931.3 3027.1 1000 Balance 1931.3 3027.1 1000 Meds/Results Medications: Active Medications Generic Name Dose Route Start Last Admin Trade Name Freq PRN Reason Stop Dose Admin Sodium Chloride 1,000 mls @ 125 mls/hr 06/12/24 06:50 06/14/24 03:40 Normal Saline Iv IV CONT 125 mls/hr .Q8H MELLISSA Administration Methylprednisolone Sodium Succinate 60 mg 06/12/24 09:40 06/13/24 21:08 Methylprednisolone Sod Succ 125 Mg Vial IV PUSH 60 mg Q12HR MELLISSA Administration Morphine Sulfate 4 mg 06/12/24 06:46 06/13/24 07:56 Morphine Sulfate (*Crx) 4 Mg/Ml Inj IV PUSH 4 mg Q2H PRN Administration Pain Rated 7-10 Ondansetron HCl 4 mg 06/12/24 06:46 06/13/24 07:56 Ondansetron Inj 4 Mg/2 Ml Vial IV PUSH 4 mg Q4H PRN Administration Nausea Radiology Results: ITS Impressions Abdomen/Pelvis CT 06/12/24 06:32 IMPRESSION: 1. Small bowel obstruction with the transition zone in the right side of the pelvis. 2. Tiny bilateral kidney stones. 3. Fat infiltration of the liver. Abdomen X-Ray 06/13/24 08:18 Impression: Small bowel obstruction, as seen on recent CT scan. Quality VTE Prophylaxis VTE prophylaxis: mechanical ordered
--- NOTE | 2024-06-14 08:31 | WPDGIPROGNO ---
Progress Note: A&P Assessment and Plan (1) Crohn's disease of ileum: Qualifiers: Digestive disease complication type: with intestinal obstruction Qualified Code(s): K50.012 - Crohn's disease of small intestine with intestinal obstruction Code(s): K50.00 - Crohn's disease of small intestine without complications Status: Acute Assessment and Plan: Patient with slowly resolving small-bowel obstruction. He has scheduled a small-bowel follow-through with soluble contrast to verify patency of the GI tract. If there is good passage of contrast to the colon, will consider colonoscopy soon to verify status of colonic mucosa and to help decision making regarding possible limited ileal resection. He is receiving Solu-Medrol 60 mg b.i.d. for now. (2) Small bowel obstruction: Code(s): K56.609 - Unspecified intestinal obstruction, unspecified as to partial versus complete obstruction Status: Acute Time Spent With Patient Time with patient: less than 15 minutes Subjective Date/time seen: 06/14/24 08:31 Interval history: the patient reports less abdominal pain, some increased abdominal borborygmi and passed gas last night, although no stool output yet. Exam Narrative: Abdomen: Bowel sounds present, less tenderness than on previous days. Rest of the examination unchanged. Objective Data Vital Signs Vital Signs: Vital Signs - 24 hr 06/13/24 09:26 06/13/24 14:00 06/13/24 22:00 Temperature 97 F L 97.4 F L Pulse Rate 72 79 Respiratory Rate 18 16 Blood Pressure 147/76 H 159/81 H Pulse Oximetry 98 100 Oxygen Delivery Room Air 06/14/24 05:50 Temperature 98.5 F Pulse Rate 56 L Respiratory Rate 16 Blood Pressure 139/65 Pulse Oximetry 97 Oxygen Delivery Intake/Output Intake/Output: Intake & Output 06/11/24 06/12/24 06/13/24 06/14/24 23:59 23:59 23:59 23:59 Intake Total 1931.3 3027.1 1000 Balance 1931.3 3027.1 1000 Meds/Results Medications: Active Medications Generic Name Dose Route Start Last Admin Trade Name Freq PRN Reason Stop Dose Admin Sodium Chloride 1,000 mls @ 125 mls/hr 06/12/24 06:50 06/14/24 03:40 Normal Saline Iv IV CONT 125 mls/hr .Q8H MELLISSA Administration Methylprednisolone Sodium Succinate 60 mg 06/12/24 09:40 06/13/24 21:08 Methylprednisolone Sod Succ 125 Mg Vial IV PUSH 60 mg Q12HR MELLISSA Administration Morphine Sulfate 4 mg 06/12/24 06:46 06/13/24 07:56 Morphine Sulfate (*Crx) 4 Mg/Ml Inj IV PUSH 4 mg Q2H PRN Administration Pain Rated 7-10 Ondansetron HCl 4 mg 06/12/24 06:46 06/13/24 07:56 Ondansetron Inj 4 Mg/2 Ml Vial IV PUSH 4 mg Q4H PRN Administration Nausea Radiology Results: ITS Impressions Abdomen/Pelvis CT 06/12/24 06:32 IMPRESSION: 1. Small bowel obstruction with the transition zone in the right side of the pelvis. 2. Tiny bilateral kidney stones. 3. Fat infiltration of the liver. Abdomen X-Ray 06/13/24 08:18 Impression: Small bowel obstruction, as seen on recent CT scan.
[2024-06-14] MEDS: methylPREDNISolone SOD SUCC 125 MG VIAL 60 MG IV PUSH ×2 (09:03→20:57)
[2024-06-14] MEDS: ONDANSETRON INJ 4 MG/2 ML VIAL IV PUSH (09:04)
[2024-06-14 09:12] LABS: Hematocrit 41.9 % (42.0-52.0); Hemoglobin 12.9 g/dL (14.0-18.0); Mean Corpuscular HGB Conc 30.8 g/dl (32-36); Mean Corpuscular Volume 87.7 fl (80-100); Mean Platelet Volume 10.4 fl (7.4-10.4); Platelet Count Result 367 k/mm3 (150-375); Red Blood Count 4.78 M/mm3 (4.6-6.20); Red Cell Distribution Width 13.3 % (11.5-14.5); White Blood Count 10.7 K/mm3 (4.5-10.0)
[2024-06-14 09:21] LABS: Anion Gap 12 mmol/L (4-12); Blood Urea Nitrogen 18 mg/dL (9-20); Calcium 9.4 mg/dL (8.4-10.2); Carbon Dioxide 26 mmol/L (22-30); Chloride 103 mmol/L (98-107); Estimated CRCL calculation 91 ml/min; Estimated Glomerular Filt Rate > 60; Glucose 108 mg/dL (65-110); Potassium 4.1 mmol/L (3.4-5.0); Sodium 141 mmol/L (137-145)
--- NOTE | 2024-06-14 13:46 | PM.PNGS ---
Progress Note: A&P Assessment and Plan (1) Small bowel obstruction: Code(s): K56.609 - Unspecified intestinal obstruction, unspecified as to partial versus complete obstruction Status: Acute Assessment and Plan: Small bowel follow through today suggested partial small bowel obstruction with contrast reaching the colon within 90 minutes. GI planning on proceeding with a colonoscopy tomorrow. Will await these results. He will likely need surgical resection at some point. Will continue to follow to decide on timing. (2) Crohn's disease of ileum: Qualifiers: Digestive disease complication type: with intestinal obstruction Qualified Code(s): K50.012 - Crohn's disease of small intestine with intestinal obstruction Code(s): K50.00 - Crohn's disease of small intestine without complications Status: Acute Plan I have discussed the patient's case and plan of care with Dr. Ochoa. Subjective Subjective Date/Time Seen: 06/14/24 10:46 Interval history: Feeling well today. Denies having any abdominal pain, nausea, or vomiting. He is passing flatus but no BM. No other complaints at this time. Exam Const: General: comfortable and no acute distress Orientation/consciousness: patient oriented x3 GI: Inspection: non-distended GI Palp: Yes Soft to palpation, No Tenderness to palpation present (GI), No Guarding due to palpation present (GI) and No Rebound tenderness present Auscultation: normal bowel sounds Objective Data Vital Signs Vital Signs: Vital Signs - 24 hr 06/13/24 14:00 06/13/24 22:00 06/14/24 05:50 Temperature 97 F L 97.4 F L 98.5 F Pulse Rate 72 79 56 L Respiratory Rate 18 16 16 Blood Pressure 147/76 H 159/81 H 139/65 Pulse Oximetry 98 100 97 Oxygen Delivery 06/14/24 08:00 Temperature Pulse Rate Respiratory Rate Blood Pressure Pulse Oximetry Oxygen Delivery Room Air Intake/Output Intake/Output: Intake & Output 06/11/24 06/12/24 06/13/24 06/14/24 23:59 23:59 23:59 23:59 Intake Total 1931.3 3027.1 1999 Balance 1931.3 3027.1 1999 Meds/Results Medications: Active Medications Generic Name Dose Route Start Last Admin Trade Name Freq PRN Reason Stop Dose Admin Sodium Chloride 1,000 mls @ 125 mls/hr 06/12/24 06:50 06/14/24 12:11 Normal Saline Iv IV CONT 125 mls/hr .Q8H MELLISSA Administration Methylprednisolone Sodium Succinate 60 mg 06/12/24 09:40 06/14/24 09:03 Methylprednisolone Sod Succ 125 Mg Vial IV PUSH 60 mg Q12HR MELLISSA Administration Morphine Sulfate 4 mg 06/12/24 06:46 06/13/24 07:56 Morphine Sulfate (*Crx) 4 Mg/Ml Inj IV PUSH 4 mg Q2H PRN Administration Pain Rated 7-10 Ondansetron HCl 4 mg 06/12/24 06:46 06/14/24 09:04 Ondansetron Inj 4 Mg/2 Ml Vial IV PUSH 4 mg Q4H PRN Administration Nausea Radiology Results: ITS Impressions Abdomen/Pelvis CT 06/12/24 06:32 IMPRESSION: 1. Small bowel obstruction with the transition zone in the right side of the pelvis. 2. Tiny bilateral kidney stones. 3. Fat infiltration of the liver. Abdomen X-Ray 06/13/24 08:18 Impression: Small bowel obstruction, as seen on recent CT scan. Small Bowel X-Ray 06/14/24 12:46 IMPRESSION: 1. Persistent partial small bowel obstruction with transition point in the right hemipelvis between persistently dilated loops of ileum and decompressed distal ileum and without delay of contrast reaching the colon which occurs within 90 minutes. Labs Labs: Laboratory Results - last 24 hr 06/14/24 09:01 WBC 10.7 H RBC 4.78 Hgb 12.9 L Hct 41.9 L MCV 87.7 MCH 27.0 MCHC 30.8 L RDW 13.3 Plt Count 367 MPV 10.4 Sodium 141 Potassium 4.1 Chloride 103 Carbon Dioxide 26 Anion Gap 12 BUN 18 Creatinine 1.09 Estim Creat Clear Calc 91 Estimated GFR > 60 Glucose 108 Calcium 9.4
[2024-06-14 14:00] VITALS: BP 150/83; PULSE 62; RESP 18; TEMP 36; O2SAT 99
--- NOTE | 2024-06-14 14:53 | WPDGIPROGNO ---
Progress Note: A&P Assessment and Plan (1) Crohn's disease: Qualifiers: Digestive disease complication type: with intestinal obstruction Gastrointestinal tract location: small intestine Qualified Code(s): K50.012 - Crohn's disease of small intestine with intestinal obstruction Code(s): K50.90 - Crohn's disease, unspecified, without complications Status: Acute Plan The patient continues to exhibit clinical and radiographic evidence of a resolving small-bowel obstruction. While contrast has progressed to the colon at the 90-minute deborah, this is secondary to an ileal transition point. Given the ongoing obstructive process, it is not advisable to proceed with colonoscopy preparation tomorrow. We will defer the preparation and subsequent colonoscopy until the patient demonstrates further resolution of the obstruction with increased passage of flatus and stool. Subjective Date/time seen: 06/14/24 14:53 Objective Data Vital Signs Vital Signs: Vital Signs - 24 hr 06/13/24 22:00 06/14/24 05:50 06/14/24 08:00 Temperature 97.4 F L 98.5 F Pulse Rate 79 56 L Respiratory Rate 16 16 Blood Pressure 159/81 H 139/65 Pulse Oximetry 100 97 Oxygen Delivery Room Air 06/14/24 14:00 Temperature 96.8 F L Pulse Rate 62 Respiratory Rate 18 Blood Pressure 150/83 H Pulse Oximetry 99 Oxygen Delivery Intake/Output Intake/Output: Intake & Output 06/11/24 06/12/24 06/13/24 06/14/24 23:59 23:59 23:59 23:59 Intake Total 1931.3 3027.1 1999 Balance 1931.3 3027.1 1999 Meds/Results Medications: Active Medications Generic Name Dose Route Start Last Admin Trade Name Freq PRN Reason Stop Dose Admin Sodium Chloride 1,000 mls @ 125 mls/hr 06/12/24 06:50 06/14/24 12:11 Normal Saline Iv IV CONT 125 mls/hr .Q8H MELLISSA Administration Methylprednisolone Sodium Succinate 60 mg 06/12/24 09:40 06/14/24 09:03 Methylprednisolone Sod Succ 125 Mg Vial IV PUSH 60 mg Q12HR MELLISSA Administration Morphine Sulfate 4 mg 06/12/24 06:46 06/13/24 07:56 Morphine Sulfate (*Crx) 4 Mg/Ml Inj IV PUSH 4 mg Q2H PRN Administration Pain Rated 7-10 Ondansetron HCl 4 mg 06/12/24 06:46 06/14/24 09:04 Ondansetron Inj 4 Mg/2 Ml Vial IV PUSH 4 mg Q4H PRN Administration Nausea Radiology Results: ITS Impressions Abdomen/Pelvis CT 06/12/24 06:32 IMPRESSION: 1. Small bowel obstruction with the transition zone in the right side of the pelvis. 2. Tiny bilateral kidney stones. 3. Fat infiltration of the liver. Abdomen X-Ray 06/13/24 08:18 Impression: Small bowel obstruction, as seen on recent CT scan. Small Bowel X-Ray 06/14/24 12:46 IMPRESSION: 1. Persistent partial small bowel obstruction with transition point in the right hemipelvis between persistently dilated loops of ileum and decompressed distal ileum and without delay of contrast reaching the colon which occurs within 90 minutes. Labs Labs: Laboratory Results - last 24 hr 06/14/24 09:01 WBC 10.7 H RBC 4.78 Hgb 12.9 L Hct 41.9 L MCV 87.7 MCH 27.0 MCHC 30.8 L RDW 13.3 Plt Count 367 MPV 10.4 Sodium 141 Potassium 4.1 Chloride 103 Carbon Dioxide 26 Anion Gap 12 BUN 18 Creatinine 1.09 Estim Creat Clear Calc 91 Estimated GFR > 60 Glucose 108 Calcium 9.4
[2024-06-14 21:03] VITALS: BP 141/74; PULSE 65; RESP 20; TEMP 36; O2SAT 100
[2024-06-15 05:30] VITALS: BP 135/69; PULSE 58; RESP 20; TEMP 36.4; O2SAT 95
[2024-06-15 06:01] LABS: Hematocrit 37.2 % (42.0-52.0); Hemoglobin 11.7 g/dL (14.0-18.0); Mean Corpuscular HGB Conc 31.5 g/dl (32-36); Mean Corpuscular Volume 85.7 fl (80-100); Mean Platelet Volume 10.4 fl (7.4-10.4); Platelet Count Result 324 k/mm3 (150-375); Red Blood Count 4.34 M/mm3 (4.6-6.20); Red Cell Distribution Width 13.3 % (11.5-14.5); White Blood Count 8.5 K/mm3 (4.5-10.0)
[2024-06-15 06:12] LABS: Anion Gap 8 mmol/L (4-12); Blood Urea Nitrogen 21 mg/dL (9-20); Calcium 8.7 mg/dL (8.4-10.2); Carbon Dioxide 24 mmol/L (22-30); Chloride 106 mmol/L (98-107); Estimated CRCL calculation 96 ml/min; Estimated Glomerular Filt Rate > 60; Glucose 116 mg/dL (65-110); Potassium 4.1 mmol/L (3.4-5.0); Sodium 138 mmol/L (137-145)
--- NOTE | 2024-06-15 08:12 | PM.IMPN ---
Progress Note: A&P Assessment and Plan (1) Small bowel obstruction: Code(s): K56.609 - Unspecified intestinal obstruction, unspecified as to partial versus complete obstruction Status: Deleted Assessment and Plan: Abdomen/pelvis CT 06/12: SBO with transition zone in the right side of the pelvis Abdomen XR 06/13: SBO Small bowel follow through 06/14: Persistent partial small bowel obstruction with transition point in the right hemipelvis between persistently dilated loops of ileum and decompressed distal ileum and without delay of contrast reaching the colon which occurs within 90 minutes. - Patient refused NG tube placement, plan for trial clears today - Clear liquid diet, tolerating well - P.r.n. Anti emetics - Monitor I&Os, vital signs, neuro status and patient is a fall risk - Monitor serum electrolytes and CBC - General surgery consulted Started on high dose steroids GI planning on proceeding with a colonoscopy when SBO resolved. Will await these results. He will likely need surgical resection at some point. - GI consulted SBO resolved Colonoscopy planned for tomorrow Stelara will be continued as scheduled. (2) Crohn's disease: Qualifiers: Digestive disease complication type: with intestinal obstruction Gastrointestinal tract location: small intestine Qualified Code(s): K50.012 - Crohn's disease of small intestine with intestinal obstruction Code(s): K50.90 - Crohn's disease, unspecified, without complications Status: Acute Assessment and Plan: See plan above (3) Tobacco abuse: Code(s): Z72.0 - Tobacco use Status: Deleted Assessment and Plan: Encourage cessation Time Spent With Patient Time with patient: 25 - 35 minutes Subjective Date/time seen: 06/15/24 08:12 Interval history: 48 year old male with past medical history of crohns presents to the hospital for a flare. Patient is pleasant sitting up comfortably in bed with family at bedside. He has no complaints denying chest pain,shortness of breath,palpitations,nausea/vomiting and abdominal pain. He states he has had several bowel movement since the SB follow through yesterday. He is tolerating his clear liquid diet well. Plan for colonoscopy tomorrow. Review of Systems Review of Systems: All systems reviewed & are unremarkable except as noted in HPI and below Exam Narrative: AF HR 58 RR 20 SPo2 95 BP 135/69 General: male in no acute respiratory distress who is nontoxic appearing, sitting up in bed. HEENT: Normocephalic. Atraumatic. Extraocular movement intact. Sclera clear and anicteric. No facial asymmetry. Chest: Lungs are clear to auscultation bilaterally. No wheezes or crackles. CV: Heart was regular rate and rhythm. Abd: Abdomen was soft. Nontender. Nondistended. Positive bowel sounds. Ext: No clubbing, cyanosis, or edema. Neuro: Patient is alert and oriented x4. Speech is clear. Objective Data Vital Signs Vital Signs: Vital Signs - 24 hr 06/14/24 14:00 06/14/24 21:03 06/15/24 05:30 Temperature 96.8 F L 96.8 F L 97.5 F L Pulse Rate 62 65 58 L Respiratory Rate 18 20 20 Blood Pressure 150/83 H 141/74 H 135/69 Pulse Oximetry 99 100 95 Intake/Output Intake/Output: Intake & Output 06/12/24 06/13/24 06/14/24 06/15/24 23:59 23:59 23:59 23:59 Intake Total 1931.3 3027.1 3000 Output Total 0 Balance 1931.3 3027.1 3000 0 Meds/Results Medications: Active Medications Generic Name Dose Route Start Last Admin Trade Name Freq PRN Reason Stop Dose Admin Sodium Chloride 1,000 mls @ 125 mls/hr 06/12/24 06:50 06/14/24 20:15 Normal Saline Iv IV CONT 125 mls/hr .Q8H MELLISSA Administration Methylprednisolone Sodium Succinate 60 mg 06/12/24 09:40 06/14/24 20:57 Methylprednisolone Sod Succ 125 Mg Vial IV PUSH 60 mg Q12HR MELLISSA Administration Morphine Sulfate 4 mg 06/12/24 06:46 06/13/24 07:56 Morphine Sulfate (*Crx) 4 Mg/Ml Inj IV PUSH 4 mg Q2H PRN Administration Pain Rated 7-10 Ondansetron HCl 4 mg 06/12/24 06:46 06/14/24 09:04 Ondansetron Inj 4 Mg/2 Ml Vial IV PUSH 4 mg Q4H PRN Administration Nausea Polyethylene Glycol 119 gm 06/15/24 20:00 Polyethylene Glycol 3350 238 Gm Bottle PO 06/16/24 05:01 0500,2000 [facility] Radiology Results: ITS Impressions Abdomen/Pelvis CT 06/12/24 06:32 IMPRESSION: 1. Small bowel obstruction with the transition zone in the right side of the pelvis. 2. Tiny bilateral kidney stones. 3. Fat infiltration of the liver. Abdomen X-Ray 06/13/24 08:18 Impression: Small bowel obstruction, as seen on recent CT scan. Small Bowel X-Ray 06/14/24 12:46 IMPRESSION: 1. Persistent partial small bowel obstruction with transition point in the right hemipelvis between persistently dilated loops of ileum and decompressed distal ileum and without delay of contrast reaching the colon which occurs within 90 minutes. Labs Labs: Laboratory Results - last 24 hr 06/14/24 06/15/24 09:01 05:23 WBC 10.7 H 8.5 RBC 4.78 4.34 L Hgb 12.9 L 11.7 L Hct 41.9 L 37.2 L MCV 87.7 85.7 MCH 27.0 27.0 MCHC 30.8 L 31.5 L RDW 13.3 13.3 Plt Count 367 324 MPV 10.4 10.4 Sodium 141 138 Potassium 4.1 4.1 Chloride 103 106 Carbon Dioxide 26 24 Anion Gap 12 8 BUN 18 21 H Creatinine 1.09 1.04 Estim Creat Clear Calc 91 96 Estimated GFR > 60 > 60 Glucose 108 116 H Calcium 9.4 8.7 Quality VTE Prophylaxis VTE prophylaxis: mechanical ordered
--- NOTE | 2024-06-15 08:17 | P.PNGI_ITS ---
Progress Note: A&P Assessment and Plan (1) Crohn's disease of ileum: Qualifiers: Digestive disease complication type: with intestinal obstruction Qualified Code(s): K50.012 - Crohn's disease of small intestine with intestinal obstruction Code(s): K50.00 - Crohn's disease of small intestine without complications Status: Acute Assessment and Plan: The patient's small bowel obstruction has resolved. A clear liquid diet will be initiated today in preparation for a colonoscopy tomorrow. As previously discussed, if the colonoscopy is normal and the terminal ileum is the sole affected segment, the patient will be discharged with a steroid taper and a surgical consultation to discuss resection. Stelara will be continued as scheduled. Time Spent With Patient Time with patient: less than 15 minutes Subjective Date/time seen: 06/15/24 08:17 Interval history: the patient feels much better, no abdominal pain. He had several liquid bowel movements last night. Exam Narrative: Abdomen: Soft, nontender, bowel sounds present. Rest of the exam within normal limits. Objective Data Vital Signs Vital Signs: Vital Signs - 24 hr 06/14/24 14:00 06/14/24 21:03 06/15/24 05:30 Temperature 96.8 F L 96.8 F L 97.5 F L Pulse Rate 62 65 58 L Respiratory Rate 18 20 20 Blood Pressure 150/83 H 141/74 H 135/69 Pulse Oximetry 99 100 95 Intake/Output Intake/Output: Intake & Output 06/12/24 06/13/24 06/14/24 06/15/24 23:59 23:59 23:59 23:59 Intake Total 1931.3 3027.1 3000 Output Total 0 Balance 1931.3 3027.1 3000 0 Meds/Results Medications: Active Medications Generic Name Dose Route Start Last Admin Trade Name Freq PRN Reason Stop Dose Admin Sodium Chloride 1,000 mls @ 125 mls/hr 06/12/24 06:50 06/14/24 20:15 Normal Saline Iv IV CONT 125 mls/hr .Q8H MELLISSA Administration Methylprednisolone Sodium Succinate 60 mg 06/12/24 09:40 06/14/24 20:57 Methylprednisolone Sod Succ 125 Mg Vial IV PUSH 60 mg Q12HR MELLISSA Administration Morphine Sulfate 4 mg 06/12/24 06:46 06/13/24 07:56 Morphine Sulfate (*Crx) 4 Mg/Ml Inj IV PUSH 4 mg Q2H PRN Administration Pain Rated 7-10 Ondansetron HCl 4 mg 06/12/24 06:46 06/14/24 09:04 Ondansetron Inj 4 Mg/2 Ml Vial IV PUSH 4 mg Q4H PRN Administration Nausea Polyethylene Glycol 119 gm 06/15/24 20:00 Polyethylene Glycol 3350 238 Gm Bottle PO 06/16/24 05:01 0500,2000 COUNT INCLUDES THE [facility] Radiology Results: ITS Impressions Abdomen/Pelvis CT 06/12/24 06:32 IMPRESSION: 1. Small bowel obstruction with the transition zone in the right side of the pelvis. 2. Tiny bilateral kidney stones. 3. Fat infiltration of the liver. Abdomen X-Ray 06/13/24 08:18 Impression: Small bowel obstruction, as seen on recent CT scan. Small Bowel X-Ray 06/14/24 12:46 IMPRESSION: 1. Persistent partial small bowel obstruction with transition point in the right hemipelvis between persistently dilated loops of ileum and decompressed distal ileum and without delay of contrast reaching the colon which occurs within 90 minutes. Labs Labs: Laboratory Results - last 24 hr 06/14/24 06/15/24 09:01 05:23 WBC 10.7 H 8.5 RBC 4.78 4.34 L Hgb 12.9 L 11.7 L Hct 41.9 L 37.2 L MCV 87.7 85.7 MCH 27.0 27.0 MCHC 30.8 L 31.5 L RDW 13.3 13.3 Plt Count 367 324 MPV 10.4 10.4 Sodium 141 138 Potassium 4.1 4.1 Chloride 103 106 Carbon Dioxide 26 24 Anion Gap 12 8 BUN 18 21 H Creatinine 1.09 1.04 Estim Creat Clear Calc 91 96 Estimated GFR > 60 > 60 Glucose 108 116 H Calcium 9.4 8.7
[2024-06-15] MEDS: methylPREDNISolone SOD SUCC 125 MG VIAL 60 MG IV PUSH ×2 (08:24→20:55)
[2024-06-15 14:00] VITALS: BP 147/82; PULSE 64; RESP 16; TEMP 36.1; O2SAT 100
--- NOTE | 2024-06-15 16:05 | PM.PNGS ---
Progress Note: A&P Assessment and Plan (1) Small bowel obstruction: Code(s): K56.609 - Unspecified intestinal obstruction, unspecified as to partial versus complete obstruction Status: Acute Assessment and Plan: Patient receiving bowel prep today and plan for a colonoscopy tomorrow. Will await these results. He will likely need surgical resection at some point. Will continue to follow to decide on timing. Patient would prefer to be discharged and come back to have this done electively as an outpatient. (2) Crohn's disease of ileum: Qualifiers: Digestive disease complication type: with intestinal obstruction Qualified Code(s): K50.012 - Crohn's disease of small intestine with intestinal obstruction Code(s): K50.00 - Crohn's disease of small intestine without complications Status: Acute Plan I have discussed the patient's case and plan of care with Dr. Ochoa. Subjective Subjective Date/Time Seen: 06/15/24 16:05 Patient reports: no new complaints Interval history: Patient tolerating clear liquids today. Bowel prep has been ordered and plans for a colonoscopy tomorrow. He reports moving his bowels today. No nausea or vomiting. No abdominal pain. Exam GI: Inspection: non-distended GI Palp: Yes Soft to palpation, No Tenderness to palpation present (GI), No Guarding due to palpation present (GI) and No Rebound tenderness present Auscultation: normal bowel sounds Objective Data Vital Signs Vital Signs: Vital Signs - 24 hr 06/14/24 21:03 06/15/24 05:30 06/15/24 08:00 Temperature 96.8 F L 97.5 F L Pulse Rate 65 58 L Respiratory Rate 20 20 Blood Pressure 141/74 H 135/69 Pulse Oximetry 100 95 Oxygen Delivery Room Air 06/15/24 14:00 Temperature 96.9 F L Pulse Rate 64 Respiratory Rate 16 Blood Pressure 147/82 H Pulse Oximetry 100 Oxygen Delivery Intake/Output Intake/Output: Intake & Output 06/12/24 06/13/24 06/14/24 06/15/24 23:59 23:59 23:59 23:59 Intake Total 1931.3 3027.1 3000 240 Output Total 0 Balance 1931.3 3027.1 3000 240 Meds/Results Medications: Active Medications Generic Name Dose Route Start Last Admin Trade Name Freq PRN Reason Stop Dose Admin Methylprednisolone Sodium Succinate 60 mg 06/12/24 09:40 06/15/24 08:24 Methylprednisolone Sod Succ 125 Mg Vial IV PUSH 60 mg Q12HR MELLISSA Administration Morphine Sulfate 4 mg 06/12/24 06:46 06/13/24 07:56 Morphine Sulfate (*Crx) 4 Mg/Ml Inj IV PUSH 4 mg Q2H PRN Administration Pain Rated 7-10 Ondansetron HCl 4 mg 06/12/24 06:46 06/14/24 09:04 Ondansetron Inj 4 Mg/2 Ml Vial IV PUSH 4 mg Q4H PRN Administration Nausea Polyethylene Glycol 119 gm 06/15/24 20:00 Polyethylene Glycol 3350 238 Gm Bottle PO 06/16/24 05:01 0500,1999 [facility] Radiology Results: ITS Impressions Abdomen/Pelvis CT 06/12/24 06:32 IMPRESSION: 1. Small bowel obstruction with the transition zone in the right side of the pelvis. 2. Tiny bilateral kidney stones. 3. Fat infiltration of the liver. Abdomen X-Ray 06/13/24 08:18 Impression: Small bowel obstruction, as seen on recent CT scan. Small Bowel X-Ray 06/14/24 12:46 IMPRESSION: 1. Persistent partial small bowel obstruction with transition point in the right hemipelvis between persistently dilated loops of ileum and decompressed distal ileum and without delay of contrast reaching the colon which occurs within 90 minutes. Labs Labs: Laboratory Results - last 24 hr 06/15/24 05:23 WBC 8.5 RBC 4.34 L Hgb 11.7 L Hct 37.2 L MCV 85.7 MCH 27.0 MCHC 31.5 L RDW 13.3 Plt Count 324 MPV 10.4 Sodium 138 Potassium 4.1 Chloride 106 Carbon Dioxide 24 Anion Gap 8 BUN 21 H Creatinine 1.04 Estim Creat Clear Calc 96 Estimated GFR > 60 Glucose 116 H Calcium 8.7
[2024-06-15] MEDS: polyethylene glycoL 3350 238 GM BOTTLE 119 GM PO (20:56)
[2024-06-15 21:26] VITALS: BP 142/80; PULSE 58; RESP 20; TEMP 36.7; O2SAT 98
[2024-06-16] VITALS (8 sets, daily range): BP systolic 135–163; BP diastolic 75–98; PULSE 55–70; RESP 14–20; TEMP 36.1–36.4; O2SAT 97–100
[2024-06-16] MEDS: polyethylene glycoL 3350 238 GM BOTTLE 119 GM PO (05:03)
[2024-06-16 06:06] LABS: Hematocrit 44.2 % (42.0-52.0); Hemoglobin 13.7 g/dL (14.0-18.0); Mean Corpuscular Hemoglobin 27.2 pg (26-34); Mean Corpuscular Volume 87.9 fl (80-100); Mean Platelet Volume 10.5 fl (7.4-10.4); Platelet Count Result 390 k/mm3 (150-375); Red Blood Count 5.03 M/mm3 (4.6-6.20); Red Cell Distribution Width 13.2 % (11.5-14.5); White Blood Count 8.9 K/mm3 (4.5-10.0)
[2024-06-16 06:21] LABS: Alanine Aminotransferase 134 U/L (6-50); Albumin Level 4.2 g/dL (3.5-5.1); Alkaline Phosphatase 78 U/L (38-126); Anion Gap 10 mmol/L (4-12); Aspartate Amino Transferase 59 U/L (17-59); Bilirubin,Total 0.3 mg/dL (0.2-1.3); Blood Urea Nitrogen 16 mg/dL (9-20); Calcium 9.4 mg/dL (8.4-10.2); Carbon Dioxide 29 mmol/L (22-30); Chloride 101 mmol/L (98-107); Estimated CRCL calculation 92 ml/min; Estimated Glomerular Filt Rate > 60; Glucose 153 mg/dL (65-110); Potassium 4.4 mmol/L (3.4-5.0); Sodium 140 mmol/L (137-145)
--- NOTE | 2024-06-16 08:45 | PM.IMPN ---
Progress Note: A&P Assessment and Plan (1) Small bowel obstruction: Code(s): K56.609 - Unspecified intestinal obstruction, unspecified as to partial versus complete obstruction Status: Deleted Assessment and Plan: Abdomen/pelvis CT 06/12: SBO with transition zone in the right side of the pelvis Abdomen XR 06/13: SBO Small bowel follow through 06/14: Persistent partial small bowel obstruction with transition point in the right hemipelvis between persistently dilated loops of ileum and decompressed distal ileum and without delay of contrast reaching the colon which occurs within 90 minutes. - Patient refused NG tube placement - NPO for colonoscopy, advance diet as tolerated following scope - P.r.n. Anti emetics - Monitor I&Os, vital signs, neuro status and patient is a fall risk - Monitor serum electrolytes and CBC - General surgery consulted Started on high dose steroids GI planning on proceeding with a colonoscopy when SBO resolved. Will await these results. Likely plan for patient to return for surgical resection by Dr. Ochoa as an outpatient in the next 1-2 weeks. - GI consulted SBO resolved Colonoscopy planned for today Yao will be continued as scheduled. (2) Crohn's disease: Qualifiers: Digestive disease complication type: with intestinal obstruction Gastrointestinal tract location: small intestine Qualified Code(s): K50.012 - Crohn's disease of small intestine with intestinal obstruction Code(s): K50.90 - Crohn's disease, unspecified, without complications Status: Acute Assessment and Plan: See plan above (3) Tobacco abuse: Code(s): Z72.0 - Tobacco use Status: Deleted Assessment and Plan: Encourage cessation Time Spent With Patient Time with patient: 25 - 35 minutes Subjective Date/time seen: 06/16/24 08:45 Interval history: 48 year old male with past medical history of crohns presents to the hospital for a flare. Patient is pleasant sitting in his chair. He continues have bowel movements with the colonoscopy prep. He has no complaints at this time denying chest pain, shortness a breath, palpitations, nausea/vomiting, abdominal Review of Systems Review of Systems: All systems reviewed & are unremarkable except as noted in HPI and below Exam Narrative: AF HR 56 RR 18 SPO2 99 BP 135/75 General: male in no acute respiratory distress who is nontoxic appearing, sitting up in chair HEENT: Normocephalic. Atraumatic. Extraocular movement intact. Sclera clear and anicteric. No facial asymmetry. Chest: Lungs are clear to auscultation bilaterally. No wheezes or crackles. CV: Heart was regular rate and rhythm. Abd: Abdomen was soft. Nontender. Nondistended. Positive bowel sounds. Ext: No clubbing, cyanosis, or edema. Neuro: Speech is clear. Objective Data Vital Signs Vital Signs: Vital Signs - 24 hr 06/15/24 14:00 06/15/24 21:26 06/16/24 06:00 Temperature 96.9 F L 98.1 F 97.3 F L Pulse Rate 64 58 L 70 Respiratory Rate 16 20 20 Blood Pressure 147/82 H 142/80 H 149/75 H Pulse Oximetry 100 98 99 Intake/Output Intake/Output: Intake & Output 06/13/24 06/14/24 06/15/24 06/16/24 23:59 23:59 23:59 23:59 Intake Total 3027.1 3000 240 Output Total 0 Balance 3027.1 3000 240 Meds/Results Medications: Active Medications Generic Name Dose Route Start Last Admin Trade Name Freq PRN Reason Stop Dose Admin Methylprednisolone Sodium Succinate 60 mg 06/12/24 09:40 06/15/24 20:55 Methylprednisolone Sod Succ 125 Mg Vial IV PUSH 60 mg Q12HR MELLISSA Administration Morphine Sulfate 4 mg 06/12/24 06:46 06/13/24 07:56 Morphine Sulfate (*Crx) 4 Mg/Ml Inj IV PUSH 4 mg Q2H PRN Administration Pain Rated 7-10 Ondansetron HCl 4 mg 06/12/24 06:46 06/14/24 09:04 Ondansetron Inj 4 Mg/2 Ml Vial IV PUSH 4 mg Q4H PRN Administration Nausea Radiology Results: ITS Impressions Abdomen/Pelvis CT 06/12/24 06:32 IMPRESSION: 1. Small bowel obstruction with the transition zone in the right side of the pelvis. 2. Tiny bilateral kidney stones. 3. Fat infiltration of the liver. Abdomen X-Ray 06/13/24 08:18 Impression: Small bowel obstruction, as seen on recent CT scan. Small Bowel X-Ray 06/14/24 12:46 IMPRESSION: 1. Persistent partial small bowel obstruction with transition point in the right hemipelvis between persistently dilated loops of ileum and decompressed distal ileum and without delay of contrast reaching the colon which occurs within 90 minutes. Labs Labs: Laboratory Results - last 24 hr 06/16/24 05:27 WBC 8.9 RBC 5.03 Hgb 13.7 L Hct 44.2 MCV 87.9 MCH 27.2 MCHC 31.0 L RDW 13.2 Plt Count 390 H MPV 10.5 H Sodium 140 Potassium 4.4 Chloride 101 Carbon Dioxide 29 Anion Gap 10 BUN 16 Creatinine 1.08 Estim Creat Clear Calc 92 Estimated GFR > 60 Glucose 153 H Calcium 9.4 Total Bilirubin 0.3 AST 59 ALT 134 H Alkaline Phosphatase 78 Total Protein 8.0 Albumin 4.2 Quality VTE Prophylaxis VTE prophylaxis: mechanical ordered
[2024-06-16] MEDS: methylPREDNISolone SOD SUCC 125 MG VIAL 60 MG IV PUSH ×2 (08:55→20:42)
--- NOTE | 2024-06-16 11:06 | PM.PNGS ---
Progress Note: A&P Assessment and Plan (1) Small bowel obstruction: Code(s): K56.609 - Unspecified intestinal obstruction, unspecified as to partial versus complete obstruction Status: Acute Assessment and Plan: Resolved. Patient tolerated bowel prep. He is scheduled for a colonoscopy today. We will await results and likely plan for patient to return for surgical resection by Dr. Ochoa as an outpatient in the next 1-2 weeks. (2) Crohn's disease of ileum: Qualifiers: Digestive disease complication type: with intestinal obstruction Qualified Code(s): K50.012 - Crohn's disease of small intestine with intestinal obstruction Code(s): K50.00 - Crohn's disease of small intestine without complications Status: Acute Assessment and Plan: Continue steroids per GI Plan I have discussed the patient's case and plan of care with Dr. Ochoa. Subjective Subjective Date/Time Seen: 06/16/24 11:06 Patient reports: no new complaints, tolerating liquids well, flatus, bowel movement and afebrile Interval history: No specific complaints today. Tolerated the bowel prep without any issues. Denies any abdominal pain or nausea this morning. Scheduled for colonoscopy today. Exam GI: Inspection: non-distended GI Palp: Yes Soft to palpation, No Tenderness to palpation present (GI) and No Guarding due to palpation present (GI) Auscultation: normal bowel sounds Objective Data Vital Signs Vital Signs: Vital Signs - 24 hr 06/15/24 14:00 06/15/24 21:26 06/16/24 06:00 Temperature 96.9 F L 98.1 F 97.3 F L Pulse Rate 64 58 L 70 Respiratory Rate 16 20 20 Blood Pressure 147/82 H 142/80 H 149/75 H Pulse Oximetry 100 98 99 Oxygen Delivery 06/16/24 08:00 Temperature Pulse Rate Respiratory Rate Blood Pressure Pulse Oximetry 99 Oxygen Delivery Room Air Intake/Output Intake/Output: Intake & Output 06/13/24 06/14/24 06/15/24 06/16/24 23:59 23:59 23:59 23:59 Intake Total 3027.1 3000 240 Output Total 0 Balance 3027.1 3000 240 Meds/Results Medications: Active Medications Generic Name Dose Route Start Last Admin Trade Name Freq PRN Reason Stop Dose Admin Methylprednisolone Sodium Succinate 60 mg 06/12/24 09:40 06/16/24 08:55 Methylprednisolone Sod Succ 125 Mg Vial IV PUSH 60 mg Q12HR MELLISSA Administration Morphine Sulfate 4 mg 06/12/24 06:46 06/13/24 07:56 Morphine Sulfate (*Crx) 4 Mg/Ml Inj IV PUSH 4 mg Q2H PRN Administration Pain Rated 7-10 Ondansetron HCl 4 mg 06/12/24 06:46 06/14/24 09:04 Ondansetron Inj 4 Mg/2 Ml Vial IV PUSH 4 mg Q4H PRN Administration Nausea Radiology Results: ITS Impressions Abdomen/Pelvis CT 06/12/24 06:32 IMPRESSION: 1. Small bowel obstruction with the transition zone in the right side of the pelvis. 2. Tiny bilateral kidney stones. 3. Fat infiltration of the liver. Abdomen X-Ray 06/13/24 08:18 Impression: Small bowel obstruction, as seen on recent CT scan. Small Bowel X-Ray 06/14/24 12:46 IMPRESSION: 1. Persistent partial small bowel obstruction with transition point in the right hemipelvis between persistently dilated loops of ileum and decompressed distal ileum and without delay of contrast reaching the colon which occurs within 90 minutes. Labs Labs: Laboratory Results - last 24 hr 06/16/24 05:27 WBC 8.9 RBC 5.03 Hgb 13.7 L Hct 44.2 MCV 87.9 MCH 27.2 MCHC 31.0 L RDW 13.2 Plt Count 390 H MPV 10.5 H Sodium 140 Potassium 4.4 Chloride 101 Carbon Dioxide 29 Anion Gap 10 BUN 16 Creatinine 1.08 Estim Creat Clear Calc 92 Estimated GFR > 60 Glucose 153 H Calcium 9.4 Total Bilirubin 0.3 AST 59 ALT 134 H Alkaline Phosphatase 78 Total Protein 8.0 Albumin 4.2
--- NOTE | 2024-06-16 13:30 | P.PNAN_ITS ---
Anes - Initial Pre Proc Eval Procedure: Operation Date: 06/16/24 15:30 Proposed Procedures p Colonoscopy - Harris Crain MD Date/Time: 06/16/24 13:30 Surgeon: Sierra Marie PA-C Pre Op Diagnosis: Small bowel Obstruction/Crohn Patient Data Age: 48 Gender: M Height: 1.73 m Weight: 114.6 kg Last Vital Signs Temp 36.3 C L 06/16/24 06:00 Pulse 70 06/16/24 06:00 Resp 20 06/16/24 06:00 BP 149/75 H 06/16/24 06:00 Pulse Ox 99 06/16/24 08:00 O2 Del Method Room Air 06/16/24 08:00 Allergies Allergy/AdvReac Type Severity Reaction Status Date / Time No Known Allergies Allergy Verified 06/16/24 13:26 Home Medications ?Medication ?Instructions ?Recorded ?Confirmed ?Type ustekinumab 90 mg/mL subcutaneous 90 mg subcut .Every 8 weeks #1 mL 06/07/24 06/12/24 Rx syringe (Nanameuelara) acetaminophen 650 mg 650 mg PO Q8H PRN pain (scale 06/12/24 06/12/24 History tablet,extended release (Tylenol score 1-3) Arthritis Pain) cyclobenzaprine 5 mg tablet 5 mg PO Q8H PRN inflammation 06/12/24 06/12/24 History ergocalciferol (vitamin D2) 1,250 50,000 unit PO WEEKLY 06/12/24 06/12/24 History mcg (50,000 unit) capsule meloxicam 15 mg tablet 15 mg PO DAILY 06/12/24 06/12/24 History omeprazole 40 mg capsule,delayed 40 mg PO DAILY 06/12/24 06/12/24 History release budesonide 3 mg 6 mg (2 x 3 mg) PO DAILY 30 days 06/13/24 Rx capsule,delayed,extended release #60 ea Laboratory Tests 06/16/24 05:27 WBC 8.9 K/mm3 (4.5-10.0) RBC 5.03 M/mm3 (4.6-6.20) Hgb 13.7 L g/dL (14.0-18.0) Hct 44.2 % (42.0-52.0) MCV 87.9 fl (80-100) MCH 27.2 pg (26-34) MCHC 31.0 L g/dl (32-36) RDW 13.2 % (11.5-14.5) Plt Count 390 H k/mm3 (150-375) MPV 10.5 H fl (7.4-10.4) Sodium 140 mmol/L (137-145) Potassium 4.4 mmol/L (3.4-5.0) Chloride 101 mmol/L (98-107) Carbon Dioxide 29 mmol/L (22-30) Anion Gap 10 mmol/L (4-12) BUN 16 mg/dL (9-20) Creatinine 1.08 mg/dL (0.7-1.3) Estim Creat Clear Calc 92 ml/min Estimated GFR > 60 (59 - ) Glucose 153 H mg/dL (65-110) Calcium 9.4 mg/dL (8.4-10.2) Total Bilirubin 0.3 mg/dL (0.2-1.3) AST 59 U/L (17-59) ALT 134 H U/L (6-50) Alkaline Phosphatase 78 U/L (38-126) Total Protein 8.0 g/dL (6.3-8.2) Albumin 4.2 g/dL (3.5-5.1) Patient hx anesthesia problems: none Family hx anesthesia problems: none Results Review: All pre-operative results and documents have been reviewed as part of the pre- operative evaluation. [facility] Past Medical History Medical History Bilateral sacroiliitis Abdominal bloating Tobacco use Leukocytosis Nausea Lower abdominal pain Crohn's disease of ileum Strain of quadriceps tendon Lateral meniscus tear Rheumatoid arthritis Abdominal pain Right knee pain Back pain Crohn's disease Arthritis Surgical History Surgical History No significant past surgical history Family History Family History Mother Diabetes mellitus Arthritis Hypothyroid Neuropathy Psoriasis Hypertension Asthma Grandparent Cancer Social History Social History Smoking packs per day: 1.5 Smoking cigarettes per day: 30.0 Years smoked: 30 Smoking pack-years: 45.00 Smoking status: Current every day smoker Tobacco type: cigarettes Second hand tobacco smoke exposure: Yes Alcohol intake: never Drinks per week: 1 Alcohol use details: 4 per month Substance use: never Substance use type: does not use Do You Feel Safe in your Home?: Yes Lack of Transportation: No Lack of Food: Never True Current Housing: I Have Housing Concerned About Future Housing: Decline to Answer Difficulty Paying Gas/Electric Bills: Decline to Answer Difficulty Paying for Meds: Decline to Answer Currently Unemployed: Decline to Answer Education: High School Diploma/GED Difficulty w/ Childcare or Family Care: Decline to Answer Gender identity (if verbalized by the patient): Male Spiritual care concerns: No Anes - Eval Final PreProcedure Day of Procedure 06/16/24 13:30 Patient weight: obese Heart: regular rate and rhythm Lungs: clear to auscultation Airway: Mallampati scale class III Neurological: alert and oriented Last oral intake: >/= 8 hours ASA classification: III Emergent: no Anesthetic plan: proceed Anesthesia type and monitoring: general GIVS and standard monitoring Results Review: All pre-operative results and documents have been reviewed as part of the pre- operative evaluation. Informed Consent: The patient's anesthetic plan and its attendant risks and benefits were discussed with the patient/family/POA. Questions were solicited and answers provided to the satisfaction of the patient/family/POA.
[2024-06-16] MEDS: LACTATED RINGERS 1,000 ML 150 ML IV CONT (13:46)
--- NOTE | 2024-06-16 14:40 | WPDGIPROGNO ---
Progress Note: A&P Assessment and Plan (1) Small bowel stricture: Code(s): K56.699 - Other intestinal obstruction unspecified as to partial versus complete obstruction Status: Acute Assessment and Plan: The patient's crisis of small-bowel obstruction secondary to ileal involvement of Crohn's disease is clinically resolved. However, according to today's colonoscopic findings, there is chronic disease, edema and possible scaring of the terminal ileum involving part of the ileocecal Valve. patient can be safely discharged on a prednisone taper, starting with 30 mg once a day, decreasing 5 mg each week. He is scheduled to receive Stelara subcutaneous injection next week. More importantly, he has already been seen by surgery, Dr. Ochoa who will schedule him for a laparoscopic resection of the terminal ileum. Please make sure to set up an appt with Dr. Ochoa as an outpatient. Subjective Date/time seen: 06/16/24 14:40 Interval history: See colonoscopy report in chart. Objective Data Vital Signs Vital Signs: Vital Signs - 24 hr 06/15/24 21:26 06/16/24 06:00 06/16/24 08:00 Temperature 98.1 F 97.3 F L Pulse Rate 58 L 70 Respiratory Rate 20 20 Blood Pressure 142/80 H 149/75 H Pulse Oximetry 98 99 99 Oxygen Delivery Room Air 06/16/24 13:43 06/16/24 14:32 Temperature 97 F L Pulse Rate 56 L 57 L Respiratory Rate 18 18 Blood Pressure 135/75 158/85 H Pulse Oximetry 99 97 Oxygen Delivery Room Air Room Air Intake/Output Intake/Output: Intake & Output 06/13/24 06/14/24 06/15/24 06/16/24 23:59 23:59 23:59 23:59 Intake Total 3027.1 3000 240 0 Output Total 0 Balance 3027.1 3000 240 0 Meds/Results Medications: Active Medications Generic Name Dose Route Start Last Admin Trade Name Freq PRN Reason Stop Dose Admin Lactated Ringer's 1,000 mls @ 150 mls/hr 06/16/24 13:40 06/16/24 14:30 Lr - Lactated Ringers Iv IV CONT 150 mls/hr .[id number] MELLISSA Infusion Methylprednisolone Sodium Succinate 60 mg 06/12/24 09:40 06/16/24 08:55 Methylprednisolone Sod Succ 125 Mg Vial IV PUSH 60 mg Q12HR MELLISSA Administration Morphine Sulfate 4 mg 06/12/24 06:46 06/13/24 07:56 Morphine Sulfate (*Crx) 4 Mg/Ml Inj IV PUSH 4 mg Q2H PRN Administration Pain Rated 7-10 Ondansetron HCl 4 mg 06/12/24 06:46 06/14/24 09:04 Ondansetron Inj 4 Mg/2 Ml Vial IV PUSH 4 mg Q4H PRN Administration Nausea Radiology Results: ITS Impressions Abdomen/Pelvis CT 06/12/24 06:32 IMPRESSION: 1. Small bowel obstruction with the transition zone in the right side of the pelvis. 2. Tiny bilateral kidney stones. 3. Fat infiltration of the liver. Abdomen X-Ray 06/13/24 08:18 Impression: Small bowel obstruction, as seen on recent CT scan. Small Bowel X-Ray 06/14/24 12:46 IMPRESSION: 1. Persistent partial small bowel obstruction with transition point in the right hemipelvis between persistently dilated loops of ileum and decompressed distal ileum and without delay of contrast reaching the colon which occurs within 90 minutes. Labs Labs: Laboratory Results - last 24 hr 06/16/24 05:27 WBC 8.9 RBC 5.03 Hgb 13.7 L Hct 44.2 MCV 87.9 MCH 27.2 MCHC 31.0 L RDW 13.2 Plt Count 390 H MPV 10.5 H Sodium 140 Potassium 4.4 Chloride 101 Carbon Dioxide 29 Anion Gap 10 BUN 16 Creatinine 1.08 Estim Creat Clear Calc 92 Estimated GFR > 60 Glucose 153 H Calcium 9.4 Total Bilirubin 0.3 AST 59 ALT 134 H Alkaline Phosphatase 78 Total Protein 8.0 Albumin 4.2
[2024-06-17 05:40] VITALS: BP 153/83; PULSE 57; RESP 16; TEMP 36.9; O2SAT 99
[2024-06-17 06:04] LABS: Hemoglobin 12.8 g/dL (14.0-18.0); Mean Corpuscular Hemoglobin 27.5 pg (26-34); Mean Platelet Volume 10.4 fl (7.4-10.4); Platelet Count Result 356 k/mm3 (150-375); Red Blood Count 4.65 M/mm3 (4.6-6.20); Red Cell Distribution Width 13.3 % (11.5-14.5); White Blood Count 10.6 K/mm3 (4.5-10.0)
[2024-06-17 06:15] LABS: Alanine Aminotransferase 158 U/L (6-50); Albumin Level 3.5 g/dL (3.5-5.1); Alkaline Phosphatase 68 U/L (38-126); Anion Gap 9 mmol/L (4-12); Aspartate Amino Transferase 58 U/L (17-59); Bilirubin,Total 0.3 mg/dL (0.2-1.3); Blood Urea Nitrogen 16 mg/dL (9-20); Calcium 8.9 mg/dL (8.4-10.2); Carbon Dioxide 24 mmol/L (22-30); Chloride 104 mmol/L (98-107); Estimated CRCL calculation 111 ml/min; Estimated Glomerular Filt Rate > 60; Glucose 141 mg/dL (65-110); Potassium 4.2 mmol/L (3.4-5.0); Sodium 137 mmol/L (137-145)
--- NOTE | 2024-06-17 12:47 | P.PNGS_ITS ---
Progress Note: A&P Assessment and Plan (1) Crohn's disease of ileum: Qualifiers: Digestive disease complication type: with intestinal obstruction Qualified Code(s): K50.012 - Crohn's disease of small intestine with intestinal obstruction Code(s): K50.00 - Crohn's disease of small intestine without complications Status: Acute Assessment and Plan: Crohn's disease of about a 10-12 cm segment of distal ileum by imaging. Colonoscopy yesterday showed some evidence of ileal involvement at the ileocecal valve. No colonic involvement was noted. Patient is feeling much better. I spoke with about further treatment. Since patient has had repeated episodes of small-bowel obstruction due to this 1 area of his distal ileum, we both feel it would be best to proceed with surgical resection. I discussed this with the patient. This would be hand access laparoscopic resection of the dista l small intestine. I also discussed with him that sometimes the ileum is involved right up to the juncture with the cecum. In this instance, I would go ahead with an ileocolic resection. Patient will need a bowel prep before the surgery. I discussed the procedure and potential complications. I discussed recovery time and time off work. I anticipate he will be discharged either today or possibly tomorrow. Unless patient is still in the hospital on Thursday, my office will call him and arrange for the surgery to be done sometime in the next 2 weeks. All questions were answered. He agrees with this plan. (2) Small bowel obstruction: Code(s): K56.609 - Unspecified intestinal obstruction, unspecified as to partial versus complete obstruction Status: Acute Assessment and Plan: Due to Crohn's disease. Has resolved. Patient to go home on steroids soon. Subjective Subjective Date/Time Seen: 06/17/24 12:47 Patient reports: no new complaints, pain is less, tolerating a regular diet (Tolerating soft diet well), bowel movement and afebrile Review of Systems Review of Systems: All systems reviewed & are unremarkable except as noted in HPI and below (HPI) Exam Const: General: cooperative, comfortable, no acute distress, alert and awake GI: Inspection: non-distended and obesity GI Palp: Yes Soft to palpation and No Tenderness to palpation present (GI) Objective Data Vital Signs Vital Signs: Vital Signs - 24 hr 06/16/24 13:43 06/16/24 14:32 06/16/24 14:42 Temperature 36.1 C L Pulse Rate 56 L 57 L 63 Respiratory Rate 18 18 18 Blood Pressure 135/75 158/85 H 163/98 H Pulse Oximetry 99 97 100 Oxygen Delivery Room Air Room Air Room Air 06/16/24 14:52 06/16/24 15:45 06/16/24 20:00 Temperature 36.4 C L Pulse Rate 55 L 56 L Respiratory Rate 16 16 Blood Pressure 150/88 H 146/80 H Pulse Oximetry 100 100 Oxygen Delivery Room Air Room Air 06/16/24 20:30 06/17/24 05:40 Temperature 36.3 C L 36.9 C Pulse Rate 63 57 L Respiratory Rate 14 16 Blood Pressure 153/76 H 153/83 H Pulse Oximetry 100 99 Oxygen Delivery Intake/Output Intake/Output: Intake & Output 06/14/24 06/15/24 06/16/24 06/17/24 23:59 23:59 23:59 23:59 Intake Total 3000 776 053 3973 Output Total 0 Balance 3000 390 700 4432 Meds/Results Medications: Active Medications Generic Name Dose Route Start Last Admin Trade Name Freq PRN Reason Stop Dose Admin Methylprednisolone Sodium Succinate 60 mg 06/12/24 09:40 06/17/24 10:13 Methylprednisolone Sod Succ 125 Mg Vial IV PUSH Not Given Q12HR [facility] Morphine Sulfate 4 mg 06/12/24 06:46 06/13/24 07:56 Morphine Sulfate (*Crx) 4 Mg/Ml Inj IV PUSH 4 mg Q2H PRN Administration Pain Rated 7-10 Ondansetron HCl 4 mg 06/12/24 06:46 06/14/24 09:04 Ondansetron Inj 4 Mg/2 Ml Vial IV PUSH 4 mg Q4H PRN Administration Nausea Radiology Results: ITS Impressions Abdomen/Pelvis CT 06/12/24 06:32 IMPRESSION: 1. Small bowel obstruction with the transition zone in the right side of the pelvis. 2. Tiny bilateral kidney stones. 3. Fat infiltration of the liver. Abdomen X-Ray 06/13/24 08:18 Impression: Small bowel obstruction, as seen on recent CT scan. Small Bowel X-Ray 06/14/24 12:46 IMPRESSION: 1. Persistent partial small bowel obstruction with transition point in the right hemipelvis between persistently dilated loops of ileum and decompressed distal ileum and without delay of contrast reaching the colon which occurs within 90 minutes. Labs Labs: Laboratory Results - last 24 hr 06/17/24 05:34 WBC 10.6 H RBC 4.65 Hgb 12.8 L Hct 40.0 L MCV 86.0 MCH 27.5 MCHC 32.0 RDW 13.3 Plt Count 356 MPV 10.4 Sodium 137 Potassium 4.2 Chloride 104 Carbon Dioxide 24 Anion Gap 9 BUN 16 Creatinine 0.89 Estim Creat Clear Calc 111 Estimated GFR > 60 Glucose 141 H Calcium 8.9 Total Bilirubin 0.3 AST 58 ALT 158 H Alkaline Phosphatase 68 Total Protein 7.0 Albumin 3.5
--- NOTE | 2024-06-17 12:54 | P.DS_ITS ---
DS: Admitting Diagnosis Discharge Date 06/17/2024 Admitting Diagnosis Small-bowel obstruction Crohn's disease Tobacco use DS: Discharge Diagnosis Discharge Diagnosis (1) Small bowel obstruction: Code(s): K56.609 - Unspecified intestinal obstruction, unspecified as to partial versus complete obstruction Status: Deleted (2) Crohn's disease: Qualifiers: Digestive disease complication type: with intestinal obstruction Gastrointestinal tract location: small intestine Qualified Code(s): K50.012 - Crohn's disease of small intestine with intestinal obstruction Code(s): K50.90 - Crohn's disease, unspecified, without complications Status: Acute (3) Tobacco abuse: Code(s): Z72.0 - Tobacco use Status: Deleted DS: Summary Hospital Course Reason for hospitalization: Small-bowel obstruction Crohn's disease Tobacco use Hospital Course: 48 year old male with past medical history of crohns presents to the hospital for a flare. Vitals remained stable. Abdomen/pelvis CT 06/12 showed SBO with transition zone in the right side of the pelvis. Abdomen XR 06/13 showed SBO. Patient refused NG tube placement at that time. GI and surgery were consulted. Patient started on high dose steroids for crohns flare and made NPO for SBO. Small bowel follow through 06/14 showed persistent partial small bowel obstruc tion with transition point in the right hemipelvis between persistently dilated loops of ileum and decompressed distal ileum and without delay of contrast reaching the colon which occurs within 90 minutes. Following small bowel follow through patient started having bowel movements and was able to undergo a colonoscopy. Colonoscopy showed patents known ileal crohns disease. During admission patients SBO resolved and his diet was resumed and tolerated well. Patient denied increased nausea/vomiting or abdominal pain. Patient able to be discharged from GI perspective on prednisone taper. Patient is to schedule an appointment with surgery in the outpatient setting for resection with Dr. Ochoa at time of discharge. Patient had no complaints at time of discharge denying chest pain, shortness a breath, palpitations nausea/vomiting, and abdominal pain. Patient discharged home in a stable condition. He is to follow up with primary care provider in 1 week as well as GI and surgery as scheduled. Status at Discharge Functional status at discharge: independent ambulation Time Spent with Patient Time attestation: Total time spent providing and/or coordinating discharge services: Time spent: Greater than 30 minutes Exam Narrative: AF HR 57 RR 16 SpO2 99 BP 153/83 General: male in no acute respiratory distress who is nontoxic appearing, sitting up in chair HEENT: Normocephalic. Atraumatic. Extraocular movement intact. Sclera clear and anicteric. No facial asymmetry. Chest: Lungs are clear to auscultation bilaterally. No wheezes or crackles. CV: Heart was regular rate and rhythm. Abd: Abdomen was soft. Nontender. Nondistended. Positive bowel sounds. Ext: No clubbing, cyanosis, or edema. Neuro: Speech is clear. DS: Data Data Completed and Pending Completed studies during hospitalization: Small-bowel x-ray Abdomen x-ray Abdomen pelvis CT Pending studies at discharge: Pending at discharge 06/16/24 14:32 Surgical [PTH] Routine Labs on day of discharge: Labs from last 24 hours 06/17/24 05:34 WBC 10.6 H RBC 4.65 Hgb 12.8 L Hct 40.0 L MCV 86.0 MCH 27.5 MCHC 32.0 RDW 13.3 Plt Count 356 MPV 10.4 Sodium 137 Potassium 4.2 Chloride 104 Carbon Dioxide 24 Anion Gap 9 BUN 16 Creatinine 0.89 Estim Creat Clear Calc 111 Estimated GFR > 60 Glucose 141 H Calcium 8.9 Total Bilirubin 0.3 AST 58 ALT 158 H Alkaline Phosphatase 68 Total Protein 7.0 Albumin 3.5 Discharge Plan Discharge Attending physician on discharge: Najma Monzon Consulting providers: Quincy Ochoa Discharging Clinician: Sierra Marie Anticipated Discharge Date/Time: 06/17/24 12:45 Patient Disposition: Home Activity: as tolerated Diet: as tolerated and low fiber Discharge Instructions: Discharge disposition: Patient admitted to the hospital for small bowel obstruction and crohns flare SBO obstruction resolved during admission Evaluated by surgery and GI Follow up with surgery in the outpatient setting, call for an appointment with Dr. Ochoa Take medications as prescribed Prednisone taper, follow instructions per prescription Continue stelara injections weekly Take caution while standing, rising, or moving Change positions slowly taking a break between each position change If you standing feel dizzy sit back down and take a break Encouraged to continue with yearly vaccinations Return to the emergency department if he developed sudden shortness of breath, chest pain, nausea, vomiting, upset stomach or intractable diarrhea Return to the emergency department if you develop fever greater than 101.5 Follow-up with the primary care physician within 1-2 weeks Thank you for [facility] for your healthcare needs Patient Instructions: Prednisone (By mouth), Crohn Disease (DC), Bowel Obstruction (DC) Patient Language: Marshallese Stand Alone Forms: General Discharge Information Follow-up/Referrals: Quincy Ochoa MD [Physician] - Call for Appointment Harris Crain MD [Physician] - Tylor,Roselyn Shay, TERRA [Primary Care Provider] - 1 Week Discharge Medications: New prednisone 10 mg tablet 10 mg PO DIRECTED Qty: 70 0RF Rx Instructions: 30 mg (3 tabs) for 1 week, then 25 mg (2.5 tabs) for 1 week, then 20 mg (2 tabs) for 1 week, then 15 mg (1.5 tabs) for 1 week, then 10 mg (1 tab) for 1 week Continued Stelara 90 mg/mL syringe 90 mg subcut .Every 8 weeks Qty: 1 3RF meloxicam 15 mg tablet 15 mg PO DAILY ergocalciferol (vitamin D2) 1,250 mcg (50,000 unit) capsule 50,000 unit PO WEEKLY cyclobenzaprine 5 mg tablet 5 mg PO Q8H PRN (Reason: inflammation) omeprazole 40 mg capsule,delayed release(DR/EC) 40 mg PO DAILY acetaminophen [Tylenol Arthritis Pain] 650 mg tablet extended release 650 mg PO Q8H PRN (Reason: pain (scale score 1-3)) budesonide 3 mg capsule,delayed,extend.release 6 mg PO DAILY 30 Days Qty: 60 0RF Date of admission: 06/14/24 15:01 Primary Care Provider: TylorRoselyn Admitting Provider: Ridge Kruger Attending physician on admission: Sierra Marie Condition: Stable Hospitalist MIPS Heart Failure (Exclusion) Patient has history of Heart Transplant or Left Ventricular Assistive Device?: No IF YES, STOP HERE Heart Failure (Qualifier) Patient has current or prior documentation of LVEF less than or equal to 40%, or mod/servere depressed LVSF?: No IF NO, STOP HERE
== END 2024-06-17 13:47 | disposition home or self-care (01) | DRG 394 ==
LOC: ANHED 06:49 → ANH3MEDSUR 07:26
PROVIDERS: Internal Medicine Gastroenterology; Nurse Practitioner; Admitting Provider Internal Medicine; Emergency Provider Emergency Medicine; Visit Provider Student in an Organized Health Care Education/Training Program
PROC: 0DJD8ZZ Inspection of Lower Intestinal Tract, Via Natural or Artificial Opening Endoscopic (ICD-10-PCS; CPT 45378; principal; 2024-06-16 15:30)
DX: D12.2 Benign neoplasm of ascending colon (principal); K50.012 Crohn's disease of small intestine with intestinal obstruction; M06.9 Rheumatoid arthritis, unspecified; F17.210 Nicotine dependence, cigarettes, uncomplicated
CPT/HCPCS: 36415; 74018; 74177; 74250; 80048; 80053; 81001; 83690; 85025; 85027; 88305; 96361; 96372; 96374; 96375; 96376; 97161; 99285; A9270; G0378; J0500; J2270; J2405; J2704; J2919; J7030; J7120; Q9967

== ENCOUNTER 2024-06-29 14:07 | Outpatient (CLI) | payer BC, SELFPAY ==
--- NOTE | 2024-06-29 14:59 | ECG_ITS ---
Test Date: 2024-06-29 15:14:57 Measurements Intervals Heth Rate: 72 P: 47 MA: 132 QRS: 61 QRSD: 97 T: 27 QT: 366 QTc: 403 Interpretive Statements SINUS RHYTHM WITH SINUS ARRHYTHMIA BASELINE ARTIFACT- I, II, III, AVR, AVL, AVF NORMAL ECG No previous ECG available for comparison Electronically Signed On 06-29-2024 15:16:36 CDT by Gutierrez Hartley D.O.
--- OUTSIDE RECORDS SUMMARY | 2024-06-29 15:13 | XMS_ITS | Encounter Summary ---
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
--- OUTSIDE RECORDS SUMMARY | 2024-06-29 15:13 | XMS_ITS | Clinical Summary ---
Author Organization [employer] Address [address] [place] [address] Care Team Providers Care Healthcare Representative Name Role Phone Mauro Mosher NP Primary Care Provider [phone] Allergies No known active allergies Medications adalimumab [...] needed for pain 12 tablet 5 Active Active Problems Problem Noted Date Diagnosed Date Exacerbation of Crohn's disease with intestinal obstruction 06/24/2023 GERD (gastroesophageal reflux disease) 4 Abdominal bloating 06/24/2023 Current smoker 08/20/2017 Assessment & Plan (08/20/2017 6:33 AM CDT): Discussed smoking cessation Will start on Nicoderm patch Crohn's disease involving terminal ileum 12/12/2 017 Assessment & Plan (08/20/2017 4:33 PM [...] consult Assessment & Plan (02/10/2017 6:37 PM MIDDLE SCHOOL READING TEACHER): Will problem low Medrol to 60 mg [...] follow-up Assessment & Plan (02/10/2017 6:39 PM MIDDLE SCHOOL READING TEACHER): This is secondary to Crohn's disease flare. [...] Department Care Team Description 04/18/2024 9:54 AM MIDDLE SCHOOL READING TEACHER - 04/18/2024 1:06 PM MIDDLE SCHOOL READING TEACHER [facility] [address] [place] [address] Exacerbation of Crohn's disease without complication (HCC) [...] drink = 0.6 oz pur e alcohol) [facility] Utilities Answer Date Recorded In the past 12 months has e electric, gas, oil, or water company threatened to shut off services in your [...] often do you attend chur ch or mandaeism services? Never 06/25/2023 Do you belong to any clubs o r organizations such as jain groups, unions, fraternal or athletic groups, or [...] the money to buy more. Never true 04/25/20 24 Within the past 12 months, t [...] place to sleep or slept in a group home (including now)? No 06/25/2023 Personal Safety Answer Date Recorded Have you ever been in or are you currently in a harmful physical or emotional relationship or is someone making you feel afraid or unsafe? Denies 04/18/2024 Sex and Gender Information Value Date Recorded Sex Assigned at Not on file Legal Sex Male 8:15 AM MIDDLE SCHOOL READING TEACHER Gender Identity Not on file Sexual Orientation Not on file Obstetrics History Last Filed Vital Signs Vital Sign Reading Time Taken Comments Blood Pressure 154/87 04/18/2024 1:00 PM MIDDLE SCHOOL READING TEACHER Pulse 84 04/18/2024 1:00 PM MIDDLE SCHOOL READING TEACHER Temperature 37.6 C (99.7 F) 04/18/2024 8:24 AM MIDDLE SCHOOL READING TEACHER Respiratory Rate 20 04/18/2024 12:07 PM MIDDLE SCHOOL READING TEACHER Oxygen Saturation 99% 04/18/2024 1:00 PM MIDDLE SCHOOL READING TEACHER Inhaled Oxygen Concentration - - Weight 115.1 kg (253 lb 12 oz) 04/18/2024 8:24 A M MIDDLE SCHOOL READING TEACHER Height 172.7 cm (5' 8 ) 04/18/2024 8:24 AM MIDDLE SCHOOL READING TEACHER Body Mass Index 38.58 04/18/2024 8:24 AM MIDDLE SCHOOL READING TEACHER Plan of Treatment Health Maintenance Due Date [...] OR 2 VIEWS ED 04/18/2024 11:49 [address] MIDDLE SCHOOL READING TEACHER CT ABDOMEN PELVIS W CONTRAST ED 04/18/2024 10:45 AM MIDDLE SCHOOL READING TEACHER URINALYSIS, MICROSCOPIC ONLY STAT 04/18/2024 8:33 AM MIDDLE SCHOOL READING TEACHER URINALYSIS AND REFLEX TO MICROSCOPIC AND CULTURE STAT 04/18/2024 8:33 AM MIDDLE SCHOOL READING TEACHER EGFR STAT 04/18/2024 8:30 AM MIDDLE SCHOOL READING TEACHER DIFFERENTIAL AUTO STAT 04/18/2024 8:3 0 AM MIDDLE SCHOOL READING TEACHER LIPASE STAT 04/18/2024 8:30 AM MIDDLE SCHOOL READING TEACHER COMPREHENSIVE METABOLIC PANEL STAT 04/18/2024 8:30 AM MIDDLE SCHOOL READING TEACHER CBC WITH AUTO DIFFERENTIAL STAT 04/18/2024 8:30 AM MIDDLE SCHOOL READING TEACHER HEPATITIS C ANTIBODY Routine 11/11/2018 11:46 AM CDT from Last 3 Months or Most Recently Relevant to Health Maintenance Results * XR Knee Right 1 or 2 Views (04/18/2024 11:49 AM MIDDLE SCHOOL READING TEACHER) Anatomical Region Laterality Modality Lower Extremities, Knee Right Computed Radiography 04/18/2024 12:1 8 PM MIDDLE SCHOOL READING TEACHER Narrative 04/18/2024 12:19 PM MIDDLE SCHOOL READING TEACHER EXAM DESCRIPTION: XR KNEE RIGHT 1 OR [...] signed by Ehsan ROCHA: AJ Report ID: [id number] Reading Location: [place] [address] Procedure Note Ehsan Cox MD - 04/18/2024 [...] signed by Ehsan ROCHA: AJ Report ID: [id number] Reading Location: [place] [address] Kia GARCIA IM XR PROCEDURES Final Result * CT Abdomen Pelvis W Contrast (04/18/2024 10:45 AM MIDDLE SCHOOL READING TEACHER) Anatomical Region Laterality Modality Body N/A Computed Tomogra phy 04/18/2024 11:1 3 AM MIDDLE SCHOOL READING TEACHER Narrative 04/18/2024 11:41 AM MIDDLE SCHOOL READING TEACHER EXAM DESCRIPTION: CT ABDOMEN PELVIS W CONTRAST [...] 11:41 AM - Electronically signed by Ron Aragon.D. LB: NICOLÁS Report ID: [id number] Reading Location: [id number] Procedure Note Ron Schwartz MD - 04/18/2024 [...] Ron Schwartz M.D. LB: NICOLÁS Report ID: [id number] Reading Location: [place] [address] Kia GARCIA [facility] CT PROCEDURES Final Result * (ABNORMAL) Urinalysis reflex to microscopic and culture Urine (04/18/2024 8:33 AM MIDDLE SCHOOL READING TEACHER) Color, ur Yellow Yellow Comment:Testing performed by : [address] [address] Clarity, ur Clear Clear LEILA Comment:Testing performed by : [address] [address] Specific gravity, ur 1.017 1.003 - 1.030 LEILA Comment:Testing performed by : [address] [address] pH, urine 5.5 LEILA Comment: Interpretive Data U rine pH is affected by diet, medications, systemic acid-base disturbances, and renal tubular function. pH may affect urinary stone formation. For example, urine pH below 6.0 may help reduce the tendency for calcium phosphate stones and pH greater than 6.0 may reduce the tendency for uric acid stone formation. Source: [employer] Current Interpretive Data was last revised on 2017 Testing performed by: [facility], [address] [place] [address], [place]., [address] Protein, ur ql 1+(A) Negative LEILA Comment:Testing performed by : [facility], [address] [place] [address], [place]., [address] Glucose, ur ql Negative Negative LEILA Comment:Testing performed by : [address], [place]., [address] Ketones, ur 1+(A) Negative LEILA Comment:Testing performed by : [facility], [address] [place] [address], [place]., [address] Bilirubin, ur Negative Negative LEILA Comment:Testing performed by : [address], [place]., [address] Blood, ur Trace(A) Negative LEILA Comment:Testing performed by : [address], [place]., [address] Urobilinogen, ur <2.0 <2.0 mg/dL LEILA Comment:Testing performed by : [address], [place]., [address] Nitrite, ur Negative Negative LEILA Comment:Testing performed by : [address], [place]., [address] Leukocyte esterase, ur Negative Negative LEILA Comment:Testing performed by : [address], [place]., [address] UA reflex comment Reflex to microscopic UA will be performed. LEILA Comment:Testing performed by : [address], [place]., [address] Urine 04/18/2024 8:33 AM MIDDLE SCHOOL READING TEACHER 04/18/2024 8:38 AM MIDDLE SCHOOL READING TEACHER us Christopher Balderrama MD LAB MICROBIOLOGY - GENERAL ORDER NEHEMIAS Final Result LEILA MONTES DE OCA [address] [facility] Department of Laboratories [place], [place] [id number] * (ABNORMAL) Urinalysis, microscopic only (04/18/2024 8:33 AM MIDDLE SCHOOL READING TEACHER) WBC, ur 0-5 0 - 5 /HPF Comment:Testing performed by : [facility], [address] [place] [address], [place]., [address] RBC, ur 3-5(A) 0 - 2 /HPF LEILA Comment:Testing performed by : [address], [place]., [address] Epithelial cells, squamous, ur 11-20(A) 0 - 5 /HPF LEILA Comment:Testing performed by : [address], [place]., [address] Bacteria, ur Trace(A) LEILA Comment:Testing performed by : [address], [place]., [address] Mucous, ur Present(A) LEILA Comment:Testing performed by : [address] [address] Granular casts, ur 1-5(A) 0 - 0 /LPF LEILA Comment:Testing performed by : [address] [address] Culture Reflex Comment Reflex conditions for urine culture (WBC >10) not met. LEILA Comment:Testing performed by : [facility], [address] [place] [address], [place]., [address] Urine 04/18/2024 8:33 AM MIDDLE SCHOOL READING TEACHER 04/18/2024 8:38 AM MIDDLE SCHOOL READING TEACHER us Christopher Balderrama MD LAB URINE ORDERABLES Final Resul t [facility] [address] [facility] Department [place] [address] * eGFR (04/18/2024 8:30 AM MIDDLE SCHOOL READING TEACHER) eGFR 75 >=60 mL/min/1. 73 m2 Comment: [...] was last reviewed 2020. Testing performed by: [address] [address] Blood 04/18/2024 8:30 AM MIDDLE SCHOOL READING TEACHER 04/18/2024 8:38 AM MIDDLE SCHOOL READING TEACHER us Christopher Balderrama MD LAB BLOOD ORDERABLES Final Resul t [id number] Department [place] [address] * (ABNORMAL) Differential, auto (04/18/2024 8:30 AM MIDDLE SCHOOL READING TEACHER) Neutrophil abs 8.2(H) 1.5 - 6.5 K/cumm Comment:Testing performed by : [address] [address] Imm gran abs 0.0 0.0 - 0.1 K/cumm LEILA Comment:Testing performed by : [address] [address] Lymphocyte abs 1.7 0.8 - 3.3 K/cumm LEILA Comment:Testing performed by : [address] [address] Monocyte abs 0.9(H) 0.2 - 0.8 K/cumm LEILA Comment:Testing performed by : [address] [address] Eosinophil abs 0.1 0.0 - 0.5 K/cumm LEILA Comment:Testing performed by : [address] [address] Basophil abs 0.1 0.0 - 0.1 K/cumm LEILA Comment:Testing performed by : [address] [address] Neutrophil pct 74.3 % ELILA Comment: Interpretive Data Percent cell count reference ranges are not reported, since discordance with absolute values may lead to misinterpretation of CBC data. Current Interpretive Data was last revised on 2017. Testing performed by: [address] [address] Imm gran pct 0.3 % LEILA Comment: Interpretive Data Percent cell count reference ranges are not reported, since discordance with absolute values may lead to misinterpretation of CBC data. Current Interpretive Data was last revised on 2017. Testing performed by: [address] [address] Lymphocyte pct 15.6 % LEILA Comment: Interpretive Data Percent cell count reference ranges are not reported, since discordance with absolute values may lead to misinterpretation of CBC data. Current Interpretive Data was last revised on 2017. Testing performed by: [address] [address] Monocyte pct 8.4 % [facility] Comment: Interpretive Data Percent cell count reference ranges are not reported, since discordance with absolute values may lead to misinterpretation of CBC data. Current Interpretive Data was last revised on 2017. Testing performed by: [address] [address] Eosinophil pct 0.9 % [facility] Comment: Interpretive Data Percent cell count reference ranges are not reported, since discordance with absolute values may lead to misinterpretation of CBC data. Current Interpretive Data was last revised on 2017. Testing performed by: [address] [address] Basophil pct 0.5 % [facility] Comment: Interpretive Data Percent cell count reference ranges are not reported, since discordance with absolute values may lead to misinterpretation of CBC data. Current Interpretive Data was last revised on 2017. Testing performed by: [address] [address] Blood 04/18/2024 8:30 AM MIDDLE SCHOOL READING TEACHER 04/18/2024 8:39 AM MIDDLE SCHOOL READING TEACHER us Christopher Balderrama MD LAB BLOOD ORDERABLES Final Resul t LEILA [address] [facility] Department [place] [address] * (ABNORMAL) CBC with auto differential (04/18/2024 8:30 AM MIDDLE SCHOOL READING TEACHER) WBC 11.0(H) 3.8 - 9.9 K/cumm Comment:Testing performed by : [address] [address] Hgb 15.0 13.0 - 17.5 g/dL LEILA Comment:Testing performed by : [address] [address] Hct 45.7 38.9 - 50.3 % LEILA Comment:Testing performed by : [address] [address] Plt 319 150 - 400 K/cumm LEILA Comment:Testing performed by : [address] [address] MPV 10.7 9.1 - 12.3 fL LEILA Comment:Testing performed by : [address] [address] RBC 5.43 4.30 - 5.80 M/cumm LEILA Comment:Testing performed by : [address] [address] MCV 84.2 81.3 - 96.4 fL LEILA Comment:Testing performed by : [address] [address] MCH 27.6 27.1 - 33.3 pg LEILA Comment:Testing performed by : [address] [address] MCHC 32.8 32.3 - 35.7 g/dL LEILA Comment:Testing performed by : [address] [address] RDW CV 13.6 11.1 - 14.9 % LEILA Comment:Testing performed by : [address] [address] RDW SD 41.8 35.7 - 48.1 fL LEILA MONTES DE OCA Comment:Testing performed by : [address] [address] NRBC abs 0.00 0.00 - 0.01 K/cumm LEILA MONTES DE OCA Comment:Testing performed by : [address] [address] Blood Venous blood specimen / Unknown 04/18/2024 8:30 AM MIDDLE SCHOOL READING TEACHER 04/18/2024 8:39 AM MIDDLE SCHOOL READING TEACHER us Christopher Balderrama MD LAB BLOOD ORDERABLES Final Resul t Performing Organization Address City/[facility] Co de Phone Number THI[address] [employer] [address] * Lipase (04/18/2024 8:30 AM MIDDLE SCHOOL READING TEACHER) Pathologist [facility] Lipase 16 10 - 99 Units/L Comment:Testing performed by : [address] [address] Blood Venous blood specimen / Unknown 04/18/2024 8:30 AM MIDDLE SCHOOL READING TEACHER 04/18/2024 8:38 AM MIDDLE SCHOOL READING TEACHER us Christopher Balderrama MD LAB BLOOD ORDERABLES Final Resul t Performing Organization Address City/[facility] Co de Phone Number [address] [place] [address] * (ABNORMAL) Comprehensive metabolic panel (04/18/2024 8:30 AM MIDDLE SCHOOL READING TEACHER) Sodium 135 135 - 145 mmol/L Comment:Testing performed by : [address] [address] Potassium, pl 4.5 3.3 - 4.9 mmol/L LEILA MONTES DE OCA Comment:Testing performed by : [address] [address] Chloride 98 97 - 110 mmol/L LEILA MONTES DE OCA Comment:Testing performed by : [address] [place] [address] CO2 20(L) 22 - 32 mmol/L [facility] Comment:Testing performed by : [address] [address] Anion gap 17(H) 2 - 15 mmol/L LEILA Comment:Testing performed by : [address] [address] BUN 10 6 - 25 mg/dL [facility] Comment:Testing performed by : [address] [address] Creatinine 1.20 0.80 - 1.30 mg/dL [facility] Comment:Testing performed by : [address] [address] Glucose 108 70 - 199 mg/dL [facility] Comment: Interpretive Data Fasting glucose >/= [...] was last revised 2022. Testing performed by: [address] [address] Calcium 9.7 8.5 - 10.3 mg/dL [facility] Comment:Testing performed by : [address] [address] Bilirubin, total 0.6 0.1 - 1.2 mg/dL [facility] Comment:Testing performed by : [address] [address] Protein, pl 8.2 6.5 - 8.5 g/dL LEILA Comment:Testing performed by : [address] [address] Albumin 4.0 3.5 - 5.0 g/dL LEILA Comment:Testing performed by : [address] [address] Alk phos 107 40 - 130 Units/L LEILA Comment:Testing performed by : [facility], [address] [place] [address]., [address] ALT 28 7 - 55 Units/L LEILA Comment:Testing performed by : [facility], [address] [place] [address]., [address] AST 17 10 - 50 Units/L LEILA Comment:Testing performed by : [address] [address] Blood 04/18/2024 8:30 AM MIDDLE SCHOOL READING TEACHER 04/18/2024 8:38 AM MIDD[employer] SCHOOL READING TEACHER us Christopher Balderrama MD LAB BLOOD ORDERABLES Final Resul t Performing Organization Address [facility] Co de Phone Number [address] Department [place] [address] * Hepatitis C antibody (11/11/2018 11:46 AM CDT) Hep C Ab NONREACT NONREACTIVE [facility] Comment: Siemens CentaurXP using REBECA (chemiluminescent immunoassay) technology. NONREACTIVE: Antibodies [...] JUDY MARTINEZ Final Result Performing Organization Address City/[facility] [place] [address], [facility] [phone] from Last 3 Months or Most Recently Relevant to Health Maintenance Insurance [facility] CHOICE PLUS BLUE ACCESS OOS ANTHEM ACCESS BLUE ACCESS OOS Advance Directives For more information, please contact: [phone] * Full Code (Latest Code Status on File) Date Activated Date Inactivated Comments 06/24/2023 8:29 PM 06/27/2023 2:44 PM * Full Code Date Activated Date Inactivated Comments 08/19/2017 7:48 PM 08/20/2017 8:56 PM * Full Code Date Activated Date Inactivated Comments 08/19/2017 6:17 PM 08/19/2017 7:48 PM * Full Code Date Activated Date Inactivated Comments 02/10/2017 5:32 PM 02/11/2017 7:00 PM Care Teams Healthcare Representative Relationship Specialty Start Date End Date Mauro Mosher NP [address] [place] [address] PCP - General Family Medicine 06/24/23
--- OUTSIDE RECORDS SUMMARY | 2024-06-29 15:13 | XMS_ITS | Clinical Summary ---
Author Organization [facility] [employer] Address [address] [place] [address] Care Team Providers Care Printing Plate Maker Name Role Phone Casgiuseppe Chanda CHAU Primary Care Provider [phone] Source Comments [facility] [employer],non-owned Affiliates and Associated Physician Practices is amultiple site organization consisting of ambulatory clinics and hospital sitesin [place], [place], [place] and [place]. This disclosure is being madepursuant to the Care Everywhere program and may not contain all information available regarding this patient. Last updated 17.[employer] Allergies No known active allergies Medications * [...] on file Legal Sex Male 5:33 AM RELAY TESTER HELPER Gender Identity Not on file Sexual Orientation [...] of 2 - PCV) 12/28/1995 COVID-19 VACCINE ( - 2023-2 5 season) 2023 DEPRESSION SCREENING [...] patient's age to complete this topic Insurance [facility] SELF [facility]Y NO INSURANCE Member Subscriber Plan / Payer (Ef fective for All Dates) Name:Jaswinder Pena Member ID:Not on file Relation to Subscriber:Not on file Name:JASWINDER PENA Subscriber ID:Not on file (Home) Address: [address] [place] [id number] Payer ID:Not on file Group ID:Not on file Type:Self Pay Address: [place], [place] [facility] Advance Directives * Full Code (Latest Code Status on File) Date Activated Date Inactivated Comments 11/27/2015 12:18 AM 11/28/2015 2:04 PM Care Teams Printing Plate Maker Relationship Specialty Start Date End Date Chanda Stacy APRN-KANDI PCP - General Nurse Practitioner 11/26/15
--- OUTSIDE RECORDS SUMMARY | 2024-06-29 15:13 | XMS_ITS | Encounter Summary ---
Author Organization [facility] Address [address] [place] [address] Phone Care Team Providers Care Hydrotreater Operator Name Role Phone Russell Conteh MD Primary Care Provider [phone] No, Physician Primary Care Provider [phone] Mauro Mosher NP Primary Care Provider [phone] Encounter Details Date Type Department Care Team [...] on file Legal Sex Male 8:15 AM RECEIVABLE EXECUTIVE Gender Identity Not on file Sexual Orientation [...] on filedocumented in this encounter Care Teams Hydrotreater Operator Relationship Specialty Start Date End Date Russell Conteh MD [address] [place] [address] PCP - General 12/28/18 04/14/22 No, Physician PCP - General 04/15/22 06/23/23 Mauro Mosher CAN CLEANER [address] [place] [address] PCP - General Family Medicine 06/24/23 documented as of this encounter
--- OUTSIDE RECORDS SUMMARY | 2024-06-29 15:13 | XMS_ITS | Referral Summary ---
Author Organization [facility] Address [address] [place] [address] Care Team Providers Care Improvement Advisor Name Role Phone Mauro Mosher NP Primary Care Provider [phone] Encounters Date Type Department Care Team Description 04/18/2024 9:54 AM CITY PLANNER - 04/18/2024 1:06 PM [facility] Emergency [facility] Emergency Department [address] [place] [id number] Exacerbation of Crohn's disease without complication [...] consult Assessment & Plan (02/10/2017 6:37 PM CITY PLANNER): Will problem low Medrol to 60 mg [...] follow-up Assessment & Plan (02/10/2017 6:39 PM CITY PLANNER): This is secondary to Crohn's disease flare. [...] drink = 0.6 oz pur e alcohol) [facility] [employer] Answer Date Recorded In the past 12 months has [employer], gas, oil, or water [employer] threatened to shut off services in your [...] often do you attend chur ch or sikh services? Never 06/25/2023 Do you belong to any clubs o r organizations such as sabianist groups, unions, fraternal or athletic groups, or [...] No 06/25/2023 Housing Stability Vital Sign Answer Azk e Recorded In the last 12 months, [...] place to sleep or slept in a longterm (including now)? No 06/25/2023 Personal Safety Answer Date Recorded Have you ever been in or are you currently in a harmful physical or emotional relationship or is someone making you feel afraid or unsafe? Denies 04/18/2024 Sex and Gender Information Value Date Recorded Sex Assigned at Not on file Legal Sex Male 8:15 AM CITY PLANNER Gender Identity Not on file Sexual Orientation Not on file Last Filed Vital Signs Vital Sign Reading Time Taken Comments Blood Pressure 154/87 04/18/2024 1:00 PM CITY PLANNER Pulse 84 04/18/2024 1:00 PM CITY PLANNER Temperature 37.6 C (99.7 F) 04/18/2024 8:24 AM CITY PLANNER Respiratory Rate 20 04/18/2024 12:07 PM CITY PLANNER Oxygen Saturation 99% 04/18/2024 1:00 PM CITY PLANNER Inhaled Oxygen Concentration - - Weight 115.1 kg (253 lb 12 oz) 04/18/2024 8:24 A M CITY PLANNER Height 172.7 cm (5' 8 ) 04/18/2024 8:24 AM CITY PLANNER Body Mass Index 38.58 04/18/2024 8:24 AM CITY PLANNER Plan of Treatment Not on file Procedures Procedure Name Priority Date/Time Associated Diagnosis Comments XR KNEE RIGHT 1 OR 2 VIEWS ED 04/18/2024 11:[address] ABDOMEN PELVIS W CONTRAST ED 04/18/2024 10:45 AM CITY PLANNER URINALYSIS, MICROSCOPIC ONLY STAT 04/18/2024 8:33 AM CITY PLANNER URINALYSIS AND REFLEX TO MICROSCOPIC AND CULTURE STAT 04/18/2024 8:33 AM CITY PLANNER EGFR STAT 04/18/2024 8:30 AM CITY PLANNER DIFFERENTIAL AUTO STAT 04/18/2024 8:3 0 AM CITY PLANNER LIPASE STAT 04/18/2024 8:30 AM CITY PLANNER COMPREHENSIVE METABOLIC PANEL STAT 04/18/2024 8:30 AM CITY PLANNER CBC WITH AUTO DIFFERENTIAL STAT 04/18/2024 8:30 AM CITY PLANNER HEPATITIS C ANTIBODY Routine 11/11/2018 11:46 AM CDT from Last 3 Months or Most Recently Relevant to Health Maintenance Results * XR Knee Right 1 or 2 Views (04/18/2024 11:49 AM CITY PLANNER) Anatomical Region Laterality Modality Lower Extremities, Knee Right Computed Radiography 04/18/2024 12:1 8 PM CITY PLANNER Narrative 04/18/2024 12:19 PM CITY PLANNER EXAM DESCRIPTION: XR KNEE RIGHT 1 OR [...] Ehsan Cox M.D. KN: AJ Report ID: [id number] Reading Location: [id number] Procedure Note Ehsan Cox MD - 04/18/2024 [...] Ehsan Cox M.D. KN: AJ Report ID: [id number] Reading Location: [id number] Kia GARCIA IM XR PROCEDURES Final Result * CT Abdomen Pelvis W Contrast (04/18/2024 10:45 AM CITY PLANNER) Anatomical Region Laterality Modality Body N/A Computed Tomogra phy 04/18/2024 11:1 3 AM CITY PLANNER Narrative 04/18/2024 11:41 AM CITY PLANNER EXAM DESCRIPTION: CT ABDOMEN PELVIS W CONTRAST [...] Ron Schwartz M.D. LB: NICOLÁS Report ID: [id number] Reading Location: [id number] Procedure Note Ron Schwartz MD - 04/18/2024 [...] Ron Schwartz M.D. LB: NICOLÁS Report ID: [id number] Reading Location: [id number] Kia GARCIA IMSophia CT PROCEDURES Final Result * (ABNORMAL) Urinalysis reflex to microscopic and culture Urine (04/18/2024 8:33 AM CITY PLANNER) Color, ur Yellow Yellow Comment:Testing performed by : [address] [address] Clarity, ur Clear Clear LEILA Comment:Testing performed by : [address] [address] Specific gravity, ur 1.017 1.003 - 1.030 LEILA Comment:Testing performed by : [address] [address] pH, urine 5.5 LEILA Comment: Interpretive Data U rine pH is affected by diet, medications, systemic acid-base disturbances, and renal tubular function. pH may affect urinary stone formation. For example, urine pH below 6.0 may help reduce the tendency for calcium phosphate stones and pH greater than 6.0 may reduce the tendency for uric acid stone formation. Source: Izaguirre [employer] Current Interpretive Data was last revised on 2017 Testing performed by: [address] [address] Protein, ur ql 1+(A) Negative LEILA Comment:Testing performed by : [address] [address] Glucose, ur ql Negative Negative LEILA Comment:Testing performed by : [address] [address] Ketones, ur 1+(A) Negative LEILA Comment:Testing performed by : [address] [address] Bilirubin, ur Negative Negative LEILA Comment:Testing performed by : [address], [place]., [address] Blood, ur Trace(A) Negative LEILA Comment:Testing performed by : [address], [place]., [address] Urobilinogen, ur <2.0 <2.0 mg/dL LEILA Comment:Testing performed by : [address], [place]., [address] Nitrite, ur Negative Negative LEILA Comment:Testing performed by : [address], [place]., [address] Leukocyte esterase, ur Negative Negative LEILA Comment:Testing performed by : [address], [place]., [address] UA reflex comment Reflex to microscopic UA will be performed. LEILA Comment:Testing performed by : [address], [place]., [address] Urine 04/18/2024 8:33 AM CITY PLANNER 04/18/2024 8:38 AM CITY PLANNER us Christopher Balderrama MD LAB MICROBIOLOGY - GENERAL ORDER NEHEMIAS Final Result LEILA [address] [facility] Department of Laboratories [place], [place] [id number] * (ABNORMAL) Urinalysis, microscopic only (04/18/2024 8:33 AM CITY PLANNER) WBC, ur 0-5 0 - 5 /HPF Comment:Testing performed by : [address], [place]., [address] RBC, ur 3-5(A) 0 - 2 /HPF LEILA Comment:Testing performed by : [address], [place]., [address] Epithelial cells, squamous, ur 11-20(A) 0 - 5 /HPF LEILA Comment:Testing performed by : [address], [place]., [address] Bacteria, ur Trace(A) LEILA Comment:Testing performed by : [address] [address] Mucous, ur Present(A) LEILA Comment:Testing performed by : [address] [address] Granular casts, ur 1-5(A) 0 - 0 /LPF LEILA Comment:Testing performed by : [address] [address] Culture Reflex Comment Reflex conditions for urine culture (WBC >10) not met. LEILA Comment:Testing performed by : [address] [address] Urine 04/18/2024 8:33 AM CITY PLANNER 04/18/2024 8:38 AM CITY PLANNER us Christopher Balderrama MD LAB URINE ORDERABLES Final Resul t LEILA [address] [facility] Department [place] [address] * eGFR (04/18/2024 8:30 AM CITY PLANNER) eGFR 75 >=60 mL/min/1. 73 m2 Comment: [...] was last reviewed 2020. Testing performed by: [address] [address] Blood 04/18/2024 8:30 AM CITY PLANNER 04/18/2024 8:38 AM CITY PLANNER us Christopher Balderrama MD LAB BLOOD ORDERABLES Final Resul t LEILA [address] [facility] Department [place] [address] * (ABNORMAL) Differential, auto (04/18/2024 8:30 AM CITY PLANNER) Neutrophil abs 8.2(H) 1.5 - 6.5 K/cumm Comment:Testing performed by : [address] [address] Imm gran abs 0.0 0.0 - 0.1 K/cumm LEILA Comment:Testing performed by : [address] [address] Lymphocyte abs 1.7 0.8 - 3.3 K/cumm LEILA Comment:Testing performed by : [address] [address] Monocyte abs 0.9(H) 0.2 - 0.8 K/cumm LEILA Comment:Testing performed by : [address] [address] Eosinophil abs 0.1 0.0 - 0.5 K/cumm LEILA Comment:Testing performed by : [address] [address] Basophil abs 0.1 0.0 - 0.1 K/cumm LEILA Comment:Testing performed by : [address] [address] Neutrophil pct 74.3 % LEILA Comment: Interpretive Data Percent cell count reference ranges are not reported, since discordance with absolute values may lead to misinterpretation of CBC data. Current Interpretive Data was last revised on 2017. Testing performed by: [address] [address] Imm gran pct 0.3 % LEILA Comment: Interpretive Data Percent cell count reference ranges are not reported, since discordance with absolute values may lead to misinterpretation of CBC data. Current Interpretive Data was last revised on 2017. Testing performed by: [address] [address] Lymphocyte pct 15.6 % [facility] Comment: Interpretive Data Percent cell count reference ranges are not reported, since discordance with absolute values may lead to misinterpretation of CBC data. Current Interpretive Data was last revised on 2017. Testing performed by: [address] [address] Monocyte pct 8.4 % [facility] Comment: Interpretive Data Percent cell count reference ranges are not reported, since discordance with absolute values may lead to misinterpretation of CBC data. Current Interpretive Data was last revised on 2017. Testing performed by: [address] [address] Eosinophil pct 0.9 % [facility] Comment: Interpretive Data Percent cell count reference ranges are not reported, since discordance with absolute values may lead to misinterpretation of CBC data. Current Interpretive Data was last revised on 2017. Testing performed by: [address] [address] Basophil pct 0.5 % [facility] Comment: Interpretive Data Percent cell count reference ranges are not reported, since discordance with absolute values may lead to misinterpretation of CBC data. Current Interpretive Data was last revised on 2017. Testing performed by: [address] [address] Blood 04/18/2024 8:30 AM CITY PLANNER 04/18/2024 8:39 AM CITY PLANNER us Christopher Balderrama MD LAB BLOOD ORDERABLES Final Resul t LEILA [address] [facility] Department of Laboratories [place], [place] [id number] * (ABNORMAL) CBC with auto differential (04/18/2024 8:30 AM CITY PLANNER) WBC 11.0(H) 3.8 - 9.9 K/cumm Comment:Testing performed by : [address] [address] Hgb 15.0 13.0 - 17.5 g/dL LEILA Comment:Testing performed by : [address] [address] Hct 45.7 38.9 - 50.3 % LEILA Comment:Testing performed by : [address] [address] Plt 319 150 - 400 K/cumm LEILA Comment:Testing performed by : [address] [address] MPV 10.7 9.1 - 12.3 fL LEILA Comment:Testing performed by : [address] [address] RBC 5.43 4.30 - 5.80 M/cumm LEILA Comment:Testing performed by : [address] [address] MCV 84.2 81.3 - 96.4 fL LEILA Comment:Testing performed by : [address] [address] MCH 27.6 27.1 - 33.3 pg LEILA Comment:Testing performed by : [address] [address] MCHC 32.8 32.3 - 35.7 g/dL LEILA Comment:Testing performed by : [address] [address] RDW CV 13.6 11.1 - 14.9 % LEILA Comment:Testing performed by : [address] [address] RDW SD 41.8 35.7 - 48.1 fL LEILA Comment:Testing performed by : [address], [address] NRBC abs 0.00 0.00 - 0.01 K/cumm LEILA Comment:Testing performed by : [address], [address] Blood Venous blood specimen / Unknown 04/18/2024 8:30 AM CITY PLANNER 04/18/2024 8:39 AM CITY PLANNER us Christopher Balderrama MD LAB BLOOD ORDERABLES Final Resul t Performing Organization Address City/[facility]/ZIP Co de Phone Number THI[address] [address] * Lipase (04/18/2024 8:30 AM CITY PLANNER) Lipase 16 10 - 99 Units/L Comment:Testing performed by : [address] [address] Blood Venous blood specimen / Unknown 04/18/2024 8:30 AM CITY PLANNER 04/18/2024 8:38 AM CITY PLANNER us Christopher Balderrama MD LAB BLOOD ORDERABLES Final Resul t Performing Organization Address [facility] Co de Phone Number TH[address] [address] * (ABNORMAL) Comprehensive metabolic panel (04/18/2024 8:30 AM CITY PLANNER) Pathologist [facility] Sodium 135 135 - 145 mmol/L Comment:Testing performed by : [address] [address] Potassium, pl 4.5 3.3 - 4.9 mmol/L LEILA Comment:Testing performed by : [address] [address] Chloride 98 97 - 110 mmol/L LEILA Comment:Testing performed by : [address] [address] CO2 20(L) 22 - 32 mmol/L LEILA Comment:Testing performed by : [address] [address] Anion gap 17(H) 2 - 15 mmol/L LEILA Comment:Testing performed by : [address] [address] BUN 10 6 - 25 mg/dL LEILA Comment:Testing performed by : [address] [address] Creatinine 1.20 0.80 - 1.30 mg/dL [facility] Comment:Testing performed by : [address] [address] Glucose 108 70 - 199 mg/dL [facility] Comment: Interpretive Data Fasting glucose >/= 126 [...] was last revised 2022. Testing performed by: [address] [address] Calcium 9.7 8.5 - 10.3 mg/dL [facility] Comment:Testing performed by : [address] [address] Bilirubin, total 0.6 0.1 - 1.2 mg/dL [facility] Comment:Testing performed by : [address] [address] Protein, pl 8.2 6.5 - 8.5 g/dL [facility] Comment:Testing performed by : [address] [address] Albumin 4.0 3.5 - 5.0 g/dL [facility] Comment:Testing performed by : [address] [address] Alk phos 107 40 - 130 Units/L [facility] Comment:Testing performed by : [address] [address] ALT 28 7 - 55 Units/L [facility] Comment:Testing performed by : [address] [address] AST 17 10 - 50 Units/L [facility] Comment:Testing performed by : [address] [address] Blood 04/18/2024 8:30 AM CITY PLANNER 04/18/2024 8:38 AM CITY PLANNER us Christopher Balderrama MD LAB BLOOD ORDERABLES Final Resul t Performing Organization Address City/[facility] Co de Phone Number LEILA [address] [place] [address] Department [place] [address] * Hepatitis C antibody (11/11/2018 11:46 AM CDT) Hep C Ab NONREACT NONREACTIVE [facility] Comment: Siemens CentaurXP using REBECA (chemiluminescent immunoassay) [...] JUDY MARTINEZ Final Result Performing Organization Address [facility] Co de Phone Number [address] [address], [facility] [phone] from Last 3 Months or Most Recently Relevant to Health Maintenance Insurance [id number] CHOICE PLUS BLUE ACCESS OOS BLUE ACCESS OOS Advance Directives For more information, please contact: [phone] * Full Code (Latest Code Status on File) Date Activated Date Inactivated Comments 06/24/2023 8:29 PM 06/27/2023 2:44 PM * Full Code Date Activated Date Inactivated Comments 08/19/2017 7:48 PM 08/20/2017 8:56 PM * Full Code Date Activated Date Inactivated Comments 08/19/2017 6:17 PM 08/19/2017 7:48 PM * Full Code Date Activated Date Inactivated Comments 02/10/2017 5:32 PM 02/11/2017 7:00 PM Care Teams Improvement Advisor Relationship Specialty Start Date End Date Mauro Mosher NP [address] [place] [address] [place] [address] PCP - General Family Medicine 06/24/23
--- OUTSIDE RECORDS SUMMARY | 2024-06-29 15:13 | XMS_ITS | Encounter Summary ---
Author Organization [facility] Address [address] [place] [address] Phone Care Team Providers Care Academy Education Director Name Role Phone Russell Conteh MD Primary Care Provider [phone] No, Physician Primary Care Provider [phone] Mauro Mosher NP Primary Care Provider [phone] Encounter Details Date Type Department Care Team [...] on file Legal Sex Male 8:15 AM CLINICAL DIRECTOR Gender Identity Not on file Sexual Orientation [...] on filedocumented in this encounter Care Teams Academy Education Director Relationship Specialty Start Date End Date Russell Conteh MD [address] [place] [address] PCP - General 12/28/18 04/14/22 No, Physician PCP - General 04/15/22 06/23/23 Mauro Mosher, [employer] INVE[employer]IG[employer] [address] [place] [address] [place] [address] PCP - General Family Medicine 06/24/23 documented as of this encounter
--- OUTSIDE RECORDS SUMMARY | 2024-06-29 15:13 | XMS_ITS | Data Portability ---
Author Organization [place] [employer], Main Office Address [address] [place] [address] Care Team Providers Care Protective Signal Operator Name Role Phone CORY LORA Primary Care Provider [phone] CORY LORA Referring Provider Assessment Encounter Date [...] painful, and pops. 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 [...] Details Last Modified Time Details Appointments Any 2024 08:20A M Saumya Rao NP Not available Not available Not available Any 5 2024 08:00A M Arnav Holder MD Not available Not available Not available Lab CBC w/ auto diff 2024 025 [facility] (Lab), [address] [place], [address], 05/25/2024 06:18:28 lipid panel, serum 2024 025 [facility] (Lab), [address] [place], [address], 05/25/2024 06:18:27 glycohemo globin, total, blood 2024 025 [facility] (Lab), [address] [place], [address], 05/31/2024 08:40:15 TSH, serum or plasma 2024 025 [facility] (Lab), [address] [place], [address], 05/25/2024 06:18:27 CMP, serum or plasma 2024 025 [facility] (Lab), [address] [place], [address], 05/25/2024 06:18:27 vitamin D3, 25-hydrox y, serum 2024 025 [facility] (Lab), [address] [place], [address], 05/25/2024 04:18:45 Referral physical therapist referral - Please contact pt to schedule for R knee. Thanks 2024 025 [facility], [address], [place], [address], 06/03/2024 15:42:00 orthopedi c surgeon referral - Please call patient to schedule an appointme nt. Thank you. 2024 025 [facility], [address], [place], [address], 06/01/2024 10:58:41 dermatolo gist referral - Please call patient to schedule appointme nt. 2023 024 [email or web address] Bria Madison MD, [address], [place], [address], 04/30/2023 09:13:18 Procedures injection /aspirati on joint/bur sa (PROC) 2024 025 [email or web address] 1 In-Office Order, Internal Use Only DO Not Attach Compendium DO Not Attach Compendium, Do Not Delete/merge, [address] 06/01/2024 09:42:05 Surgeries None recorded. Imaging LDCT, chest, for lung cancer screening 2024 025 [facility] ([facility]), [address] [place] [address], [address], 06/06/2024 15:12:52 Medication Orders bupivacai ne HCl 0.5 % (5 mg/mL) injection solution 2024 025 [id number], [address] [facility], [place], [place], [id number], 06/03/2024 09:19:43 Kenalog 10 mg/mL suspensio n for injection 2024 025 [email or web address], [address] [facility], [place], [place], [id number], 06/03/2024 09:19:43 doxycycli ne hyclate 100 mg capsule 2023 024 [facility][id number], [address] , [place], [place], [id number], 05/24/2024 14:12:21 Patient TargetsNo targets recorded. Patient Instructions Encounter Date Encounter Id Patient Instructions Last Modified By Organization Details Last Modified Time 05/24/2024 [id number] patellofemoral pain syndrome (runner's knee): exercises [email or web address] Not available 05/24/2024 14:43:43 Reason for Referral Document Scanner Referral for S kin lesion Please call patient to schedule appointment. Referring Physician: Mauro Mosher [facility], Encounter Date: 04/02/2023 Orthopedic Surgeon Referral for Pain of right knee joint Please call patient to schedule an appointment. Thank you. Referring Physician: Cory Lora [facility], Encounter Date: 05/24/2024 Physical Therapist [...] contr ast No observ ation record ed. [address], [address], 11/06/2023 10:28:04 06/02/19 25 04/18/2024 XR, knee, 3 view No observ ation record ed. Not Available 06/01 11:59:36 06/13/1906/12/2024 CT, abdom en + pelvi s, w/ contr ast No observ ation record ed. [address], [address], 06/14/2024 09:53:24 0406/13/2024 XR, abdom en No observ ation record ed. [facility] [address], [place], [address], 06/14/2024 09:53:59 Result Notes None recorded. Problems Name Problem SNOMED Code Status Onset Date Resolution Date Notes Provider Name and Address Organization Details Recorded Time Inflammat ory bowel disease 72890679 Active Not Available [facility] 16:12:27 Crohn's disease 30837194 Active Not Available [facility] 16:12:27 Iron deficienc y 76865836 Active Not Available [facility] 16:12:28 Disorder of vitamin D 834235193 Active Not Available [facility] 16:12:28 Obesity 913637574 Active Not Available [facility] 16:12:28 Furuncle 453524565 Completed 05/24/2024 TOMASA Dunn [address], [place], [address] , [employer] [facility] [employer] [facility] 5 14:18:06 Tobacco dependenc e syndrome 41505634 Active Not Available [facility] 16:12:28 Skin lesion 34797715 Active 2023 BRTITON Rojas [address], [place], [address] , [employer] [facility] [employer] [facility] 4 08:45:55 Pain of right knee joint 52113926906 4100 Active 2024 TOMASA Dunn [address], [place], [address] , [employer] [facility] [employer] [facility] 5 14:30:39 Leukocyto sis 049268968 Active 2024 TOMASA Dunn [address], [place], [address] , [employer] [facility] [employer] [facility] 5 14:42:52 Nicotine dependenc e 10007874 Active 2024 TOMASA Dunn [address] [facility], [place], [address] , [facility] [employer] [facility] 15:31:39 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 Procedures Surgical History Date Name Laterality Status Provider Name and Address Organization Details Recorded Time Ortho - Cortisone Injection completed Saumya Rao NP [address] [facility], [facility] [address], [place], [address], [facility] [employer] [facility] 06/01/2024 10:55:16 Imaging Results Imaging Date Name Status LastModified by Organiz ation Details LastModified Time 10/26/2023 CT, abdomen + pelvis, w/ contrast completed [address] [place] [address], [address], 11/06/2023 10:28:04 04/18/2024 XR, knee, 3 view [email or web address] Information not available 06/01/2024 11:59:36 06/12/2024 CT, abdomen + pelvis, w/ contrast completed [address], [address], 06/14/2024 09:53:24 06/13/2024 XR, abdomen completed [address] Radiology [address] [place] [address], [address], 06/14/2024 09:53:59 Procedure Notes None recorded. Medical Equipment None [...] mL by injectio n route. 2024 active [facility]: [id number] 4-20 Not Available Not Available Not Available hydrocodo [...] Updated DateTime 4 172.72 cm 40.7 kg/m2 278576. 76 g 98.2 [degF] 80 /min 98 % 98 % 138 mm[Hg] 80 mm[Hg] Breanna Peterson RN [facility] [employer] [facility] 4 08:32:32 Date Recorded Body weight Body mass index (BMI) Body height Body temperature Heart rate Respiratory rate Oxygen saturation Oxygen saturation in Arterial blood by Pulse oximetry Pain severity - 0-10 verbal numeric rating [Score] - Reported Systolic blood pressure Diastolic blood pressure Provider Name and Address Organization Details Last Updated DateTime 5 422158. 61 g 40.7 kg/m2 172.72 cm 98.1 [degF] 88 /min 20 /min 96 % 96 % 0 116 mm[Hg] 70 mm[Hg] Staci Pal RN [facility] [employer] [facility] 5 14:18:12 Date Recorded Body height Body mass index (BMI) Body weight Provider Name and Address Organization Details Last Updated DateTime 06/01/2024 172.72 cm 39.5 kg/m2 793775.02 geoffrey Workman [employer] 06/01/2024 09:22:38 Social History Question Answer Notes LastModified by Organization Details LastModified Time Tobacco Smoking Status Current Every Day Smoker Breanna Peterson RN [facility], [employer] 04/02/2023 08:37:02 What Is Your Level Of [...] not available 05/24/2024 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 Medical History Condition Response OTHER # 1 OBESITY Y Past Encounters Encounter ID Performer Location Encounter Start Date Encounter Closed Date Diagnosis/Indication Diagnosis SNOMED-CT Code Diagnosis ICD10 Code Diagnosis Note [id number] BRITTON Rojas [facility] Primary Care [address] [place] [address] 04/02/2023 08:21:19 04/02/2023 09:03:17 Skin lesion 74410445 L98.9 -notes long hx of multiple lesions/cy st to belt line and [place] axilla-can be painful at times-derm atologist referral-t rial doxycyclin e [id number] Benton Rankin MD [facility] [place] [address] [place] [address] 05/24/2024 13:53:21 05/24/2024 15:05:17 Adult health examination 920009339 Z00.00 Patient in good overall healthDisc ussed diet and exerciseHe alth maintance reviewedPa tient questions answered Pain of ri ght knee joint 7325949473 27348 M25.561 Will see orthoRecom mended PT, pt declinesPa st XR and MRI benign, states symptoms are cyclic. Feels he is on the end of a pain cycle and pain is mildly improved Obesity 789591419 E66.9 Carnivore diet nowDiscuss ed diet and exercise Disorder of vitamin D 38 2389348 E55.9 Leukocytosis 833863899 D 72.829 Nicotine dependence 5629 4008 F17.496 [id number] Arnav Holder MD [facility] [place] [address] [place] [address] 06/01/2024 09:02:18 06/01/2024 10:13:13 Pain of right knee joint 9905825148 10623 M25.561 Health Concerns Section Related Observation LastModified by Organization Detai ls LastModified Time None Recorded Concern Status LastModified by Organization Details LastModified Time None Recorded Advance Directives Directive None Recorded Payers Encounter Date Sequence Insurance Name Policy Number Policy Curran Covered Member ID Curran Member ID Guarantor Name 04/02/2023 2 [facility] Jaswinder Pena [id number] Jaswinder Pena 04/02/2023 1 [place] [id number] Jaswinder Schwarz Jean [id number] Jaswinder Pena 05/24/2024 1 [place] [id number] Jaswinder Pena [id number] Jaswinder Pena 06/01/2024 1 [place] [id number] Jaswinder Pena [id number] Jaswinder Pena Notes Date Note Type Note Provider Name and Address Organization Details Recorded Time 04/02/2023 text/html Pt is here to re-establish care BRITTON Rojas [address] [facility], [facility] [address], [place], [address], [facility] [employer] 04/02/2023 09:08:41 05/24/2024 text/html Jaswinder Pena is [...] PRN. 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 Notes [...] declinesCOVID vaccines: declinesTdap: declinesColonoscopy: 2021, managed by YAS Lora, PLACEMENT OFFICER [address] [facility], [place] [address], [place], [address], [facility] [employer] 05/24/2024 15:31:51
--- OUTSIDE RECORDS SUMMARY | 2024-06-29 15:13 | XMS_ITS | Encounter Summary ---
Author Organization 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
--- OUTSIDE RECORDS SUMMARY | 2024-06-29 15:13 | XMS_ITS | Clinical Summary ---
Author Organization [facility] Argenis carson [facility] Address [address] [facility] [place] [address] Care Team Providers Care Public Relations Analyst Name Role Phone Unavailable Primary Care Provider Unavailabl e Social History Tobacco Use Types Packs/Day Years Used Date Smoking Tobacco: Never Assessed Sex and Gender Information Value Date Recorded Sex Assigned at Not on file Legal Sex Male 12:08 PM CDT Gender Identity Not on file Sexual Orientation Not on file Plan of Treatment Upcoming Encounters Date Type Department Care Team (Late st Contact Info) Description 08/03/2024 1:30 PM CDT Office Visit [facility] Oncology and Hematology - [place] [address] [facility] [address] [place] [address] Niels Kevin MD [address] [facility] [address] [place] [address] Health Maintenance Due Date Last Done Comments DTAP/TDAP/TD VACCINES (1 - Tdap) 12/28/1995 HEPATITIS B VACCINES (1 of 3 - 19+ 3-dose series) 12/01 COLORECTAL SCREENING 2021 Colorectal Cancer Screening 2021 FIT-DNA Q 3 years 2021 FIT/FOBT Q 1 year 2021 Flex Sig/CT Colonography Q 5 years 2021 INFLUENZA VACCINE (#1) 2023 Insurance [facility]
== END 2024-06-29 14:08 | disposition home or self-care (01) ==
LOC: ANHSURGERY 14:11
PROVIDERS: Visit Provider Surgery
DX: K56.609 Unspecified intestinal obstruction, unspecified as to partial versus complete obstruction (principal); Z01.818 Encounter for other preprocedural examination
CPT/HCPCS: 36415; 86850; 86900; 86901; 93005

== ENCOUNTER 2024-07-06 15:40 | Inpatient (IN) | payer BC, SELFPAY ==
--- NOTE | 2024-06-29 14:11 | PC.NURSE ---
Report to the Outpatient Waiting Room, entrance under the green pavilion located off [facility], at time _10:30 AM on date _07/06/24 . Planned Procedure Time: _12:30 PM . Time changes happen often and if your time is changed the preop area will call you the afternoon before. - You and your visitor will be asked to self-screen and do not enter if you have any COVID symptoms. Please call surgeon if you need to reschedule. - A mask is optional within the hospital at this time. Patients may have clear liquids (water, carbonated beverages, clear teas, apple juice) until 3 hours prior to surgery ( 9:30 AM) with a maximum of 20 ounces. - No food from midnight until time of surgery and no smoking, or chewing tobacco (or any form of nicotine). No chewing gum, candy or mints. Take only the following medications with a SIP of water on the morning of surgery: __PREDNISONE DO NOT STOP ANY OF YOUR OTHER PRESCRIPTION MEDICATIONS PRIOR TO SURGERY EXCEPT THE FOLLOWING Hold all vitamins and supplements for 3 days per anesthesiologist.LAST DOSE 07/02/24 Medications to discontinue per physician ___MELOXICAM PER DR SINGH HIBICLENS SHOWER DAY BEFORE AND MORNING OF SURGERY PER DR SINGH ENSURE BUNDLE PACK PER DR SINGH BOWEL PREP PER DR SINGH Please no make-up, nail dominican, hairspray, perfume, deodorant, or body powder the day of surgery. No jewelry (including any body piercings) or valuables the day of surgery, leave them at home. Please take a shower or bath the night before, or the morning of, surgery with an antibacterial soap. Wear comfortable, loose fitting clothing. Children are encouraged to wear pajamas. - Jewelry must be removed prior to entering the operating room. Rings and piercings that are not removed may be cut off. - The hospital will not accept responsibility for valuables. - Please leave all valuables, including medications, at home the day of surgery. If you are going home after surgery, a licensed pile driver engineer must drive you home. - NO public transportation without another adult if you receive anesthesia. - We recommend that an adult stay with you for 24 hours following discharge. - We also recommend that you do not drive, make important decision, drink alcoholic beverages, or take any drugs that were not prescribed by your health care provider for at least 24 hours after your discharge time. Follow any additional instructions given to you from your surgeon. VERBAL AND WRITTEN instructions given to __PATIENT and asked if any additional questions and then verbalized understanding. Patient advised to call surgeon office or pre surgery nurse liaison [phone] if any additional questions.
[2024-06-29 14:17] VITALS: BMI 39.9
[2024-06-29 14:59] VITALS: BP 149/80; PULSE 66; RESP 18; TEMP 36.9; O2SAT 99
[2024-07-06] VITALS (13 sets, daily range): BP systolic 103–142; BP diastolic 53–78; PULSE 64–82; RESP 12–20; TEMP 36.1–37.1; O2SAT 94–100; BMI 38.2; BMI 39.6
--- OUTSIDE RECORDS SUMMARY | 2024-07-06 01:37 | XMS_ITS | Encounter Summary ---
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
--- OUTSIDE RECORDS SUMMARY | 2024-07-06 01:37 | XMS_ITS | Data Portability ---
Author Organization [facility], Main Office Address [address] [place] [address] Care Team Providers Care Animal Scientist Name Role Phone CORY LORA Primary Care Provider CORY LORA Referring Provider [phone] Assessment Encounter Date Assessment Date Assessment LastModified [...] painful, and pops. 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 Not available 06/01/2024 10:56:59 07/04/2024 07/04/2024 48-year-old patient presents today for follow up of right knee pain that has been going on for about 3-1/2 years but has recently gotten worse. When we last saw him we ordered PT and cortisone injection, he was also taking meloxicam. At the time he felt like he was able to continue with work. He states that 1 week after seeing us the knee became much worse and he was unable to walk. He had to use crutches for 3 days due to the pain with weight bearing. He has been off work since. He was unable to get in sooner for work restrictions. He has been working with PT and states the pain is getting better but he still has weakness. He has catching with certain exercises. He is undergoing a bowel resection this week and will be off of work for at least 6 weeks and is unsure if he will be able to do PT. 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 Physical exam: nonantalgic gait. Minimal effusion. Range of motion 0-110, restricted by pain and feeling of tightness. Pain with deep flexion. Positive Gustavo's. Stable Samantha's, varus valgus stress. Sensation intact throughout. He has been attending PT and had a cortisone injection but is still experiencing weakness, occasional, and catching. We discussed that with his bowel surgery coming up we would not continue with any more treatments at this time and will see him back once he is recovered. For work we will give him restrictions of no lifting, pushing, pulling, squatting and kneeling. We will see him back in a few weeks after surgery to discuss next steps. Not available 07/04/2024 10:06:56 Plan of Treatment Reminders Order Date Submit Date Provider Last Modified By Organization Details Last Modified Time Details Appointments Any 5 2024 08:00A M Arnav Holder MD Not available Not available Not available Lab CBC w/ auto diff 2024 025 [facility] ([facility]), [address] [place], [address], 05/25/2024 06:18:28 lipid panel, serum 2024 025 [facility] (Lab), [address] [place], [address], 05/25/2024 06:18:27 glycohemo globin, total, blood 2024 025 [facility] (Lab), [address] [place], [address], 05/31/2024 08:40:15 TSH, serum or plasma 2024 025 [facility] (Lab), [address] [place], [address], 05/25/2024 06:18:27 CMP, serum or plasma 2024 025 [facility] (Lab), [address] [place], [address], 05/25/2024 06:18:27 vitamin D3, 25-hydrox y, serum 2024 025 [facility] (Lab), [address] [place], [address], 05/25/2024 04:18:45 Referral physical therapist referral - Please contact pt to schedule for R knee. Thanks 2024 025 [facility], [address], [place], [address], 06/03/2024 15:42:00 orthopedi c surgeon referral - Please call patient to schedule an appointme nt. Thank you. 2024 025 [facility], [address], [place], [address], 06/01/2024 10:58:41 dermatolo gist referral - Please call patient to schedule appointme nt. 2023 024 [email or web address] Bria Madison MD, [address], [place], [address], 04/30/2023 09:13:18 Procedures injection /aspirati on joint/bur sa (PROC) 2024 025 [email or web address] 1 In-Office Order, Internal Use Only DO Not Attach Compendium DO Not Attach Compendium, Do Not Delete/merge, [id number] 06/01/2024 09:42:05 Surgeries None recorded. Imaging LDCT, chest, for lung cancer screening 2024 025 [email or web address] [facility] ([facility]), [address] [place], [address], 06/06/2024 15:12:52 Medication Orders bupivacai ne HCl 0.5 % (5 mg/mL) injection solution 2024 025 [email or web address], [address] [facility], [place], [place], [id number], 06/03/2024 09:19:43 Kenalog 10 mg/mL suspensio n for injection 2024 025 [email or web address] #85295, [address] , [place], [place], [id number], 06/03/2024 09:19:43 doxycycli ne hyclate 100 mg capsule 2023 024 [facility], [address] , [place], [place], [id number], 05/24/2024 14:12:21 Patient TargetsNo targets recorded. Patient Instructions Encounter Date Encounter Id Patient Instructions Last Modified By Organization Details Last Modified Time 05/24/2024 [id number] patellofemoral pain syndrome (runner's knee): exercises [email or web address] Not available 05/24/2024 14:43:43 Reason for Referral Cook Chili Referral for S kin lesion Please call [...] contr ast No observ ation record ed. [facility] [address] [facility] [address] [place] [address], [address], 11/06/2023 10:28:04 06/02/19 25 04/18/2024 XR, knee, 3 view No observ ation record ed. [email or web address] Not Available 06/01 11:59:36 06/13/19 25 06/12/2024 CT, abdom en + pelvi s, w/ contr ast No observ ation record ed. [email or web address] [facility] [address], [place], [address], 06/14/2024 09:53:24 06/14/19 25 06/13/2024 XR, abdom en No observ ation record ed. [email or web address] [facility] [address] [place] [address], [address], 06/14/2024 09:53:59 Result Notes None recorded. Problems Name Problem SNOMED Code Status Onset Date Resolution Date Notes Provider Name and Address Organization Details Recorded Time Inflammat ory bowel disease 83737765 Active Not Available [facility] 3 16:12:27 Crohn's disease 11468335 Active Not Available [facility] 3 16:12:27 Iron deficienc y 80431515 Active Not Available [facility] 3 16:12:28 Disorder of vitamin D 093317241 Active Not Available [facility] 3 16:12:28 Obesity 725726053 Active Not Available [facility] 3 16:12:28 Furuncle 887187268 Completed 05/24/2024 TOMASA Dunn [address], [place], [address] , [employer] [facility] [employer] [facility] 5 14:18:06 Tobacco dependenc e syndrome 67502609 Active Not Available [facility] 3 16:12:28 Skin lesion 34245463 Active 2023 BRITTON Rojas [address], [place] [address], [place], [address] , [employer] [facility] [employer] [facility] 4 08:45:55 Pain of right knee joint 84854924675 4100 Active 2024 Jewell Wallace, ATC L null, [employer] [facility] [employer] [facility] 5 09:49:21 Leukocyto sis 632437596 Active 2024 TOMASA Dunn [address], [address], [place], [address] , [employer] [facility] [email or web address] [facility] 5 14:42:52 Nicotine dependenc e 32801444 Active 2024 TOMASA Dunn [address], [place], [address] , [employer] [facility] 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 [employer] [facility] 5 08:49:44 Knee pain Active 2024 Nora Salazar, RMA null, [facility] [email or web address] [facility] 5 09:28:39 Problem Notes None recorded. Procedures Surgical History Date Name Laterality Status Provider Name and Address Organization Details Recorded Time Ortho - Cortisone Injection completed Saumya Rao, RUSSELL [address] [facility], [address], [place], [address], [facility] [email or web address] 06/01/2024 10:55:16 Imaging Results Imaging Date Name Status LastModified by Organiz ation Details LastModified Time 10/26/2023 CT, abdomen + pelvis, w/ contrast completed [email or web address], [place], [address], 11/06/2023 10:28:04 04/18/2024 XR, knee, 3 view [email or web address] Information not available 06/01/2024 11:59:36 06/12/2024 CT, abdomen + pelvis, w/ contrast completed [address] [place] [address], [address], 06/14/2024 09:53:24 06/13/2024 XR, abdomen completed [address] [facility] [address] [place] [address] [place] [address], [place], [address], 06/14/2024 09:53:59 Procedure Notes None recorded. Medical [...] TABLET BY MOUTH DAILY FOR 1 MONTH active Not Available Not Available No t Available doxycycli ne hyclate 100 mg capsule [...] 1 TABLET BY MOUTH EVERY 8 HOURS active Not Available Not Available No t Available phentermi ne 37.5 mg tablet Take 1 tablet daily 05/24 completed Not Available Not Available Not Available ciproflox acin 500 mg tablet TAKE 1 TABLET BY MOUTH AT 2 PM THE DAY BEFORE SURGERY active Not Available Not Available No t Available amoxicill in 875 mg tablet TAKE [...] mL by injectio n route. 2024 active [facility]: 0003-049 -20 Not Available Not Available Not [...] Updated DateTime 4 172.72 cm 40.7 kg/m2 798548. 76 g 98.2 [degF] 80 /min 98 % 98 % 138 mm[Hg] 80 mm[Hg] Breanna Peterson RN [facility] video 08:32:32 Date Recorded Body weight Body mass index (BMI) Body height Body temperature Heart rate Respiratory rate Oxygen saturation Oxygen saturation in Arterial blood by Pulse oximetry Pain severity - 0-10 verbal numeric rating [Score] - Reported Systolic blood pressure Diastolic blood pressure Provider Name and Address Organization Details Last Updated DateTime 5 709519. 61 g 40.7 kg/m2 172.72 cm 98.1 [degF] 88 /min 20 /min 96 % 96 % 0 116 mm[Hg] 70 mm[Hg] Staci Pal RN [facility] video 5 14:18:12 Date Recorded Body height Body mass index (BMI) Body weight Provider Name and Address Organization Details Last Updated DateTime 06/01/2024 172.72 cm 39.5 kg/m2 067560.02 g Jessica Workman [place] [employer] [facility] video 06/01/2024 09:22:38 Date Recorded Body height Body mass index (BMI) Body weight Pain severity - 0-10 verbal numeric rating [Score] - Reported Provider Name and Address Organization Details Last Updated DateTime 07/04/2024 172.72 cm 39.5 kg/m2 078579.02 g 0 Nora Salazar, [facility] [email or web address] [facility] 07/04/2024 09:28:01 Social History Question Answer Notes LastModified by Organization Details LastModified Time Tobacco Smoking Status Current Every Day Smoker Breanna Peterson RN [facility], [facility] [email or web address] [facility] 04/02/2023 08:37:02 What Is Your Level Of [...] not available 05/24/2024 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 Medical History Condition Response OTHER # 1 OBESITY Y Past Encounters Encounter ID Performer Location Encounter Start Date Encounter Closed Date Diagnosis/Indication Diagnosis SNOMED-CT Code Diagnosis ICD10 Code Diagnosis Note [id number] BRITTON Rojas [facility] Primary Care [address] [place] [address] 04/02/2023 08:21:19 04/02/2023 09:03:17 Skin lesion 05024355 L98.9 -notes long hx of multiple lesions/cy st to belt line and [place] axilla-can be painful at times-derm atologist referral-t rial doxycyclin e [id number] Benton Rankin MD [facility] [place] [address] [place] [address] 05/24/2024 13:53:21 05/24/2024 15:05:17 Adult health examination 433788255 Z00.00 Patient in good overall healthDisc ussed diet and exerciseHe alth maintance reviewedPa tient questions answered Pain of ri ght knee joint 4295479640 29343 M25.561 Will see orthoRecom mended PT, pt declinesPa st XR and MRI benign, states symptoms are cyclic. Feels he is on the end of a pain cycle and pain is mildly improved Obesity 496727343 E66.9 Carnivore diet nowDiscuss ed diet and exercise Disorder of vitamin D 38 1247432 E55.9 Leukocytosis 966554703 D 72.829 Nicotine dependence 5629 4008 F17.760 [id number] Arnav Holder MD [facility] [place] [address] [place] [address] 06/01/2024 09:02:18 06/01/2024 10:13:13 Pain of right knee joint 0979205870 25091 M25.278 [id number] Arnav Holder MD [facility] [address] [place] [address] 07/04/2024 09:23:10 07/04/2024 10:03:43 Pain of right knee joint 3154904627 06449 M25.561 Health Concerns Section Related Observation LastModified by Organization Detai ls LastModified Time None Recorded Concern Status LastModified by Organization Details LastModified Time None Recorded Advance Directives Directive None Recorded Payers Encounter Date Sequence Insurance Name Policy Number Policy Curran Covered Member ID Curran Member ID Guarantor Name 04/02/2023 2 [facility] Jaswinder Pena [id number] Jaswinder Pena 04/02/2023 1 [place] [id number] 7 Jaswinder Pena [id number] Jaswinder Pena 05/24/2024 1 [place] [id number] Jaswinder Pena [id number] Jaswinder Pena 06/01/2024 1 [place] [id number] Jaswinder Pena [id number] Jaswinder Pena 07/04/2024 1 [place] [id number] Jaswinder Pena [id number] Jaswinder Pena Notes Date Note Type Note Provider Name and Address Organization Details Recorded Time 04/02/2023 text/html Pt is here to re-establish care BRITTON Rojas [address], [place], [address], [facility] CC video 04/02/2023 09:08:41 05/24/2024 text/html Jaswinder Pena is [...] PRN. 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 Notes [...] declinesTdap: declinesColonoscopy: 2021, managed by YAS Lora, TOMASA [address] [facility] [address], [place], [address], [facility] CC video 05/24/2024 15:31:51
--- OUTSIDE RECORDS SUMMARY | 2024-07-06 01:37 | XMS_ITS | Clinical Summary ---
Author Organization [email or web address] Address [address] [place] [address] Care Team Providers Care Manager Animation Name Role Phone Casgiuseppe Chanda CHAU Primary Care Provider [phone] Source Comments [email or web address],non-owned Affiliates and Associated Physician Practices is amultiple site organization consisting of ambulatory clinics and hospital sitesin [place], [place], [place] and [place]. This disclosure is being madepursuant to the Care Everywhere program and may not contain all information available regarding this patient. 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
--- OUTSIDE RECORDS SUMMARY | 2024-07-06 01:37 | XMS_ITS | Encounter Summary ---
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
--- OUTSIDE RECORDS SUMMARY | 2024-07-06 01:37 | XMS_ITS | Clinical Summary ---
Author Organization [facility] Argenis carson [facility] Address [address] [place] [address] Care Team Providers Care Billing Specialist Name Role Phone Unavailable Primary Care Provider [...] CDT Office Visit [facility] Oncology and Hematology - [place] [address] [facility] [address] [place] [address] Niels Kevin MD [address] [facility] [address] [place] [address] Health Maintenance Due Date Last Done Comments DTAP/TDAP/TD VACCINES (1 - Tdap) 12/28/1995 HEPATITIS B VACCINES (1 of 3 - 19+ 3-dose series) 12/01 COLORECTAL SCREENING 2021 Colorectal Cancer Screening 2021 FIT-DNA Q 3 years 2021 FIT/FOBT Q 1 year 2021 Flex Sig/CT Colonography Q 5 years 2021 INFLUENZA VACCINE (#1) 2023 Insurance [facility] [place]
--- OUTSIDE RECORDS SUMMARY | 2024-07-06 01:37 | XMS_ITS | Encounter Summary ---
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
--- OUTSIDE RECORDS SUMMARY | 2024-07-06 01:37 | XMS_ITS | Referral Summary ---
Author Organization [facility] Address [address] [place] [address] Care Team Providers Care Airplane Charter Clerk Name Role Phone Mauro Mosher NP Primary Care Provider [phone] Encounters Date Type Department Care Team Description 04/18/2024 9:54 AM INFANT CHILDCARE PROVIDER - 04/18/2024 1:06 PM [facility] Emergency [facility] Emergency Department [address] [place] [address] Exacerbation of Crohn's disease without complication [...] consult Assessment & Plan (02/10/2017 6:37 PM INFANT CHILDCARE PROVIDER): Will problem low Medrol to 60 mg [...] follow-up Assessment & Plan (02/10/2017 6:39 PM INFANT CHILDCARE PROVIDER): This is secondary to Crohn's disease flare. [...] drink = 0.6 oz pur e alcohol) [facility] [employer]kvilleities Answer Date Recorded In the past 12 months has [employer], gas, oil, or water [employer] threatened to shut off services in your [...] often do you attend chur ch or hinduism services? Never 06/25/2023 Do you belong to any clubs o r organizations such as worship groups, unions, fraternal or athletic groups, or [...] place to sleep or slept in a nursing home (including now)? No 06/25/2023 Personal Safety Answer Date Recorded Have you ever been in or are you currently in a harmful physical or emotional relationship or is someone making you feel afraid or unsafe? Denies 04/18/2024 Sex and Gender Information Value Date Recorded Sex Assigned at Not on file Legal Sex Male 8:15 AM INFANT CHILDCARE PROVIDER Gender Identity Not on file Sexual Orientation Not on file Last Filed Vital Signs Vital Sign Reading Time Taken Comments Blood Pressure 154/87 04/18/2024 1:00 PM INFANT CHILDCARE PROVIDER Pulse 84 04/18/2024 1:00 PM INFANT CHILDCARE PROVIDER Temperature 37.6 C (99.7 F) 04/18/2024 8:24 AM INFANT CHILDCARE PROVIDER Respiratory Rate 20 04/18/2024 12:07 PM INFANT CHILDCARE PROVIDER Oxygen Saturation 99% 04/18/2024 1:00 PM INFANT CHILDCARE PROVIDER Inhaled Oxygen Concentration - - Weight 115.1 kg (253 lb 12 oz) 04/18/2024 8:24 A M INFANT CHILDCARE PROVIDER Height 172.7 cm (5' 8 ) 04/18/2024 8:24 AM INFANT CHILDCARE PROVIDER Body Mass Index 38.58 04/18/2024 8:24 AM INFANT CHILDCARE PROVIDER Plan of Treatment Not on file Procedures Procedure Name Priority Date/Time Associated Diagnosis Comments XR KNEE RIGHT 1 OR 2 VIEWS ED 04/18/2024 11:49 AM INFANT CHILDCARE PROVIDER CT ABDOMEN PELVIS W CONTRAST ED 04/18/2024 10:45 AM INFANT CHILDCARE PROVIDER URINALYSIS, MICROSCOPIC ONLY STAT 04/18/2024 8:33 AM INFANT CHILDCARE PROVIDER URINALYSIS AND REFLEX TO MICROSCOPIC AND CULTURE STAT 04/18/2024 8:33 AM INFANT CHILDCARE PROVIDER EGFR STAT 04/18/2024 8:30 AM INFANT CHILDCARE PROVIDER DIFFERENTIAL AUTO STAT 04/18/2024 8:3 0 AM INFANT CHILDCARE PROVIDER LIPASE STAT 04/18/2024 8:30 AM INFANT CHILDCARE PROVIDER COMPREHENSIVE METABOLIC PANEL STAT 04/18/2024 8:30 AM INFANT CHILDCARE PROVIDER CBC WITH AUTO DIFFERENTIAL STAT 04/18/2024 8:30 AM INFANT CHILDCARE PROVIDER HEPATITIS C ANTIBODY Routine 11/11/2018 11:46 AM CDT from Last 3 Months or Most Recently Relevant to Health Maintenance Results * XR Knee Right 1 or 2 Views (04/18/2024 11:49 AM INFANT CHILDCARE PROVIDER) Anatomical Region Laterality Modality Lower Extremities, Knee Right Computed Radiography 04/18/2024 12:1 8 PM INFANT CHILDCARE PROVIDER Narrative 04/18/2024 12:19 PM INFANT CHILDCARE PROVIDER EXAM DESCRIPTION: XR KNEE RIGHT 1 OR [...] Ehsan Cox M.D. KN: AJ Report ID: [id number] Reading Location: [id number] Procedure Note Ehsan Cox MD - 04/18/2024 [...] Ehsan Cox M.D. KN: AJ Report ID: [id number] Reading Location: [id number] Kia GARCIA IMG XR PROCEDURES Final Result * CT Abdomen Pelvis W Contrast (04/18/2024 10:45 AM INFANT CHILDCARE PROVIDER) Anatomical Region Laterality Modality Body N/A Computed Tomogra phy 04/18/2024 11:1 3 AM INFANT CHILDCARE PROVIDER Narrative 04/18/2024 11:41 AM INFANT CHILDCARE PROVIDER EXAM DESCRIPTION: CT ABDOMEN PELVIS W CONTRAST [...] Ron Schwartz M.D. LB: NICOLÁS Report ID: [id number] Reading Location: [id number] Procedure Note Ron Schwartz MD - 04/18/2024 [...] Ron Schwartz M.D. LB: NICOLÁS Report ID: [id number] Reading Location: [id number] Kia GARCIA IMSophia CT PROCEDURES Final Result * (ABNORMAL) Urinalysis reflex to microscopic and culture Urine (04/18/2024 8:33 AM INFANT CHILDCARE PROVIDER) Color, ur Yellow Yellow Comment:Testing performed by : [address] [address] Clarity, ur Clear Clear LEILA Comment:Testing performed by : [address] [address] Specific gravity, ur 1.017 1.003 - 1.030 LEILA Comment:Testing performed by : [address] [address] pH, urine 5.5 LEILA Comment: Interpretive Data U rine pH is affected by diet, medications, systemic acid-base disturbances, and renal tubular function. pH may affect urinary stone formation. For example, urine pH below 6.0 may help reduce the tendency for calcium phosphate stones and pH greater than 6.0 may reduce the tendency for uric acid stone formation. Source: Izaguirre Ozmott Current Interpretive Data was last revised on 2017 Testing performed by: [address] [address] Protein, ur ql 1+(A) Negative LEILA Comment:Testing performed by : [address] [address] Glucose, ur ql Negative Negative LEILA Comment:Testing performed by : [address] [address] Ketones, ur 1+(A) Negative LEILA Comment:Testing performed by : [address] [address] Bilirubin, ur Negative Negative LEILA Comment:Testing performed by : [address], [place]., [address] Blood, ur Trace(A) Negative LEILA Comment:Testing performed by : [address], [place]., [address] Urobilinogen, ur <2.0 <2.0 mg/dL LEILA Comment:Testing performed by : [address], [place]., [address] Nitrite, ur Negative Negative LEILA Comment:Testing performed by : [address], [place]., [address] Leukocyte esterase, ur Negative Negative LEILA Comment:Testing performed by : [address], [place]., [address] UA reflex comment Reflex to microscopic UA will be performed. LEILA Comment:Testing performed by : [address], [place]., [address] Urine 04/18/2024 8:33 AM INFANT CHILDCARE PROVIDER 04/18/2024 8:38 AM INFANT CHILDCARE PROVIDER us Christopher Balderrama MD LAB MICROBIOLOGY - GENERAL ORDER NEHEMIAS Final Result LEILA [address] [facility] Department of Laboratories [place], [place] [id number] * (ABNORMAL) Urinalysis, microscopic only (04/18/2024 8:33 AM INFANT CHILDCARE PROVIDER) WBC, ur 0-5 0 - 5 /HPF Comment:Testing performed by : [address], [place]., [address] RBC, ur 3-5(A) 0 - 2 /HPF LEILA Comment:Testing performed by : [address], [place]., [address] Epithelial cells, squamous, ur 11-20(A) 0 - 5 /HPF LEILA Comment:Testing performed by : [address], [place]., [address] Bacteria, ur Trace(A) LEILA Comment:Testing performed by : [address] [address] Mucous, ur Present(A) LEILA Comment:Testing performed by : [address] [address] Granular casts, ur 1-5(A) 0 - 0 /LPF LEILA Comment:Testing performed by : [address] [address] Culture Reflex Comment Reflex conditions for urine culture (WBC >10) not met. LEILA Comment:Testing performed by : [address] [address] Urine 04/18/2024 8:33 AM INFANT CHILDCARE PROVIDER 04/18/2024 8:38 AM INFANT CHILDCARE PROVIDER us Christopher Balderrama MD LAB URINE ORDERABLES Final Resul t LEILA [address] [facility] Department [place] [address] * eGFR (04/18/2024 8:30 AM INFANT CHILDCARE PROVIDER) eGFR 75 >=60 mL/min/1. 73 m2 Comment: [...] was last reviewed 2020. Testing performed by: [address] [address] Blood 04/18/2024 8:30 AM INFANT CHILDCARE PROVIDER 04/18/2024 8:38 AM INFANT CHILDCARE PROVIDER us Christopher Balderrama MD LAB BLOOD ORDERABLES Final Resul t LEILA [address] [facility] Department [place] [address] * (ABNORMAL) Differential, auto (04/18/2024 8:30 AM INFANT CHILDCARE PROVIDER) Neutrophil abs 8.2(H) 1.5 - 6.5 K/cumm Comment:Testing performed by : [address] [address] Imm gran abs 0.0 0.0 - 0.1 K/cumm LEILA Comment:Testing performed by : [address] [address] Lymphocyte abs 1.7 0.8 - 3.3 K/cumm LEILA Comment:Testing performed by : [address] [address] Monocyte abs 0.9(H) 0.2 - 0.8 K/cumm LEILA Comment:Testing performed by : [address] [address] Eosinophil abs 0.1 0.0 - 0.5 K/cumm LEILA Comment:Testing performed by : [address] [address] Basophil abs 0.1 0.0 - 0.1 K/cumm [facility] Comment:Testing performed by : [address] [address] Neutrophil pct 74.3 % LEILA Comment: Interpretive Data Percent cell count reference ranges are not reported, since discordance with absolute values may lead to misinterpretation of CBC data. Current Interpretive Data was last revised on 2017. Testing performed by: [address] [address] Imm gran pct 0.3 % LEILA Comment: Interpretive Data Percent cell count reference ranges are not reported, since discordance with absolute values may lead to misinterpretation of CBC data. Current Interpretive Data was last revised on 2017. Testing performed by: [address] [address] Lymphocyte pct 15.6 % [facility] Comment: Interpretive Data Percent cell count reference ranges are not reported, since discordance with absolute values may lead to misinterpretation of CBC data. Current Interpretive Data was last revised on 2017. Testing performed by: [address] [address] Monocyte pct 8.4 % [facility] Comment: Interpretive Data Percent cell count reference ranges are not reported, since discordance with absolute values may lead to misinterpretation of CBC data. Current Interpretive Data was last revised on 2017. Testing performed by: [address] [address] Eosinophil pct 0.9 % [facility] Comment: Interpretive Data Percent cell count reference ranges are not reported, since discordance with absolute values may lead to misinterpretation of CBC data. Current Interpretive Data was last revised on 2017. Testing performed by: [address] [address] Basophil pct 0.5 % [facility] Comment: Interpretive Data Percent cell count reference ranges are not reported, since discordance with absolute values may lead to misinterpretation of CBC data. Current Interpretive Data was last revised on 2017. Testing performed by: [address] [address] Blood 04/18/2024 8:30 AM INFANT CHILDCARE PROVIDER 04/18/2024 8:39 AM INFANT CHILDCARE PROVIDER us Christopher Balderrama MD LAB BLOOD ORDERABLES Final Resul t LEILA MONTES DE OCA [address] [facility] Department of Laboratories [place], [place] [id number] * (ABNORMAL) CBC with auto differential (04/18/2024 8:30 AM INFANT CHILDCARE PROVIDER) WBC 11.0(H) 3.8 - 9.9 K/cumm Comment:Testing performed by : [address] [address] Hgb 15.0 13.0 - 17.5 g/dL LEILA Comment:Testing performed by : [address] [address] Hct 45.7 38.9 - 50.3 % LEILA Comment:Testing performed by : [address] [address] Plt 319 150 - 400 K/cumm LEILA Comment:Testing performed by : [address] [address] MPV 10.7 9.1 - 12.3 fL LEILA Comment:Testing performed by : [address] [address] RBC 5.43 4.30 - 5.80 M/cumm LEILA Comment:Testing performed by : [address] [address] MCV 84.2 81.3 - 96.4 fL LEILA Comment:Testing performed by : [address] [address] MCH 27.6 27.1 - 33.3 pg LEILA Comment:Testing performed by : [address] [address] MCHC 32.8 32.3 - 35.7 g/dL LEILA Comment:Testing performed by : [address] [address] RDW CV 13.6 11.1 - 14.9 % LEILA Comment:Testing performed by : [address] [address] RDW SD 41.8 35.7 - 48.1 fL LEILA Comment:Testing performed by : [address] [address] NRBC abs 0.00 0.00 - 0.01 K/cumm LEILA Comment:Testing performed by : [address] [address] Blood Venous blood specimen / Unknown 04/18/2024 8:30 AM INFANT CHILDCARE PROVIDER 04/18/2024 8:39 AM INFANT CHILDCARE PROVIDER us Christopher Balderrama MD LAB BLOOD ORDERABLES Final Resul t Performing Organization Address City/[facility]/ZIP Co de Phone Number LEILA [address] [address] * Lipase (04/18/2024 8:30 AM INFANT CHILDCARE PROVIDER) Lipase 16 10 - 99 Units/L Comment:Testing performed by : [address] [address] Blood Venous blood specimen / Unknown 04/18/2024 8:30 AM INFANT CHILDCARE PROVIDER 04/18/2024 8:38 AM INFANT CHILDCARE PROVIDER us Christopher Balderrama MD LAB BLOOD ORDERABLES Final Resul t Performing Organization Address [facility] Co de Phone Number LEILA [address] [address] * (ABNORMAL) Comprehensive metabolic panel (04/18/2024 8:30 AM INFANT CHILDCARE PROVIDER) Pathologist [facility] Sodium 135 135 - 145 mmol/L Comment:Testing performed by : [address] [address] Potassium, pl 4.5 3.3 - 4.9 mmol/L LEILA Comment:Testing performed by : [address] [address] Chloride 98 97 - 110 mmol/L LEILA Comment:Testing performed by : [address] [address] CO2 20(L) 22 - 32 mmol/L LEILA Comment:Testing performed by : [address] [address] Anion gap 17(H) 2 - 15 mmol/L LEILA Comment:Testing performed by : [address] [address] BUN 10 6 - 25 mg/dL LEILA Comment:Testing performed by : [address] [address] Creatinine 1.20 0.80 - 1.30 mg/dL [facility] Comment:Testing performed by : [address] [address] Glucose 108 70 - 199 mg/dL [facility] Comment: Interpretive Data Fasting glucose >/= 126 [...] was last revised 2022. Testing performed by: [address] [address] Calcium 9.7 8.5 - 10.3 mg/dL [facility] Comment:Testing performed by : [address] [address] Bilirubin, total 0.6 0.1 - 1.2 mg/dL [facility] Comment:Testing performed by : [address] [address] Protein, pl 8.2 6.5 - 8.5 g/dL [facility] Comment:Testing performed by : [address] [address] Albumin 4.0 3.5 - 5.0 g/dL [facility] Comment:Testing performed by : [address] [address] Alk phos 107 40 - 130 Units/L [facility] Comment:Testing performed by : [address] [address] ALT 28 7 - 55 Units/L [facility] Comment:Testing performed by : [address] [address] AST 17 10 - 50 Units/L [facility] Comment:Testing performed by : [address] [address] Blood 04/18/2024 8:30 AM INFANT CHILDCARE PROVIDER 04/18/2024 8:38 AM INFANT CHILDCARE PROVIDER us Christopher Balderrama MD LAB BLOOD ORDERABLES Final Resul t Performing Organization Address City/[facility] Co de Phone Number LEILA [address] Department [place] [address] * Hepatitis C antibody (11/11/2018 11:46 AM CDT) Hep C Ab NONREACT NONREACTIVE [facility] Comment: Siemens CentaurXP using REBECA (chemiluminescent [...] JUDY MARTINEZ Final Result Performing Organization Address [facility] Co de Phone Number [address] [address], [facility] [phone] from Last 3 Months or Most Recently Relevant to Health Maintenance Insurance [facility] |[id number]|2024-07-06 01:37:00|2024-07-06 01:37:00|XMS_ITS|RADHA SAUNDERS|External Medical Summaries|[phone]|" Clinical Summary Created on: July 06, 2024 Jaswinder Pena : 1975 Sex: Male Author Organization [facility] Address [address] [place] [address] Care Team Providers Care Airplane Charter Clerk Name Role Phone Mauro Mosher NP Primary Care Provider [phone] Allergies No known active allergies Medications adalimumab [...] consult Assessment & Plan (02/10/2017 6:37 PM INFANT CHILDCARE PROVIDER): Will problem low Medrol to 60 mg [...] follow-up Assessment & Plan (02/10/2017 6:39 PM INFANT CHILDCARE PROVIDER): This is secondary to Crohn's disease flare. [...] Department Care Team Description 04/18/2024 9:54 AM INFANT CHILDCARE PROVIDER - 04/18/2024 1:06 PM [facility] Emergency [facility] Emergency Department [address] [place] [address] Exacerbation of Crohn's disease without complication (HCC) [...] drink = 0.6 oz pur e alcohol) [facility] [employer]kvilleities Answer Date Recorded In the past 12 months has [employer], [employer], oil, or water [employer] threatened to shut off services in your [...] often do you attend chur ch or hinduism services? Never 06/25/2023 Do you belong to any clubs o r organizations such as worship groups, unions, fraternal or athletic groups, or [...] place to sleep or slept in a nursing home (including now)? No 06/25/2023 Personal Safety Answer Date Recorded Have you ever been in or are you currently in a harmful physical or emotional relationship or is someone making you feel afraid or unsafe? Denies 04/18/2024 Sex and Gender Information Value Date Recorded Sex Assigned at Not on file Legal Sex Male 8:15 AM INFANT CHILDCARE PROVIDER Gender Identity Not on file Sexual Orientation Not on file Obstetrics History Last Filed Vital Signs Vital Sign Reading Time Taken Comments Blood Pressure 154/87 04/18/2024 1:00 PM INFANT CHILDCARE PROVIDER Pulse 84 04/18/2024 1:00 PM INFANT CHILDCARE PROVIDER Temperature 37.6 C (99.7 F) 04/18/2024 8:24 AM INFANT CHILDCARE PROVIDER Respiratory Rate 20 04/18/2024 12:07 PM INFANT CHILDCARE PROVIDER Oxygen Saturation 99% 04/18/2024 1:00 PM INFANT CHILDCARE PROVIDER Inhaled Oxygen Concentration - - Weight 115.1 kg (253 lb 12 oz) 04/18/2024 8:24 A M INFANT CHILDCARE PROVIDER Height 172.7 cm (5' 8 ) 04/18/2024 8:24 AM INFANT CHILDCARE PROVIDER Body Mass Index 38.58 04/18/2024 8:24 AM INFANT CHILDCARE PROVIDER Plan of Treatment Health Maintenance Due Date [...] OR 2 VIEWS ED 04/18/2024 11:49 AM INFANT CHILDCARE PROVIDER CT ABDOMEN PELVIS W CONTRAST ED 04/18/2024 10:45 AM INFANT CHILDCARE PROVIDER URINALYSIS, MICROSCOPIC ONLY STAT 04/18/2024 8:33 AM INFANT CHILDCARE PROVIDER URINALYSIS AND REFLEX TO MICROSCOPIC AND CULTURE STAT 04/18/2024 8:33 AM INFANT CHILDCARE PROVIDER EGFR STAT 04/18/2024 8:30 AM INFANT CHILDCARE PROVIDER DIFFERENTIAL AUTO STAT 04/18/2024 8:3 0 AM INFANT CHILDCARE PROVIDER LIPASE STAT 04/18/2024 8:30 AM INFANT CHILDCARE PROVIDER COMPREHENSIVE METABOLIC PANEL STAT 04/18/2024 8:30 AM INFANT CHILDCARE PROVIDER CBC WITH AUTO DIFFERENTIAL STAT 04/18/2024 8:30 AM INFANT CHILDCARE PROVIDER HEPATITIS C ANTIBODY Routine 11/11/2018 11:46 AM CDT from Last 3 Months or Most Recently Relevant to Health Maintenance Results * XR Knee Right 1 or 2 Views (04/18/2024 11:49 AM INFANT CHILDCARE PROVIDER) Anatomical Region Laterality Modality Lower Extremities, Knee Right Computed Radiography 04/18/2024 12:1 8 PM INFANT CHILDCARE PROVIDER Narrative 04/18/2024 12:19 PM INFANT CHILDCARE PROVIDER EXAM DESCRIPTION: XR KNEE RIGHT 1 OR [...] signed by Ehsan ROCHA: AJ Report ID: [id number] Reading Location: [id number] Procedure Note Ehsan Cox MD - 04/18/2024 [...] signed by Ehsan ROCHA: AJ Report ID: [id number] Reading Location: [id number] Kia LEUNG XR PROCEDURES Final Result * CT Abdomen Pelvis W Contrast (04/18/2024 10:45 AM INFANT CHILDCARE PROVIDER) Anatomical Region Laterality Modality Body N/A Computed Tomogra phy 04/18/2024 11:1 3 AM INFANT CHILDCARE PROVIDER Narrative 04/18/2024 11:41 AM INFANT CHILDCARE PROVIDER EXAM DESCRIPTION: CT ABDOMEN PELVIS W CONTRAST [...] Electronically signed by Ron Schwartz M.D. LB: LB Report ID: [id number] Reading Location: [id number] Procedure Note Ron Schwartz MD - 04/18/2024 [...] Ron Schwartz M.D. LB: NICOLÁS Report ID: [id number] Reading Location: [place] [address] Kia GARCIA [facility] [place]ED[place] Final Result * (ABNORMAL) Urinalysis reflex to microscopic and culture Urine (04/18/2024 8:33 AM INFANT CHILDCARE PROVIDER) Color, ur Yellow Yellow Comment:Testing performed by : [address] [address] Clarity, ur Clear Clear LEILA Comment:Testing performed by : [address] [address] Specific gravity, ur 1.017 1.003 - 1.030 LEILA Comment:Testing performed by : [address] [address] pH, urine 5.5 LEILA Comment: Interpretive Data U rine pH is affected by diet, medications, systemic acid-base disturbances, and renal tubular function. pH may affect urinary stone formation. For example, urine pH below 6.0 may help reduce the tendency for calcium phosphate stones and pH greater than 6.0 may reduce the tendency for uric acid stone formation. Source: [facility] Walk-in Appointment Scheduler Current Interpretive Data was last revised on 2017 Testing performed by: [facility], [address] [place] [address], [place]., [address] Protein, ur ql 1+(A) Negative LEILA Comment:Testing performed by : [address], [place]., [address] Glucose, ur ql Negative Negative LEILA Comment:Testing performed by : [address], [place]., [address] Ketones, ur 1+(A) Negative LEILA Comment:Testing performed by : [address], [place]., [address] Bilirubin, ur Negative Negative LEILA Comment:Testing performed by : [address], [place]., [address] Blood, ur Trace(A) Negative LEILA Comment:Testing performed by : [address], [place]., [address] Urobilinogen, ur <2.0 <2.0 mg/dL LEILA Comment:Testing performed by : [address] [address] Nitrite, ur Negative Negative LEILA Comment:Testing performed by : [address] [address] Leukocyte esterase, ur Negative Negative LEILA Comment:Testing performed by : [address], [place]., [address] UA reflex comment Reflex to microscopic UA will be performed. LEILA Comment:Testing performed by : [address], [place]., [address] Urine 04/18/2024 8:33 AM INFANT CHILDCARE PROVIDER 04/18/2024 8:38 AM INFANT CHILDCARE PROVIDER us Christopher Balderrama MD LAB MICROBIOLOGY - GENERAL ORDER NEHEMIAS Final Result Performing Organization Address [facility]/ZIP Co de Phone Number LEILA [address] Department [place] [address] * (ABNORMAL) Urinalysis, microscopic only (04/18/2024 8:33 AM INFANT CHILDCARE PROVIDER) Pathologist [facility] WBC, ur 0-5 0 - 5 /HPF Comment:Testing performed by : [address] [address] RBC, ur 3-5(A) 0 - 2 /HPF LEILA Comment:Testing performed by : [address], [place]., [address] Epithelial cells, squamous, ur 11-20(A) 0 - 5 /HPF LEILA Comment:Testing performed by : [address], [place]., [address] Bacteria, ur Trace(A) LEILA Comment:Testing performed by : [address] [address] Mucous, ur Present(A) LEILA Comment:Testing performed by : [address], [place]., [address] Granular casts, ur 1-5(A) 0 - 0 /LPF LEILA Comment:Testing performed by : [address] [address] Culture Reflex Comment Reflex conditions for urine culture (WBC >10) not met. [facility] Comment:Testing performed by : [address] [address] Urine 04/18/2024 8:33 AM INFANT CHILDCARE PROVIDER 04/18/2024 8:38 AM INFANT CHILDCARE PROVIDER us Christopher Balderrama MD LAB URINE ORDERABLES Final Resul t Performing Organization Address City/[facility]/ZIP Co de Phone Number [facility] Department [place] [address] * eGFR (04/18/2024 8:30 AM INFANT CHILDCARE PROVIDER) Pathologist [facility] eGFR 75 >=60 mL/min/1. 73 m2 Comment: [...] was last reviewed 2020. Testing performed by: [address] [address] Blood 04/18/2024 8:30 AM INFANT CHILDCARE PROVIDER 04/18/2024 8:38 AM INFANT CHILDCARE PROVIDER us Christopher Balderrama MD LAB BLOOD ORDERABLES Final Resul t [facility] [address] [facility] Department [place] [address] * (ABNORMAL) Differential, auto (04/18/2024 8:30 AM INFANT CHILDCARE PROVIDER) Neutrophil abs 8.2(H) 1.5 - 6.5 K/cumm Comment:Testing performed by : [address] [address] Imm gran abs 0.0 0.0 - 0.1 K/cumm LEILA Comment:Testing performed by : [address] [address] Lymphocyte abs 1.7 0.8 - 3.3 K/cumm LEILA Comment:Testing performed by : [address] [address] Monocyte abs 0.9(H) 0.2 - 0.8 K/cumm LEILA Comment:Testing performed by : [address] [address] Eosinophil abs 0.1 0.0 - 0.5 K/cumm CERRON Comment:Testing performed by : [address] [address] Basophil abs 0.1 0.0 - 0.1 K/cumm CERRON Comment:Testing performed by : [address] [address] Neutrophil pct 74.3 % [facility] Comment: Interpretive Data Percent cell count reference ranges are not reported, since discordance with absolute values may lead to misinterpretation of CBC data. Current Interpretive Data was last revised on 2017. Testing performed by: [address] [address] Imm gran pct 0.3 % [facility] Comment: Interpretive Data Percent cell count reference ranges are not reported, since discordance with absolute values may lead to misinterpretation of CBC data. Current Interpretive Data was last revised on 2017. Testing performed by: [address] [address] Lymphocyte pct 15.6 % [facility] Comment: Interpretive Data Percent cell count reference ranges are not reported, since discordance with absolute values may lead to misinterpretation of CBC data. Current Interpretive Data was last revised on 2017. Testing performed by: [address] [address] Monocyte pct 8.4 % [facility] Comment: Interpretive Data Percent cell count reference ranges are not reported, since discordance with absolute values may lead to misinterpretation of CBC data. Current Interpretive Data was last revised on 2017. Testing performed by: [address] [address] Eosinophil pct 0.9 % [facility] Comment: Interpretive Data Percent cell count reference ranges are not reported, since discordance with absolute values may lead to misinterpretation of CBC data. Current Interpretive Data was last revised on 2017. Testing performed by: [address] [address] Basophil pct 0.5 % [facility] Comment: Interpretive Data Percent cell count reference ranges are not reported, since discordance with absolute values may lead to misinterpretation of CBC data. Current Interpretive Data was last revised on 2017. Testing performed by: [address] [address] Blood 04/18/2024 8:30 AM INFANT CHILDCARE PROVIDER 04/18/2024 8:39 AM INFANT CHILDCARE PROVIDER us Christopher Balderrama MD LAB BLOOD ORDERABLES Final Resul t LEILA [address] [facility] Department [place] [address] * (ABNORMAL) CBC with auto differential (04/18/2024 8:30 AM INFANT CHILDCARE PROVIDER) WBC 11.0(H) 3.8 - 9.9 K/cumm Comment:Testing performed by : [address] [address] Hgb 15.0 13.0 - 17.5 g/dL LEILA Comment:Testing performed by : [address] [address] Hct 45.7 38.9 - 50.3 % LEILA Comment:Testing performed by : [address] [address] Plt 319 150 - 400 K/cumm LEILA [place] Comment:Testing performed by : [address] [address] MPV 10.7 9.1 - 12.3 fL [facility]ILA [place] Comment:Testing performed by : [address] [address] RBC 5.43 4.30 - 5.80 M/cumm LEILA [place] Comment:Testing performed by : [address] [address] MCV 84.2 81.3 - 96.4 fL [facility]A [place] Comment:Testing performed by : [address] [address] MCH 27.6 27.1 - 33.3 pg [facility]ILA [place] Comment:Testing performed by : [address] [address] MCHC 32.8 32.3 - 35.7 g/dL [facility]A [place] Comment:Testing performed by : [address] [address] RDW CV 13.6 11.1 - 14.9 % [facility]ILA [place] Comment:Testing performed by : [address] [address] RDW SD 41.8 35.7 - 48.1 fL [facility]A [place] Comment:Testing performed by : [address] [address] NRBC abs 0.00 0.00 - 0.01 K/cumm LEILA [place] Comment:Testing performed by : [address] [address] Blood Venous blood specimen / Unknown 04/18/2024 8:30 AM INFANT CHILDCARE PROVIDER 04/18/2024 8:39 AM INFANT CHILDCARE PROVIDER us Christopher Balderrama MD LAB BLOOD ORDERABLES Final Resul t Performing Organization Address City/[facility] Co de Phone Number [address] [place] [address] * Lipase (04/18/2024 8:30 AM INFANT CHILDCARE PROVIDER) Lipase 16 10 - 99 Units/L Comment:Testing performed by : [address] [address] Blood Venous blood specimen / Unknown 04/18/2024 8:30 AM INFANT CHILDCARE PROVIDER 04/18/2024 8:38 AM INFANT CHILDCARE PROVIDER Christopher Balderrama MD LAB BLOOD ORDERABLES Final Resul t Performing Organization Address City/[facility] Co de Phone Number [address] Walk-in [place] [address] * (ABNORMAL) Comprehensive metabolic panel (04/18/2024 8:30 AM INFANT CHILDCARE PROVIDER) Sodium 135 135 - 145 mmol/L Comment:Testing performed by : [address] [address] Potassium, pl 4.5 3.3 - 4.9 mmol/L LEILA Comment:Testing performed by : [address] [address] Chloride 98 97 - 110 mmol/L LEILA Comment:Testing performed by : [address], [place]., [address] CO2 20(L) 22 - 32 mmol/L LEILA Comment:Testing performed by : [address], [place]., [address] Anion gap 17(H) 2 - 15 mmol/L LEILA Comment:Testing performed by : [address] [address] BUN 10 6 - 25 mg/dL LEILA Comment:Testing performed by : [address], [place]., [address] Creatinine 1.20 0.80 - 1.30 mg/dL LEILA Comment:Testing performed by : [address] [address] Glucose 108 70 - 199 mg/dL [facility] Comment: Interpretive Data Fasting glucose >/= 126 [...] was last revised 2022. Testing performed by: [address] [address] Calcium 9.7 8.5 - 10.3 mg/dL LEILA Comment:Testing performed by : [address] [address] Bilirubin, total 0.6 0.1 - 1.2 mg/dL LEILA Comment:Testing performed by : [address] [address] Protein, pl 8.2 6.5 - 8.5 g/dL [facility] Comment:Testing performed by : [address] [address] Albumin 4.0 3.5 - 5.0 g/dL [facility] Comment:Testing performed by : [address] [address] Alk phos 107 40 - 130 Units/L [facility] Comment:Testing performed by : [address] [address] ALT 28 7 - 55 Units/L [facility] Comment:Testing performed by : [address] [address] AST 17 10 - 50 Units/L [facility] Comment:Testing performed by : [address] [address] Blood 04/18/2024 8:30 AM INFANT CHILDCARE PROVIDER 04/18/2024 8:38 AM INFANT CHILDCARE PROVIDER us Christopher Balderrama MD LAB BLOOD ORDERABLES Final Resul t [facility] [address] [facility] Department [place] [address] * Hepatitis C antibody (11/11/2018 11:46 AM CDT) Pathologist [facility] Hep C Ab NONREACT NONREACTIVE [facility] Comment: Siemens NetflixaurX using REBECA (chemiluminescent immunoassay) technology. NONREACTIVE: Antibodies [...] Conteh MD LAB MICROBIOLOGY - GENERAL ORDE RABLES Final Result [facility] [address] [place] [address]
--- OUTSIDE RECORDS SUMMARY | 2024-07-06 01:37 | XMS_ITS | Encounter Summary ---
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
--- NOTE | 2024-07-06 10:33 | WPDANESEPPF ---
Anes - Initial Pre Proc Eval Procedure: Operation Date: 07/06/24 11:30 Proposed Procedures p Hand Assisted Laparoscopic Small Bowel Resection - Quincy Ochoa MD Date/Time: 07/06/24 10:33 Surgeon: Quincy Ochoa MD Pre Op Diagnosis: Small Bowel Obstruction Patient Data Age: 48 Gender: M Height: 1.73 m Weight: 119.1 kg Last Vital Signs Temp 36.9 C 06/29/24 14:59 Pulse 66 06/29/24 14:59 Resp 18 06/29/24 14:59 BP 149/80 H 06/29/24 14:59 Pulse Ox 99 06/29/24 14:59 O2 Del Method Room Air 06/29/24 14:59 Allergies Allergy/AdvReac Type Severity Reaction Status Date / Time No Known Allergies Allergy Verified 06/29/24 14:20 Home Medications Medication Instructions Recorded Confirmed Type ustekinumab 90 mg/mL subcutaneous 90 mg subcut .Every 8 weeks #1 mL 06/07/24 06/29/24 Rx syringe (Stelara) acetaminophen 650 mg 650 mg PO Q8H PRN pain (scale 06/12/24 06/29/24 History tablet,extended release (Tylenol score 1-3) Arthritis Pain) cyclobenzaprine 5 mg tablet 5 mg PO Q8H PRN inflammation 06/12/24 06/29/24 History ergocalciferol (vitamin D2) 1,250 50,000 unit PO WEEKLY 06/12/24 06/29/24 History mcg (50,000 unit) capsule meloxicam 15 mg tablet 15 mg PO DAILY 06/12/24 06/29/24 History omeprazole 40 mg capsule,delayed 40 mg PO PRN HEARTBURN 06/12/24 06/29/24 History release budesonide 3 mg 6 mg (2 x 3 mg) PO DAILY 30 days 06/13/24 06/29/24 Rx capsule,delayed,extended release #60 ea prednisone 10 mg tablet 10 mg PO DIRECTED #70 tabs 06/17/24 06/29/24 Rx ciprofloxacin HCl 500 mg tablet 500 mg PO .COMPLEX #1 tablet 06/29/24 Rx ibuprofen 125 mg-acetaminophen 250 1 tablet PO PRN PAIN 06/29/24 06/29/24 History mg tablet (Dual Action Pain Reliever) metronidazole 500 mg tablet 500 mg PO .COMPLEX #3 tabs 06/29/24 Rx simethicone 125 mg capsule (Gas 125 mg PO DAILY PRN heartburn 06/29/24 06/29/24 History Relief (simethicone)) Patient hx anesthesia problems: none Family hx anesthesia problems: none Results Review: All pre-operative results and documents have been reviewed as part of the pre-operative evaluation. [facility] Past Medical History Medical History Bilateral sacroiliitis Abdominal bloating Tobacco use Leukocytosis Nausea Lower abdominal pain Crohn's disease of ileum Strain of quadriceps tendon Lateral meniscus tear Rheumatoid arthritis Abdominal pain Right knee pain Back pain Crohn's disease Arthritis Surgical History Surgical History No significant past surgical history Family History Family History Mother Diabetes mellitus Arthritis Hypothyroid Neuropathy Psoriasis Hypertension Asthma Grandparent Cancer Social History Social History Smoking packs per day: 1.5 Smoking cigarettes per day: 30.0 Years smoked: 30 Smoking pack-years: 45.00 Smoking status: Current every day smoker Tobacco type: cigarettes Second hand tobacco smoke exposure: Yes Alcohol intake: never Drinks per week: 1 Alcohol use details: 4 per month Substance use: never Substance use type: does not use Do You Feel Safe in your Home?: Yes Lack of Transportation: No Lack of Food: Never True Current Housing: I Have Housing Concerned About Future Housing: Decline to Answer Difficulty Paying Gas/Electric Bills: Decline to Answer Difficulty Paying for Meds: Decline to Answer Currently Unemployed: Decline to Answer Education: High School Diploma/GED Difficulty w/ Childcare or Family Care: Decline to Answer Living arrangements: with family Gender identity (if verbalized by the patient): Male Spiritual care concerns: No Anes - Eval Final PreProcedure Day of Procedure 07/06/24 10:33 Patient weight: obese Heart: regular rate and rhythm Lungs: decreased breath sounds Airway: Mallampati scale class II Neurological: alert and oriented Last oral intake: >/= 8 hours ASA classification: III Emergent: no Anesthetic plan: proceed Anesthesia type and monitoring: general ETT Results Review: All pre-operative results and documents have been reviewed as part of the pre-operative evaluation. Informed Consent: The patient's anesthetic plan and its attendant risks and benefits were discussed with the patient/family/POA. Questions were solicited and answers provided to the satisfaction of the patient/family/POA.
[2024-07-06] MEDS: LACTATED RINGERS 1,000 ML 30 ML IV CONT ×2 (10:35→14:19)
--- NOTE | 2024-07-06 10:47 | WPDHPUPDATE1 ---
History and Physical Update Update Date/Time: 07/06/24 10:47 History and Physical has been reviewed, including an updated exam of the patient. There are NO changes in the patient's condition. Risks, benefits, and alternatives have been discussed and questions answered. Patient agrees to proceed with procedure.
[2024-07-06] MEDS: KETOROLAC 15 MG/ML VIAL (*BKC) IV PUSH (10:51)
[2024-07-06] MEDS: ACETAMINOPHEN 500 MG TABLET 1000 MG PO (10:51)
[2024-07-06] MEDS: ALVIMOPAN 12 MG CAPSULE PO (10:51)
[2024-07-06] MEDS: ceFAZolin 2 GM/D5W 50 ML 2 GM/50 ML BAG IVPB (11:11)
[2024-07-06] MEDS: metroNIDAZOLE 500 MG/ISO 100ML 500 MG/100 ML BAG 100 MG IVPB (11:11)
[2024-07-06] MEDS: BUPIVACAINE/EPINEPHRINE 0.5% 50 ML VIAL 30 ML INFILTRATE (11:33)
--- NOTE | 2024-07-06 14:39 | W.PM.PROC2 ---
Procedure Note - Detailed Date of Procedure 07/06/24 Pre-op Diagnosis Crohn's ileitis with small bowel obstruction Post-op Diagnosis Same Procedure Performed Hand access laparoscopic ileocolic resection with hand-sewn ileocolonic anastomosis. Surgeon Quincy Ochoa MD Supervisor Felling Bucking Zahraa Robles [facility] Anesthesia General and Local Indications Patient is a 48-year-old man with known Crohn's disease of the distal ileum. He has had small intestinal obstructions in the last year. I saw him recently when he was admitted to the hospital for small-bowel obstruction. 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 Crain, he is unlikely to have resolution of this with medical therapy. He is currently on 20 mg of prednisone per day with a slow taper. He is taken to surgery now for hand access laparoscopic small-bowel resection. Findings The distal ileum was densely adherent to itself and the cecum such that these adhesions could not be taken down and the area of Crohn's disease could not be removed without ileocolic resection. The most distal ileum was doubled back on itself and adherent to the cecum. Just distal to this, it appeared there was a fistula to the cecum or very proximal ascending colon. The distal small intestine was very dilated suggesting persistent obstruction. The entire inflammatory mass involving the cecum and distal ileum was removed and healthy but dilated ileum was used to create a [id number] but functional end-to-end with the ascending colon. No further evidence of disease was noted. Description of Procedure The patient was taken to surgery and induced into general anesthesia. The abdomen was prepped and draped. The hand access port was planned in the midline just above the umbilicus. Local was infiltrated in the area of the planned incision and in the subcutaneous tissues. Incision was made and dissection was carried down through the subcutaneous. Once the midline fascia was exposed, additional local was infiltrated into the fascia and the preperitoneal tissues. We then dissected through the midline fascia and eventually gained access to the peritoneal cavity. The peritoneum incision was lengthened commensurate with the wound. The Lemuel wound guard was then placed. A GelPort was placed. With the hand in the abdomen, local was infiltrated in the right lower quadrant. Incision was made and a 5 mm port was placed here. Insufflation of the peritoneal cavity with CO2 was then carried out. Under direct visualization, a left lower quadrant 5 mm port was then placed. There was 1 omental adhesion to the anterior abdominal wall which was taken down with the LigaSure. We then reviewed the distal ileum and cecum. The inflammatory mass described above was noted. I could really see any fat wrapping on the distal ileum. The ileum leading to what appeared be an ileocolonic fistula was the point of obstruction. Small bowel was quite dilated proximal to this for several feet. I elevated the cecum and the inflammatory mass. I used the LigaSure to divide the mesentery at its base. I gained access to the retroperitoneum in this fashion. I then used a combination of LigaSure and blunt dissection to dissect up to the transverse colon mesentery. I then divided the lateral peritoneal attachments to the cecum and ascending colon up to the hepatic flexure. I then went back to the distal ileum. I went proximal on the ileum to an area where there was no involvement with the inflammatory mass. I looked again to the base of the mesentery here. Using the LigaSure, I made an opening in the mesentery just proximal to the involved ileum. I then followed the mesenteric defect on distally. I found the ileocolic artery. I dissected around the ileocolic artery with the LigaSure. I then divided the ileocolic artery with the LigaSure. I continued dividing some of the ascending colon mesentery near its base. At this point, we had the inflammatory mass of distal ileum and cecum fully mobile. I stopped insufflation and removed the GelPort. I tried to eviscerate the inflammatory mass but the initial incision for the hand access port was just a bit too small. I lengthened the incision just down to the upper half of the umbilicus. The fascia was divided to this point as well. Following this, I was able to eviscerate the distal ileum, inflammatory mass, and proximal ascending colon. With this eviscerated, the adhesions of the distal ileum were quite chronic in dense. There could be at least 1 if not more than 1 fistula involved. The more proximal ileal adhesion did appear to involve a fistula and was the point of obstruction or transition point. I divided the mesentery to the mid ascending colon using the LigaSure. I cleared some of the epiploica and mesenteric fat from this portion of the colon. I then divided the mid ascending colon using a TLC 75 stapler. I then turned back to the very dilated small intestine. I went about 12-18 inches proximal to the point of obstruction. The ileum was not quite as dilated here as it was on distally. I then divided the mesentery to this portion of distal ileum using the LigaSure. I also freed some of the surrounding fat on the small-bowel mesentery. I again used the TLC 75 stapler to divide the ileum at the this point. The specimen was then passed off to pathology in formalin labeled as ileocolic resection. I dissected a bit more of the epiploica and mesenteric fat of the ascending colon. This was now satisfactory for anastomosis. The bowel was still very dilated at the distal ileal line of resection. I used multiple 4-0 silk Lembert sutures to imbricate the suture line of the distal ileum. I was then able to place the distal ileum and proximal ascending colon in [id number] fashion near 1 another. I proceeded with a hand-sewn 2 layer [id number] but functional end-to-end anastomosis. A posterior outer layer was made of 4-0 silk Lembert suture. Noncrushing bowel clamps were placed proximal on the ileum and distal on the ascending colon. I then opened the colon and small bowel mirror images up apart from 1 another. Bidirectional running 4-0 chromic suture was then used to close the posterior inner layer as well as the anterior inner layer tying the suture together in the midline. I then finally closed the anastomosis with an anterior outer layer of 4-0 silk Lembert suture. All looked good. The bowel appeared quite healthy. I dunked the anastomosis back into the peritoneal cavity. We replaced the GelPort and re-insufflated the abdomen. Using laparoscopy and had access, I then removed any residual blood in the abdomen. I looked at the anastomosis laparoscopically. All looked good. No other abnormalities were seen. I then placed the omentum over the anastomosis. We stopped insufflation and evacuated CO2. The GelPort and Lemuel were removed. Sponge and needle counts were correct. We then closed the fascia at the hand access port with bidirectional running 0 PDS suture. Interrupted subcutaneous 3-0 Vicryl sutures were then placed in the subcutaneous. The skin was then loosely approximated with 3-0 and 4-0 Vicryl subcuticular skin suture. Finally a running 4-0 Monocryl skin suture was used to close the skin on the hand access port. The 2 trocar sites were closed at skin level with subcuticular 4-0 Monocryl skin suture. All wounds were dressed with Exofin surgical adhesive. The patient was awakened and taken to recovery in good condition. Sponge needle counts were correct x2. Estimated Blood Loss -20 Drains No Packing No Pathology Yes (Ileocolic resection) Complications None Condition Stable Disposition PACU [facility] Billing Surgery - Charge Forward: Surgery Billing (Hand access laparoscopic ileocolic resection with hand-sewn ileocolonic anastomosis.)
[2024-07-06] MEDS: fentaNYL CITRATE INJ (*CRX) 100 MCG/2 ML VIAL 25 MCG IV PUSH ×4 (15:11→15:19)
[2024-07-06] MEDS: LACTATED RINGERS 1,000 ML 80 ML IV CONT (16:26)
[2024-07-06] MEDS: IBUPROFEN IV 800 MG/200 ML 800 MG/200 ML BAG 400 MG IVPB ×2 (16:40→23:27)
--- NOTE | 2024-07-06 16:50 | ADMGEN ---
This patient, Jaswinder Pena, was admitted to 3 [facility] Surg Room 302-01. Patient/family oriented to hospital policies and general routines including ID bracelet, bed and alarms, visiting hours, pain management, procedures, bathroom and other care routines, personal items, smoking policy, room service/diet, and visiting hours. Information on how to activate the Rapid Response Team has been discussed. Patient/Family are encouraged to report perceived risks to care and to ask questions if they do not understand what they are told or what they should do.
[2024-07-06] MEDS: FAMOTIDINE 20 MG TABLET PO (20:02)
[2024-07-06] MEDS: SIMETHICONE 125 MG CHEW TAB PO (20:02)
[2024-07-06] MEDS: MORPHINE SULFATE (*CRX) 4 MG/ML INJ IV PUSH (20:02)
[2024-07-06] MEDS: ACETAMINOPHEN 500 MG TABLET PO (23:29)
[2024-07-06] MEDS: MORPHINE SULFATE (*CRX) 2 MG/ML INJ IV PUSH (23:30)
[2024-07-07 04:58] VITALS: BP 121/71; PULSE 60; RESP 18; TEMP 36.8; O2SAT 99
[2024-07-07] MEDS: SIMETHICONE 125 MG CHEW TAB PO (05:14)
[2024-07-07] MEDS: oxyCODONE/ACETAMINOPHEN (*CRX) 5-325 MG TABLET 1 TABLET PO ×4 (05:15→21:02)
[2024-07-07 06:13] LABS: Hematocrit 40.5 % (42.0-52.0); Hemoglobin 12.3 g/dL (14.0-18.0); Mean Corpuscular HGB Conc 30.4 g/dl (32-36); Mean Corpuscular Hemoglobin 27.3 pg (26-34); Mean Corpuscular Volume 89.8 fl (80-100); Mean Platelet Volume 10.9 fl (7.4-10.4); Platelet Count Result 268 k/mm3 (150-375); Red Blood Count 4.51 M/mm3 (4.6-6.20); Red Cell Distribution Width 15.8 % (11.5-14.5); White Blood Count 12.8 K/mm3 (4.5-10.0)
[2024-07-07 06:29] LABS: Anion Gap 5 mmol/L (4-12); Blood Urea Nitrogen 10 mg/dL (9-20); Calcium 8.8 mg/dL (8.4-10.2); Carbon Dioxide 29 mmol/L (22-30); Chloride 105 mmol/L (98-107); Estimated CRCL calculation 110 ml/min; Estimated Glomerular Filt Rate > 60; Glucose 84 mg/dL (65-110); Potassium 4.2 mmol/L (3.4-5.0); Sodium 139 mmol/L (137-145)
--- NOTE | 2024-07-07 07:15 | PM.PNGS ---
Progress Note: A&P Assessment and Plan (1) Status post partial resection of colon: Code(s): Z90.49 - Acquired absence of other specified parts of digestive tract Status: Acute Assessment and Plan: Doing well postop day 1. Status post ileocolonic resection. He has been up a couple of times to the bathroom. He has not had any nausea or vomiting. Pain is controlled with IV pain medication and more recently oral pain medication. Continue full liquid diet for now. Up walking. Recheck labs and exam again tomorrow. (2) Crohn's disease of ileum: Qualifiers: Digestive disease complication type: with intestinal obstruction Qualified Code(s): K50.012 - Crohn's disease of small intestine with intestinal obstruction Code(s): K50.00 - Crohn's disease of small intestine without complications Status: Chronic Assessment and Plan: Continue current outpatient steroid use with 20 mg prednisone daily. (3) Small bowel obstruction: Code(s): K56.609 - Unspecified intestinal obstruction, unspecified as to partial versus complete obstruction Status: Chronic Subjective Subjective Date/Time Seen: 07/07/24 07:15 Post Op day: 1 Patient reports: pain is less, voiding w/o difficulty, flatus, no bowel movement and afebrile Exam Const: General: comfortable and no acute distress Orientation/consciousness: patient oriented x3 GI: Inspection: non-distended, incision (Dry and healing) and obesity GI Palp: Yes Soft to palpation, Yes Tenderness to palpation present (GI) (Appropriate incisional tenderness), No Guarding due to palpation present (GI) and No Rebound tenderness present Neuro: General: patient oriented x3 and no focal motor deficits Extrem: General: no calf tenderness and no edema Psych: Affect: normal affect Insight: Good insight present (Psych) Judgement: Good judgement present (Psych) Objective Data Vital Signs Vital Signs: Vital Signs - 24 hr 07/06/24 11:00 07/06/24 14:10 07/06/24 14:19 Temperature 36.4 C 36.4 C 36.6 C Pulse Rate 80 64 80 Respiratory Rate 18 14 14 Blood Pressure 134/78 123/69 112/59 L Pulse Oximetry 100 98 98 Oxygen Delivery Room Air Simple Face Mask Oxygen Flow Rate 8 07/06/24 14:20 07/06/24 14:30 07/06/24 14:45 Temperature 36.4 C Pulse Rate 70 76 82 Respiratory Rate 18 12 20 Blood Pressure 129/67 124/66 120/68 Pulse Oximetry 98 94 97 Oxygen Delivery Room Air Nasal Cannula Oxygen Flow Rate 2 07/06/24 15:00 07/06/24 15:15 07/06/24 15:30 Temperature Pulse Rate 77 77 77 Respiratory Rate 16 14 18 Blood Pressure 106/59 L 103/53 L 107/64 Pulse Oximetry 98 98 98 Oxygen Delivery Nasal Cannula Nasal Cannula Nasal Cannula Oxygen Flow Rate 8 2 2 07/06/24 15:37 07/06/24 16:06 07/06/24 16:50 Temperature 36.2 C L Pulse Rate 75 71 Respiratory Rate 13 18 Blood Pressure 133/70 136/73 Pulse Oximetry 98 99 Oxygen Delivery Nasal Cannula Room Air Oxygen Flow Rate 2 07/06/24 17:50 07/06/24 20:00 07/06/24 21:23 Temperature 36.1 C L 37.1 C Pulse Rate 70 77 Respiratory Rate 18 16 Blood Pressure 132/74 142/76 H Pulse Oximetry 99 99 Oxygen Delivery Room Air Oxygen Flow Rate 07/07/24 04:58 Temperature 36.8 C Pulse Rate 60 Respiratory Rate 18 Blood Pressure 121/71 Pulse Oximetry 99 Oxygen Delivery Oxygen Flow Rate Intake/Output Intake/Output: Intake & Output 07/04/24 07/05/24 07/06/24 07/07/24 23:59 23:59 23:59 23:59 Intake Total 1455.3 0 Balance 1455.3 0 Meds/Results Medications: Active Medications Generic Name Dose Route Start Last Admin Trade Name Freq PRN Reason Stop Dose Admin Acetaminophen 500 mg 07/06/24 15:40 07/06/24 23:29 Acetaminophen 500 Mg Tablet PO 500 mg Q6H PRN Administration Pain Rated 1-3 Alvimopan 12 mg 07/07/24 21:00 Alvimopan 12 Mg Capsule PO 07/14/24 20:59 Q12HR MELLISSA Enoxaparin Sodium 40 mg 07/07/24 09:00 Enoxaparin 40 Mg/0.4 Ml Syringe SUB-Q DAILY MELLISSA Famotidine 20 mg 07/06/24 21:00 07/06/24 20:02 Famotidine 20 Mg Tablet PO 20 mg Q12HR MELLISSA Administration Lactated Ringer's 1,000 mls @ 80 mls/hr 07/06/24 15:40 07/07/24 00:01 Lr - Lactated Ringers Iv IV CONT 80 mls/hr .[id number] MELLISSA Infusion Ibuprofen 800 mg in 200 mls @ 400 mls/hr 07/06/24 15:40 07/06/24 23:57 Caldolor 800 Mg/200 Ml IVPB Infused Q6H PRN Infusion Breakthrough Pain Rated 1-3 or NPO Morphine Sulfate 2 mg 07/06/24 15:40 07/06/24 23:30 Morphine Sulfate (*Crx) 2 Mg/Ml Inj IV PUSH 2 mg Q2H PRN Administration Breakthrough Pain Rated 4-6 or NPO Morphine Sulfate 4 mg 07/06/24 15:40 07/06/24 20:02 Morphine Sulfate (*Crx) 4 Mg/Ml Inj IV PUSH 4 mg Q2H PRN Administration Breakthrough Pain Rated 7-10 or NPO Naloxone HCl 0.1 mg 07/06/24 15:40 Naloxone Hcl 0.4 Mg/Ml Vial IV PUSH Q2M PRN Opiate Reversal Ondansetron HCl 4 mg 07/06/24 15:40 Ondansetron Inj 4 Mg/2 Ml Vial IV PUSH Q4H PRN Nausea And Vomiting Oxycodone/Acetaminophen 1 tablet 07/06/24 15:40 07/07/24 05:15 Oxycodone/Acetaminophen (*Crx) 5-325 Mg Tablet PO 1 tablet Q4H PRN Administration Pain Rated 4-6 Prednisone 20 mg 07/07/24 08:00 Prednisone 20 Mg Tablet PO DAILY@0800 MELLISSA Simethicone 125 mg 07/06/24 15:40 07/07/24 05:14 Simethicone 125 Mg Chew Tab PO 125 mg DAILY PRN Administration heartburn Labs Labs: Laboratory Results - last 24 hr 07/07/24 05:25 WBC 12.8 H RBC 4.51 L Hgb 12.3 L Hct 40.5 L MCV 89.8 MCH 27.3 MCHC 30.4 L RDW 15.8 H Plt Count 268 MPV 10.9 H Sodium 139 Potassium 4.2 Chloride 105 Carbon Dioxide 29 Anion Gap 5 BUN 10 D Creatinine 0.91 Estim Creat Clear Calc 110 Estimated GFR > 60 Glucose 84 Calcium 8.8
[2024-07-07 08:00] VITALS: BP 129/71; PULSE 64; RESP 18; TEMP 36.1; O2SAT 100
[2024-07-07] MEDS: ENOXAPARIN 40 MG/0.4 ML SYRINGE SUB-Q (08:34)
[2024-07-07] MEDS: MORPHINE SULFATE (*CRX) 2 MG/ML INJ IV PUSH (08:34)
[2024-07-07] MEDS: LACTATED RINGERS 1,000 ML 80 ML IV CONT (08:36)
[2024-07-07] MEDS: predniSONE 20 MG TABLET PO (08:37)
[2024-07-07] MEDS: FAMOTIDINE 20 MG TABLET PO ×2 (08:37→21:01)
--- NOTE | 2024-07-07 09:36 | WPDANESPN ---
Anes - Prog Note Post-Op Date/Time: 07/07/24 09:36 Cardiovascular status: normal Respiratory status: normal Airway patency: baseline Mental status: baseline Post-Op hydration status: normal Vital Signs: Last Vital Signs Temp 36.1 C L 07/07/24 08:00 Pulse 64 07/07/24 08:00 Resp 18 07/07/24 08:00 BP 129/71 07/07/24 08:00 Pulse Ox 100 07/07/24 08:00 O2 Del Method Room Air 07/06/24 20:00 O2 Flow Rate 2 07/06/24 15:37 Pain Score (VAS): 05/09 I/O: Intake & Output 07/06/24 07/07/24 07/07/24 23:59 07:59 15:59 Intake Total 1205.3 434.7 240 Balance 1205.3 434.7 240 Laboratory Tests 07/07/24 05:25 07/07/24 05:25 07/07/24 05:25 WBC 12.8 H RBC 4.51 L Hgb 12.3 L Hct 40.5 L MCV 89.8 MCH 27.3 MCHC 30.4 L RDW 15.8 H Plt Count 268 MPV 10.9 H Sodium 139 Potassium 4.2 Chloride 105 Carbon Dioxide 29 Anion Gap 5 BUN 10 D Creatinine 0.91 Estim Creat Clear Calc 110 Estimated GFR > 60 Glucose 84 Calcium 8.8 Post-procedural complaints: none Patient Feedback: Patient satisfied with anesthetic care.
[2024-07-07 12:00] VITALS: BP 138/75; PULSE 67; RESP 18; TEMP 35.9; O2SAT 100
[2024-07-07 12:30] VITALS: TEMP 35.9
[2024-07-07 16:00] VITALS: BP 140/77; PULSE 62; RESP 18; TEMP 35.9; O2SAT 99
[2024-07-07 20:38] VITALS: BP 154/72; PULSE 73; RESP 17; TEMP 36; O2SAT 100
[2024-07-07] MEDS: ALVIMOPAN 12 MG CAPSULE PO (21:01)
[2024-07-08 05:22] LABS: Hematocrit 40.3 % (42.0-52.0); Mean Corpuscular HGB Conc 29.8 g/dl (32-36); Mean Corpuscular Hemoglobin 27.2 pg (26-34); Mean Corpuscular Volume 91.4 fl (80-100); Mean Platelet Volume 10.8 fl (7.4-10.4); Platelet Count Result 228 k/mm3 (150-375); Red Blood Count 4.41 M/mm3 (4.6-6.20); Red Cell Distribution Width 15.6 % (11.5-14.5); White Blood Count 9.3 K/mm3 (4.5-10.0)
[2024-07-08] MEDS: oxyCODONE/ACETAMINOPHEN (*CRX) 5-325 MG TABLET 1 TABLET PO ×2 (05:26→11:37)
[2024-07-08 05:37] LABS: Anion Gap 8 mmol/L (4-12); Blood Urea Nitrogen 10 mg/dL (9-20); Calcium 8.7 mg/dL (8.4-10.2); Carbon Dioxide 28 mmol/L (22-30); Chloride 106 mmol/L (98-107); Estimated CRCL calculation 105 ml/min; Estimated Glomerular Filt Rate > 60; Glucose 87 mg/dL (65-110); Potassium 4.1 mmol/L (3.4-5.0); Sodium 142 mmol/L (137-145)
[2024-07-08 05:39] VITALS: BP 162/81; PULSE 59; RESP 17; TEMP 36.1; O2SAT 100
[2024-07-08 08:00] VITALS: O2SAT 100
[2024-07-08] MEDS: ALVIMOPAN 12 MG CAPSULE PO (09:40)
[2024-07-08] MEDS: FAMOTIDINE 20 MG TABLET PO (09:40)
[2024-07-08] MEDS: ENOXAPARIN 40 MG/0.4 ML SYRINGE SUB-Q (09:41)
[2024-07-08] MEDS: predniSONE 20 MG TABLET PO (09:41)
--- NOTE | 2024-07-08 09:56 | P.DS_ITS ---
DS: Admitting Diagnosis Discharge Date 07/08/2024 Admitting Diagnosis * Crohn's ileitis * Persistent small bowel obstruction * Morbid obesity DS: Discharge Diagnosis Discharge Diagnosis (1) Status post partial resection of colon: Code(s): Z90.49 - Acquired absence of other specified parts of digestive tract Status: Acute Assessment and Plan: Patient underwent hand access laparoscopic ileocolic resection with hand-sewn ileocolonic anastomosis on 07/06/[address] Ochoa (2) Crohn's disease of ileum: Qualifiers: Digestive disease complication type: with intestinal obstruction Qualified Code(s): K50.012 - Crohn's disease of small intestine with intestinal obstruction Code(s): K50.00 - Crohn's disease of small intestine without complications Status: Chronic Assessment and Plan: Pathology pending when the resection but this was the working diagnosis and patient has had a long history of Crohn's ileitis. (3) Small bowel obstruction: Code(s): K56.609 - Unspecified intestinal obstruction, unspecified as to partial versus complete obstruction Status: Chronic Assessment and Plan: At surgery, evidence still remained of chronic persistent small bowel obstruction with very dilated small bowel leading up to the obstruction. DS: Summary Hospital Course Hospital Course: Patient underwent a home bowel preparation and then was taken to surgery on 07/06/2024. Hand access ileocolic resection was performed. The distal ileum leading up to the point of obstruction was very dilated even though the patient was not having any nausea or vomiting preoperatively. There was quite an inflammatory mass associated with the cecum and distal ileum. The point of obstruction appeared to be a fistula between the ileum and the cecum. Following surgery, the patient tolerated liquids well. He was advanced to a soft diet on postop day 1. He had a bowel movement on postoperative day 1 in the night. He was feeling much better, taking only oral analgesics, tolerating solid food, and ambulating independently on postop day 2., 07/08/2024. He is discharged on 07/08/2024. Status at Discharge Functional status at discharge: independent ambulation Overall status at discharge: patient is progressing back to baseline Time Spent with Patient Time attestation: Total time spent providing and/or coordinating discharge services: Time spent: Less than 30 minutes DS: Data Data Completed and Pending Pending studies at discharge: Pending at discharge 07/06/24 12:46 Surgical [PTH] Routine Labs on day of discharge: Labs from last 24 hours 07/08/24 05:02 WBC 9.3 RBC 4.41 L Hgb 12.0 L Hct 40.3 L MCV 91.4 MCH 27.2 MCHC 29.8 L RDW 15.6 H Plt Count 228 MPV 10.8 H Sodium 142 Potassium 4.1 Chloride 106 Carbon Dioxide 28 Anion Gap 8 BUN 10 Creatinine 0.96 Estim Creat Clear Calc 105 Estimated GFR > 60 Glucose 87 Calcium 8.7 Discharge Plan Discharge Attending physician on discharge: Quincy Ochoa Discharging Clinician: Quincy Ochoa Anticipated Discharge Date/Time: 07/08/24 14:00 Patient Disposition: Home Activity: may shower, no straining and as tolerated Diet: regular Wound Care Instructions: incision open to air Discharge Instructions: * Ambulate 3-4 x per day and as tolerated. * No lifting over 15-20lbs. * May bathe or shower. Please wash over incisions with soap and water regularly. * Stairs are OK. * May drive a car in 3 days. * Take prescription pain medication only if necessary. Try Tylenol or ibuprofen [id number] medications for lesser degrees of discomfort. * You may notice some blood in your stool for several more days. Call if there is persistent bleeding but otherwise this is normal. * See Dr. Ochoa on your scheduled appointment * Call for severe abdominal pain, persistent wound drainage or bleeding, nausea and vomiting, temp over 100.5, or other significant change in condition. Patient Instructions: Antibiotic Form Patient Language: Russian Stand Alone Forms: General Discharge Information Follow-up/Referrals: Quincy Ochoa MD [Physician] - Keep Reg. Scheduled Appt. Harris Crain MD [Physician] - 2 Weeks (Call for appointment if you do not already have an appointment.) Discharge Medications: New oxycodone-acetaminophen [Percocet] 5-325 mg tablet 0.5 - 1 tablet PO Q4H PRN (Reason: pain) Qty: 10 0RF ketorolac 10 mg tablet 10 mg PO Q6H 4 Days Qty: 16 0RF Continued ergocalciferol (vitamin D2) 1,250 mcg (50,000 unit) capsule 50,000 unit PO WEEKLY Patient Comments: TAKES ON TUESDAYS omeprazole 40 mg capsule,delayed release(DR/EC) 40 mg PO PRN prednisone 10 mg tablet 10 mg PO DIRECTED Qty: 70 0RF Rx Instructions: 30 mg (3 tabs) for 1 week, then 25 mg (2.5 tabs) for 1 week, then 20 mg (2 tabs) for 1 week, then 15 mg (1.5 tabs) for 1 week, then 10 mg (1 tab) for 1 week ibuprofen-acetaminophen [Dual Action Pain Reliever] 125-250 mg tablet 1 tablet PO PRN simethicone [Gas Relief (simethicone)] 125 mg capsule 125 mg PO DAILY PRN (Reason: heartburn) Discontinued Stelara 90 mg/mL syringe 90 mg subcut .Every 8 weeks Qty: 1 3RF meloxicam 15 mg tablet 15 mg PO DAILY cyclobenzaprine 5 mg tablet 5 mg PO Q8H PRN (Reason: inflammation) acetaminophen [Tylenol Arthritis Pain] 650 mg tablet extended release 650 mg PO Q8H PRN (Reason: pain (scale score 1-3)) budesonide 3 mg capsule,delayed,extend.release 6 mg PO DAILY 30 Days Qty: 60 0RF ciprofloxacin HCl 500 mg tablet 500 mg PO .COMPLEX Qty: 1 0RF Rx Instructions: 500 mg orally Take 1 tablet by mouth at 2:00pm the day before surgery.; metronidazole 500 mg tablet 500 mg PO .COMPLEX Qty: 3 0RF Rx Instructions: 500 mg orally Take 1 tablet by mouth at 1pm, 2pm, and 11pm the day before surgery.; Date of admission: 07/06/24 15:40 Primary Care Provider: Tylor,Roselyn Shay Admitting Provider: Quincy Ochoa Attending physician on admission: Quincy Ochoa Condition: Improved
== END 2024-07-08 13:40 | disposition home or self-care (01) | DRG 331 ==
LOC: ANH3MEDSUR 15:41
PROVIDERS: Admitting Provider Surgery; Visit Provider Surgery
PROC: 0DTF4ZZ Resection of Right Large Intestine, Percutaneous Endoscopic Approach (ICD-10-PCS; CPT 44204; principal; 2024-07-06 11:30)
DX: K50.012 Crohn's disease of small intestine with intestinal obstruction (principal); E66.01 Morbid (severe) obesity due to excess calories; Z68.39 Body mass index [BMI] 39.0-39.9, adult
CPT/HCPCS: 36415; 80048; 85027; 88307; A9270; J0690; J1100; J1650; J1741; J1836; J1885; J2250; J2270; J2405; J2704; J3010; J7120; J7512

== ENCOUNTER 2024-08-03 14:32 | Outpatient (CLI) | payer BC, SELFPAY ==
--- OUTSIDE RECORDS SUMMARY | 2024-08-03 14:45 | XMS_ITS | Clinical Summary ---
Author Organization [facility] Address [address] [place] [address] Care Team Providers Care Occupational Therapist Assistant Name Role Phone Mauro Mosher NP Primary Care Provider [phone] Allergies No known active allergies Medications adalimumab [...] consult Assessment & Plan (02/10/2017 6:37 PM PHOTOGRAPHIC EDITOR): Will problem low Medrol to 60 mg [...] follow-up Assessment & Plan (02/10/2017 6:39 PM PHOTOGRAPHIC EDITOR): This is secondary to Crohn's disease flare. Keep NPO, IV fluids. GI consultation will be obtained. Patient is passing flatness. If this continues to improve no surgical consultation will will be needed. CT abdomen pelvis shows significant neural thickening and inflammation of distal ileum, small bowel obstruction with multiple air-fluid levels in small bowel, no free air or abscess. Medical History Medical History Date Comments Crohn disease (HCC) Bowel obstruction (HCC) Social History Tobacco Use Types Packs/Day Years Used Date Smoking Tobacco: Every Day Cigarettes Smokeless Tobacco: Never Tobacco Cessation:Ready to Q uit: Not Asked; Counseling Given: Not Answered Alcohol Use Standard Drinks/Week Comments Yes 2 (1 standard drink = 0.6 oz pur e alcohol) [facility] Utilities Answer Date Recorded In the past 12 months has th e electric, gas, oil, or water company [...] often do you attend chur ch or samaritan services? Never 06/25/2023 Do you belong to any clubs o r organizations such as jewish groups, unions, fraternal or athletic groups, or [...] on file Legal Sex Male 8:15 AM PHOTOGRAPHIC EDITOR Gender Identity Not on file Sexual Orientation Not on file Obstetrics History Last Filed Vital Signs Vital Sign Reading Time Taken Comments Blood Pressure 154/87 04/18/2024 1:00 PM PHOTOGRAPHIC EDITOR Pulse 84 04/18/2024 1:00 PM PHOTOGRAPHIC EDITOR Temperature 37.6 C (99.7 F) 04/18/2024 8:24 AM PHOTOGRAPHIC EDITOR Respiratory Rate 20 04/18/2024 12:07 PM PHOTOGRAPHIC EDITOR Oxygen Saturation 99% 04/18/2024 1:00 PM PHOTOGRAPHIC EDITOR Inhaled Oxygen Concentration - - Weight 115.1 kg (253 lb 12 oz) 04/18/2024 8:24 A M PHOTOGRAPHIC EDITOR Height 172.7 cm (5' 8) 04/18/2024 8:24 AM PHOTOGRAPHIC EDITOR Body Mass Index 38.58 04/18/2024 8:24 AM PHOTOGRAPHIC EDITOR Plan of Treatment Health Maintenance Due Date Last Done Comments Colon Cancer Screening-Colonoscopy 1976 Depression Screening 1976 DTaP/Tdap/Td Vaccine (1 - Tdap) 11/09/1991 2 Hepatitis B Screening 1994 Regular Well Visit/Exam 18-64 1994 Pneumococcal vaccine <65 (1 of 2 - PCV) 12/28/1995 Influenza Vaccine (Season Ended) 2024 Hepatitis C Screening Completed 11/11/2018 Procedures Procedure Name Priority Date/Time Associated Diagnosis Comments HEPATITIS C ANTIBODY Routine 11/11/2018 11:46 AM CDT from Last 3 Months or Most Recently Relevant to Health Maintenance Results * Hepatitis C antibody (11/11/2018 11:46 AM CDT) Hep C Ab NONREACT NONREACTIVE [facility] [place] Comment: Siemens CentaurXP using REBECA (chemiluminescent immunoassay) [...] AM CDT Narrative Resulting Agency Comment CLI Russell Conteh MD LAB MICROBIOLOGY - [facility] Final Result [facility] [place] [address] [place] [address], [facility] [phone] from Last 3 Months or Most Recently Relevant to Health Maintenance Insurance [facility] [facility] OOS Advance Directives For more information, please contact: [phone] * Full Code (Latest Code Status on File) Date Activated Date Inactivated Comments 06/24/2023 8:29 PM 06/27/2023 2:44 PM * Full Code Date Activated Date Inactivated Comments 08/19/2017 7:48 PM 08/20/2017 8:56 PM * Full Code Date Activated Date Inactivated Comments 08/19/2017 6:17 PM 08/19/2017 7:48 PM * Full Code Date Activated Date Inactivated Comments 02/10/2017 5:32 PM 02/11/2017 7:00 PM Care Teams Occupational Therapist Assistant Relationship Specialty Start Date End Date Mauro Mosher, LINUX PROGRAMMER [address] [place] [address] PCP - General Family Medicine 06/24/23
--- OUTSIDE RECORDS SUMMARY | 2024-08-03 14:45 | XMS_ITS | Data Portability ---
Author Organization [place] [facility], Main Office Address [address] [place] [address] Care Team Providers Care Cna Name Role Phone CORY LORA Primary Care [...] painful, and pops. 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 Not available 07/04/2024 10:06:56 07/13/2024 07/13/2024 HPI: 48 year old male presents today for a follow up on right knee pain that has been ongoing for 3.5 years. Treatment has included PT, cortisone injection, meloxicam and knee brace. He was last evaluated a week ago; at that time, he reported worsening knee pain restricting his ability to work and still experiencing weakness, occasional and catching. 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 Last visit, we placed him on work restrictions; today, he would like to be released to full duty. Reports improvement in pain and swelling, and currently rates his pain as 0/10. Still experiencing mild instability, but not affecting his ADL. Physical Exam: General: Normal appearance. No acute distress. Inspection: No evidence of swelling, erythema, bruising or deformity. Palpation: Mild tenderness to palpation over the medial joint line ROM: 0-115 Special Test: Slight discomfort with terminal flexion and Artemio, Negative Lachmann, No valgus or varus instability. Negative Posterior Draw. Motor: 5/5 strength. Sensation: Sensation intact. Assessment & Plan: Released for full duty. Note provided. Continue HEP given by PT. In the future, if he feels like he wants another course of PT he may call the office for an order. Activities as tolerated. Follow Up: As needed. All questions were answered. Patient verbalized understanding of treatment plan [email or web address] Not available 07/13/2024 11:12:02 Plan of Treatment Reminders Order Date Submit Date Provider Last Modified By Organization Details Last Modified Time Details Appointments None recorded. Lab CBC w/ auto diff 2024 025 [facility] (Lab), [address] [place], [address], 5 06:18:28 lipid panel, serum 2024 025 [facility] (Lab), [address] [place], [address], 5 06:18:27 [email or web address] obin, total, blood [address] (Lab), [address] [place], [address], 5 08:40:15 TSH, serum or plasma 2024 025 [facility] (Lab), [address] [place], [address], 5 06:18:27 CMP, serum or plasma 2024 025 [facility] (Lab), [address] [place], [address], 5 06:18:27 vitamin D3, 25-hydroxy, serum 2024 025 [facility] (Lab), [address] [place], [address], 5 04:18:45 Referral physical therapist referral - Please contact pt to schedule for R knee. Thanks 2024 025 [facility], [address], [place], [address], 5 15:42:00 orthopedic surgeon referral - Please call patient to schedule an appointment . Thank you. 2024 025 [facility], [address], [place], [address], 5 10:58:[address] referral - Please call patient to schedule appointment . 2023 024 [email or web address] Bria Madison MD, [address], [place], [address], 4 09:13:18 Procedures injection/a spiration joint/bursa (PROC) 2024 025 [email or web address] In-Office Order, Internal Use Only DO Not Attach Compendium DO Not Attach Compendium, Do Not Delete/merge, [address] 5 09:42:05 Surgeries None recorded. Imaging LDCT, chest, for lung cancer screening 2024 025 [email or web address] [facility] ([facility] Sched[facility]), [address] [place], [address], 5 15:12:52 Medication Orders bupivacaine HCl 0.5 % (5 mg/mL) injection solution 2024 025 [id number], [address], [place], [place], [id number], 5 09:19:43 Kenalog 10 mg/mL suspension for injection 2024 025 [facility] #11862, [address], [place], [place], [id number], 09:19:43 doxycycline hyclate 100 mg capsule 2023 024 [facility] #[id number], [address] [facility], [place], [place], [id number], 14:12:21 Patient TargetsNo targets recorded. 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 [facility] [address], [place], [address], 11/06/2023 10:28:04 06/02/19 25 04/18/2024 XR, knee, 3 view No observ ation record ed. [email or web address] Not Available 06/01 11:59:36 06/13/19 25 06/12/2024 CT, abdom en + pelvi s, w/ contr ast No observ ation record ed. [address] [facility] [address], [place], [address], 06/14/2024 09:53:24 06/14/1906/13/2024 TSH, serum or plasm a No observ ation record ed. [address] [facility] [address], [place], [address], 07/06/2024 08:45:43 Result Notes None recorded. Problems Name Problem SNOMED Code Status Onset Date Resolution Date Notes Provider Name and Address Organization Details Recorded Time Inflammat ory bowel disease 86396158 Active Not Available [facility] 3 16:12:27 Crohn's disease 67142348 Active Not Available [facility] 3 16:12:27 Iron deficienc y 21821358 Active Not Available [facility] 3 16:12:28 Disorder of vitamin D 852103348 Active Not Available [facility] 3 16:12:28 Obesity 850463708 Active Not Available [facility] 3 16:12:28 Furuncle 050953156 Completed 05/24/2024 TOMASA Dunn [address] [facility], [facility] [address], [place], [address] , [facility] [employer] [facility] 5 14:18:06 Tobacco dependenc e syndrome 65416451 Active Not Available [facility] 3 16:12:28 Skin lesion 82107932 Active 2023 BRITTON Rojas [address], [address], [place], [address] , [facility] [employer] [facility] [employer] [facility] 4 08:45:55 Pain of right knee joint 47810498415 4100 Active 2024 Jewellirene Wallace, ATC L null, [facility] [employer] [facility] 5 09:49:21 Leukocyto sis 941211749 Active 2024 TOMASA Dunn [address] [address], [place], [address] , [facility] [employer] [facility] [employer] [facility] 5 14:42:52 Nicotine dependenc e 41974931 Active 2024 TOMASA Dunn [address] [address], [place], [address] , [employer] [facility] [employer] [facility] 5 15:31:39 Hyperthyr oidism 07638937 Active 2024 TOMASA Dunn [address] [address], [place], [address] , [employer] [facility] [employer] [facility] 5 08:49:44 Knee pain Active 2024 Nora Salazar Federico null, [place] [employer] [facility] [employer] [facility] 5 09:28:39 Problem Notes None recorded. Procedures Surgical History Date Name Laterality Status Provider Name and Address Organization Details Recorded Time Ortho - Cortisone Injection completed Saumya Rao NP [address] [address], [place], [address], [employer] [facility] [employer] [facility] 06/01/2024 10:55:16 Imaging Results None recorded. Procedure Notes None recorded. Medical Equipment None [...] Not Available Not Available No t Available ketorolac 10 mg tablet TAKE 1 TABLET BY MOUTH EVERY 6 HOURS FOR 4 DAYS active Not Available Not Available No t Available oxycodone -acetamin ophen 5 mg-325 mg tablet TAKE 1/2 TO 1 TABLET BY MOUTH EVERY 4 HOURS NEEDED FOR PAIN active Not Available Not Available No t [...] mL by injectio n route. 2024 active [facility]: [id number] 06-19 Not Available Not Available Not Available hydrocodo [...] Updated DateTime 4 172.72 cm 40.7 kg/m2 039243. 76 g 98.2 [degF] 80 /min 98 % 98 % 138 mm[Hg] 80 mm[Hg] Breanna Peterson RN [facility] [employer] 4 08:32:32 Date Recorded Body weight Body mass index (BMI) Body height Body temperature Heart rate Respiratory rate Oxygen saturation Oxygen saturation in Arterial blood by Pulse oximetry Systolic blood pressure Diastolic blood pressure Provider Name and Address Organization Details Last Updated DateTime 5 326295. 61 g 40.7 kg/m2 172.72 cm 98.1 [degF] 88 /min 20 /min 96 % 96 % 116 mm[Hg] 70 mm[Hg] Staci Pal RN [facility] 14:18:12 Date Recorded Body height Body mass index (BMI) Body weight Provider Name and Address Organization Details Last Updated DateTime 06/01/2024 172.72 cm 39.5 kg/m2 019525.02 geoffrey Work[employer] [facility] [employer] [facility] 06/01/2024 09:22:38 Date Recorded Body height Body mass index (BMI) Body weight Provider Name and Address Organization Details Last Updated DateTime 07/04/2024 172.72 cm 39.5 kg/m2 743701.02 geoffrey Salazar, [facility] [employer] 07/04/2024 09:27:57 Date Recorded Body height Body mass index (BMI) Body weight Provider Name and Address Organization Details Last Updated DateTime 07/13/2024 172.72 cm 39.5 kg/m2 035122.02 geoffrey Givens, [facility] [employer] 07/13/2024 09:03:01 Social History Question Answer Notes LastModified by Organization Details LastModified Time Tobacco Smoking Status Current Every Day Smoker Breanna Peterson RN [facility], [facility] [employer] [facility] 04/02/2023 08:37:02 What Is Your Level Of [...] Was Ill? No Information not available 05/24/2024 Have There Been [...] Was 2pdd At One Point In Time [email or web address] Information not available 05/25/2024 Do You Participate In Social Media? No Information not available 05/24/2024 Do You Use Sunscreen Routinely? No Information not available 05/24/2024 How Many Years Have You Smoked Tobacco? 30 Information not available 04/02/2023 Have You Recently Traveled Abroad? No Information not available 05/24/2024 Sex: Unknown Functional Status Question Answer Note LastModified by [employer] ion Details LastModified Time Do you or have you ever used any other forms of tobacco or nicotine? No Information not available 04/02/2023 Are you currently employed? 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 None Information not available 05/24/2024 Mental Status None recorded. Family History Relationship Description Onset Age of this Age Resolved Age Notes LastModified by Organization Details LastModified Time Mother Diabetes mellitus Not available 2023 08:34:53 Mother History of hypertension [email or web address] Not available 09:25:48 Maternal Grandmother Non-Hodgkin' s lymphoma (clinical) Not available 06/2024 09:25:48 Notes:not sure about father' s side of family. Medical History Condition Response OTHER # 1 OBESITY Y Past Encounters Encounter ID Performer Location Encounter Start Date Encounter Closed Date Diagnosis/Indication Diagnosis SNOMED-CT Code Diagnosis ICD10 Code Diagnosis Note [id number] BRITTON Rojas [facility] Primary [facility] [address] [facility] [address] [place] [address] 04/02/2023 08:21:19 04/02/2023 09:03:17 Skin lesion 15289485 L98.9 -notes long hx of multiple lesions/cy st to belt line and [place] axilla-can be painful at times-derm atologist referral-t rial doxycyclin e [id number] Benton Rankin MD [facility] [address] [address] 05/24/2024 13:53:21 05/24/2024 15:05:17 Adult health examination 619001891 Z00.00 Patient in good overall healthDisc ussed diet and exerciseHe alth maintance reviewedPa tient questions answered Pain of ri ght knee joint 5304800540 53650 M25.561 Will see orthoRecom mended PT, pt declinesPa st XR and MRI benign, states symptoms are cyclic. Feels he is on the end of a pain cycle and pain is mildly improved Obesity 695434344 E66.9 Carnivore diet nowDiscuss ed diet and exercise Disorder of vitamin D 38 9487854 E55.9 Leukocytosis 879859355 D 72.829 Nicotine dependence 5629 4008 F17.231 [id number] Arnav Holder MD [facility] [place] [address] [place] [address] 06/01/2024 09:02:18 06/01/2024 10:13:13 Pain of right knee joint 7179390297 15396 M25.544 [id number] Arnav Holder MD [facility]_[address] [address] 07/04/2024 09:23:10 07/04/2024 10:03:43 Pain of right knee joint 6870097157 58978 M25.111 [id number] Arnav Holder MD [facility] [place] [address] [place] [address] 07/13/2024 08:59:01 07/13/2024 09:18:21 Pain of right knee joint 6454002816 00915 M25.561 Health Concerns Section Related Observation LastModified by Organization Detai ls LastModified Time None Recorded Concern Status LastModified by Organization Details LastModified Time None Recorded Advance Directives Directive None Recorded Payers Encounter Date Sequence Insurance Name Policy Number Policy Curran Covered Member ID Curran Member ID Guarantor Name 04/02/2023 2 [facility] Jaswinder Pena [id number] Jaswinder Pena 04/02/2023 1 [place] [id number] 7 Jaswinder Pena [id number] Jaswinder Pena 05/24/2024 1 [place] [id number] Jaswinder Pena [id number] Jaswinder Pena 06/01/2024 1 [place] [id number] 7 Jaswinder Pena [id number] Jaswinder Pena 07/04/2024 1 [place] [id number] 7 Jaswinder Pena [id number] Jaswinder Pena 07/13/2024 1 [place] [id number] 7 Jaswinder Pena [id number] Jaswinder Pena Notes Date Note Type Note Provider Name and Address Organization Details Recorded Time 04/02/2023 text/html Pt is here to re-establish care BRITTON Rojas [address] [place] [address], [address], [facility] 04/02/2023 09:08:41 05/24/2024 text/html Jaswinder Pena is [...] PRN. 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 Notes [...] declinesTdap: declinesColonoscopy: 2021, managed by YAS Lora, [facility] [address] [facility], [facility] [address], [place], [address], [facility] 05/24/2024 15:31:51
--- OUTSIDE RECORDS SUMMARY | 2024-08-03 14:45 | XMS_ITS | Encounter Summary ---
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
--- OUTSIDE RECORDS SUMMARY | 2024-08-03 14:45 | XMS_ITS | Clinical Summary ---
Author Organization [facility] [employer] Address [address] [place] [address] Care Team Providers Care Middle School Counselor Name Role Phone JoiChanda serrano CHAU Primary Care Provider [phone] Source Comments [facility] [employer],non-owned Affiliates and Associated Physician Practices is amultiple site organization consisting of ambulatory clinics and hospital sitesin [place], [place], [place] and [place]. This disclosure is being madepursuant to the Care Everywhere program and may not contain all information available regarding this patient. 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 SELF PAY NO INSURANCE Member Subscriber Plan / Payer (Ef fective for All Dates) Name:Jaswinder Pena Member ID:Not on file Relation to Subscriber:Not on file Name:JASWINDER PENA Subscriber ID:Not on file (Home) Address: [address] [place] [address] Payer ID:Not on file Group ID:Not on file Type:Self Pay Address: [facility] Advance Directives * Full Code (Latest Code Status on File) Date Activated Date Inactivated Comments 11/27/2015 12:18 AM 11/28/2015 2:04 PM Care Teams Middle School Counselor Relationship Specialty Start Date End Date Chanda Stacy APRN-CNP PCP - General Nurse Practitioner 11/26/15
--- OUTSIDE RECORDS SUMMARY | 2024-08-03 14:45 | XMS_ITS | Encounter Summary ---
Author Organization [facility] Address [address] [place] [address] Care Team Providers Care Pot Holder Binder Name Role Phone Unavailable Primary Care Provider Unavailabl e Reason for Visit * Reason Comments Establish Care Encounter Details Date Type Department Care Team (Late st Contact Info) Description 08/03/2024 1:30 PM CDT Office Visit [facility] Oncology and Hematology - [place] [address] [facility] [address] [place] [address] Niels Kevin MD [address] [facility] [address] [place] [address] Leukocytosis, unspecified type (Primary Dx) Social History Tobacco Use Types Packs/Day Years Used Date Smoking Tobacco: Every Day Cigarettes 1.5 30.4 Started: 03/02/1994 Smokeless Tobacco: Never Alcohol Use Standard Drinks/Week Comments Yes 0 (1 standard drink = 0.6 oz pur e alcohol) occasional Sex and Gender Information Value Date Recorded Sex Assigned at Not on file Legal Sex Male 12:08 PM CDT Gender Identity Not on file Sexual Orientation Not on file documented as of this encounter Last Filed Vital Signs Vital Sign Reading Time Taken Comments Blood Pressure 140/80 08/03/2024 1:32 PM CDT Pulse 75 08/03/2024 1:30 PM CDT Temperature 36.6 C (97.8 F) 08/03/2024 1:30 PM CDT Respiratory Rate 16 08/03/2024 1:30 PM CDT Oxygen Saturation 97% 08/03/2024 1:30 PM CDT Inhaled Oxygen Concentration - - Weight 119.7 kg (264 lb) 08/03/2024 1:30 PM CDT Height 172.7 cm (5' 8) 08/03/2024 1:30 PM CDT Body Mass Index 40.14 08/03/2024 1:30 PM CDT documented in this encounter Progress Notes * Niels Kevin MD - 08/03/2024 1:43 PM CDT Hematology-oncology consult Note Requesting Physician TOMASA Dunn Primary Care Physician No primary care provider on file. Problem list There is no problem list on file for this patient. Previous TREATMENT ? Measurable Disease ? Reason for Visit Jaswinder Pena is a 48 y.o. male who was referred for consultation for leukocytosis. History of present illness This is a pleasant 48-year-old male with history of Crohn's disease diagnosed in 2009 andhad multiple lines of therapy. Currently he is on his Stelara. On July 06, 2024 patient underwent laparoscopic ileocolic resection due to Crohn's ileitis with small bowel obstruction. He is recovering well from the surgery. He has occasional diarrhea but no melena and hematochezia. Denies any abdominal pain fevers and chills. Denies any new lumps bumps or lymphadenopathy. He has right knee pain. Patient has history of smoking 1-1/2 pack/day for 30 years duration. He denies any other new complaints. Past Medical History Past Medical History: Diagnosis Date Hx of Crohn's disease Surgical History Past Surgical History: Procedure Laterality Date HX LAPAROSCOPIC BOWEL RESECTION 2024 Medications Current Outpatient Medications Medication Sig Dispense Refill Stelara 90 mg/mL Syringe Inject 90 mg by subcutaneous injection. IBUPROFEN ORAL Take 125 mg by mouth. With acetaminophen 250mg (dual pain reliever) No current facility-administered medications for this visit. Allergies No Known Allergies Immunizations: There is no immunization history on file for this patient. Family History Family History Problem Relation Name Age of Onset Heart Disease Father Heart Disease Mother Diabetes Mother No Known Problems Child Social History Social History Tobacco Use Smoking status: Every Day Current packs/day: 1.50 Average packs/day: 1.5 packs/day for 30.4 years (45.6 ttl pk-yrs) Types: Cigarettes Start date: 03/02/1994 Smokeless tobacco: Never Substance Use Topics Alcohol use: Yes Comment: occasional Review of Systems Constitutional: Patient did not mention fever; no night sweats; no anorexia; no weight loss; no fatique NEENT: Patient did not mention headache; no change in vision; no change in hearing; no sore throat;no dysphagia Respiratory: Patient did not mention shortness of breath; no pleuritic chest pain; no cough; no hemoptysis Cardiac: Patient did not mention cardiac-like chest pain; no palpitations; no orthopnea; no PND; noDOE GI: Patient did not mention abdominal pain; no nausea; no vomiting; no diarrhea; no hematochezia; no melena : Patient did not mention dysuria; no frequency; no hesitancy; no hematuria SOFTWARE LICENSING EXECUTIVE: Musculosketetal: Patient did not mention bone pain; right knee arthralgia; no joint swelling; no myalgia; Skin: Patient did not mention pruritis; no rash; no petechiae; no ecchymoses Endocrine: Patient did not mention polydipsia; no polyuria; no unusual weight gain Neuro: Patient did not mention headache; no change in vision; no sensory changes; no muscle weakness; no confusion; no seizures Psych: Patient did not mention anxiety; no depression; Physical Exam Vitals: As per nursing note Constitutional: Well developed, well nourished, no acute distress, non-toxic appearance Teeth and gum. No signs of infection or swelling. Eyes: PERRL, conjunctiva normal HEENT: Atraumatic, external ears normal, nose normal, oropharynx moist, no pharyngeal exudates. no sinus tenderness Neck- normal range of motion, no tenderness, supple Respiratory: No respiratory distress, normal breath sounds, no rales, no wheezing Cardiovascular: Normal rate, normal rhythm, no murmurs, no gallops, no rubs GI: Soft, nondistended, normal bowel sounds, nontender, no splenomegaly, no hepatomegaly, no mass, no rebound, no guarding : No costovertebral angle tenderness Musculoskeletal: No edema, no tenderness, no deformities. Back- no tenderness Integument: Well hydrated, no rash, Digits and nails inspection normal Lymphatic: No lymphadenopathy noted Neurologic: Alert & oriented x 3, CN 2-12 normal, normal motor function, normal sensory function, no focal deficits noted Psychiatric: Speech and behavior appropriate ? labs No results found for this or any previous visit (from the past 24 hours). Labs from 10/19/2024 showed WBC 12.8 hemoglobin 12.3 platelet 268,000 Pathology ? Imaging & Other Studies Performance Status? Assessment / Plan: ? Leukocytosis. Likely reactive. Patient is a pleasant 48-year-old obese male with history of Crohn's disease diagnosed in 2009 and had multiple rounds of treatment. He just completed course of steroid recently. Patient underwent laparoscopic ileocolic resection due to Crohn's ileitis with small bowel obstruction. He is recovering well from the surgery on July 06, 2024. On my examination there is no evidence of hepatosplenomegaly and lymphadenopathy. He does not have any B symptoms. I have reviewed the labs. I have discussed the differential diagnosis of leukocytosis. Most likely history leukocytosis is reactive due to Crohn's disease flareups as well as steroid use. I will order the workup for leukocytosis I will include CBC with differential, CMP, C- reactive protein, sedimentationrate and flow cytometric analysis for leukemia. I have answered all the questions to patient satisfaction. Follow-up phone visit with me in 2 weeks. Crohn's disease. Patient is on Stelara. He recently underwent laparoscopic ileocolic resection on July 06 and recovering well from the surgery. He will follow-up with Dr. Ochoa. Thank you very much for allowing me to participate in Jaswinder Pena's evaluation and management. Please feel free to contact if I can be of any further assistance in your patient???s care requiring hematology or oncology evaluation. Sincerely, ? ? Niels Keivn M.D. cell TOBACCO COUNSELING He was counseled to discontinue tobacco/nicotine use. Niels Kevin MD ,08/03/2024 2:07 PM ? Total time spent 60 minutes, two third of the total time spent counseling patient [id number]. CC:?TOMASA Dunn documented in this encounter Plan of Treatment Upcoming Encounters Date Type Department Care Team (Late st Contact Info) Description 08/17/2024 4:30 PM CDT Telephone Check Up [facility] Oncology and Hematology - [place] [address] [facility] [address] [place] [address] Niels Kevin MD [address] [id number] Scheduled Orders Name Type Priority Associated Diagnoses Orde r Schedule CBC WITH DIFFERENTIAL Lab Stat Leukocytosis, unspecified type Expected: 08/03/2024, Expires: 08/03/2025 COMPREHENSIVE METABOLIC PANEL Lab Stat Leukocytosis, unspecified type Expected: 08/03/2024, Expires: 08/03/2025 C-REACTIVE PROTEIN Lab Routine Leukocytosis, unspecified type Expected: 08/03/2024, Expires: 08/03/2025 SEDIMENTATION RATE Lab Routine Leukocytosis, unspecified type Expected: 08/03/2024, Expires: 08/03/2025 FLOW CYTOMETRY PANEL Lab Routine Leukocytosis, unspecified type Expected: 08/03/2024, Expires: 08/03/2025 documented as of this encounter Visit Diagnoses Diagnosis Leukocytosis, unspecified type- Primary documented in this encounter
--- OUTSIDE RECORDS SUMMARY | 2024-08-03 14:45 | XMS_ITS | Clinical Summary ---
Author Organization [facility] Argenis carson Michael Address [address] [place] [address] Care Team Providers Care Instrument Mechanic Name Role Phone Unavailable Primary Care Provider Unavailabl e Allergies No known active allergies Medications Stelara 90 mg/mL Syringe Inject 90 mg by subcutaneous injection. Active IBUPROFEN ORAL Take 125 mg by mouth. With acetaminophen 250mg (dual pain reliever) Active Active Problems No known active problems Encounters Date Type Department Care Team Description 08/03/2024 1:30 PM CDT Office Visit [facility] Oncology and Hematology - [place] [address] [place] [address] Niels Kevin MD Leukocytosis, unspecified type (Primary Dx) from Last 3 Months Family History Medical History Relation Name Comments No Known Problems Child Heart Disease Father Diabetes Mother Heart Disease Mother Relation Name Status Comments Child Alive Father Alive Mother Alive Social History Tobacco Use Types Packs/Day [...] Mass Index 40.14 08/03/2024 1:30 PM CDT Plan of Treatment Upcoming Encounters Date Type Department Care Team (Late st Contact Info) Description 08/17/2024 4:30 PM CDT Telephone Check Up [facility] Oncology and Hematology - [place] [address] [facility] [address] [place] [address] Niels Kevin MD [address] [facility] [address] [place] [address] Health Maintenance Due Date Last Done Comments DTAP/TDAP/TD VACCINES (1 - Tdap) 12/28/1995 HEPATITIS B VACCINES (1 of 3 - 19+ 3-dose series) 12/01 COLORECTAL SCREENING 2021 Colorectal Cancer Screening 2021 FIT-DNA Q 3 years 2021 FIT/FOBT Q 1 year 2021 Flex Sig/CT Colonography Q 5 years 2021 INFLUENZA VACCINE (#1) 2023 Preventative Visit- Commercial 03/02/2024 Insurance
--- OUTSIDE RECORDS SUMMARY | 2024-08-03 14:45 | XMS_ITS | Referral Summary ---
Author Organization [facility] Address [address] [place] [address] Care Team Providers Care Clinical Assessment Manager Name Role Phone Mauro Mosher NP Primary Care Provider [phone] Allergies No known active allergies Medications adalimumab [...] consult Assessment & Plan (02/10/2017 6:37 PM DOCUMENTATION CONSULTANT): Will problem low Medrol to 60 mg [...] follow-up Assessment & Plan (02/10/2017 6:39 PM DOCUMENTATION CONSULTANT): This is secondary to Crohn's disease flare. [...] = 0.6 oz pur e alcohol) [facility] Utilities Answer Date Recorded In the [...] often do you attend chur ch or druze services? Never 06/25/2023 Do you belong to any clubs o r organizations such as yazidi groups, unions, fraternal or athletic groups, or [...] on file Legal Sex Male 8:15 AM DOCUMENTATION CONSULTANT Gender Identity Not on file Sexual Orientation Not on file Last Filed Vital Signs Vital Sign Reading Time Taken Comments Blood Pressure 154/87 04/18/2024 1:00 PM DOCUMENTATION CONSULTANT Pulse 84 04/18/2024 1:00 PM DOCUMENTATION CONSULTANT Temperature 37.6 C (99.7 F) 04/18/2024 8:24 AM DOCUMENTATION CONSULTANT Respiratory Rate 20 04/18/2024 12:07 PM DOCUMENTATION CONSULTANT Oxygen Saturation 99% 04/18/2024 1:00 PM DOCUMENTATION CONSULTANT Inhaled Oxygen Concentration - - Weight 115.1 kg (253 lb 12 oz) 04/18/2024 8:24 A M DOCUMENTATION CONSULTANT Height 172.7 cm (5' 8) 04/18/2024 8:24 AM DOCUMENTATION CONSULTANT Body Mass Index 38.58 04/18/2024 8:24 AM DOCUMENTATION CONSULTANT Plan of Treatment Not on file Procedures Procedure Name Priority Date/Time Associated Diagnosis Comments HEPATITIS C ANTIBODY Routine 11/11/2018 11:46 AM CDT from Last 3 Months or Most Recently Relevant to Health Maintenance Results * Hepatitis C antibody (11/11/2018 11:46 AM CDT) Hep C Ab NONREACT NONREACTIVE [facility] Comment: Siemens CentaurXP using REBECA (chemiluminescent [...] CLI Russell Conteh MD LAB MICROBIOLOGY - GENERAL JUDY MARTINEZ Final Result [facility] TextDigger [facility] [address] [place] [address], [facility] [phone] from Last 3 Months or Most Recently Relevant to Health Maintenance Insurance [id number] CHOICE PLUS [facility] HMO/PPO Address: [address] [address] [place] [address] [facility] Address: [address] [place] [address] [email or web address] Advance Directives For more information, please contact: [phone] * Full Code (Latest Code Status on File) Date Activated Date Inactivated Comments 06/24/2023 8:29 PM 06/27/2023 2:44 PM * Full Code Date Activated Date Inactivated Comments 08/19/2017 7:48 PM 08/20/2017 8:56 PM * Full Code Date Activated Date Inactivated Comments 08/19/2017 6:17 PM 08/19/2017 7:48 PM * Full Code Date Activated Date Inactivated Comments 02/10/2017 5:32 PM 02/11/2017 7:00 PM Care Teams Clinical Assessment Manager Relationship Specialty Start Date End Date Mauro Mosher NP [address] [place] [address] PCP - General Family Medicine 06/24/23
--- OUTSIDE RECORDS SUMMARY | 2024-08-03 14:45 | XMS_ITS | Encounter Summary ---
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
--- OUTSIDE RECORDS SUMMARY | 2024-08-03 14:45 | XMS_ITS | Encounter Summary ---
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
--- OUTSIDE RECORDS SUMMARY | 2024-08-03 14:45 | XMS_ITS | Encounter Summary ---
Author Organization 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
--- NOTE | 2024-08-03 14:51 | CY_PTH ---
PATIENT: Jaswinder Pena LOC: [facility] U#:[id number] AGE/SX: 48/M ROOM: RE08/03/[address]: Niels Kevin MD : 1975 BED: DIS: 08/03/2024 SPEC #: [id number] RECD: 08/04/24 06:45 STATUS: SAI REQ #: [id number] HUSSAIN: 08/03/24 14:[address]: Niels Kevin DEPT: [facility] Cytology RECD BY: Radha Ivory ENTERED: 08/04/24 06:46 SP TYPE: Cytology OTHR DR: Roselyn Snider, UPSTREAM BIOMANUFACTURING TECHNICIAN Tissues: A - Flow Procedures: Flow Cytometry
[2024-08-03 14:56] LABS: Basophils Absolute Auto 0.1 K/mm3 (0.0-0.1); Basophils Percent Auto 0.5 % (0.2-1.2); Eosinophils Absolute Auto 0.2 K/mm3 (0-0.3); Eosinophils Percent Auto 2.2 % (0-4.4); Hematocrit 38.3 % (42.0-52.0); Hemoglobin 12.1 g/dL (14.0-18.0); Immature Granulocyte Absolute 0.04 K/mm3 (0.00-0.031); Immature Granulocyte Percent A 0.4 % (0-0.5); Lymphocytes Absolute Auto 1.78 K/mm3 (0.9-3.2); Lymphocytes Percent Auto 16.1 % (18.3-44.2); Mean Corpuscular HGB Conc 31.6 g/dl (32-36); Mean Corpuscular Hemoglobin 27.4 pg (26-34); Mean Corpuscular Volume 86.8 fl (80-100); Mean Platelet Volume 10.4 fl (7.4-10.4); Monocytes Absolute Auto 0.8 K/mm3 (0.1-0.6); Monocytes Percent Auto 7.1 % (2.6-8.5); Neutrophils Absolute Auto 8.1 K/mm3 (1.3-6.7); Neutrophils Percent Auto 73.7 % (45.5-73.1); Platelet Count Result 282 k/mm3 (150-375); Red Blood Count 4.41 M/mm3 (4.6-6.20); Red Cell Distribution Width 14.7 % (11.5-14.5)
[2024-08-03 16:51] LABS: Alanine Aminotransferase 25 U/L (6-50); Albumin Level 4.1 g/dL (3.5-5.1); Alkaline Phosphatase 87 U/L (38-126); Anion Gap 7 mmol/L (4-12); Aspartate Amino Transferase 48 U/L (17-59); Bilirubin,Total 0.3 mg/dL (0.2-1.3); Blood Urea Nitrogen 13 mg/dL (9-20); CRP 1.6 mg/dL (<1.0); Calcium 9.3 mg/dL (8.4-10.2); Carbon Dioxide 27 mmol/L (22-30); Chloride 108 mmol/L (98-107); Estimated Glomerular Filt Rate > 60; Glucose 86 mg/dL (65-110); Sodium 142 mmol/L (137-145); Total Protein 7.7 g/dL (6.3-8.2)
[2024-08-03 17:15] LABS: Erythrocyte Sedimentation Rate 24 mm/hr (0-20)
== END 2024-08-03 14:33 | disposition home or self-care (01) ==
LOC: ANHLAB 14:33
PROVIDERS: Visit Provider Internal Medicine Hematology & Oncology
DX: D72.829 Elevated white blood cell count, unspecified (principal)
CPT/HCPCS: 36415; 80053; 85025; 85652; 86140; 88184

== ENCOUNTER 2024-08-12 12:36 | Outpatient (CLI) | payer BC, SELFPAY ==
--- NOTE | ~2024-08-12 | CT_ITS ---
CT of the Abdomen and Pelvis: Indication: Chronic vascular disorder of intestine Technique: 2.5 mm axial scans were obtained through the abdomen and pelvis following intravenous adm inistration of 100 cc of Omnipaque 350. Dose reduction technique was used on this scan by utilizing a utomated exposure control and iterative reconstruction technique. The dose-length product (DLP) was 1 461.43 mGy-cm. COMPARISON: 06/12/2024, 02/07/2023 Findings: Scans through the lung bases demonstrates stable large right basilar granuloma. Probable diffuse hepatic steatosis. The spleen, pancreas, gallbladder, left adrenal gland, and kidney s are within normal limits. Stable right adrenal nodule, therefore most likely adenoma. No evidence o f aortic aneurysm. No lymphadenopathy. Status post presumed interval bowel surgery with apparent anastomotic suture line at the ileocolic re gion. No jenny bowel obstruction evident this time. No definite acute bowel wall thickening or acute inflammatory process evident. Images through the pelvis were performed. Urinary bladder unremarkable. No pelvic mass seen. No ascit es. Impression: No acute abnormality evident. Probable interval bowel surgery at the ileocolic region with anastomoti c suture line present. Probable diffuse hepatic steatosis. Stable presumed right adrenal gland adenoma. Reviewed, dictated and finalized at location . Impression: No acute abnormality evident. Probable interval bowel surgery at the ileocolic region with anastomotic suture line present. Probable diffuse hepatic steatosis. Stable presumed right adrenal gland adenoma.
--- OUTSIDE RECORDS SUMMARY | 2024-08-12 12:41 | XMS_ITS | Clinical Summary ---
Author Organization [facility] Address [address] [place] [address] Care Team Providers Care Electroslag Welding Machine Operator Name Role Phone JoiChanda serrano CHAU Primary Care Provider [phone] Source Comments [facility],non-owned Affiliates and Associated Physician Practices is amultiple site organization consisting of ambulatory clinics and hospital sitesin [place], [place], [place] and [place]. This disclosure is being madepursuant to the Care Everywhere program and may not contain all information available regarding this patient. 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 Gender Identity Not on file Sexual Orientation [...] patient's age to complete this topic Insurance [facility] SELF PAY NO INSURANCE Member Subscriber Plan / Payer (Ef fective for All Dates) Name:Jaswinder Pena Member ID:Not on file Relation to Subscriber:Not on file Name:JASWINDER PENA Subscriber ID:Not on file (Home) Address: [address] [place] [id number] Payer ID:Not on file Group ID:Not on file Type:Self Pay Address: [facility] Advance Directives * Full Code (Latest Code Status on File) Date Activated Date Inactivated Comments 11/27/2015 12:18 AM 11/28/2015 2:04 PM Care Teams Electroslag Welding Machine Operator Relationship Specialty Start Date End Date Chanda Stacy APRN-CNP PCP - General Nurse Practitioner 11/26/15
--- OUTSIDE RECORDS SUMMARY | 2024-08-12 12:41 | XMS_ITS | Clinical Summary ---
Author Organization [facility] Argenis carson Michael Address [address] [place] [address] Care Team Providers Care Scanner Supervisor Name Role Phone Unavailable Primary Care Provider Unavailabl e Allergies No known active allergies Medications Stelara 90 mg/mL Syringe Inject 90 mg by subcutaneous injection. Active IBUPROFEN ORAL Take 125 mg by mouth. With acetaminophen 250mg (dual pain reliever) Active Active Problems No known active problems Encounters Date Type Department Care Team Description 08/09/2024 External Device Data [facility] ABSTRACTION Provider, Abstract 08/09/2024 External Device Data [facility] ABSTRACTION Provider, Abstract 08/09/2024 External Device Data [facility] ABSTRACTION Provider, Abstract 08/08/2024 Orders Only [facility] Oncology and Hematology - [place] [address] [place] [address] Niels Kevin MD 08/05/2024 Orders Only [facility] Oncology and Hematology - [place] [address] [place] [address] Niels Kevin MD 08/03/2024 1:30 PM CDT Office Visit [facility] Oncology and Hematology - [place] [address] [place] [address] Niels Kevin MD Leukocytosis, unspecified type (Primary [...] 08/17/2024 4:30 PM CDT Telephone Check Up [facility] Oncology and Hematology - [place] [address] [facility] [address] [place] [address] Niels Kevin MD [address] [facility] [address] [place] [address] Health Maintenance Due Date Last Done Comments Pre-Diabetes and Diabetes Screening 1976 DTAP/TDAP/TD VACCINES (1 - Tdap) 12/28/1995 HEPATITIS B VACCINES (1 of 3 - 19+ 3-dose series) 12/01 COLORECTAL SCREENING 2021 Colorectal Cancer Screening 2021 FIT-DNA Q 3 years 2021 FIT/FOBT Q 1 year 2021 Flex Sig/CT Colonography Q 5 years 2021 INFLUENZA VACCINE (#1) 2023 Preventative Visit- Commercial Completed 05/24/2024 Procedures Procedure Name Priority Date/Time Associated Diagnosis Comments FLOW CYTOMETRY REPORT Routine 08/04/2024 2:19 PM CDT CBC WITH DIFFERENTIAL Routine 08/03/2024 1:00 PM CDT from Last 3 Months Results * FLOW CYTOMETRY REPORT (08/04/2024 2:19 PM CDT) Niels Kevin MD PATHOLOGY/CYTOLOGY ORDERABLES F inal Result * CBC WITH DIFFERENTIAL (08/03/2024 1:00 PM CDT) Blood Niels Kevin MD HEMATOLOGY ORDERABLES Final Res ult from Last 3 Months Insurance [facility]
--- OUTSIDE RECORDS SUMMARY | 2024-08-12 12:41 | XMS_ITS | Referral Summary ---
Author Organization [facility] Address [address] [place] [address] Care Team Providers Care Social Group Worker Name Role Phone Mauro Mosher NP Primary Care Provider [phone] Allergies No known active allergies Medications adalimumab [...] consult Assessment & Plan (02/10/2017 6:37 PM MARINA MANAGER): Will problem low Medrol to 60 mg [...] follow-up Assessment & Plan (02/10/2017 6:39 PM MARINA MANAGER): This is secondary to Crohn's disease flare. [...] drink = 0.6 oz pur e alcohol) [facility] Utilities Answer Date Recorded In the [...] often do you attend chur ch or mandaen services? Never 06/25/2023 Do you belong to any clubs o r organizations such as lutheran groups, unions, fraternal or athletic groups, or [...] place to sleep or slept in a retirement (including now)? No 06/25/2023 Personal Safety Answer Date Recorded Have you ever been in or are you currently in a harmful physical or emotional relationship or is someone making you feel afraid or unsafe? Denies 04/18/2024 Sex and Gender Information Value Date Recorded Sex Assigned at Not on file Legal Sex Male 8:15 AM MARINA MANAGER Gender Identity Not on file Sexual Orientation Not on file Last Filed Vital Signs Vital Sign Reading Time Taken Comments Blood Pressure 154/87 04/18/2024 1:00 PM MARINA MANAGER Pulse 84 04/18/2024 1:00 PM MARINA MANAGER Temperature 37.6 C (99.7 F) 04/18/2024 8:24 AM MARINA MANAGER Respiratory Rate 20 04/18/2024 12:07 PM MARINA MANAGER Oxygen Saturation 99% 04/18/2024 1:00 PM MARINA MANAGER Inhaled Oxygen Concentration - - Weight 115.1 kg (253 lb 12 oz) 04/18/2024 8:24 A M MARINA MANAGER Height 172.7 cm (5' 8) 04/18/2024 8:24 AM MARINA MANAGER Body Mass Index 38.58 04/18/2024 8:24 AM MARINA MANAGER Plan of Treatment Not on file Procedures Procedure Name Priority Date/Time Associated Diagnosis Comments HEPATITIS C ANTIBODY Routine 11/11/2018 11:46 AM CDT from Last 3 Months or Most Recently Relevant to Health Maintenance Results * Hepatitis C antibody (11/11/2018 11:46 AM CDT) Hep C Ab NONREACT NONREACTIVE [facility] Comment: Siemens CentaurXP using REBECA (chemiluminescent immunoassay) [...] MICROBIOLOGY - GENERAL JUDY MARTINEZ Final Result [facility] [address] [place] [address], [facility] [phone] from Last 3 Months or Most Recently Relevant to Health Maintenance Insurance [id number] OOS ANTHEM ACCESS [employer] OOS Advance Directives For more information, please contact: [phone] * Full Code (Latest Code Status on File) Date Activated Date Inactivated Comments 06/24/2023 8:29 PM 06/27/2023 2:44 PM * Full Code Date Activated Date Inactivated Comments 08/19/2017 7:48 PM 08/20/2017 8:56 PM * Full Code Date Activated Date Inactivated Comments 08/19/2017 6:17 PM 08/19/2017 7:48 PM * Full Code Date Activated Date Inactivated Comments 02/10/2017 5:32 PM 02/11/2017 7:00 PM Care Teams Social Group Worker Relationship Specialty Start Date End Date Mauro Mosher NP [address] [place] [address] PCP - General Family Medicine 06/24/23
--- OUTSIDE RECORDS SUMMARY | 2024-08-12 12:41 | XMS_ITS | Encounter Summary ---
Author Organization [facility] Address [address] [place] [address] Care Team Providers Care Bottling Supervisor Name Role Phone Unavailable Primary Care Provider Unavailabl e Encounter Details Date Type Department Care Team (Late st Contact Info) Description 08/08/2024 Orders Only [facility] Oncology and Hematology [facility] [address] [place] [address] Niels Kevin MD [address] [place] [address] Social History Tobacco Use Types Packs/Day Years [...] as of this encounter Plan of Treatment Upcoming Encounters Date Type Department Care Team (Late st Contact Info) Description 08/17/2024 4:30 PM CDT Telephone Check Up [facility] Oncology and Hematology [facility] [address] [place] [address] Niels Kevin MD [address] [place] [address] documented as of this encounter Procedures Procedure Name Priority Date/Time Associated Diagnosis Comments FLOW CYTOMETRY REPORT Routine 08/04/2024 2:19 PM CDT documented in this encounter Results * FLOW CYTOMETRY REPORT (08/04/2024 2:19 PM CDT) us Niels Kevin MD PATHOLOGY/CYTOLOGY ORDERABLES F inal Result documented in this encounter Visit Diagnoses Not on filedocumented in this encounter
--- OUTSIDE RECORDS SUMMARY | 2024-08-12 12:41 | XMS_ITS | Clinical Summary ---
Author Organization [facility] Address [address] [place] [address] Care Team Providers Care Block Machine Operator Name Role Phone Mauro Mosher NP Primary Care Provider [phone] Allergies No known active allergies Medications adalimumab [...] consult Assessment & Plan (02/10/2017 6:37 PM COMMERCIAL LOAN ANALYST): Will problem low Medrol to 60 mg [...] follow-up Assessment & Plan (02/10/2017 6:39 PM COMMERCIAL LOAN ANALYST): This is secondary to Crohn's disease flare. [...] drink = 0.6 oz pur e alcohol) [facility] Utilities Answer Date Recorded In the [...] often do you attend chur ch or evangelical services? Never 06/25/2023 Do you belong to any clubs o r organizations such as oriental orthodox groups, unions, fraternal or athletic groups, or [...] place to sleep or slept in a half-way (including now)? No 06/25/2023 Personal Safety Answer Date Recorded Have you ever been in or are you currently in a harmful physical or emotional relationship or is someone making you feel afraid or unsafe? Denies 04/18/2024 Sex and Gender Information Value Date Recorded Sex Assigned at Not on file Legal Sex Male 8:15 AM COMMERCIAL LOAN ANALYST Gender Identity Not on file Sexual Orientation Not on file Obstetrics History Last Filed Vital Signs Vital Sign Reading Time Taken Comments Blood Pressure 154/87 04/18/2024 1:00 PM COMMERCIAL LOAN ANALYST Pulse 84 04/18/2024 1:00 PM COMMERCIAL LOAN ANALYST Temperature 37.6 C (99.7 F) 04/18/2024 8:24 AM COMMERCIAL LOAN ANALYST Respiratory Rate 20 04/18/2024 12:07 PM COMMERCIAL LOAN ANALYST Oxygen Saturation 99% 04/18/2024 1:00 PM COMMERCIAL LOAN ANALYST Inhaled Oxygen Concentration - - Weight 115.1 kg (253 lb 12 oz) 04/18/2024 8:24 A M COMMERCIAL LOAN ANALYST Height 172.7 cm (5' 8) 04/18/2024 8:24 AM COMMERCIAL LOAN ANALYST Body Mass Index 38.58 04/18/2024 8:24 AM COMMERCIAL LOAN ANALYST Plan of Treatment Health Maintenance Due Date [...] AM CDT) Hep C Ab NONREACT NONREACTIVE [facility] Comment: Siemens CentaurXP using REBECA (chemiluminescent immunoassay) [...] CLI Russell Conteh MD LAB MICROBIOLOGY - [facility] Final Result [facility] [address] [place] [address], [facility] [phone] from Last 3 Months or Most Recently Relevant to Health Maintenance Insurance [facility] OOS Advance Directives For more information, please contact: [phone] * Full Code (Latest Code Status on File) Date Activated Date Inactivated Comments 06/24/2023 8:29 PM 06/27/2023 2:44 PM * Full Code Date Activated Date Inactivated Comments 08/19/2017 7:48 PM 08/20/2017 8:56 PM * Full Code Date Activated Date Inactivated Comments 08/19/2017 6:17 PM 08/19/2017 7:48 PM * Full Code Date Activated Date Inactivated Comments 02/10/2017 5:32 PM 02/11/2017 7:00 PM Care Teams Block Machine Operator Relationship Specialty Start Date End Date Mauro Mosher, COMMERCIAL CARPENTER [address] [place] [address] PCP - General Family Medicine 06/24/23
--- OUTSIDE RECORDS SUMMARY | 2024-08-12 12:41 | XMS_ITS | Encounter Summary ---
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
--- OUTSIDE RECORDS SUMMARY | 2024-08-12 12:41 | XMS_ITS | Encounter Summary ---
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
--- OUTSIDE RECORDS SUMMARY | 2024-08-12 12:41 | XMS_ITS | Encounter Summary ---
Author Organization [facility] Address [address] [place] [address] Phone Care Team Providers Care Grip Boss Name Role Phone Russell Conteh MD Primary Care Provider [phone] No, Physician Primary Care Provider [phone] Mauro Mosher NP Primary Care Provider [phone] Encounter Details Date Type Department Care Team [...] on file Legal Sex Male 8:15 AM PT SITTER Gender Identity Not on file Sexual Orientation [...] on filedocumented in this encounter Care Teams Grip Boss Relationship Specialty Start Date End Date Russell Conteh MD [address] [place] [address] PCP - General 12/28/18 04/14/22 No, Physician PCP - General 04/15/22 06/23/23 Mauro Mosher GYM INSTRUCTOR [address] [place] [address] PCP - General Family Medicine 06/24/23 documented as of this encounter
--- OUTSIDE RECORDS SUMMARY | 2024-08-12 12:41 | XMS_ITS | Data Portability ---
Author Organization [facility] [email or web address], Main Office Address [address] [place] [address] Care Team Providers Care Transportation Logistics Internship Name Role Phone CORY LORA Primary Care [...] painful, and pops. 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 [...] Lab CBC w/ auto diff 2024 025 [facility] (Lab), [address] [place], [address], 5 06:18:28 lipid panel, serum 2024 025 [facility] (Lab), [address] [place], [address], 5 06:18:27 [email or web address] obin, total, blood [address] (Lab), [address] [place], [address], 5 08:40:15 TSH, serum or plasma 2024 025 [facility] (Lab), [address] [place], [address], 5 06:18:27 CMP, serum or plasma 2024 025 [facility] (Lab), [address] [place], [address], 5 06:18:27 vitamin D3, 25-hydroxy, serum 2024 025 [facility] (Lab), [address] [place], [address], 5 04:18:45 Referral physical therapist referral - Please contact pt to schedule for R knee. Thanks 2024 025 [facility], [address], [place], [address], 5 15:42:00 orthopedic surgeon referral - Please call patient to schedule an appointment . Thank you. 2024 025 [facility], [address], [place], [address], 5 10:58:[address] referral - Please call patient to schedule appointment . 2023 024 [email or web address] Bria Madison MD, [address], [place], [address], 4 09:13:18 Procedures injection/a spiration joint/bursa (PROC) 2024 025 [email or web address] In-Office Order, Internal Use Only DO Not Attach Compendium DO Not Attach Compendium, Do Not Delete/merge, [id number] 5 09:42:05 Surgeries None recorded. Imaging LDCT, chest, for lung cancer screening 2024 025 [email or web address] [facility] ([facility]), [address] [place], [address], 5 15:12:52 Medication Orders bupivacaine HCl 0.5 % (5 mg/mL) injection solution 2024 025 [email or web address], [address], [place], [place], [id number], 5 09:19:43 Kenalog 10 mg/mL suspension for injection 2024 025 [email or web address]3 [facility]35[facility], [address], [place], [place], [id number], 09:19:43 doxycycline hyclate 100 mg capsule 2023 024 [facility] #[id number], [address] [facility], [place], [id number], 14:12:21 Patient TargetsNo targets recorded. Patient Instructions Encounter Date Encounter Id Patient Instructions Last Modified By Organization Details Last Modified Time 05/24/2024 [id number] patellofemoral pain syndrome (runner's knee): exercises [email or web address] Not available 05/24/2024 14:43:43 Reason for Referral Can Closing Machine Operator Referral for S kin lesion Please call [...] contr ast No observ ation record ed. [facility] [address], [place], [address], 11/06/2023 10:28:04 06/02/19 25 04/18/2024 XR, knee, 3 view No observ ation record ed. [email or web address] Not Available 06/01 11:59:36 06/13/19 25 06/12/2024 CT, abdom en + pelvi s, w/ contr ast No observ ation record ed. [address] [facility] [address], [place], [address], 06/14/2024 09:53:24 06/14/1906/13/2024 TSH, serum or plasm a No observ ation record ed. [address] [facility] [address], [place], [address], 07/06/2024 08:45:43 Result Notes None recorded. Problems Name Problem SNOMED Code Status Onset Date Resolution Date Notes Provider Name and Address Organization Details Recorded Time Inflammat ory bowel disease 27023809 Active Not Available [facility] 3 16:12:27 Crohn's disease 89711774 Active Not Available [facility] 3 16:12:27 Iron deficienc y 38402556 Active Not Available [facility] 3 16:12:28 Disorder of vitamin D 131313714 Active Not Available [facility] 3 16:12:28 Obesity 352014409 Active Not Available [facility] 3 16:12:28 Furuncle 828067982 Completed 05/24/[address] [facility], [facility] [address], [place], [address] , [facility] [employer] [facility] 5 14:18:06 Tobacco dependenc e syndrome 77815720 Active Not Available [facility] 3 16:12:28 Skin lesion 14339062 Active 2023 BRITTON Rojas [address], [place], [address] , [facility] [employer] [facility] [employer] [facility] 4 08:45:55 Pain of right knee joint 32994460141 4100 Active 2024 Jewellirene Wallace, ATC L null, [facility] [employer] [facility] 5 09:49:21 Leukocyto sis 782894098 Active 2024 TOMASA Dunn [address] [address], [place], [address] , [facility] [employer] [facility] [employer] [facility] 5 14:42:52 Nicotine dependenc e 78084434 Active 2024 TOMASA Dunn [address] [address], [place], [address] , [employer] [facility] 5 15:31:39 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 Procedures Surgical History Date Name Laterality Status Provider Name and Address Organization Details Recorded Time Ortho - Cortisone Injection completed Saumya Rao NP [address] [address], [place], [address], [employer] [facility] [employer] [facility] 06/01/2024 10:55:16 Imaging Results None recorded. Procedure [...] mL by injectio n route. 2024 active [facility]: [id number] 06-19 Not Available Not Available Not [...] Updated DateTime 4 172.72 cm 40.7 kg/m2 977557. 76 g 98.2 [degF] 80 /min 98 % 98 % 138 mm[Hg] 80 mm[Hg] Breanna Peterson RN [facility] [email or web address] 4 08:32:32 Date Recorded Body weight Body mass index (BMI) Body height Body temperature Heart rate Respiratory rate Oxygen saturation Oxygen saturation in Arterial blood by Pulse oximetry Systolic blood pressure Diastolic blood pressure Provider Name and Address Organization Details Last Updated DateTime 5 590353. 61 g 40.7 kg/m2 172.72 cm 98.1 [degF] 88 /min 20 /min 96 % 96 % 116 mm[Hg] 70 mm[Hg] Staci Pal RN [facility] [email or web address] 14:18:12 Date Recorded Body height Body mass index (BMI) Body weight Provider Name and Address Organization Details Last Updated DateTime 06/01/2024 172.72 cm 39.5 kg/m2 716949.02 geoffrey Workman [employer] 06/01/2024 09:22:38 Date Recorded Body height Body mass index (BMI) Body weight Provider Name and Address Organization Details Last Updated DateTime 07/04/2024 172.72 cm 39.5 kg/m2 404360.02 geoffrey Salazar, [facility] [employer] 07/04/2024 09:27:57 Date Recorded Body height Body mass index (BMI) Body weight Provider Name and Address Organization Details Last Updated DateTime 07/13/2024 172.72 cm 39.5 kg/m2 794366.02 geoffrey Givens, [facility] [employer] 07/13/2024 09:03:01 Social History Question Answer Notes LastModified by Organization Details LastModified Time Tobacco Smoking Status Current Every Day Smoker Breanna Peterson RN [facility], [employer] 04/02/2023 08:37:02 What Is Your Level Of [...] Was 2pdd At One Point In Time [email or web address] Information not available 05/25/2024 Do You Participate In Social Media? No Information not available 05/24/2024 Do You Use Sunscreen Routinely? No Information not available 05/24/2024 How Many Years Have You Smoked Tobacco? 30 Information not available 04/02/2023 Have You Recently Traveled Abroad? No Information not available 05/24/2024 Sex: Unknown Functional Status Question Answer Note LastModified by [employer] Details LastModified Time Do you or have you ever used any other forms of tobacco or nicotine? No Information not available 04/02/2023 Are you currently employed? 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 None Information not available 05/24/2024 Mental Status None recorded. Family History Relationship Description Onset Age of this Age Resolved Age Notes LastModified by Organization Details LastModified Time Mother Diabetes mellitus Not available 2023 08:34:53 Mother History of hypertension [email or web address] Not available 09:25:48 Maternal Grandmother Non-Hodgkin' s lymphoma (clinical) [email or web address] Not available 06/2024 09:25:48 Notes:not sure about father' s side of family. Medical History Condition Response OTHER # 1 OBESITY Y Past Encounters Encounter ID Performer Location Encounter Start Date Encounter Closed Date Diagnosis/Indication Diagnosis SNOMED-CT Code Diagnosis ICD10 Code Diagnosis Note [id number] BRITTON Rojas [facility] Primary Care [facility] [address] [facility] [address] [place] [address] 04/02/2023 08:21:19 04/02/2023 09:03:17 Skin lesion 82277865 L98.9 -notes long hx of multiple lesions/cy st to belt line and [place] axilla-can be painful at times-derm atologist referral-t rial doxycyclin e [id number] Benton Rankin MD [facility] [address] [address] 05/24/2024 13:53:21 05/24/2024 15:05:17 Adult health examination 578719883 Z00.00 Patient in good overall healthDisc ussed diet and exerciseHe alth maintance reviewedPa tient questions answered Pain of ri ght knee joint 8003064230 40765 M25.561 Will see orthoRecom mended PT, pt declinesPa st XR and MRI benign, states symptoms are cyclic. Feels he is on the end of a pain cycle and pain is mildly improved Obesity 742364301 E66.9 Carnivore diet nowDiscuss ed diet and exercise Disorder of vitamin D 38 8961066 E55.9 Leukocytosis 453737694 D 72.829 Nicotine dependence 5629 4008 F17.807 [id number] Arnav Holder MD [facility] [place] [address] [place] [address] 06/01/2024 09:02:18 06/01/2024 10:13:13 Pain of right knee joint 1911361244 27176 M25.634 [id number] Arnav Holder MD [facility] [address] 07/04/2024 09:23:10 07/04/2024 10:03:43 Pain of right knee joint 7157844167 13735 M25.994 [id number] Arnav Holder MD [facility] [place] [address] [place] [address] 07/13/2024 08:59:01 07/13/2024 09:18:21 Pain of right knee joint 5426234200 13083 M25.561 Health Concerns Section Related Observation LastModified by Organization Detai ls LastModified Time None Recorded Concern Status LastModified by Organization Details LastModified Time None Recorded Advance Directives Directive None Recorded Payers Insurance Date Sequence Insurance Name Policy Number Policy Curran Covered Member ID Curran Member ID Guarantor Name 07/18/2024 1 [facility] [id number] Jaswinder Pena [id number] Jaswinder Pena 07/02/2024 1 [facility] [id number] Jaswinder Pena [id number] Jaswinder Pena 07/02/2024 2 [facility] Jaswinder Pena [id number] Jaswinder Pena Notes Date Note Type Note Provider Name and Address Organization Details Recorded Time 04/02/2023 text/html Pt is here to re-establish care BRITTON Rojas [address], [address], [place], [address], [employer] 04/02/2023 09:08:41 05/24/2024 text/html Jaswinder Pena is [...] PRN. 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 Notes [...] declinesColonoscopy: 2021, managed by TOMASA Morse [address], [place], [address], [employer] 05/24/2024 15:31:51
--- OUTSIDE RECORDS SUMMARY | 2024-08-12 12:41 | XMS_ITS | Encounter Summary ---
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
== END 2024-08-12 12:37 | disposition home or self-care (01) ==
PROVIDERS: Visit Provider Internal Medicine Gastroenterology
DX: K55.1 Chronic vascular disorders of intestine (principal)
CPT/HCPCS: 74174; Q9967

== ENCOUNTER 2024-09-10 09:53 | Outpatient (CLI) | payer BC, SELFPAY ==
--- OUTSIDE RECORDS SUMMARY | 2024-09-10 09:59 | XMS_ITS | Referral Summary ---
Author Organization [facility] Address [address] [place] [address] Care Team Providers Care Cns Name Role Phone Mauro Mosher NP Primary Care Provider [phone] Encounters Date Type Department Care Team Description 07/06/2024 Orders Only [facility] [address] [place] [address] Quincy Ochoa MD from Last 3 Months Allergies No known [...] consult Assessment & Plan (02/10/2017 6:37 PM SANDER PORTABLE MACHINE): Will problem low Medrol to 60 mg [...] follow-up Assessment & Plan (02/10/2017 6:39 PM SANDER PORTABLE MACHINE): This is secondary to Crohn's disease flare. [...] drink = 0.6 oz pur e alcohol) [facility] Utilities Answer Date Recorded In the past [...] often do you attend chur ch or adventism services? Never 06/25/2023 Do you belong to any clubs o r organizations such as evangelical groups, unions, fraternal or athletic groups, or [...] on file Legal Sex Male 8:15 AM SANDER PORTABLE MACHINE Gender Identity Not on file Sexual Orientation Not on file Last Filed Vital Signs Vital Sign Reading Time Taken Comments Blood Pressure 154/87 04/18/2024 1:00 PM SANDER PORTABLE MACHINE Pulse 84 04/18/2024 1:00 PM SANDER PORTABLE MACHINE Temperature 37.6 C (99.7 F) 04/18/2024 8:24 AM SANDER PORTABLE MACHINE Respiratory Rate 20 04/18/2024 12:07 PM SANDER PORTABLE MACHINE Oxygen Saturation 99% 04/18/2024 1:00 PM SANDER PORTABLE MACHINE Inhaled Oxygen Concentration - - Weight 115.1 kg (253 lb 12 oz) 04/18/2024 8:24 A M SANDER PORTABLE MACHINE Height 172.7 cm (5' 8) 04/18/2024 8:24 AM SANDER PORTABLE MACHINE Body Mass Index 38.58 04/18/2024 8:24 AM SANDER PORTABLE MACHINE Plan of Treatment Not on file Procedures Procedure Name Priority Date/Time Associated Diagnosis Comments SURGICAL PATHOLOGY Routine 07/06/2024 12 :00 AM CDT HEPATITIS C ANTIBODY Routine 11/11/2018 11:46 AM CDT from Last 3 Months or Most Recently Relevant to Health Maintenance Results * Surgical pathology (07/06/2024 12:00 AM CDT) Soft Tissue Mass - Simple Excision 07/06/2024 08/11/2024 1:5 1 PM CDT Narrative 08/17/2024 12:19 PM CDT Results in EPIC best viewed via PDF link [facility] [address] [place] [address] Note to Patients: This report may contain a detailed description of human tissue sent by a health care provider to the laboratory for pathologic evaluation. The content of this report is essential for diagnosis and may provide important critical findings. This information may be unfamiliar to patients to review without a medical professional present. It is advised that the patient review this report in the presence of a health care provider who can answer questions and explain the details. SURGICAL PATHOLOGY REPORT FINAL Patient Name: ELVIRA FAJARDO Address: [address] [place] [address] Gender: M : 1975 (Age: 48) Service: [facility] Location: [facility] #: [id number] Taken: 07/06/2024 Received: 08/11/2024 Accessioned: 08/11/2024 Reported: 08/17/2024 Physician(s): Quincy Ochoa M.D. [facility] Department of Pathology [address] [place] [address] P: [phone] F: [phone] Diagnosis: Ileum and cecum, ileocecectomy - Chronic active ileitis with fistula formation, mural fibrosis, and dense fibrous adhesions; see comment - Lipomatosis of the ileocecal valve - Proximal margin with patchy chronic active inflammation and pyloric gland metaplasia - Colonic margin is histologically unremarkable - Negative for granuloma and dysplasia - Surgical absence of appendix df/08/12/2024 09:10 By this signature, I attest that the above diagnosis is based upon my personal examination of the slides(and/or other material indicated in the diagnosis). Yaneth Bailey MD Report Electronically Reviewed and Signed Out By Yaneth Bailey MD 08/17/2024 12:19:20 Diagnosis Comment Ten H&E stained slides (labeled [id number] A1-A10 from [facility]) and accompanying surgical pathology report are received. In addition, the ileocecectomy specimen is re-examined and tissue sections taken as described in the gross description in this report. This is an extremely difficult case due to the altered anatomy in this specimen. Sections of the terminal ileum show chronic active with submucosal fibrosis and mural fibrosis. Multifocal pyloric gland metaplasia is noted. 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 The overall features are those of chronic ileitis with fistula and pseudodivericula formation, stricture and dense fibrous adhesions, features most compatible with clinical history of Crohn's ileitis. The patient has been on adalimumab (Humira) since 07/01/2022 per clinical history in [facility]. 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 The etiology of lipomatosis of ileocecal value is not clear. Further, its relation to Crohn's ileitis in this case is not clear. However, cases of lipomatosis with Crohn's ileo-colitis has been reported previously (reference: Brady HAUSER et al., 1973) This case was shared at the intradepartmental liver/GI consensus conference on 08/12/2024. Reference: Brady HAUSER, Clifford GB, Myrtle EB. Lipomatosis of the ileocecal valve. Am J Roentgenol Calio Ther Nucl Med. 1973;119:323-328. Microscopic Description and Comment: Unless gross-only is specified, the final diagnosis for each specimen is based on a microscopic examination of each tissue sample. History: The patient is a 48-year-old man with history of Crohns ileitis for 11 years. Specimen(s) Received: A: Colon ([id number]) Material Received: Received for review is one colon tissue specimen, 10 slides, and 10 blocks (A001, A002, A003, A004, A005, A006, A7-A10) labeled [id number], accompanied by a corresponding pathology report. The material originates from [facility], [place], [place]. Selected slide(s) may be digitally scanned for our files, and all materials are returned to the referring institution, along with a copy of our final report. Gross Description: The specimen came labeled with the patient name Elvira Fajardo and date of (1975) originated from [facility]. The specimen consists of a previously opened ileocecal resection. It has a segment of small bowel measures approximately 63 cm with dense fibrous adhesions and focal fat wrapping. The colon portion measures 8 cm in length and shows 3 small lipomatous lesions (0.8 -1.8 cm) with a diameter of 4.2 cm. The colonic mucosa and wall appears unremarkable. There is a polypoid lesion (3.0 x 2.5 cm) immediately near the ileocecal valve which is distorted. When the cecum and ileocecal value is cut longitudinally, these lipomatous lesions appear to clustered together but do not cause significant obstruction. There is granular mucosa and wall thickening of the distal terminal ileum (8-10 cm in length). A more proximally located segment of small bowel (5-8 cm) also shows granular mucosa and wall thickening. These two diseased small bowel appear to form an entero-enteric fistula around 5 cm in length. The diseased smalll bowel wall measures 0.7 cm in thickness near the fistula tract. The diameter of small bowel varies from 1.2 cm to 4.8 cm in diameter. The intervening small small has unremarkable mucosa but with some serosal fibrous adhesions. Additional sections taken and submutted as follows: A1. Colonic section; A2. Colonic lipomatous lesion (0.8 cm) and one possible lymph node. A3. Polypoid lipomatous lesion (3.0 cm) near ileocecal valve; A4. Small colonic lipomatous lesion (1.8 cm) near ileocecal valve; A5. Colonic section; A6-A9: Small bowel with granular mucosa and wall thickening; A10-A12. Entire fistula tract. Jar 4 bxm/08/11/2024 15:23 Pathology services are provided by the Department of Pathology and Immunology at [facility], [address] [place] [address], [place] [address] CLIA # [id number] The performance characteristics of the testing cited in this report (if any) were determined by the [facility] Department of Pathology and Immunology [facility], as part of an ongoing quality assurance specialist program and in compliance with federally mandated regulations drawn from the Clinical Laboratory Improvement Act of 1988 (CLIA '88). Some of these tests rely on the use of analyte specific reagents (ASR) and are subject to specific labeling requirements by the US Food and Drug Administration. Such diagnostic tests may only be performed in a facility that is certified by the Department of Health and Human Services as a high complexity laboratory under CLIA '88. The FDA has determined that such clearance or approval is not necessary. ASRs should not be regarded as investigational or for research. ASRs were developed and the performance characteristics determined by the [facility], [facility] Department of Pathology and Immunology. It has not been cleared or approved by the U.S. Food and Drug Administration. Any test designated as LDT was developed and its performance characteristics determined by [facility]. It has not been cleared or approved by the FDA. This test is used for clinical purposes and should not be regarded as investigational or for research. Quincy Ochoa MD LAB PATHOLOGY ORDERABLES Rupali l Result * Hepatitis C antibody (11/11/2018 11:46 AM CDT) Hep C Ab NONREACT NONREACTIVE [facility] Comment: Siemens CentaurXP using REBECA (chemiluminescent immunoassay) [...] MICROBIOLOGY - GENERAL JUDY MARTINEZ Final Result [facility] [address] [place] [address], [facility] [phone] from Last 3 Months or Most Recently Relevant to Health Maintenance Insurance [facility] CHOICE PLUS BLUE ACCESS OOS ACCESS BLUE ACCESS OOS Advance Directives For more information, please contact: [phone] * Full Code (Latest Code Status on File) Date Activated Date Inactivated Comments 06/24/2023 8:29 PM 06/27/2023 2:44 PM * Full Code Date Activated Date Inactivated Comments 08/19/2017 7:48 PM 08/20/2017 8:56 PM * Full Code Date Activated Date Inactivated Comments 08/19/2017 6:17 PM 08/19/2017 7:48 PM * Full Code Date Activated Date Inactivated Comments 02/10/2017 5:32 PM 02/11/2017 7:00 PM Care Teams Cns Relationship Specialty Start Date End Date Mauro Mosher NP [address] [place] [address] PCP - General Family Medicine 06/24/23
--- OUTSIDE RECORDS SUMMARY | 2024-09-10 09:59 | XMS_ITS | Clinical Summary ---
Author Organization [facility] [employer] Address [address] [place] [address] Care Team Providers Care Dairy Farmworker Name Role Phone JoiChanda serrano CHAU Primary Care Provider [phone] Source Comments [facility] [employer],non-owned Affiliates and Associated Physician Practices is amultiple site organization consisting of ambulatory clinics and hospital sitesin [place], [place], [place] and [place]. This disclosure is being madepursuant to the Care Everywhere program and may not contain all information available regarding this patient. 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 Gender Identity Not on file Sexual Orientation [...] season) 2023 DEPRESSION SCREENING 03/02/2024 INFLUENZA VACCINE (#1) 2024 ZOSTER VACCINE (1 of 2) 2026 [...] patient's age to complete this topic Insurance [facility] SELF PAY NO INSURANCE Member Subscriber Plan / Payer (Ef fective for All Dates) Name:Jaswinder Pena Member ID:Not on file Relation to Subscriber:Not on file Name:JASWINDER PENA Subscriber ID:Not on file (Home) Address: [address] [place] [id number] Payer ID:Not on file Group ID:Not on file Type:Self Pay Address: [facility] Advance Directives * Full Code (Latest Code Status on File) Date Activated Date Inactivated Comments 11/27/2015 12:18 AM 11/28/2015 2:04 PM Care Teams Dairy Farmworker Relationship Specialty Start Date End Date Chanda Stacy APRN-CNP PCP - General Nurse Practitioner 11/26/15
--- OUTSIDE RECORDS SUMMARY | 2024-09-10 09:59 | XMS_ITS | Encounter Summary ---
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
--- OUTSIDE RECORDS SUMMARY | 2024-09-10 09:59 | XMS_ITS | Clinical Summary ---
Author Organization [facility] Address [address] [place] [address] Care Team Providers Care Tool Grinder Operator Name Role Phone Unavailable Primary Care Provider Unavailabl e Allergies No known active allergies Medications Stelara 90 mg/mL Syringe Inject 90 mg by subcutaneous injection. Active IBUPROFEN ORAL Take 125 mg by mouth. With acetaminophen 250mg (dual pain reliever) Active Active Problems No known active problems Encounters Date Type Department Care Team Description 08/17/2024 4:30 PM CDT Telephone Check Up [facility]ematology - [place] [address] [place] [address] Niels Kevin MD Chronic anemia (Primary Dx) 08/09/2024 External Device Data STL ABSTRACTION Provider, Abstract 08/09/2024 External Device Data STL ABSTRACTION Provider, Abstract 08/09/2024 External Device Data STL ABSTRACTION Provider, Abstract 08/08/2024 Orders Only [facility] - [place] [address] [facility] [place] [address] Niels Kevin MD 08/05/2024 Orders Only [facility] - [place] [address] [place] [address] Niels Kevin MD 08/03/2024 1:30 PM CDT Office Visit [facility] - [place] [address] [place] [address] Niels Kevin MD Leukocytosis, unspecified type (Primary Dx) from Last 3 Months Family History Medical History Relation Name Comments No Known Problems Child Heart Disease Father Diabetes Mother Heart Disease Mother Relation Name Status Comments Child Alive Father Alive Mother Alive Social History Tobacco Use Types Packs/Day Years Used Date Smoking Tobacco: Every Day Cigarettes 1.5 30.5 Started: 03/02/1994 Smokeless Tobacco: Never Alcohol Use [...] Care Team (Late st Contact Info) Description 11/28/2024 2:00 PM CDT Office Visit [facility] - [place] [address] [facility] [address] [place] [address] Niels Kevin MD [address] [facility] [address] [place] [address] Health Maintenance Due Date Last Done Comments Pre-Diabetes and Diabetes Screening 1975 DTAP/TDAP/TD VACCINES (1 - Tdap) 12/28/1995 HEPATITIS B VACCINES (1 of 3 - 19+ 3-dose series) 12/01 COLORECTAL SCREENING 2021 Colorectal Cancer Screening 2021 FIT-DNA Q 3 years 2021 FIT/FOBT Q 1 year 2021 Flex Sig/CT Colonography Q 5 years 2021 INFLUENZA VACCINE (#1) 2024 Procedures Procedure Name Priority Date/Time Associated Diagnosis [...] Res ult from Last 3 Months Insurance BLUE ACCESS CHOICE
--- OUTSIDE RECORDS SUMMARY | 2024-09-10 09:59 | XMS_ITS | Encounter Summary ---
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
--- OUTSIDE RECORDS SUMMARY | 2024-09-10 09:59 | XMS_ITS | Clinical Summary ---
Author Organization [facility] Address [address] [place] [address] Care Team Providers Care Mechanical Facilities Technician Name Role Phone Mauro Mosher NP Primary Care Provider [phone] Allergies No known active allergies Medications adalimumab [...] consult Assessment & Plan (02/10/2017 6:37 PM ETCHER APPRENTICE PHOTOENGRAVING): Will problem low Medrol to 60 mg [...] follow-up Assessment & Plan (02/10/2017 6:39 PM ETCHER APPRENTICE PHOTOENGRAVING): This is secondary to Crohn's disease flare. [...] Care Team Description 07/06/2024 Orders Only [facility] [address] [place] [address] Quincy Ochoa MD from Last 3 Months Medical History Medical History Date Comments Crohn disease (HCC) Bowel obstruction (HCC) Social History Tobacco Use Types Packs/Day Years Used Date Smoking Tobacco: Every Day Cigarettes Smokeless Tobacco: Never Tobacco Cessation:Ready to Q uit: Not Asked; Counseling Given: Not Answered Alcohol Use Standard Drinks/Week Comments Yes 2 (1 standard drink = 0.6 oz pur e alcohol) [facility] Utilities Answer Date Recorded In the past 12 months has e [employer], gas, oil, or water [employer] threatened to shut off services in your [...] often do you attend chur ch or mormon services? Never 06/25/2023 Do you belong to any clubs o r organizations such as religion groups, unions, fraternal or athletic groups, or [...] place to sleep or slept in a care home (including now)? No 06/25/2023 Personal Safety Answer Date Recorded Have you ever been in or are you currently in a harmful physical or emotional relationship or is someone making you feel afraid or unsafe? Denies 04/18/2024 Sex and Gender Information Value Date Recorded Sex Assigned at Not on file Legal Sex Male 8:15 AM ETCHER APPRENTICE PHOTOENGRAVING Gender Identity Not on file Sexual Orientation Not on file Obstetrics History Last Filed Vital Signs Vital Sign Reading Time Taken Comments Blood Pressure 154/87 04/18/2024 1:00 PM ETCHER APPRENTICE PHOTOENGRAVING Pulse 84 04/18/2024 1:00 PM ETCHER APPRENTICE PHOTOENGRAVING Temperature 37.6 C (99.7 F) 04/18/2024 8:24 AM ETCHER APPRENTICE PHOTOENGRAVING Respiratory Rate 20 04/18/2024 12:07 PM ETCHER APPRENTICE PHOTOENGRAVING Oxygen Saturation 99% 04/18/2024 1:00 PM ETCHER APPRENTICE PHOTOENGRAVING Inhaled Oxygen Concentration - - Weight 115.1 kg (253 lb 12 oz) 04/18/2024 8:24 A M ETCHER APPRENTICE PHOTOENGRAVING Height 172.7 cm (5' 8) 04/18/2024 8:24 AM ETCHER APPRENTICE PHOTOENGRAVING Body Mass Index 38.58 04/18/2024 8:24 AM ETCHER APPRENTICE PHOTOENGRAVING Plan of Treatment Health Maintenance Due Date [...] in EPIC best viewed via PDF link [facility] [address] [place] [address] Note to Patients: This report may contain [...] REPORT FINAL Patient Name: ELVIRA FAJARDO Address: [address] [place] [address] Gender: M : 1975 (Age: 48) Service: [facility] Location: [facility] Hospital #: [id number] Taken: 07/06/2024 Received: 08/11/2024 Accessioned: 08/11/2024 Reported: 08/17/2024 Physician(s): Quincy Ochoa M.D. [facility] Department of Pathology [address] [place], [place] [id number] P: [phone] F: [phone] Diagnosis: Ileum and cecum, ileocecectomy - Chronic [...] Diagnosis Comment Ten H&E stained slides (labeled [id number] A1-A10 from [facility]) and accompanying surgical pathology report are received. [...] (Humira) since 07/01/2022 per clinical history in [facility]. In addition, there is non-obstructive lipomatosis of [...] conference on 08/12/2024. Reference: Brady HAUSER, Clifford FITZPATRICK, Myrtle EB. Lipomatosis of the ileocecal valve. Am J Roentgenol [place] Ther Nucl Med. 1973;119:323-328. Microscopic Description and Comment: Unless gross-only is specified, the final diagnosis for each specimen is based on a microscopic examination of each tissue sample. History: The patient is a 48-year-old man with history of Crohns ileitis for 11 years. Specimen(s) Received: A: Colon ([id number]) Material Received: Received for review is one colon tissue specimen, 10 slides, and 10 blocks (A001, A002, A003, A004, A005, A006, A7-A10) labeled [id number], accompanied by a corresponding pathology report. The material originates from [place], [place]. Selected slide(s) may be digitally scanned for our files, and all materials are returned to the referring institution, along with a copy of our final report. Gross Description: The specimen came labeled with the patient name Elvira Fajardo and date of (1975) originated from [facility]. The specimen consists of a previously opened [...] the Department of Pathology and Immunology at [employer] [place] [address] CLIA # [id number] The performance characteristics of the testing cited in this report (if any) were determined by the [facility] of Pathology and Immunology [facility], as part of an ongoing quality assurance associate program and in compliance with federally mandated [...] and the performance characteristics determined by the [facility], [facility] of Pathology and Immunology. It has not been cleared or approved by the U.S. Food and Drug Administration. Any test designated as LDT was developed and its performance characteristics determined by [facility]. It has not been cleared or approved by the FDA. This test is used for clinical purposes and should not be regarded as investigational or for research. Quincy Ochoa MD LAB PATHOLOGY ORDERABLES Rupali l Result * Hepatitis C antibody (11/11/2018 11:46 AM CDT) Hep C Ab NONREACT NONREACTIVE [facility] Comment: Siemens CentaurXP using REBECA (chemiluminescent [...] MICROBIOLOGY - GENERAL JUDY MARTINEZ Final Result [facility] [address] [place] [address], [facility] [phone] from Last 3 Months or Most Recently Relevant to Health Maintenance Insurance [facility] CHOICE PLUS [employer] OOS ANTHEM ACCESS [employer] OOS Advance Directives For more information, please contact: [phone] * Full Code (Latest Code Status on File) Date Activated Date Inactivated Comments 06/24/2023 8:29 PM 06/27/2023 2:44 PM * Full Code Date Activated Date Inactivated Comments 08/19/2017 7:48 PM 08/20/2017 8:56 PM * Full Code Date Activated Date Inactivated Comments 08/19/2017 6:17 PM 08/19/2017 7:48 PM * Full Code Date Activated Date Inactivated Comments 02/10/2017 5:32 PM 02/11/2017 7:00 PM Care Teams Mechanical Facilities Technician Relationship Specialty Start Date End Date Mauro Mosher NP [address] [place] [address] PCP - General Family Medicine 06/24/23
--- OUTSIDE RECORDS SUMMARY | 2024-09-10 09:59 | XMS_ITS | Encounter Summary ---
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
--- OUTSIDE RECORDS SUMMARY | 2024-09-10 09:59 | XMS_ITS | Encounter Summary ---
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
--- OUTSIDE RECORDS SUMMARY | 2024-09-10 09:59 | XMS_ITS | Data Portability ---
Author Organization [place] [facility] [employer], Main Office Address [address] [place] [address] Care Team Providers Care Rail Walker Name Role Phone CORY LORA Primary Care [...] painful, and pops. 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 Treatment has included PT, cortisone injection, anti-inflammatori es, and a knee brace. He was last evaluated July 13; at that time, he reported improvement in symptoms and was ready to be released to full duty. 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 He has been off work due to abdominal surgery but has recently returned to work. He mentioned that he was very active the weekend prior, and then on the following Thursday, he began to experience knee pain and mild swelling. After driving for 11 hours on Thursday and Thursday, he had difficulty getting out of the truck due to the pain and swelling. Localized pain to the medial side, and the swelling is resolving. Still experiencing occasional popping, but no catching or locking. Currently reports pain as 6/10 and taking Tylenol and ibuprofen for pain relief. He only went to 4 PT sessions prior. Physical Exam: General: Normal appearance. No acute distress. Inspection: Mild swelling around the knee. No evidence of erythema, bruising or deformity. Palpation: Mild tenderness to palpation over the medial joint line. Nontender to palpation over the calf. ROM: 0-110 Special Test: Pain with terminal flexion. Positive Artemio, Negative Lachmann, No valgus or varus instability. Negative Posterior Draw. Negative Megan's sign. Motor: 5/5 strength. Sensation: Sensation intact. Assessment & Plan: We will continue with conservative management, since he has only been able to complete 4 sessions of PT due to his bowel surgery. PT ordered. Rx for meloxicam. Discussed not taking any other NSAIDs with this medication. Tylenol is ok to take for breakthrough pain. Follow Up: 6 weeks. Can consider another injection at this time or MRI All questions were answered. Patient verbalized understanding of treatment plan [email or web address] Not available 08/23/2024 13:14:55 Plan of Treatment Reminders Order Date Submit Date Provider Last Modified By Organization Details Last Modified Time Details Appointments Follow Up 15 2024 08:15A TOMASA Morales Not available Not available Not available Any 5 2024 08:00A Mahesh Holder MD Not available Not available Not available Lab CBC w/ auto diff 2024 025 [facility] (Lab), [address] [place], [address], 05/25/2024 06:18:28 lipid panel, serum 2024 025 [facility] (Lab), [address] [place], [address], 05/25/2024 06:18:27 glycohemo globin, total, blood [address] (Lab), [address] [place], [address], 05/31/2024 08:40:15 TSH, serum or plasma 2024 025 [facility] (Lab), [address], [place], [address], 05/25/2024 06:18:27 CMP, serum or plasma 2024 025 [facility] (Lab), [address], [place], [address], 05/25/2024 06:18:27 vitamin D3, 25-hydrox y, serum 2024 025 [facility] (Lab), [address], [place], [address], 05/25/2024 04:18:45 Referral physical therapist referral - Please schedule for R knee, continuat ion of therapy from a couple months ago. Thanks 2024 025 [facility], [address], [place], [address], 08/31/2024 12:53:09 physical therapist referral - Please contact pt to schedule for R knee. Thanks 2024 025 [facility], [address], [place], [address], 06/03/2024 15:42:00 orthopedi c surgeon referral - Please call patient to schedule an appointme nt. Thank you. [address] [facility], [address], [place], [address], 06/01/2024 10:58:41 Procedures injection /aspirati on joint/bur sa (PROC) 2024 [email or web address] 1 In-Office Order, Internal Use Only DO Not Attach Compendium DO Not Attach Compendium, Do Not Delete/merge, [id number] 06/01/2024 09:42:05 Surgeries None recorded. Imaging LDCT, chest, for lung cancer screening 2024 025 [email or web address] [facility] ([facility]), [address] [place], [address], 06/06/2024 15:12:52 Medication Orders meloxicam 15 mg tablet 2024 025 [id number], [address] , [place], [place], [id number], 08/23/2024 12:35:32 bupivacai ne HCl 0.5 % (5 mg/mL) injection solution 2024 025 [email or web address]50[facility], [address] [facility], [place], [place], [id number], 06/03/2024 09:19:43 Kenalog 10 mg/mL suspensio n for injection 2024 025 [facility] #[id number], [address] , [place], [place], [id number], 06/03/2024 09:19:43 Patient TargetsNo targets recorded. Patient Instructions Encounter Date Encounter Id Patient Instructions Last Modified By Organization Details Last Modified Time 05/24/2024 [id number] patellofemoral pain syndrome (runner's knee): exercises [email or web address] Not available 05/24/2024 14:43:43 Reason for Referral Orthopedic Surgeon Referral for Pain of right knee joint Please call patient to schedule an appointment. Thank you. Referring Physician: Cory Lora, Family Medicine, Encounter Date: 05/24/2024 Physical Therapist Referral for Pain of right knee joint R knee Please contact pt to schedule for R knee. Thanks Referring Physician: Saumya Rao, Orthopedic Surgery, Encounter Date: 06/01/2024 Physical Therapist Referral for Pain of right knee joint R knee Please schedule for R knee, continuation of therapy from a couple months ago. Thanks Referring Physician: Delfina Cintron, Orthopedic Surgery, Encounter Date: 08/22/2024 Results Created Date Observation Date Name Description Value Unit Range Abnormal Flag Note LastModifiedBy Organization Detail LastModifiedTime 06/02/1904/18/2024 XR, knee, 3 view No observ ation record ed. [email or web address] Not Available 06/01 11:59:36 06/13/19 25 06/12/2024 CT, abdom en + pelvi s, w/ contr ast No observ ation record ed. [address] [facility], [place], [address], 06/14/2024 09:53:24 06/14/19 25 06/13/2024 TSH, serum or plasm a No observ ation record ed. [address] [facility] [address] [place] [address] Route [facility], [place], [address], 07/06/2024 08:45:43 08/15/19 25 08/12/2024 CT, abdom en, w/o contr ast No observ ation record ed. [address] [facility], [place], [address], 08/16/2024 08:23:20 Result Notes None recorded. Problems Name Problem SNOMED Code Status Onset Date Resolution Date Notes Provider Name and Address Organization Details Recorded Time Inflammat ory bowel disease 99532036 Active Not Available [facility] 3 16:12:27 Crohn's disease 02870088 Active Not Available [facility] 3 16:12:27 Iron deficienc y 89382891 Active Not Available [facility] 3 16:12:28 Disorder of vitamin D 783623974 Active Not Available [facility] 3 16:12:28 Obesity 379254353 Active Not Available [facility] 3 16:12:28 Furuncle 458237397 Completed 05/24/2024 TOMASA Dunn [address] [facility], [facility] [address], [place], [address] , [facility] [employer] [facility] 5 14:18:06 Tobacco dependenc e syndrome 65662336 Active Not Available [facility] 3 16:12:28 Skin lesion 70958722 Active 2023 BRITTON Rojas [address], [place], [address] , [employer] [facility] [employer] [facility] 4 08:45:55 Pain of right knee joint 89037115435 4100 Active 2024 Jewell Wallace, ATC L null, [employer] [facility] [employer] [facility] 5 09:49:21 Leukocyto sis 034954719 Active 2024 TOMASA Dunn [address], [address], [place], [address] , [employer] [facility] 5 14:42:52 Nicotine dependenc e 80343323 Active 2024 TOMASA Dunn [address], [address], [place], [address] , [employer] [facility] 5 15:31:39 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 2024 TOMASA Dunn [address], [address], [place], [address] , [employer] [facility] 5 17:42:36 Knee pain Active 2024 GEOVANNI Hernandez, [employer] [facility] [employer] [facility] 5 09:28:39 Microscop ic hematuria 585526425 Active 2024 TOMASA Dunn [address], [address], [place], [address] , [employer] [facility] [employer] [facility] 5 17:42:04 Essential hypertens ion 57431334 Active 2024 TOMASA Dunn [address], [address], [place], [address] , [employer] [facility] [employer] [facility] 5 17:42:26 Problem Notes None recorded. Procedures Surgical History Date Name Laterality Status Provider Name and Address Organization Details Recorded Time 5 Ortho - Cortisone Injection completed Saumya Rao, [employer] [address], [place], [address], [facility] [employer] [facility] 06/01/2024 10:55:16 Imaging Results None recorded. Procedure Notes None recorded. Medical Equipment None Reported. Allergies No known drug allergies Medications Name Sig Start Date Stop Date Status Note LastModified by Organization Details LastModified Time cyclobenz aprine 10 mg tablet Take 1 tablet 3 times a day by oral route. active Not Available Not Available No t Available amoxicill in 500 mg capsule TAKE 1 CAPSULE BY MOUTH THREE TIMES DAILY UNTIL GONE active Not Available Not Available No t [...] tablet TAKE 1 TABLET BY MOUTH EVERY 5 HOURS NEEDED FOR PAIN active Not Available Not Available No t Available meloxicam 15 mg tablet Take 1 tablet every day by oral route. 2024 active Not Available Not Available Not Avai lable ondansetr on HCl 4 mg tablet 07/25 [...] mL by injectio n route. 2024 active [facility]: [id number] - Not Available Not Available Not Available hydrocodo ne 7.5 mg-acetam inophen 325 mg tablet TAKE 1 TABLET BY MOUTH EVERY 6 HOURS NEEDED 05/24 completed Not Available Not Available Not Available lisinopri l 10 mg tablet TAKE 1 TABLET BY MOUTH EVERY DAY DIRECTED active Not Available Not Available No t Available prednison e 50 mg tablet TAKE [...] Available Not Available Vitals Date Recorded Body weight Body mass index (BMI) Body height Body temperature Heart rate Respiratory rate Oxygen saturation Oxygen saturation in Arterial blood by Pulse oximetry Systolic And Diastolic Provider Name and Address Organization Details Last Updated DateTime 503723. 61 g 40.7 kg/m2 172.72 cm 98.1 [degF] 88 /min 20 /min 96 % 96 % 116/70 mm[Hg] Staci Pal RN [facility] [employer] [facility] 14:18:12 Date Recorded Body height Body mass index (BMI) Body weight Provider Name and Address Organization Details Last Updated DateTime 06/01/2024 172.72 cm 39.5 kg/m2 666861.02 g Jessica Ledbettermons [facility] [employer] [facility] 06/01/2024 09:22:38 Date Recorded Body height Body mass index (BMI) Body weight Provider Name and Address Organization Details Last Updated DateTime 07/04/2024 172.72 cm 39.5 kg/m2 476816.02 geoffrey Salazar [facility] [employer] [facility] 07/04/2024 09:27:57 Date Recorded Body height Body mass index (BMI) Body weight Provider Name and Address Organization Details Last Updated DateTime 07/13/2024 172.72 cm 39.5 kg/m2 524564.02 g Rosana Givens [facility] [employer] [facility] 07/13/2024 09:03:01 Date Recorded Body height Body mass index (BMI) Body weight Provider Name and Address Organization Details Last Updated DateTime 08/22/2024 172.72 cm 39.5 kg/m2 356266.02 g Rosana Tosha, [facility] [employer] [facility] 08/22/2024 14:19:49 Social History Question Answer Notes LastModified by Organization Details LastModified Time Tobacco Smoking Status Current Every Day Smoker Breanna Peterson RN [facility], [facility] [employer] [facility] 04/02/2023 08:37:02 What Is Your Level Of Caffeine Consumption? Occasional Information not available 05/24/2024 In The 14 Days Before Symptom Onset, Have You Had Close Contact With A [facility] COVID-19 While That Case Was Ill? No [...] Was 2pdd At One Point In Time [email or web address] Information not available 05/25/2024 Do You Participate In Social Media? No Information not available 05/24/2024 Do You Use Sunscreen Routinely? No Information not available 05/24/2024 How Many Years Have You Smoked Tobacco? 30 Information not available 04/02/2023 Have You Recently Traveled Abroad? No Information not available 05/24/2024 Sex: Unknown Functional Status Question Answer Note LastModified by Organizat ion Details LastModified Time Do you or have you ever used any other forms of tobacco or nicotine? No Information not available 04/02/2023 Are you currently employed? 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 None Information not available 05/24/2024 Mental Status None recorded. Family History Relationship Description Onset Age of this Age Resolved Age Notes LastModified by Organization Details LastModified Time Mother Diabetes mellitus Not available 2023 08:34:53 Mother History of hypertension [email or web address] Not available 14:17:12 Maternal Grandmother Non-Hodgkin' s lymphoma (clinical) Not available 08/01 14:17:12 Notes:not sure about father' s side of family. Medical History Condition Response OTHER # 1 OBESITY Y Past Encounters Encounter ID Performer Location Encounter Start Date Encounter Closed Date Diagnosis/Indication Diagnosis SNOMED-CT Code Diagnosis ICD10 Code Diagnosis Note [id number] BRITTON Rojas [facility] [address] [facility] [address] [place] [address] 04/02/2023 08:21:19 04/02/2023 09:03:17 Skin lesion 61884235 L98.9 -notes long hx of multiple lesions/cy st to belt line and [place] axilla-can be painful at times-derm atologist referral-t rial doxycyclin e [id number] Benton Rankin MD [facility] Family [facility] Giacomo [address] [facility] [place] [address] 05/24/2024 13:53:21 05/24/2024 15:05:17 Adult health examination 540410214 Z00.00 Patient in good overall healthDisc ussed diet and exerciseHe alth maintance reviewedPa tient questions answered Pain of ri ght knee joint 3201580106 19481 M25.561 Will see orthoRecom mended PT, pt declinesPa st XR and MRI benign, states symptoms are cyclic. Feels he is on the end of a pain cycle and pain is mildly improved Obesity 679857440 E66.9 Carnivore diet nowDiscuss ed diet and exercise Disorder of vitamin D 38 1141784 E55.9 Leukocytosis 751228061 D 72.829 Nicotine dependence 5629 4008 F17.155 [id number] Arnav Holder MD [facility] [place] [address] [place] [address] 06/01/2024 09:02:18 06/01/2024 10:13:13 Pain of right knee joint 2614508815 68620 M25.407 [id number] Arnav Holder MD [facility] [place] [address] [place] [address] 07/04/2024 09:23:10 07/04/2024 10:03:43 Pain of right knee joint 0225837153 43744 M25.774 [id number] Arnav Holder MD [facility] [place] [address] [place] [address] 07/13/2024 08:59:01 07/13/2024 09:18:21 Pain of right knee joint 4485454506 93532 M25.248 [id number] Arnav Holder MD [facility] [place] [address] [place] [address] 08/22/2024 14:15:14 08/22/2024 14:35:10 Pain of right knee joint 0999761393 75955 M25.561 Health Concerns Section Related Observation LastModified by Organization Detai ls LastModified Time None Recorded Concern Status LastModified by Organization Details LastModified Time None Recorded Advance Directives Directive None Recorded Payers Insurance Date Sequence Insurance Name Policy Number Policy Curran Covered Member ID Curran Member ID Guarantor Name 09/10/2024 1 [facility] ([facility] [id number] Jaswinder Pena [id number] Jaswinder Pena 08/22/2024 1 [facility] [id number] Jaswinder Pena [id number] Jaswinder Pena 08/22/2024 2 [facility] Jaswinder Pena [id number] Jaswinder Pena Notes Date Note Type Note Provider Name and Address Organization Details Recorded Time 05/24/2024 text/html Jaswinder Pena is a 48 [...] PRN. 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
[2024-09-10 10:36] LABS: Add Urine Microscopic? NO; Appearance Urine Clear (Clear); Glucose Urine UA Negative (Negative); Leukocyte Esterase Ur Negative LEU/UL (Negative); Nitrate Urine Negative (Negative); Specific Grav Ur 1.015 (1.001-1.035)
[2024-09-10 11:11] LABS: Free T3 3.97 pg/mL (2.71-6.16); Free T4 Free Thyroxine 1.04 ng/dL (0.78-2.19)
[2024-09-10 11:26] LABS: Thyroid Stimulating Hormone 0.540 uIU/mL (0.465-4.680); Total Triiodothyronine (T3) 1.25 NG/ML (0.82-1.58)
== END 2024-09-10 09:54 | disposition home or self-care (01) ==
DX: E05.90 Thyrotoxicosis, unspecified without thyrotoxic crisis or storm (principal); R31.29 Other microscopic hematuria
CPT/HCPCS: 36415; 81003; 84439; 84443; 84480; 84481

== ENCOUNTER 2024-12-24 17:14 | Emergency (ER) | payer BC, SELFPAY ==
--- NOTE | ~2024-12-24 | XR_ITS ---
EXAMINATION: XR ankle LT min 3V, 12/24/2024 17:36 CDT HISTORY: LT lateral ankle pain, stepped in hole few hours ago COMPARISON: No comparisons available. Findings: No acute fracture or malalignment. No significant degenerative changes. Soft tissue swelling. Impression: No acute fracture or malalignment. Reviewed, dictated and finalized at location P. Impression: No acute fracture or malalignment.
[2024-12-24 17:28] VITALS: BP 122/66; PULSE 74; RESP 18; TEMP 36.8; O2SAT 100
--- NOTE | 2024-12-24 17:29 | ED_ITS ---
HPI - Extremity Injury (Lower) General Chief Complaint: Extremity Injury, Lower Stated Complaint: Left Ankle/Foot Pain Time Seen by Provider: 12/24/24 17:30 Source: patient, family, RN notes reviewed and old records reviewed Mode of arrival: wheelchair Limitations: no limitations History of Present Illness HPI Narrative: 48 year old male accompanied by family member presents to express care per wheelchair with complaints of injury to his left ankle after stepping in a hole today when [place] the country [place] and then he fell forward with pain to the left lateral ankle area which radiates to his heel. Patient reports that he has taken some Motrin for his discomfort. Patient reports that pain increases with flexion and extension of left foot in his left ankle area with swelling to left lateral ankle region. MD complaint: ankle injury (left ankle) Onset (ago): day(s) (today around 1330) Injury: Left: ankle (lateral ankle) Place: street/outdoors Severity scale (1-10): 5 Exacerbating factors: weight bearing and movement (of left ankle) Treatments prior to arrival: NSAIDS Related Data Home Medications ?Medication ?Instructions ?Recorded ?Confirmed ?Last Taken ?Type ergocalciferol (vitamin D2) 1,250 50,000 unit PO WEEKL Y 06/12/24 09/08/24 06/10/24 History mcg (50,000 unit) capsule ustekinumab-aekn 90 mg/mL 90 mg subcut .[id number] 09/08/24 Unknown History subcutaneous syringe (Selarsdi) lisinopril 20 tablet 12/24/24 Unknown His tory mg-hydrochlorothiazide 12.5 mg tablet Allergies Allergy/AdvReac Type Severity Reaction Status Date / Time No Known Allergies Allergy Verified 12/24/24 17:16 Review of Systems Review of Systems: CONSTITUTIONAL: Denies fever, chills, or sweats. EYES: Denies visual changes, redness, or discharge. ENT: Denies rhinorrhea, congestion, sore throat, or otalgia. CARDIOVASCULAR: Denies chest pain, palpitations, or edema. RESPIRATORY: Denies cough or dyspnea. GASTROINTESTINAL: Denies abdominal pain, nausea, vomiting, or diarrhea. GENITOURINARY: Denies dysuria or hematuria. SKIN: Denies rash or itching. MUSCULOSKELETAL: Denies back pain,positive for left joint pain to lateral ankle, or myalgia. NEUROLOGIC: Denies headache, numbness, or weakness. PSYCHIATRIC: Denies anxiety or depression. All systems reviewed & are unremarkable except as noted in HPI and below PMFSH Past Medical History Medical History History of repaired hypospadias as Bilateral sacroiliitis Abdominal bloating Tobacco use Leukocytosis Nausea Lower abdominal pain Crohn's disease of ileum Strain of quadriceps tendon Lateral meniscus tear Rheumatoid arthritis Abdominal pain Right knee pain Back pain Crohn's disease Arthritis Surgical History Surgical History History of bowel resection 07/06/2024 - Hand access laparoscopic ileocolic resection with hand-sewn ileocolonic anastomosis Family History Family History Mother Diabetes mellitus Arthritis Hypothyroid Neuropathy Psoriasis Hypertension Asthma Grandparent Cancer Social History Social History Smoking packs per day: 1.5 Smoking cigarettes per day: 30.0 Years smoked: 30 Smoking pack-years: 45.00 Smoking status: Current every day smoker Second hand tobacco smoke exposure: Yes Alcohol intake: never Drinks per week: 1 Alcohol use details: 4 per month Substance use: never Substance use type: does not use Do You Feel Safe in your Home?: Yes Lack of Transportation: No Lack of Food: Never True Current Housing: I Have Housing Concerned About Future Housing: Decline to Answer Difficulty Paying Gas/Electric Bills: Decline to Answer Difficulty Paying for Meds: Decline to Answer Currently Unemployed: Decline to Answer Education: High School Diploma/GED Difficulty w/ Childcare or Family Care: Decline to Answer Living arrangements: with family Gender identity (if verbalized by the patient): Male Spiritual care concerns: No Comments At time of signature, agree with nursing past medical, surgical, social and family history. There is no relevant family history pertinent to the presenting complaint Exam Narrative: GENERAL: Well-appearing, well-nourished, and in no acute distress. HEAD: Normocephalic, atraumatic. EYES: PERRLA and EOMI. ENT: Nares clear, no rhinorrhea or epistaxis. Mucous membranes moist.TM;s normal with good light refles, throat pink with no swelling or redness NECK: Supple.no lymphadenopathy CHEST: Clear to auscultation. No respiratory distress. no cough noted SAO2 100% on room air HEART: Regular rate and rhythm. No murmur heard. Normal peripheral pulses. ABDOMEN: Soft, nontender, nondistended, normal active bowel sounds. EXTREMITIES: Normal range of motion. No edema. Exception noted to left lateral a nkle which has swelling and pain with movement and weight bearing. strong pedal pulse present foot warm and pink, sensation is intact SKIN: Warm, dry, no rash. NEURO: No focal deficits. Alert and oriented x3. Course Course Emergency Course: Patient is aware of diagnosis, understands and agrees to treatment plan.? Anticipatory guidance given.? Patient agrees to follow-up as directed and is aware of reasons to seek care at the emergency department. Portions of this record may have been created with voice recognition software Level of Care: Express Care Visit Vital Signs Vital signs: Vital Signs Temperature 36.8 C 12/24/24 17:28 Pulse Rate 74 12/24/24 17:28 Respiratory Rate 18 12/24/24 17:28 Blood Pressure 122/66 12/24/24 17:28 Pulse Oximetry 100 12/24/24 17:28 Oxygen Delivery Room Air 12/24/24 17:28 Temperature 36.8 C 12/24/24 17:28 Pulse Rate 74 12/24/24 17:28 Respiratory Rate 18 12/24/24 17:28 Blood Pressure 122/66 12/24/24 17:28 Pulse Oximetry 100 12/24/24 17:28 Oxygen Delivery Room Air 12/24/24 17:28 Reviewed MDM - Extremity Injury (Lower) Differential Diagnosis Differential diagnosis: Likely ankle sprain and strain, ankle fracture and other (acute pain and swelling of left ankle) Medical Records Attestation: I reviewed the patient's medical records. Imaging Data Attestation: I personally reviewed and interpreted this imaging study as follows: My impression: No fracture or malalignment, soft tissue swelling to lateral left ankle Radiologist's impression: [facility] [address] [place] [address] XRay Report Signed Patient: Jaswinder Pena : 1975 MR#: [id number] Age: 48 Acct:[id number] Loc: [facility] ADM Date: 12/24/[address]: Ordering Physician: Heidi Noel APRN Date of Service: 12/24/24 Procedure(s): XR ankle LT min 3V Accession Number(s): [id number] cc: Heidi Noel APRN; Tylor, Roselyn Shay APRN~ EXAMINATION: XR ankle LT min 3V, 12/24/2024 17:36 CDT HISTORY: LT lateral ankle pain, stepped in hole few hours ago COMPARISON: No comparisons available. Findings: No acute fracture or malalignment. No significant degenerative changes. Soft tissue swelling. Impression: No acute fracture or malalignment. Reviewed, dictated and finalized at location P. Please be advised this is a medical document. It is intended for dxlh-iq-aole communication. It is written in medical language and may contain unfamiliar abbreviations or verbiage. Medical documents are intended to carry relevant information, facts as evident, and the clinical opinion of the practitioner at the time of the encounter. This report may have been done utilizing a voice recognition system. Attempts have been made to correct errors. However, there may be uncorrected grammatical, spelling, and recognition errors present. The file time of this note does not necessarily represent the time of service. Dictated By: Niels Calhoun MD 12/24/24 1754 Signed By: <Electronically signed by Niels Calhoun MD in OV> Critical Care Time Critical Care Time Critical Care Time: No Discharge Plan Discharge Clinical Impression: Sprain and strain of left ankle, Soft tissue swelling of ankle joint Patient Disposition: Home Condition: Stable Instructions: Antibiotic Form, Ankle Sprain (ED), Swollen Joint (ED) Additional Instructions: Elastic wrap or orthopedic splint as directed for comfort for the next 5-7 days Crutches as directed if needed Tylenol for lesser pain Ibuprofen regularly for the next 2-3 days for the inflammation Follow-up with orthopedic surgeon if any further complaints or concerns Follow-up with PCP if further problems or concerns Ice to the area 20-30 minutes 4-6 times a day Elevate above heart If your symptoms persist, change or worsen significantly before you can contact your personal physician then please, without delay, go to the emergency department for further evaluation. Follow-up with PCP in 7-10 days or sooner if needed Patient Language: Setswana Prescriptions: No Action lisinopril-hydrochlorothiazide 20-12.5 mg tablet ustekinumab-aekn [Selarsdi] 90 mg/mL syringe 90 mg subcut .[id number] ergocalciferol (vitamin D2) 1,250 mcg (50,000 unit) capsule 50,000 unit PO WEEKLY Patient Comments: TAKES ON TUESDAYS Follow-up/Referrals: Tylor,Roselyn Shay, PREVENTIVE MEDICINE OFFICER [Primary Care Provider, Unknown] Time of Disposition: 18:13 Quality Moroni Coma Scale Eyes: Open Verbal: Oriented and Alert Motor: Follows Commands Moroni Coma Total Score: 15
== END 2024-12-24 18:20 | disposition home or self-care (01) ==
PROVIDERS: Emergency Provider Registered Nurse
DX: S93.402A Sprain of unspecified ligament of left ankle, initial encounter (principal); S96.912A Strain of unspecified muscle and tendon at ankle and foot level, left foot, initial encounter; W17.2XXA Fall into hole, initial encounter; M25.472 Effusion, left ankle; F17.210 Nicotine dependence, cigarettes, uncomplicated; K50.90 Crohn's disease, unspecified, without complications; M19.90 Unspecified osteoarthritis, unspecified site; R06.9 Unspecified abnormalities of breathing
CPT/HCPCS: 73610; 99213; G0463

== ENCOUNTER 2025-02-06 00:59 | Day surgery (SDC) | payer BC, SELFPAY ==
[2025-01-02 14:33] VITALS: BMI 39.5
--- NOTE | 2025-01-18 08:39 | PC.NURSE ---
Updated patient on rescheduled procedure time and arrival time. Patient verbalizes understanding. No new changes to medication or medical history since last PAT call. Patient states he has no further questions about his prep instructions.
--- OUTSIDE RECORDS SUMMARY | 2025-02-06 01:02 | XMS_ITS | Encounter Summary ---
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
--- OUTSIDE RECORDS SUMMARY | 2025-02-06 01:02 | XMS_ITS | Encounter Summary ---
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
--- OUTSIDE RECORDS SUMMARY | 2025-02-06 01:02 | XMS_ITS | Clinical Summary ---
Author Organization [facility] Address [address] [place] [address] Care Team Providers Care Offset Plate Maker Name Role Phone Mauro Mosher NP Primary Care Provider [phone] Allergies No known active allergies Medications adalimumab [...] consult Assessment & Plan (02/10/2017 6:37 PM PATIENT CARE PROVIDER): Will problem low Medrol to 60 [...] follow-up Assessment & Plan (02/10/2017 6:39 PM PATIENT CARE PROVIDER): This is secondary to Crohn's disease [...] drink = 0.6 oz pur e alcohol) [facility] Utilities Answer Date Recorded In the past 12 months has th e electric, gas, oil, or water company threatened to shut off services in your home? No 06/25/2023 Social Connection and Isolation Panel Answer Date Recorded In a typical week, how many times do you talk on the phone with family, friends, or neighbors? More than three times a week 06/25/2023 How often do you get togethe r with friends or relatives? More than three times a week 06/25/2023 How often do you attend chur ch or anabaptist services? Never 06/25/2023 Do you belong to any clubs o r organizations such as religious groups, unions, fraternal or athletic groups, or [...] place to sleep or slept in a custodial (including now)? No 06/25/2023 Personal Safety Answer Date Recorded Have you ever been in or are you currently in a harmful physical or emotional relationship or is someone making you feel afraid or unsafe? Denies 04/18/2024 Sex and Gender Information Value Date Recorded Sex Assigned at Not on file Legal Sex Male 8:15 AM PATIENT CARE PROVIDER Gender Identity Not on file Sexual Orientation Not on file Last Filed Vital Signs Vital Sign Reading Time Taken Comments Blood Pressure 154/87 04/18/2024 1:00 PM PATIENT CARE PROVIDER Pulse 84 04/18/2024 1:00 PM PATIENT CARE PROVIDER Temperature 37.6 C (99.7 F) 04/18/2024 8:24 AM PATIENT CARE PROVIDER Respiratory Rate 20 04/18/2024 12:07 PM PATIENT CARE PROVIDER Oxygen Saturation 99% 04/18/2024 1:00 PM PATIENT CARE PROVIDER Inhaled Oxygen Concentration - - Weight 115.1 kg (253 lb 12 oz) 04/18/2024 8:24 A M PATIENT CARE PROVIDER Height 172.7 cm (5' 8) 04/18/2024 8:24 AM PATIENT CARE PROVIDER Body Mass Index 38.58 04/18/2024 8:24 AM PATIENT CARE PROVIDER Plan of Treatment Health Maintenance Due Date Last Done Comments Colon Cancer Screening-Colonoscopy 1975 Depression Screening 1975 DTaP/Tdap/Td Vaccine (1 - Tdap) 11/09/1991 2 Regular Well Visit/Exam 18-64 1994 Pneumococcal vaccine <65 (1 of 2 - PCV) 12/28/1995 Influenza Vaccine (#1) 2024 Hepatitis B Screening Completed 11/11/2018 Hepatitis C Screening Completed 11/11/2018 Procedures Procedure Name Priority Date/Time Associated Diagnosis Comments HEPATITIS C ANTIBODY Routine 11/11/2018 11:46 AM CDT from Last 3 Months or Most Recently Relevant to Health Maintenance Results * Hepatitis C antibody (11/11/2018 11:46 AM CDT) Hep C Ab NONREACT NONREACTIVE [facility] [place][NOTE 2] Comment: Siemens CentaurXP using REBECA (chemiluminescent immunoassay) [...] JUDY MARTINEZ Final Result Performing Organization Address City/State/[facility] Co de Phone Number [place] [phone] [place] [address], [facility] [phone] from Last 3 Months or Most Recently Relevant to Health Maintenance Insurance CHOICE PL[facility] [employer] Advance Directives For more information, please contact: [phone] * Full Code (Latest Code Status on File) Date Activated Date Inactivated Comments 06/24/2023 8:29 PM 06/27/2023 2:44 PM * Full Code Date Activated Date Inactivated Comments 08/19/2017 7:48 PM 08/20/2017 8:56 PM * Full Code Date Activated Date Inactivated Comments 08/19/2017 6:17 PM 08/19/2017 7:48 PM * Full Code Date Activated Date Inactivated Comments 02/10/2017 5:32 PM 02/11/2017 7:00 PM Care Teams Offset Plate Maker Relationship Specialty Start Date End Date Mauro Mosher, COMPLAINT OPERATOR [address] [place] [address] PCP - General Family Medicine 06/24/23
--- OUTSIDE RECORDS SUMMARY | 2025-02-06 01:02 | XMS_ITS | Clinical Summary ---
Author Organization [facility] Address [address] [place] [address] Care Team Providers Care Senior Games Technician Name Role Phone JoiChanda serrano CHAU Primary Care Provider [phone] Source Comments [facility],non-owned Affiliates and Associated Physician Practices is amultiple site organization consisting of ambulatory clinics and hospital sitesin [place], [place] and [place]. This disclosure is being madepursuant to the Care Everywhere program and may not contain all information available regarding this patient. 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 Gender Identity Not on file Sexual Orientation [...] VACCINE (1 of 2 - PCV) 12/28/1995 DEPRESSION SCREENING 03/02/2024 COVID-19 VACCINE ( - 2024-2 6 season) 2024 INFLUENZA VACCINE (#1) 2024 ZOSTER VACCINE (1 [...] patient's age to complete this topic Insurance [facility] SELF PAY NO INSURANCE Member Subscriber Plan / Payer (Ef fective for All Dates) Name:Jaswinder Pena Member ID:Not on file Relation to Subscriber:Not on file Name:JASWINDER PNEA Subscriber ID:Not on file (Home) Address: [address] [place] [address] Payer ID:Not on file Group ID:Not on file Type:Self Pay Address: [facility] Advance Directives * Full Code (Latest Code Status on File) Date Activated Date Inactivated Comments 11/27/2015 12:18 AM 11/28/2015 2:04 PM Care Teams Senior Games Technician Relationship Specialty Start Date End Date Chanda Stacy APRN-CNP PCP - General Nurse Practitioner 11/26/15
--- OUTSIDE RECORDS SUMMARY | 2025-02-06 01:02 | XMS_ITS | Encounter Summary ---
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
--- OUTSIDE RECORDS SUMMARY | 2025-02-06 01:02 | XMS_ITS | Encounter Summary ---
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
--- OUTSIDE RECORDS SUMMARY | 2025-02-06 01:02 | XMS_ITS | Clinical Summary ---
Author Organization [facility] Address [address] [place] [address] Care Team Providers Care Flamer Sealer Name Role Phone Unavailable Primary Care Provider Unavailabl e Allergies No known active allergies Medications Stelara 90 mg/mL Syringe Inject 90 mg by subcutaneous injection. Active IBUPROFEN ORAL Take 125 mg by mouth. With acetaminophen 250mg (dual pain reliever) Active Active Problems No known active problems Family History Medical History Relation Name Comments No Known Problems Child Heart Disease Father Diabetes Mother Heart Disease Mother Relation Name Status Comments Child Alive Father Alive Mother Alive Social History Tobacco Use Types Packs/Day Years Used Date Smoking Tobacco: Every Day Cigarettes 1.5 30.9 Started: 03/02/1994 Smokeless Tobacco: Never Alcohol Use [...] Care Team (Late st Contact Info) Description 04/14/2025 8:30 AM COMMISSIONS ANALYST Office Visit [facility] - [place] [address] [facility] [address] [place] [address] Niels Kevin MD [address] [place] [address] Health Maintenance Due Date Last Done Comments Pre-Diabetes and Diabetes Screening 1975 DTAP/TDAP/TD VACCINES (1 - Tdap) 12/28/1995 HEPATITIS B VACCINES (1 of 3 - 19+ 3-dose series) 12/01 COLORECTAL SCREENING 2021 Colorectal Cancer Screening 2021 FIT-DNA Q 3 years 2021 FIT/FOBT Q 1 year 2021 Flex Sig/CT Colonography Q 5 years 2021 INFLUENZA VACCINE (#1) 2024 Insurance
[2025-02-06 07:09] VITALS: BP 121/69; PULSE 76; RESP 16; TEMP 36.6; O2SAT 100
[2025-02-06 07:10] VITALS: BMI 40.3
[2025-02-06] MEDS: LACTATED RINGERS 1,000 ML 150 ML IV CONT (07:19)
--- NOTE | 2025-02-06 07:21 | WPDANESEPPF ---
Anes - Initial Pre Proc Eval Procedure: Operation Date: 02/06/25 09:00 Proposed Procedures p Diagnostic Colonoscopy - Harris Crain MD Date/Time: 02/06/25 07:21 Surgeon: Harris Crain MD Pre Op Diagnosis: Crohn's disease of small intestine with intestinal Patient Data Age: 49 Gender: M Height: 1.73 m Weight: 120.2 kg Last Vital Signs Temp 36.6 C 02/06/25 07:09 Pulse 76 02/06/25 07:09 Resp 16 02/06/25 07:09 BP 121/69 02/06/25 07:09 Pulse Ox 100 02/06/25 07:09 O2 Del Method Room Air 02/06/25 07:09 Allergies Allergy/AdvReac Type Severity Reaction Status Date / Time No Known Allergies Allergy Verified 02/06/25 07:09 Home Medications ?Medication ?Instructions ?Recorded ?Confirmed ?Type ergocalciferol (vitamin D2) 1,250 50,000 unit PO WEEKLY 06/12/24 02/06/25 History mcg (50,000 unit) capsule ustekinumab-aekn 90 mg/mL 90 mg subcut .[id number] 09/08/24 01/02/25 History subcutaneous syringe (Selarsdi) lisinopril 20 1 tablet PO DAILY 12/24/24 02/06/25 History mg-hydrochlorothiazide 12.5 mg tablet Patient hx anesthesia problems: none Family hx anesthesia problems: none Results Review: All pre-operative results and documents have been reviewed as part of the pre-operative evaluation. [facility] Past Medical History Medical History History of repaired hypospadias as infant Bilateral sacroiliitis Abdominal bloating Tobacco use Leukocytosis Nausea Lower abdominal pain Crohn's disease of ileum Strain of quadriceps tendon Lateral meniscus tear Rheumatoid arthritis Abdominal pain Right knee pain Back pain Crohn's disease Arthritis Surgical History Surgical History History of bowel resection 07/06/2024 - Hand access laparoscopic ileocolic resection with hand-sewn ileocolonic anastomosis Family History Family History Mother Diabetes mellitus Arthritis Hypothyroid Neuropathy Psoriasis Hypertension Asthma Grandparent Cancer Social History Social History Smoking packs per day: 1.5 Smoking cigarettes per day: 30.0 Years smoked: 30 Smoking pack-years: 45.00 Smoking status: Current every day smoker Second hand tobacco smoke exposure: Yes Alcohol intake: never Drinks per week: 1 Alcohol use details: 4 per month Substance use: never Substance use type: does not use Lack of Transportation: No Lack of Food: Never True Current Housing: I Have Housing Concerned About Future Housing: Decline to Answer Difficulty Paying Gas/Electric Bills: Decline to Answer Difficulty Paying for Meds: Decline to Answer Currently Unemployed: Decline to Answer Education: High School Diploma/GED Difficulty w/ Childcare or Family Care: Decline to Answer Living arrangements: with family Gender identity (if verbalized by the patient): Male Spiritual care concerns: No Anes - Eval Final PreProcedure Day of Procedure 02/06/25 07:21 Patient weight: morbidly obese Heart: regular rate and rhythm Lungs: clear to auscultation Airway: Mallampati scale class II Neurological: alert and oriented Last oral intake: >/= 8 hours ASA classification: III Emergent: no Anesthetic plan: proceed Anesthesia type and monitoring: general GIVS and standard monitoring Results Review: All pre-operative results and documents have been reviewed as part of the pre-operative evaluation. Informed Consent: The patient's anesthetic plan and its attendant risks and benefits were discussed with the patient/family/POA. Questions were solicited and answers provided to the satisfaction of the patient/family/POA.
--- NOTE | 2025-02-06 08:33 | PM.IMHP2 ---
H&P: HPI History of Present Illness Date/Time: 02/06/25 08:33 Chief Complaint: Crohn's disease Narrative: The patient underwent ileocolonic resection in June this year due to recurrent small bowel obstructions secondary to Crohn's disease. He is on maintenance treatment with Stelara. He is here today for his colonoscopy after surgery. Review of Systems Review of Systems: All systems reviewed & are unremarkable except as noted in HPI and below PMFSH Past Medical History Medical History History of repaired hypospadias as infant Bilateral sacroiliitis Abdominal bloating Tobacco use Leukocytosis Nausea Lower abdominal pain Crohn's disease of ileum Strain of quadriceps tendon Lateral meniscus tear Rheumatoid arthritis Abdominal pain Right knee pain Back pain Crohn's disease Arthritis Surgical History Surgical History History of bowel resection 07/06/2024 - Hand access laparoscopic ileocolic resection with hand-sewn ileocolonic anastomosis Family History Family History Mother Diabetes mellitus Arthritis Hypothyroid Neuropathy Psoriasis Hypertension Asthma Grandparent Cancer Social History Social History Smoking packs per day: 1.5 Smoking cigarettes per day: 30.0 Years smoked: 30 Smoking pack-years: 45.00 Smoking status: Current every day smoker Second hand tobacco smoke exposure: Yes Alcohol intake: never Drinks per week: 1 Alcohol use details: 4 per month Substance use: never Substance use type: does not use Lack of Transportation: No Lack of Food: Never True Current Housing: I Have Housing Concerned About Future Housing: Decline to Answer Difficulty Paying Gas/Electric Bills: Decline to Answer Difficulty Paying for Meds: Decline to Answer Currently Unemployed: Decline to Answer Education: High School Diploma/GED Difficulty w/ Childcare or Family Care: Decline to Answer Living arrangements: with family Gender identity (if verbalized by the patient): Male Spiritual care concerns: No Meds Home Medications and Allergies Home Medications ?Medication ?Instructions ?Recorded ?Confirmed ?Type ergocalciferol (vitamin D2) 1,250 50,000 unit PO WEEKLY 06/12/24 02/06/25 History mcg (50,000 unit) capsule ustekinumab-aekn 90 mg/mL 90 mg subcut .[id number] 09/08/24 01/02/25 History subcutaneous syringe (Selarsdi) lisinopril 20 1 tablet PO DAILY 12/24/24 02/06/25 History mg-hydrochlorothiazide 12.5 mg tablet Allergies Allergy/AdvReac Type Severity Reaction Status Date / Time No Known Allergies Allergy Verified 02/06/25 07:09 Vital Signs Vital Signs - 24 hr 02/06/25 07:09 Temperature 97.8 F Pulse Rate 76 Respiratory Rate 16 Blood Pressure 121/69 Pulse Oximetry 100 Oxygen Delivery Room Air Exam Const: General: cooperative and healthy appearing Resp: Effort & Inspection: normal respiratory effort and able to speak in complete sentences Auscultation: clear to auscultation bilaterally Cardio: Rate: regular rate Rhythm: regular rhythm GI: Inspection: normal to inspection GI Palp: No No hepatosplenomegaly present Auscultation: normal bowel sounds Rectal Exam: deferred Skin: General skin exam: normal color Psych: Appearance: grossly normal Mental Status: mental status grossly normal Assessment and Plan Assessment and plan (1) Crohn's disease of ileum: Qualifiers: Digestive disease complication type: with intestinal obstruction Qualified Code(s): K50.012 - Crohn's disease of small intestine with intestinal obstruction Code(s): K50.00 - Crohn's disease of small intestine without complications Status: Chronic Assessment and Plan: The patient is deemed a good candidate for the procedure. Consent signed. Will proceed.
--- NOTE | 2025-02-06 08:59 | S_PTH ---
PATIENT: Jaswinder Pena LOC: [facility] U#:[id number] AGE/SX: 49/M ROOM: RE02/06/[address]: Harris Crain MD : 1975 BED: DIS: 02/06/2025 SPEC #: [id number] RECD: 02/06/25 10:41 STATUS: SAI REChaim #: [id number] HUSSAIN: 02/06/25 08:[address]: Harris Crain DEPT: [facility] Surgical RECD BY: Radha Ivory ENTERED: 02/06/25 10:43 SP TYPE: Surgical OTHR DR: Roselyn Snider, WEBLOGIC DEVELOPER Tissues: A - Colon Biopsy B - Colon Biopsy C - Colon Biopsy D - Colon Biopsy Procedures: Hematoxylin and Eosin Stain Gross and Microscopic Level 4
[2025-02-06 09:00] VITALS: BP 110/71; PULSE 70; RESP 16; O2SAT 98
[2025-02-06 09:10] VITALS: BP 107/64; PULSE 52; RESP 16; O2SAT 99
[2025-02-06 09:20] VITALS: BP 120/79; PULSE 68; RESP 16; O2SAT 100
== END 2025-02-06 09:43 | disposition home or self-care (01) ==
PROVIDERS: Referring Provider Nurse Practitioner Family; Visit Provider Internal Medicine Gastroenterology
PROC: 0DJD8ZZ Inspection of Lower Intestinal Tract, Via Natural or Artificial Opening Endoscopic (ICD-10-PCS; CPT 45378; principal; 2025-02-06 09:00)
DX: K50.00 Crohn's disease of small intestine without complications (principal); K63.3 Ulcer of intestine; Z98.0 Intestinal bypass and anastomosis status; Z90.49 Acquired absence of other specified parts of digestive tract; F17.210 Nicotine dependence, cigarettes, uncomplicated; E66.01 Morbid (severe) obesity due to excess calories; Z68.41 Body mass index [BMI] 40.0-44.9, adult
CPT/HCPCS: 45380; 88305; J2003; J2704; J7120

== ENCOUNTER 2025-02-27 11:40 | Outpatient (CLI) | payer BC, SELFPAY ==
[2025-02-27 12:05] LABS: Hematocrit 38.6 % (42.0-52.0); Hemoglobin 12.6 g/dL (14.0-18.0); Mean Corpuscular HGB Conc 32.6 g/dl (32-36); Mean Corpuscular Hemoglobin 28.3 pg (26-34); Mean Corpuscular Volume 86.5 fl (80-100); Platelet Count Result 261 k/mm3 (150-375); Red Blood Count 4.46 M/mm3 (4.6-6.20); White Blood Count 9.9 K/mm3 (4.5-10.0)
--- OUTSIDE RECORDS SUMMARY | 2025-02-27 12:19 | XMS_ITS | Encounter Summary ---
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
--- OUTSIDE RECORDS SUMMARY | 2025-02-27 12:19 | XMS_ITS | Encounter Summary ---
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
--- OUTSIDE RECORDS SUMMARY | 2025-02-27 12:19 | XMS_ITS | Clinical Summary ---
Author Organization [facility] [employer] Address [address] [place] [address] Care Team Providers Care Cashier Payments Received Name Role Phone JoiChanda serrano CHAU Primary Care Provider [phone] Source Comments [facility] [employer],non-owned Affiliates and Associated Physician Practices is amultiple site organization consisting of ambulatory clinics and hospital sitesin [place], [place], [place] and [place]. This disclosure is being madepursuant to the Care Everywhere program and may not contain all information available regarding this patient. 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 Address: [address] [address] [place] [address] [facility] SELF PAY NO INSURANCE Member Subscriber Plan / Payer (Ef fective for All Dates) Name:Jaswinder Pena Member ID:Not on file Relation to Subscriber:Not on file Name:JASWINDER PENA Subscriber ID:Not on file (Home) Address: [address] [id number] Payer ID:Not on file Group ID:Not on file Type:Self Pay Address: [facility] Advance Directives * Full Code (Latest Code Status on File) Date Activated Date Inactivated Comments 11/27/2015 12:18 AM 11/28/2015 2:04 PM Care Teams Cashier Payments Received Relationship Specialty Start Date End Date Chanda Stacy APRN-CNP PCP - General Nurse Practitioner 11/26/15
--- OUTSIDE RECORDS SUMMARY | 2025-02-27 12:19 | XMS_ITS | Encounter Summary ---
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
--- OUTSIDE RECORDS SUMMARY | 2025-02-27 12:19 | XMS_ITS | Clinical Summary ---
Author Organization [facility] Address [address] [place] [address] Care Team Providers Care Financial Administrative Assistant Name Role Phone Mauro Mosher NP Primary Care Provider [phone] Allergies No known active allergies Medications adalimumab [...] consult Assessment & Plan (02/10/2017 6:37 PM DOG HAIR CLIPPER): Will problem low Medrol to 60 mg [...] follow-up Assessment & Plan (02/10/2017 6:39 PM DOG HAIR CLIPPER): This is secondary to Crohn's disease flare. [...] drink = 0.6 oz pur e alcohol) [facility] Utilities Answer Date Recorded In the past [...] often do you attend chur ch or nondenominational services? Never 06/25/2023 Do you belong to any clubs o r organizations such as nondenominational groups, unions, fraternal or athletic groups, or [...] place to sleep or slept in a long term (including now)? No 06/25/2023 Personal Safety Answer Date Recorded Have you ever been in or are you currently in a harmful physical or emotional relationship or is someone making you feel afraid or unsafe? Denies 04/18/2024 Sex and Gender Information Value Date Recorded Sex Assigned at Not on file Legal Sex Male 8:15 AM DOG HAIR CLIPPER Gender Identity Not on file Sexual Orientation Not on file Last Filed Vital Signs Vital Sign Reading Time Taken Comments Blood Pressure 154/87 04/18/2024 1:00 PM DOG HAIR CLIPPER Pulse 84 04/18/2024 1:00 PM DOG HAIR CLIPPER Temperature 37.6 C (99.7 F) 04/18/2024 8:24 AM DOG HAIR CLIPPER Respiratory Rate 20 04/18/2024 12:07 PM DOG HAIR CLIPPER Oxygen Saturation 99% 04/18/2024 1:00 PM DOG HAIR CLIPPER Inhaled Oxygen Concentration - - Weight 115.1 kg (253 lb 12 oz) 04/18/2024 8:24 A M DOG HAIR CLIPPER Height 172.7 cm (5' 8) 04/18/2024 8:24 AM DOG HAIR CLIPPER Body Mass Index 38.58 04/18/2024 8:24 AM DOG HAIR CLIPPER Plan of Treatment Health Maintenance Due Date [...] AM CDT) Hep C Ab NONREACT NONREACTIVE [facility] Comment: Siemens CentaurXP using REBECA (chemiluminescent immunoassay) [...] JUDY MARTINEZ Final Result Performing Organization Address City/State/[facility] Co de Phone Number [place] [address] [place] [address], [facility] [phone] from Last 3 Months or Most Recently Relevant to Health Maintenance Insurance [facility] H[facility]/PPO Address: [facility] [address] [place] [address] [facility] OOS [employer] OOS Advance Directives For more information, please contact: [phone] * Full Code (Latest Code Status on File) Date Activated Date Inactivated Comments 06/24/2023 8:29 PM 06/27/2023 2:44 PM * Full Code Date Activated Date Inactivated Comments 08/19/2017 7:48 PM 08/20/2017 8:56 PM * Full Code Date Activated Date Inactivated Comments 08/19/2017 6:17 PM 08/19/2017 7:48 PM * Full Code Date Activated Date Inactivated Comments 02/10/2017 5:32 PM 02/11/2017 7:00 PM Care Teams Financial Administrative Assistant Relationship Specialty Start Date End Date Mauro Mosher NP [address] [place] [address] PCP - General Family Medicine 06/24/23
--- OUTSIDE RECORDS SUMMARY | 2025-02-27 12:19 | XMS_ITS | Encounter Summary ---
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
--- OUTSIDE RECORDS SUMMARY | 2025-02-27 12:19 | XMS_ITS | Clinical Summary ---
Author Organization [facility]da [facility]on [facility] Address [address] [place] [address] Care Team Providers Care Amusement Ride Operator Name Role Phone Unavailable Primary Care [...] Date Smoking Tobacco: Every Day Cigarettes 1.5 31 Started: 03/02/1994 Smokeless Tobacco: Never Alcohol Use [...] st Contact Info) Description 04/14/2025 8:30 AM SNOW SHOVELER Office Visit [facility] Oncology and Hematology - [place] [address] [facility] [address] [place] [address] Niels Kevin MD [address] [facility] [address] [place] [address] Health Maintenance Due Date Last [...]
[2025-02-27 12:32] LABS: Alanine Aminotransferase 33 U/L (6-50); Albumin Level 4.1 g/dL (3.5-5.1); Alkaline Phosphatase 102 U/L (38-126); Anion Gap 7 mmol/L (4-12); Aspartate Amino Transferase 28 U/L (17-59); Bilirubin,Total 0.6 mg/dL (0.2-1.3); Blood Urea Nitrogen 16 mg/dL (9-20); CRP 1.2 mg/dL (<1.0); Calcium 9.4 mg/dL (8.4-10.2); Carbon Dioxide 25 mmol/L (22-30); Chloride 108 mmol/L (98-107); Estimated Glomerular Filt Rate > 60; Glucose 100 mg/dL (65-110); Potassium 4.0 mmol/L (3.4-5.0); Sodium 140 mmol/L (137-145); Total Protein 7.8 g/dL (6.3-8.2)
[2025-03-01 10:19] LABS: Vitamin B12 321.0 pg/mL (239-931)
[2025-03-01 13:54] LABS: Ferritin 46.40 ng/mL (17.9-464)
== END 2025-02-27 11:41 | disposition home or self-care (01) ==
PROVIDERS: Visit Provider Nurse Practitioner Family
DX: K50.012 Crohn's disease of small intestine with intestinal obstruction (principal); D64.9 Anemia, unspecified; K91.1 Postgastric surgery syndromes; Z90.49 Acquired absence of other specified parts of digestive tract
CPT/HCPCS: 36415; 80053; 82607; 82728; 82746; 85027; 85652; 86140